=== PATIENT | female | born 1960 | race Caucasian/White ===

== ENCOUNTER 2016-11-25 22:52 | Inpatient (IN) ==
[2016-11-25] MEDS ORDERED: FUROSEMIDE 40 MG/4 ML VIAL IV STA (23:18)
[2016-11-25 23:27] LABS: Basophils % 0.3 % (0.0-0.8); Eosinophils # 0.1 10*3/uL (0.0-0.87); Eosinophils % 0.7 % (0.00-10.9); Hematocrit 49.5 VOL% (35.7-47.0); Hemoglobin 16.2 GM/DL (12.0-16.0); Immature Granulocytes % 0.3 %; Immature Granulocytes Absolute 0.04 #; Lymphocytes # 2.2 10*3/uL (1.4-4.0); Lymphocytes % 17.7 % (21.3-54.2); Mean Corpuscular HGB Conc 32.7 GM/DL (32-36); Mean Corpuscular Hemoglobin 29 PG (27-34); Mean Corpuscular Volume 88.1 FL (87-102); Mean Platelet Volume 11.6 FL (9.6-12.0); Monocytes # 1.3 10*3/uL (0.11-0.8); Monocytes % 10.2 % (1.7-12.7); Neutrophils # 8.7 10*3/uL (1.4-7.4); Neutrophils % 70.8 % (38.7-73.9); Platelet Count 179 T/CUMM (130-400); Red Blood Count 5.62 MC/CUMM (3.8-5.5); White Blood Count 12.3 T/CUMM (4-12)
[2016-11-25] MEDS ORDERED: FUROSEMIDE 40 MG/4 ML VIAL ONE (23:33)
[2016-11-25 23:34] LABS: INR 2.4; Partial Thromboplastin Time 40.6 SECS (0-40)
[2016-11-25 23:35] LABS: PT Patient Result 27.3 SECS
[2016-11-25 23:44] LABS: Alanine Aminotransferase 61 U/L (13-56); Albumin 3.1 G/DL (3.4-5.0); Alkaline Phosphatase 112 U/L (45-117); Apearance,Urine CLEAR (Clear); Aspartate Amino Transferase 52 U/L (0-37); Bilirubin,Urine Negative (Negative); Blood Urea Nitrogen 26 MG/DL (7-18); Blood, Urine Small mg/dL (Negative); Glucose 170 MG/DL (74-106); Glucose,Urine (UA) Negative (Negative); Hyaline Casts,Urine 6 /LPF (0-3); Ketones,Urine Negative (Negative); Nitrite,Urine Negative (Negative); Osmolality,Calculated 274.4 MOS/KG (273-304); Potassium 2.7 MMOL/L (3.5-5.1); Protein,Urine Negative; RBC,Urine 2 /HPF (0-4); Sodium 133 MMOL/L (136-145); Squamous Epithelial Cell,Urine Occasional /HPF (0-10); Total Protein 7.3 G/DL (6.4-8.3); Troponin I Only < 0.015 NG/ML (0.00-0.045); Urine Color Yellow (Yellow); Urine Urobilinogen < 2.0 EU/DL (0.2-1.0); WBC,Urine 2 /HPF (0-6)
--- NOTE | 2016-11-25 23:48 | Emergency Department Note ---
Wilber Carlton Brittany, am scribing for, and in the presence of, Tiffany Kc DO 23:31. IDe Debra, DO, personally performed the services described in this documentation, ascribed by Carla Merino in my presence, and it is both accurate and complete 347 . Arrival - Arrival Chief Complaint: Shortness of Breath ED Nursing Triage Note: Pt arrives via ems from home with complaints of SOB and swelling all over. States that she started swellling five days ago but that tonight it seems that she gained 10 lbs of fluid in a matter of hours. States that she started having SOB and Chest pain about 2 hours ago. Pt is noted to have + 4 edema to bilat lower ext. States that she is on lasix and home 02 but that she does not think they are working. Mode of Arrival: Stretcher Limitations: No Limitations Source: Patient, RN Notes Reviewed Time Seen by Provider: 11/25/16 23:16 - History of Present Illness HPI Narrative: Patient is a 56 y/o white female with a history significant for CHF, Atrial Fibrillation, and Pacemaker placement presenting to the ED by EMS with c/o shortness of breath and edema with an onset of 5 days ago, worsening tonight. Patient reports that edema began to spread diffusely over her body 2 days ago, worsening in severity today. Patient states that about 2 hours ago she began to have some chest pain as well. Patient notes that she currently is on Spirinolactone and has taken Lasix 80 mg BID, but these have done little for a resolution. Patient denies any fever, chills, diaphoresis, abdominal pain, nausea, vomiting, radiation of pain into the back, arms, or neck. Patient has no primary care provider due to currently being in search of one s/p change in insurance recently. Patient reports that she is a patient of Dr. Matute and Dr. Hodges of Cardiology. She has no other complaint/pain. Onset (ago): day(s) (5) Consistency: constant Severity: moderate Severity scale (1-10): 6 Quality: aching Date of Last Menstrual Period: 5+ years Allergies/Adverse Reactions: Allergies Allergy/AdvReac Type Severity Reaction Status Date / Time codeine Allergy Nausea Verified 02/24/16 10:58 ketorolac [From Toradol] Allergy ANAPHYLAXIS Verified 02/24/16 10:58 morphine Allergy ITCHING Verified 02/24/16 10:58 nitroglycerin Allergy Weakness Verified 02/24/16 10:58 tramadol [From Ultram] Allergy ANAPHYLAXIS Verified 02/24/16 10:58 Hydromorphone [From Dilaudid] AdvReac Difficulty Verified 02/24/16 10:58 Breathing Home Medications: Home Medications Medication Instructions Recorded Confirmed Type HYDROcodone/ACETAMIN 10-325 [[place] 1 tablet PO Q4H PRN 04/24/15 11/25/16 History 10-325] ALPRAZolam [Xanax] 0.5 mg PO BID 02/24/16 11/25/16 History Gabapentin 800 mg PO TID 02/24/16 11/25/16 History Warfarin Sodium 7.5 mg PO DAILY 02/24/16 11/25/16 History Albuterol Inhaler [Proventil 2 puff INH Q4H PRN #1 inhaler 02/27/16 11/25/16 Rx Inhaler] Aspirin [Ecotrin] 81 mg PO DAILY 08/30/16 11/25/16 History Spironolactone 25 mg PO BID 08/30/16 11/25/16 History Carvedilol [Coreg] 6.25 mg PO BID #60 tablet 09/09/16 11/25/16 Rx Furosemide Tab [Lasix Tab] 80 mg PO BID DIURETIC #60 tablet 09/09/16 11/25/16 Rx Potassium Chloride Cap/Tab [K Dur] 40 meq PO BID #60 tablet 09/09/16 11/25/16 Rx metFORMIN [Glucophage] 500 mg PO BID W/MEALS #60 tablet 09/09/16 11/25/16 Rx Ciprofloxacin HCl [Ciprofloxacin 500 mg PO BID #10 tablet 10/03/16 11/25/16 Rx Tab] metOLazone [Zaroxolyn] 5 mg PO DAILY #30 tablet 10/03/16 11/25/16 Rx Review of System - Review of System 12 point system: reviewed and no additional remarkable complaints except as stated - Review of System Constitutional: Absent: chills, diaphoresis, fever Eyes: Absent: vision change Head/Ears/Nose/Throat: Absent: nasal drainage, sore throat Respiratory: Present: respiratory distress Cardiovascular: Present: chest pain, edema Gastrointestinal: Absent: abdominal pain, nausea, vomiting, diarrhea, constipation Genitourinary female: Absent: dysuria, frequency, urgency Musculoskeletal: Absent: arm pain, back pain, leg pain, neck pain Skin: Absent: rash Neurological: Absent: headache Psychiatric: Absent: anxiety, depression Medical,Surgical,& Family Hx - Medical History Cardio: History of: Cardiac Dysrhythmia (A Fib), CHF, CAD, Hypertension, [place], Pacemaker Psychological: History of: Anxiety Disorders Endocrine: History of: Diabetes Mellitus (NIDDM) ("borderline"), Dyslipidemia Respiratory: No history of: Obstructive Sleep Apnea (Patient has never had formal PSG and HST was technically inadequate), Respiratory Problems Gastrointestinal: History of: Diverticulitis/ Diverticulosis - Surgical History Cardiac Surgeries: Sugical HX of: Cardiac Catheterization, Cardiac Surgery ( pacemaker (2013); stents (2011);) HEENT Surgeries: Surgical HX of: Tonsilectomy & Adenoidectomy Abdominal Surgeries: Surgical HX of: Cholecystectomy Reproductive Surgeries: Surgical HX of;: Breast Surgery (reduction), Section - Family History Family History: Reports;: Family Cancer (sisters, breast), Family Diabetes ( mother and father), Family Heart Disease (mother and father), Family Stroke ( mother) - Social History Smoking Status: Never smoker Frequency of Alcohol Use: None Type of Drug Use: None Exam Vital Signs: Vital Signs Temperature 98.5 F 11/25/16 22:52 Pulse Rate 83 11/25/16 22:52 Respiratory Rate 24 11/25/16 22:52 Blood Pressure 145/103 11/25/16 22:52 O2 Sat by Pulse Oximetry 94 L 11/25/16 22:52 - General General appearance: alert, in no apparent distress, obese (morbidly) - Head Head exam: Present: atraumatic, normocephalic, normal inspection - Eye Eye exam: Present: normal appearance, PERRL, EOMI - ENT ENT exam: Present: normal exam, normal oropharynx - Neck Neck exam: Present: normal inspection, full ROM, trachea midline - Chest Chest inspection: Present: normal inspection, symmetric chest wall rise - Respiratory Respiratory exam: Present: rales (rales noted to the left lung field). Absent: normal lung sounds bilaterally (decreased breath sounds bilaterally) - Cardiovascular Cardiovascular exam: Present: regular rate, irregular rhythm, normal heart sounds - Abdominal Exam Abdominal exam: Present: soft, normal bowel sounds - Extremities Exam Extremities exam: Present: full ROM, pedal edema (+2 to +3 pitting edema bilaterally with scaling) - Back Exam Back exam: Present: normal inspection - Neurological Exam Neurological exam: Present: alert, oriented X3, CN II-XII intact. Absent: motor sensory deficit - Psychiatric Psychiatric exam: Present: normal affect, normal mood - Skin Skin exam: Present: warm, dry, intact, normal color Results - Labs CBC & BMP: 11/25/16 23:08 Lab Results: I have reviewed the patients labs Labs: Laboratory Tests 11/25/16 11/25/16 23:08 23:08 WBC 12.3 H RBC 5.62 H Hgb 16.2 H Hct 49.5 H Plt Count 179 Lymph % (Auto) 17.7 L Neut # (Auto) 8.7 H [place] # (Auto) 1.3 H INR 2.4 PT Patient/Control Mix 27.3 D Circ Anticoag PTT 40.6 H
[2016-11-26] MEDS ORDERED: ALBUTEROL/IPRATROPIUM 3 ML NEB RESP TX STA (00:21)
--- NOTE | 2016-11-26 01:39 | Hospitalist History & Physical ---
Assessment and Plan (1) Acute on chronic diastolic (congestive) heart failure Status: Acute Assessment and plan: Recent transesophageal echo with an EF of 50% 80 mg of IV Lasix produced a decent response by the time of my exam, continue every 6 hours Will require aggressive potassium replacement Check TSH Monitor on telemetry Continue carvedilol and spironolactone. She is not on any afterload reduction, this should probably be addressed by discharge. Current Visit: Yes (2) FEDE (acute kidney injury) Status: Acute Assessment and plan: Suspect underperfusion secondary to cardiac disease, will trend with diuresis Current Visit: Yes (3) Hypokalemia Status: Acute Assessment and plan: Takes 40 mEq of potassium twice daily at home and yet is still hypokalemic secondary to diuretics. Will require aggressive replacement scheduled oral Lasix started with a one-time IV replacement as well Current Visit: Yes (4) Hyponatremia Status: Acute Assessment and plan: Hypervolemic hyponatremia, expect improvement with diuresis Current Visit: Yes (5) Pacemaker Status: Chronic Assessment and plan: Rhythm at this time is mostly ventricular pacing in the 60s-80s Current Visit: Yes (6) Atrial fibrillation Status: Chronic Assessment and plan: Patient reported that she was in A. fib with RVR for the ambulance ride. Right is currently stable and paced at this time. Can use beta-blockers as needed for rate control. Continue warfarin as she is therapeutic on her home dose. Current Visit: Yes Qualifiers: Atrial fibrillation type: paroxysmal Qualified Code(s): I48.0 - Paroxysmal atrial fibrillation (7) Chest pain Status: Acute Assessment and plan: Initial troponin was several hours after pain started, will check another in the morning and monitor on telemetry. Probably related to heart failure and not acute coronary syndrome. Current Visit: Yes (8) CAD (coronary artery disease) Status: Chronic Assessment and plan: Reports having a "little heart attack" several years ago and has 1 stent. Continue aspirin Current Visit: Yes (9) Morbid obesity Status: Acute Current Visit: Yes History of Present Illness Chief complaint: Leg swelling History of present illness: Ms. Ortez is a 56 year old female with past medical history of diastolic heart failure, atrial fibrillation with pacemaker, hypertension, morbid obesity, diabetes, coronary artery disease with a stent placed several years ago, anxiety that presented with a chief complaint of "legs blew up with fluid." Onset initially gradual with sudden exacerbation today. Duration 5 days. Not relieved by home oral Lasix of which she took double doses for the last couple days. Associated with shortness of breath, decline in general functional status , chest pain. The shortness of breath and chest pain really only became significant over the last day. Chest pain started around 7 PM and is substernal , heavy, associated with some nausea and lightheadedness. No diaphoresis. She was not given any nitroglycerin or morphine due to reported allergy. The pain was present but tolerable at the time of my exam. She states that she has had a light heart attack several years ago and that the time she received a stent. She reported that in the ambulance she was in A. fib with RVR and rate of 130s. I have reviewed the workup performed in the emergency department including lab and imaging data. I discussed her case with emergency department providers. I discussed CODE STATUS with the patient and she preferred full code although she did not appear to have been asked the question before. Home Medications Medication Instructions Recorded Confirmed Type HYDROcodone/ACETAMIN 10-325 [[place] 1 tablet PO Q4H PRN 04/24/15 11/25/16 History 10-325] ALPRAZolam [Xanax] 0.5 mg PO BID 02/24/16 11/25/16 History Gabapentin 800 mg PO TID 02/24/16 11/25/16 History Warfarin Sodium 7.5 mg PO DAILY 02/24/16 11/25/16 History Albuterol Inhaler [Proventil 2 puff INH Q4H PRN #1 inhaler 02/27/16 11/25/16 Rx Inhaler] Aspirin [Ecotrin] 81 mg PO DAILY 08/30/16 11/25/16 History Spironolactone 25 mg PO BID 08/30/16 11/25/16 History Carvedilol [Coreg] 6.25 mg PO BID #60 tablet 09/09/16 11/25/16 Rx Furosemide Tab [Lasix Tab] 80 mg PO BID DIURETIC #60 tablet 09/09/16 11/25/16 Rx Potassium Chloride Cap/Tab [K Dur] 40 meq PO BID #60 tablet 09/09/16 11/25/16 Rx metFORMIN [Glucophage] 500 mg PO BID W/MEALS #60 tablet 03/24/17 06/09/17 Rx Ciprofloxacin HCl [Ciprofloxacin 500 mg PO BID #10 tablet 10/03/16 11/25/16 Rx Tab] metOLazone [Zaroxolyn] 5 mg PO DAILY #30 tablet 10/03/16 11/25/16 Rx Allergies Allergy/AdvReac Type Severity Reaction Status Date / Time codeine Allergy Nausea Verified 02/24/16 10:58 ketorolac [From Toradol] Allergy ANAPHYLAXIS Verified 02/24/16 10:58 morphine Allergy ITCHING Verified 02/24/16 10:58 nitroglycerin Allergy Weakness Verified 02/24/16 10:58 tramadol [From Ultram] Allergy ANAPHYLAXIS Verified 02/24/16 10:58 Hydromorphone [From Dilaudid] AdvReac Difficulty Verified 02/24/16 10:58 Breathing Medical,Surgical,& Family Hx - Medical History Cardio: History of: Cardiac Dysrhythmia (A Fib), CHF, CAD, Hypertension, [place], Pacemaker Psychological: History of: Anxiety Disorders Endocrine: History of: Diabetes Mellitus (NIDDM) ("borderline"), Dyslipidemia Respiratory: No history of: Obstructive Sleep Apnea (Patient has never had formal PSG and HST was technically inadequate), Respiratory Problems Gastrointestinal: History of: Diverticulitis/ Diverticulosis - Surgical History Cardiac Surgeries: Sugical HX of: Cardiac Catheterization, Cardiac Surgery ( pacemaker (2013); stents (2011);) HEENT Surgeries: Surgical HX of: Tonsilectomy & Adenoidectomy Abdominal Surgeries: Surgical HX of: Cholecystectomy Reproductive Surgeries: Surgical HX of;: Breast Surgery (reduction), Section - Family History Family History: Reports;: Family Cancer (sisters, breast), Family Diabetes ( mother and father), Family Heart Disease (mother and father), Family Stroke ( mother) - Social History Smoking Status: Former smoker (Over 30 years ago) Have you smoked in the last 12 months: No Frequency of Alcohol Use: None Type of Drug Use: None Lives With:: Children Functional capacity: uses cane/walker Review of systems: - Constitutional Constitutional: Absent: chills, fatigue, fever(s), night sweats, weight loss - EENT Eyes: Absent: blurry vision Ears: Absent: decreased hearing, ear pain Nose, mouth and throat: Absent: nasal congestion, sore throat - Cardiovascular Cardiovascular: Present: Chest pain, orthopnea, edema absent:palpitations - Respiratory Respiratory: Present: Dry cough, dyspnea absent: hemoptysis - Gastrointestinal Gastrointestinal: Present: Abdominal distention absent: abdominal pain, constipation, diarrhea, dysphagia, hematemesis, hematochezia, melena, nausea, vomiting - Genitourinary Genitourinary: Absent: difficulty urinating, dysuria, hematuria - Musculoskeletal Musculoskeletal: Absent: arthralgias, joint swelling, myalgias - Neurological Neurological: Present: Dizziness absent: confusion, focal weakness, headache(s) , numbness, paresthesias, syncope - Psychiatric Psychiatric: Absent: anxiety, depression - Endocrine Endocrine: Absent: cold intolerance, heat intolerance, polydipsia, polyuria - Hematologic/Lymphatic Hematologic/Lymphatic: Absent: easy bleeding, easy bruising, lymphadenopathy Exam - Constitutional Vitals: Period Temp Pulse Resp BP Sys/Way Pulse Ox Last 24 Hr 98.5 F-98.5 F 83-96 22-30 145-145/103-103 94-96 General appearance: morbidly obese, other (Middle-aged white female lying on stretcher, pleasant cooperative) Exam: - Eye Eye exam: Present: EOMI. Absent: conjunctival injection, scleral icterus Pupils: Present: YARED - ENT ENT exam: Present: normal external ear exam, normal oropharynx - Expanded ENT Exam Mouth exam: Present: moist, poor dentition - Neck Neck exam: Present: normal inspection. Absent: lymphadenopathy, thyromegaly - Respiratory Respiratory exam: Present: Cardiac wheezing, diminished in bases. Absent: accessory muscle use, rales, rhonchi - Cardiovascular Cardiovascular exam: Present: Normal rate and irregular rhythm. Absent: diastolic murmur, systolic murmur - GI/Abdominal GI/Abdominal exam: Present: normal bowel sounds, soft, morbidly obese with chronic edematous changes to panniculus, distended. Absent: hyperactive bowel sounds, hypoactive bowel sounds, organomegaly, tenderness, rebound - Extremities Exam Extremities exam: Present: Acute on chronic appearing edema bilateral lower extremities - Neurological Exam Neurological exam: Present: alert, oriented X3, CN II-XII intact. Absent: motor sensory deficit - Psychiatric Psychiatric exam: Present: normal affect - Skin Skin exam: Present: warm, dry. Absent: diaphoretic, rash Results - Labs CBC & BMP: 11/25/16 23:08 11/25/16 23:08 - Impressions EKG with ventricular pacing 81 bpm with PVCs - Diagnostic Findings Procedure: Chest x-ray: report reviewed by me
[2016-11-26] MEDS ORDERED: ACETAMINOPHEN 325 MG TABLET PO PRN (02:19)
[2016-11-26] MEDS ORDERED: DEXTROSE 50% 25 GM/50 ML VIAL IV PRN (02:19)
[2016-11-26] MEDS ORDERED: GLUCAGON 1 MG VIAL IM PRN (02:19)
[2016-11-26] MEDS: POTASSIUM CHLORIDE RIDER 10 MEQ in PREMIX 1 EACH IV SCH ×4 (03:10→07:11)
[2016-11-26 04:49] LABS: Basophils # 0.1 10*3/uL (0.0-0.2); Basophils % 0.4 % (0.0-0.8); Eosinophils # 0.1 10*3/uL (0.0-0.87); Eosinophils % 0.6 % (0.00-10.9); Hematocrit 48.2 VOL% (35.7-47.0); Hemoglobin 15.8 GM/DL (12.0-16.0); Immature Granulocytes % 0.5 %; Immature Granulocytes Absolute 0.07 #; Lymphocytes # 2.6 10*3/uL (1.4-4.0); Lymphocytes % 18.5 % (21.3-54.2); Mean Corpuscular HGB Conc 32.8 GM/DL (32-36); Mean Corpuscular Hemoglobin 29 PG (27-34); Mean Corpuscular Volume 87.3 FL (87-102); Mean Platelet Volume 12.1 FL (9.6-12.0); Monocytes # 1.5 10*3/uL (0.11-0.8); Monocytes % 10.6 % (1.7-12.7); Neutrophils # 9.8 10*3/uL (1.4-7.4); Neutrophils % 69.4 % (38.7-73.9); Platelet Count 188 T/CUMM (130-400); Red Blood Count 5.52 MC/CUMM (3.8-5.5); White Blood Count 14.1 T/CUMM (4-12)
[2016-11-26 05:19] LABS: Calcium 8.8 MG/DL (8.5-10.1); Magnesium 1.8 MG/DL (1.8-2.4); Osmolality,Calculated 268.7 MOS/KG (273-304)
[2016-11-26 05:27] LABS: Potassium 2.4 MMOL/L (3.5-5.1)
[2016-11-26] MEDS: INSULIN LISPRO 100 UNIT/ML SUBCUT SCH ×4 (07:35→21:07)
--- NOTE | 2016-11-26 08:48 | XRay Report ---
History short of breath Comparison 10/01/2016 The heart and vessels are enlarged with mild diffuse bilateral interstitial opacities. Left lung is mildly under aerated. Pacemaker is present Impression: Mild pulmonary edema PROCEDURE INTERPRETED AT [facility] DEPARTMENT OF RADIOLOGY Final Report Signed by: Dr. Nat Love
[2016-11-26] MEDS ORDERED: POTASSIUM CHLORIDE 20 MEQ TABLET PO SCH (09:00)
[2016-11-26] MEDS: SPIRONOLACTONE 25 MG TABLET PO SCH ×2 (09:09→21:05)
[2016-11-26] MEDS: CARVEDILOL 6.25 MG TABLET PO SCH ×2 (09:10→21:05)
[2016-11-26] MEDS: POTASSIUM CHLORIDE 20 MEQ TABLET PO SCH ×2 (09:10→21:05)
[2016-11-26] MEDS: metOLazone 5 MG TABLET PO SCH (09:10)
[2016-11-26] MEDS: ASPIRIN EC 81 MG TABLET PO SCH (09:10)
[2016-11-26] MEDS: ALPRAZolam 0.5 MG TABLET PO SCH ×2 (09:10→21:04)
[2016-11-26] MEDS: GABAPENTIN 400 MG CAPSULE PO SCH ×3 (09:14→21:04)
--- NOTE | 2016-11-26 10:21 | Hospitalist Progress Note ---
Hospitalist: Subjective Interval history: I saw and examined pt in her room today. Pt states that her SOB got better. Pt's sitting in the chair. On oxygen by NC at 2lpm. O2 sat 94%. RR WNL. Edema on legs and abd area. On IV lasix 80mg BID and potassium replenish. Will repeat K level at 2pm, if ok, may able to transfer pt to floor with monitored bed. Consult Cards. CBC BMP in am. Continue current treatment plan. No charge for this progress note. Exam - Constitutional Vitals: Period Temp Pulse Resp BP Sys/Way Pulse Ox Last 24 Hr 96.8 F-98.5 F 60-97 16-30 101-145/55-103 92-98 Results - Labs CBC & BMP: 11/26/16 03:14 11/26/16 03:14 Quality Measures - VTE Contraindication to Pharmacological VTE Prophylaxis: Already on Theraputic Agent , No Prophylaxis Needed - Stroke Symptom Onset Unknown: No
--- NOTE | 2016-11-26 11:49 | Cardiology Consult Note ---
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 HODGES Ms. Ortez, 56WF, previously followed by Dr. Hodges while hospitalized as she has not attended a clinic visit. Risk factors include: known CAD (per patient report), hypertension, dyslipidemia, is a 56 year old female MELIDA TO COMPLETE CC: Catrachito Birmingham MD - Home Medications and Allergies Home Medications: Home Medications Medication Instructions Recorded Confirmed Type HYDROcodone/ACETAMIN 10-325 [Elba 1 tablet PO Q4H PRN 04/24/15 11/25/16 History 10-325] ALPRAZolam [Xanax] 0.5 mg PO BID 02/24/16 11/25/16 History Gabapentin 800 mg PO TID 02/24/16 11/25/16 History Warfarin Sodium 7.5 mg PO DAILY 02/24/16 11/25/16 History Albuterol Inhaler [Proventil 2 puff INH Q4H PRN #1 inhaler 02/27/16 11/25/16 Rx Inhaler] Aspirin [Ecotrin] 81 mg PO DAILY 08/30/16 11/25/16 History Spironolactone 25 mg PO BID 08/30/16 11/25/16 History Carvedilol [Coreg] 6.25 mg PO BID #60 tablet 09/09/16 11/25/16 Rx Furosemide Tab [Lasix Tab] 80 mg PO BID DIURETIC #60 tablet 09/09/16 11/25/16 Rx Potassium Chloride Cap/Tab [K Dur] 40 meq PO BID #60 tablet 09/09/16 11/25/16 Rx metFORMIN [Glucophage] 500 mg PO BID W/MEALS #60 tablet 09/09/16 11/25/16 Rx Ciprofloxacin HCl [Ciprofloxacin 500 mg PO BID #10 tablet 10/03/16 11/25/16 Rx Tab] metOLazone [Zaroxolyn] 5 mg PO DAILY #30 tablet 10/03/16 11/25/16 Rx Allergies/Adverse Reactions: Allergies Allergy/AdvReac Type Severity Reaction Status Date / Time codeine Allergy Nausea Verified 02/24/16 10:58 ketorolac [From Toradol] Allergy ANAPHYLAXIS Verified 02/24/16 10:58 morphine Allergy ITCHING Verified 02/24/16 10:58 nitroglycerin Allergy Weakness Verified 02/24/16 10:58 tramadol [From Ultram] Allergy ANAPHYLAXIS Verified 02/24/16 10:58 Hydromorphone [From Dilaudid] AdvReac Difficulty Verified 02/24/16 10:58 Breathing Medical,Surgical,& Family Hx - Medical History Cardio: History of: Cardiac Dysrhythmia (A Fib), CHF, CAD, Hypertension, VT, Pacemaker Psychological: History of: Anxiety Disorders Endocrine: History of: Diabetes Mellitus (NIDDM) ("borderline"), Dyslipidemia Respiratory: No history of: Obstructive Sleep Apnea (Patient has never had formal PSG and HST was technically inadequate), Respiratory Problems Gastrointestinal: History of: Diverticulitis/ Diverticulosis - Surgical History Cardiac Surgeries: Sugical HX of: Cardiac Catheterization, Cardiac Surgery ( pacemaker (2013); stents (2011);) HEENT Surgeries: Surgical HX of: Tonsilectomy & Adenoidectomy Abdominal Surgeries: Surgical HX of: Cholecystectomy Reproductive Surgeries: Surgical HX of;: Breast Surgery (reduction), Section - Family History Family History: Reports;: Family Cancer (sisters, breast), Family Diabetes ( mother and father), Family Heart Disease (mother and father), Family Stroke ( mother) - Social History Smoking Status: Former smoker Frequency of Alcohol Use: None Type of Drug Use: None Physical Examination Vital Signs Temp Pulse Resp BP Pulse Ox 98.5 F 83 22 145/103 94 L 11/25/16 22:52 11/25/16 22:52 11/25/16 22:52 11/25/16 22:52 11/25/16 22:52 Result/EKG - Labs CBC & BMP: 11/26/16 03:14 11/26/16 03:14 Labs: Laboratory Results - last 24 hr 11/25/16 11/25/16 11/25/16 23:08 23:08 23:08 WBC 12.3 H RBC 5.62 H Hgb 16.2 H Hct 49.5 H MCV 88.1 MCH 29 MCHC 32.7 RDW 14.0 Plt Count 179 MPV 11.6 Neut % (Auto) 70.8 Lymph % (Auto) 17.7 L [place] % (Auto) 10.2 Eos % (Auto) 0.7 Baso % (Auto) 0.3 Neut # (Auto) 8.7 H Lymph # (Auto) 2.2 [place] # (Auto) 1.3 H Eos # (Auto) 0.1 Baso # (Auto) 0.0 Immature Gran % 0.3 Nucleated RBC % 0.0 Immature Gran # 0.04 Nucleated RBCs # 0.00 INR 2.4 PT Patient/Control Mix 27.3 D Circ Anticoag PTT 40.6 H Sodium 133 L Potassium 2.7 L Chloride 84 L Carbon Dioxide 36 H Anion Gap 15.7 H BUN 26 H Creatinine 1.20 H GFR Calculation 74 BUN/Creatinine Ratio 21.00 H Glucose 170 H POC Glucose Hemoglobin A1c Calculated Osmolality 274.4 Calcium 9.0 Magnesium Total Bilirubin 0.70 AST 52 H ALT 61 H Alkaline Phosphatase 112 Total Creatine Kinase 108 CK-MB (CK-2) 1.2 Troponin I < 0.015 B-Natriuretic Peptide Total Protein 7.3 Albumin 3.1 L Globulin 4.2 H Albumin/Globulin Ratio 0.7 L Urine Color Urine Appearance Urine pH Ur Specific [place] Urine Protein Urine Glucose (UA) Urine Ketones Urine Blood Urine Nitrate Urine Bilirubin Urine Urobilinogen Urine Leukocytes Urine RBC Urine WBC Ur Squamous Epith Cells Hyaline Casts Ur Culture Indicated? 11/25/16 11/25/16 11/26/16 23:08 23:08 03:14 WBC 14.1 H RBC 5.52 H Hgb 15.8 Hct 48.2 H MCV 87.3 MCH 29 MCHC 32.8 RDW 14.0 Plt Count 188 MPV 12.1 H Neut % (Auto) 69.4 Lymph % (Auto) 18.5 L [place] % (Auto) 10.6 Eos % (Auto) 0.6 Baso % (Auto) 0.4 Neut # (Auto) 9.8 H Lymph # (Auto) 2.6 [place] # (Auto) 1.5 H Eos # (Auto) 0.1 Baso # (Auto) 0.1 Immature Gran % 0.5 Nucleated RBC % 0.0 Immature Gran # 0.07 Nucleated RBCs # 0.00 INR PT Patient/Control Mix Circ Anticoag PTT Sodium Potassium Chloride Carbon Dioxide Anion Gap BUN Creatinine GFR Calculation BUN/Creatinine Ratio Glucose POC Glucose Hemoglobin A1c Calculated Osmolality Calcium Magnesium Total Bilirubin AST ALT Alkaline Phosphatase Total Creatine Kinase CK-MB (CK-2) Troponin I B-Natriuretic Peptide 43 Total Protein Albumin Globulin Albumin/Globulin Ratio Urine Color Yellow Urine Appearance Clear Urine pH 7.0 Ur Specific [place] 1.010 Urine Protein Negative Urine Glucose (UA) Negative Urine Ketones Negative Urine Blood Small Urine Nitrate Negative Urine Bilirubin Negative Urine Urobilinogen < 2.0 H Urine Leukocytes Trace Urine RBC 2 Urine WBC 2 Ur Squamous Epith Cells Occasional Hyaline Casts 6 Ur Culture Indicated? Not indicated 11/26/16 11/26/16 11/26/16 03:14 03:14 03:14 WBC RBC Hgb Hct MCV MCH MCHC RDW Plt Count MPV Neut % (Auto) Lymph % (Auto) [place] % (Auto) Eos % (Auto) Baso % (Auto) Neut # (Auto) Lymph # (Auto) [place] # (Auto) Eos # (Auto) Baso # (Auto) Immature Gran % Nucleated RBC % Immature Gran # Nucleated RBCs # INR PT Patient/Control Mix Circ Anticoag PTT Sodium 131 L Potassium 2.4 L* Chloride 83 L Carbon Dioxide 36 H Anion Gap 14.4 BUN 27 H Creatinine 1.00 GFR Calculation 92 BUN/Creatinine Ratio 27.00 H Glucose 133 H POC Glucose Hemoglobin A1c 6.9 H Calculated Osmolality 268.7 L Calcium 8.8 Magnesium 1.8 Total Bilirubin AST ALT Alkaline Phosphatase Total Creatine Kinase CK-MB (CK-2) Troponin I 0.021 B-Natriuretic Peptide Total Protein Albumin Globulin Albumin/Globulin Ratio Urine Color Urine Appearance Urine pH Ur Specific [place] Urine Protein Urine Glucose (UA) Urine Ketones Urine Blood Urine Nitrate Urine Bilirubin Urine Urobilinogen Urine Leukocytes Urine RBC Urine WBC Ur Squamous Epith Cells Hyaline Casts Ur Culture Indicated? 11/26/16 11:28 WBC RBC Hgb Hct MCV MCH MCHC RDW Plt Count MPV Neut % (Auto) Lymph % (Auto) [place] % (Auto) Eos % (Auto) Baso % (Auto) Neut # (Auto) Lymph # (Auto) [place] # (Auto) Eos # (Auto) Baso # (Auto) Immature Gran % Nucleated RBC % Immature Gran # Nucleated RBCs # INR PT Patient/Control Mix Circ Anticoag PTT Sodium Potassium Chloride Carbon Dioxide Anion Gap BUN Creatinine GFR Calculation BUN/Creatinine Ratio Glucose POC Glucose 110 H Hemoglobin A1c Calculated Osmolality Calcium Magnesium Total Bilirubin AST ALT Alkaline Phosphatase Total Creatine Kinase CK-MB (CK-2) Troponin I B-Natriuretic Peptide Total Protein Albumin Globulin Albumin/Globulin Ratio Urine Color Urine Appearance Urine pH Ur Specific [place] Urine Protein Urine Glucose (UA) Urine Ketones Urine Blood Urine Nitrate Urine Bilirubin Urine Urobilinogen Urine Leukocytes Urine RBC Urine WBC Ur Squamous Epith Cells Hyaline Casts Ur Culture Indicated? Quality Measures - VTE Contraindication to Pharmacological VTE Prophylaxis: Already on Theraputic Agent , No Prophylaxis Needed - Stroke Symptom Onset Unknown: No <Selvin Calloway - Last Filed: 11/26/16 12:14> Assessment and Plan (1) Chest pain Status: Acute Current Visit: Yes (2) Morbid obesity Status: Acute Current Visit: Yes (3) Atrial fibrillation Status: Chronic Current Visit: Yes Qualifiers: Atrial fibrillation type: paroxysmal Qualified Code(s): I48.0 - Paroxysmal atrial fibrillation (4) Pacemaker Status: Chronic Current Visit: Yes (5) Acute on chronic diastolic (congestive) heart failure Status: Acute Assessment and plan: We will push diuresis. Her prognosis is terrible related to her weight and they will be not much that we can accomplish here from a volume standpoint until we can get her to lose some weight. Her rhythm appears to be stable and we will follow that. Current Visit: Yes History of Present Illness - Consult Narrative History of present illness: Ms. Ortez is a 56 year old female who has a history of morbid obesity history of remote coronary artery disease history of atrial fib flutter and recurring congestive heart failure with chronic lower extremity edema and severe dyspnea related to her weight primarily. She was admitted because of some atypical chest pain shortness of breath and peripheral edema with likely heart failure. She has been admitted on numerous occasions with similar complaints and we will push diuresis and see if we can get have her volume status optimized. This is primarily related to her morbid obesity. She had an echo done back in August of this year which demonstrated an ejection fraction in the 50% range. There were no significant valvular issues at this time. Her EKG is unrevealing. She has a chronically paced rhythm. CC: Catrachito Birmingham MD Physical Examination Vital Signs Temp Pulse Resp BP Pulse Ox 98.5 F 83 22 145/103 94 L 11/25/16 22:52 11/25/16 22:52 11/25/16 22:52 11/25/16 22:52 11/25/16 22:52 Other: Physical examination: General: The patient is awake and alert and oriented -3. Mood and affect are normal. Patient is morbidly obese HEENT: Normocephalic, sclera are clear there are no lid xanthelasmas noted. Oral mucosa is free of cyanosis or pallor. Neck: The neck is supple without JVD. Carotid upstrokes are normal volume and amplitude. There is no audible bruit. There is no palpable thyroid. Trachea is midline. Chest: Lungs: The patient is comfortable at rest without intercostal retractions or abdominal breathing. There are no adventitial sounds rales rubs rhonchi or wheezes noted. Cardiovascular: The PMI is nondisplaced. No palpable thrill S3 or S4. There is a regular rate and rhythm with no murmur rub or gallop noted. Dorsalis pedis posterior tibial are not palpable Abdomen: Abdomen is obese soft and diffusely tender with normal active bowel sounds. There is no palpable mass or organomegaly noted. There is no midline bruit. Extremities exam: There is no cyanosis clubbing or edema. Skin: Skin is warm and dry without ecchymosis or urticaria or skin rash. There are no palpable nodules. Musculoskeletal: There is no kyphosis or scoliosis noted. Result/EKG - Labs CBC & BMP: 11/26/16 03:14 11/26/16 03:14 Labs: Laboratory Results - last 24 hr 11/25/16 11/25/16 11/25/16 23:08 23:08 23:08 WBC 12.3 H RBC 5.62 H Hgb 16.2 H Hct 49.5 H MCV 88.1 MCH 29 MCHC 32.7 RDW 14.0 Plt Count 179 MPV 11.6 Neut % (Auto) 70.8 Lymph % (Auto) 17.7 L [place] % (Auto) 10.2 Eos % (Auto) 0.7 Baso % (Auto) 0.3 Neut # (Auto) 8.7 H Lymph # (Auto) 2.2 [place] # (Auto) 1.3 H Eos # (Auto) 0.1 Baso # (Auto) 0.0 Immature Gran % 0.3 Nucleated RBC % 0.0 Immature Gran # 0.04 Nucleated RBCs # 0.00 INR 2.4 PT Patient/Control Mix 27.3 D Circ Anticoag PTT 40.6 H Sodium 133 L Potassium 2.7 L Chloride 84 L Carbon Dioxide 36 H Anion Gap 15.7 H BUN 26 H Creatinine 1.20 H GFR Calculation 74 BUN/Creatinine Ratio 21.00 H Glucose 170 H POC Glucose Hemoglobin A1c Calculated Osmolality 274.4 Calcium 9.0 Magnesium Total Bilirubin 0.70 AST 52 H ALT 61 H Alkaline Phosphatase 112 Total Creatine Kinase 108 CK-MB (CK-2) 1.2 Troponin I < 0.015 B-Natriuretic Peptide Total Protein 7.3 Albumin 3.1 L Globulin 4.2 H Albumin/Globulin Ratio 0.7 L Urine Color Urine Appearance Urine pH Ur Specific [place] Urine Protein Urine Glucose (UA) Urine Ketones Urine Blood Urine Nitrate Urine Bilirubin Urine Urobilinogen Urine Leukocytes Urine RBC Urine WBC Ur Squamous Epith Cells Hyaline Casts Ur Culture Indicated? 11/25/16 11/25/16 11/26/16 23:08 23:08 03:14 WBC 14.1 H RBC 5.52 H Hgb 15.8 Hct 48.2 H MCV 87.3 MCH 29 MCHC 32.8 RDW 14.0 Plt Count 188 MPV 12.1 H Neut % (Auto) 69.4 Lymph % (Auto) 18.5 L [place] % (Auto) 10.6 Eos % (Auto) 0.6 Baso % (Auto) 0.4 Neut # (Auto) 9.8 H Lymph # (Auto) 2.6 [place] # (Auto) 1.5 H Eos # (Auto) 0.1 Baso # (Auto) 0.1 Immature Gran % 0.5 Nucleated RBC % 0.0 Immature Gran # 0.07 Nucleated RBCs # 0.00 INR PT Patient/Control Mix Circ Anticoag PTT Sodium Potassium Chloride Carbon Dioxide Anion Gap BUN Creatinine GFR Calculation BUN/Creatinine Ratio Glucose POC Glucose Hemoglobin A1c Calculated Osmolality Calcium Magnesium Total Bilirubin AST ALT Alkaline Phosphatase Total Creatine Kinase CK-MB (CK-2) Troponin I B-Natriuretic Peptide 43 Total Protein Albumin Globulin Albumin/Globulin Ratio Urine Color Yellow Urine Appearance Clear Urine pH 7.0 Ur Specific [place] 1.010 Urine Protein Negative Urine Glucose (UA) Negative Urine Ketones Negative Urine Blood Small Urine Nitrate Negative Urine Bilirubin Negative Urine Urobilinogen < 2.0 H Urine Leukocytes Trace Urine RBC 2 Urine WBC 2 Ur Squamous Epith Cells Occasional Hyaline Casts 6 Ur Culture Indicated? Not indicated 11/26/16 11/26/16 11/26/16 03:14 03:14 03:14 WBC RBC Hgb Hct MCV MCH MCHC RDW Plt Count MPV Neut % (Auto) Lymph % (Auto) [place] % (Auto) Eos % (Auto) Baso % (Auto) Neut # (Auto) Lymph # (Auto) [place] # (Auto) Eos # (Auto) Baso # (Auto) Immature Gran % Nucleated RBC % Immature Gran # Nucleated RBCs # INR PT Patient/Control Mix Circ Anticoag PTT Sodium 131 L Potassium 2.4 L* Chloride 83 L Carbon Dioxide 36 H Anion Gap 14.4 BUN 27 H Creatinine 1.00 GFR Calculation 92 BUN/Creatinine Ratio 27.00 H Glucose 133 H POC Glucose Hemoglobin A1c 6.9 H Calculated Osmolality 268.7 L Calcium 8.8 Magnesium 1.8 Total Bilirubin AST ALT Alkaline Phosphatase Total Creatine Kinase CK-MB (CK-2) Troponin I 0.021 B-Natriuretic Peptide Total Protein Albumin Globulin Albumin/Globulin Ratio Urine Color Urine Appearance Urine pH Ur Specific [place] Urine Protein Urine Glucose (UA) Urine Ketones Urine Blood Urine Nitrate Urine Bilirubin Urine Urobilinogen Urine Leukocytes Urine RBC Urine WBC Ur Squamous Epith Cells Hyaline Casts Ur Culture Indicated? 11/26/16 11:28 WBC RBC Hgb Hct MCV MCH MCHC RDW Plt Count MPV Neut % (Auto) Lymph % (Auto) [place] % (Auto) Eos % (Auto) Baso % (Auto) Neut # (Auto) Lymph # (Auto) [place] # (Auto) Eos # (Auto) Baso # (Auto) Immature Gran % Nucleated RBC % Immature Gran # Nucleated RBCs # INR PT Patient/Control Mix Circ Anticoag PTT Sodium Potassium Chloride Carbon Dioxide Anion Gap BUN Creatinine GFR Calculation BUN/Creatinine Ratio Glucose POC Glucose 110 H Hemoglobin A1c Calculated Osmolality Calcium Magnesium Total Bilirubin AST ALT Alkaline Phosphatase Total Creatine Kinase CK-MB (CK-2) Troponin I B-Natriuretic Peptide Total Protein Albumin Globulin Albumin/Globulin Ratio Urine Color Urine Appearance Urine pH Ur Specific [place] Urine Protein Urine Glucose (UA) Urine Ketones Urine Blood Urine Nitrate Urine Bilirubin Urine Urobilinogen Urine Leukocytes Urine RBC Urine WBC Ur Squamous Epith Cells Hyaline Casts Ur Culture Indicated?
[2016-11-26] MEDS ORDERED: MAGNESIUM SULF RIDER 4 GM in PREMIX 1 EACH IV PRN (12:15)
[2016-11-26] MEDS: FUROSEMIDE 40 MG/4 ML VIAL IV SCH ×3 (12:43→21:55)
[2016-11-26] MEDS: MAGNESIUM SULF RIDER 2 GM in PREMIX 1 EACH IV PRN (13:38)
--- NOTE | 2016-11-26 14:20 | EKG Report ---
Stationary ECG Study [facility] ER Test Date: 11/25/2016 11:05:04 PM Pat Name: ZUHAIR CONDON Department: Room: 266 Gender: F Lab Director: ROSA : 1960 Requested by: Tfifany Kc Order Number: [id number] Reading MD: SELENE KOWALSKI Intervals [place] Rate: 81 P: 999 NC: 0 QRS: -72 QRSD: 190 T: 83 QT: 489 QTc: 527 Interpretive Statements ELECTRONIC VENTRICULAR PACEMAKER ABNORMAL RHYTHM ECG Electronically Signed On 11-27-16 15:31:24 CDT by SELENE KOWALSKI [email or web address]
[2016-11-26] MEDS: SODIUM CHLOR 0.9% KCL 40 MEQ 40 MEQ/1,000 ML BAG IV SCH (15:13)
[2016-11-26] MEDS: WARFARIN 7.5 MG TABLET PO SCH (17:18)
[2016-11-27] MEDS: ALBUTEROL 2.5 MG/3 ML NEB RESP TX PRN ×2 (02:54→10:25)
[2016-11-27] MEDS: FUROSEMIDE 40 MG/4 ML VIAL IV SCH ×4 (03:02→21:12)
[2016-11-27 05:30] LABS: Basophils % 0.4 % (0.0-0.8); Eosinophils # 0.2 10*3/uL (0.0-0.87); Eosinophils % 1.5 % (0.00-10.9); Hematocrit 49.5 VOL% (35.7-47.0); Hemoglobin 15.7 GM/DL (12.0-16.0); Immature Granulocytes % 0.3 %; Immature Granulocytes Absolute 0.03 #; Lymphocytes # 1.6 10*3/uL (1.4-4.0); Lymphocytes % 13.9 % (21.3-54.2); Mean Corpuscular HGB Conc 31.7 GM/DL (32-36); Mean Corpuscular Hemoglobin 28 PG (27-34); Mean Corpuscular Volume 88.6 FL (87-102); Monocytes # 1.3 10*3/uL (0.11-0.8); Monocytes % 11.8 % (1.7-12.7); Neutrophils # 8.1 10*3/uL (1.4-7.4); Neutrophils % 72.1 % (38.7-73.9); Platelet Count 172 T/CUMM (130-400); Red Blood Count 5.59 MC/CUMM (3.8-5.5); Red Cell Distribution Width 14.1 % (9.3-17.3); White Blood Count 11.3 T/CUMM (4-12)
[2016-11-27 08:31] LABS: Calcium 9.5 MG/DL (8.5-10.1); Magnesium 1.9 MG/DL (1.8-2.4); Osmolality,Calculated 276.2 MOS/KG (273-304); Potassium 2.8 MMOL/L (3.5-5.1)
[2016-11-27] MEDS: INSULIN LISPRO 100 UNIT/ML SUBCUT SCH ×4 (08:56→21:18)
[2016-11-27] MEDS: GABAPENTIN 400 MG CAPSULE PO SCH ×3 (08:58→21:10)
[2016-11-27] MEDS: metOLazone 5 MG TABLET PO SCH (08:58)
[2016-11-27] MEDS: POTASSIUM CHLORIDE 20 MEQ TABLET PO SCH ×2 (08:58→21:11)
[2016-11-27] MEDS: SPIRONOLACTONE 25 MG TABLET PO SCH ×2 (08:59→21:12)
[2016-11-27] MEDS: CARVEDILOL 6.25 MG TABLET PO SCH ×2 (08:59→21:12)
[2016-11-27] MEDS: ASPIRIN EC 81 MG TABLET PO SCH (08:59)
[2016-11-27] MEDS: ALPRAZolam 0.5 MG TABLET PO SCH ×2 (09:00→21:12)
--- NOTE | 2016-11-27 09:36 | Cardiology Progress Note ---
Assessment and Plan (1) Chest pain Status: Acute Current Visit: Yes (2) Morbid obesity Status: Acute Current Visit: Yes (3) Atrial fibrillation Status: Chronic Assessment and plan: I have not noted any atrial fibrillation on her monitor strips to this point. Current Visit: Yes Qualifiers: Atrial fibrillation type: paroxysmal Qualified Code(s): I48.0 - Paroxysmal atrial fibrillation (4) Pacemaker Status: Chronic Assessment and plan: Pacemaker function appears nominal. Current Visit: Yes (5) Acute on chronic diastolic (congestive) heart failure Status: Acute Assessment and plan: We will push diuresis. Her prognosis is terrible related to her weight and they will be not much that we can accomplish here from a volume standpoint until we can get her to lose some weight. Her rhythm appears to be stable and we will follow that. Current Visit: Yes Cardiology - PN: Subj Interval history: The patient feels as if he may be breathing a little bit better today. No history of any problems related to chest discomfort. She is not ambulatory. Her urine output has been fairly good on her current dose of diuretics. She denies chest pain. She has had no other specific complaints. Exam (Progress Note) - Constitutional Vitals: Period Temp Pulse Resp BP Sys/Way Pulse Ox Last 24 Hr 96.5 F-98.4 F 59-80 19-21 102-120/62-81 93-98 Exam: General:no acute distress. Morbidly obese, alert and oriented, mood and affect are normal HEENT: no new lesions, sclerae are clear, mouth and pharynx benign Neck: supple, trachea midline, no JVD noted Lungs: no rales ronchi or wheeze is noted. pt comfortable without accesory muscle use to assist with breathing CV: RRR no murmur rub or gallop is noted. Abd: soft and nontender, BSNA, no masses. Ext: Chronic edematous lower extremities bilaterally. No cyanosis or clubbing is noted. Neuro: grossly intact without focal neurologic deficit. Result/EKG - Labs CBC & BMP: 11/27/16 04:43 11/27/16 07:40 Labs: Laboratory Results - last 24 hr 11/26/16 11/26/16 11/26/16 11:28 14:12 16:55 WBC RBC Hgb Hct MCV MCH MCHC RDW Plt Count MPV Neut % (Auto) Lymph % (Auto) [place] % (Auto) Eos % (Auto) Baso % (Auto) Neut # (Auto) Lymph # (Auto) [place] # (Auto) Eos # (Auto) Baso # (Auto) Immature Gran % Nucleated RBC % Immature Gran # Nucleated RBCs # Sodium Potassium 2.9 L Chloride Carbon Dioxide Anion Gap BUN Creatinine GFR Calculation BUN/Creatinine Ratio Glucose POC Glucose 110 H 158 H Calculated Osmolality Calcium Magnesium 11/26/16 11/27/16 11/27/16 19:10 04:43 06:46 WBC 11.3 RBC 5.59 H Hgb 15.7 Hct 49.5 H MCV 88.6 MCH 28 MCHC 31.7 L RDW 14.1 Plt Count 172 MPV 12.0 Neut % (Auto) 72.1 Lymph % (Auto) 13.9 L [place] % (Auto) 11.8 Eos % (Auto) 1.5 Baso % (Auto) 0.4 Neut # (Auto) 8.1 H Lymph # (Auto) 1.6 [place] # (Auto) 1.3 H Eos # (Auto) 0.2 Baso # (Auto) 0.0 Immature Gran % 0.3 Nucleated RBC % 0.0 Immature Gran # 0.03 Nucleated RBCs # 0.00 Sodium Potassium Chloride Carbon Dioxide Anion Gap BUN Creatinine GFR Calculation BUN/Creatinine Ratio Glucose POC Glucose 183 H 199 H Calculated Osmolality Calcium Magnesium 11/27/16 07:40 WBC RBC Hgb Hct MCV MCH MCHC RDW Plt Count MPV Neut % (Auto) Lymph % (Auto) [place] % (Auto) Eos % (Auto) Baso % (Auto) Neut # (Auto) Lymph # (Auto) [place] # (Auto) Eos # (Auto) Baso # (Auto) Immature Gran % Nucleated RBC % Immature Gran # Nucleated RBCs # Sodium 134 L Potassium 2.8 L Chloride 84 L Carbon Dioxide 41 H Anion Gap 11.8 BUN 26 H Creatinine 1.00 GFR Calculation 97 BUN/Creatinine Ratio 26.00 H Glucose 167 H POC Glucose Calculated Osmolality 276.2 Calcium 9.5 Magnesium 1.9 Quality Measures - VTE Contraindication to Pharmacological VTE Prophylaxis: Already on Theraputic Agent , No Prophylaxis Needed - Stroke Symptom Onset Unknown: No
[2016-11-27 10:03] LABS: INR 2.2
[2016-11-27 10:04] LABS: PT Patient Result 24.5 SECS
[2016-11-27] MEDS: SODIUM CHLOR 0.9% KCL 40 MEQ 40 MEQ/1,000 ML BAG IV SCH (11:17)
--- NOTE | 2016-11-27 13:17 | Hospitalist Progress Note ---
Assessment and Plan - Time spent with patient Time spent with patient: Greater than 30 minutes (1) Acute on chronic diastolic (congestive) heart failure Status: Acute Assessment and plan: Continue aggressive diuresis. Monitor I&O and daily weight. Replenish K. Cards f/u. Current Visit: Yes (2) FEDE (acute kidney injury) Status: Acute Assessment and plan: On diuresis. Monitor BUN/Cr closely. Current Visit: Yes (3) Hypokalemia Status: Acute Assessment and plan: Replenish KCl. Repeat K level in am. Current Visit: Yes (4) Hyponatremia Status: Acute Assessment and plan: Prob due to CHF and on diuretics. Monitor Na level in am. Current Visit: Yes (5) Obesity hypoventilation syndrome Status: Acute Current Visit: No (6) Morbid obesity Status: Acute Assessment and plan: Needs to loose weight! Current Visit: Yes (7) Diabetes Status: Chronic Assessment and plan: Continue insulin coverage. Current Visit: No Hospitalist: Subjective Interval history: 11/27/16: No overnight acute event. Sitting in chair. Eating meals. Feeling better. No fever, chest pain or abd pain reported. Interval history: with past medical history of diastolic heart failure, atrial fibrillation with pacemaker, hypertension, morbid obesity, diabetes, coronary artery disease with a stent placed several years ago, anxiety and pacemaker adm to our hospital due to Acute on chronic CHF with hypokalemia, FEDE, and hyponatremia. Cardiology consulted. Exam - Constitutional Vitals: Period Temp Pulse Resp BP Sys/Way Pulse Ox Last 24 Hr 96.5 F-98.2 F 59-67 16-21 102-120/57-81 93-98 Exam: GENERAL: NAD, AAOx3. Morbidly obese. HEENT: Pupils equally round and reactive to light, conjunctivae clear. Oropharynx pink, with moist mucous membranes. Normal lips, teeth and gums. NECK: Supple without mass. HEART: RRR, no murmur. CHEST: Normal shape, good air movement, no retractions. CV: RRR, no murmurs, 2+ peripheral pulses LUNGS: Clear to auscultation; no rales, rhonchi, or wheezes. ABDOMEN: Soft, nontender SKIN: Severe edema on b/l lower extremities. LYMPH: No anterior or posterior cervical, or supraclavicular lymphadenopathy. NEURO: No gross motor deficits noted. Results - Labs CBC & BMP: 11/27/16 04:43 11/27/16 07:40 Quality Measures - VTE Contraindication to Pharmacological VTE Prophylaxis: Already on Theraputic Agent , No Prophylaxis Needed - Stroke Symptom Onset Unknown: No
[2016-11-27] MEDS: WARFARIN 7.5 MG TABLET PO SCH (17:22)
[2016-11-27] MEDS: POTASSIUM CHLORIDE RIDER 10 MEQ in PREMIX 1 EACH IV PRN ×2 (21:55→23:58)
[2016-11-28] MEDS: ALBUTEROL 2.5 MG/3 ML NEB RESP TX PRN (00:36)
[2016-11-28] MEDS: FUROSEMIDE 40 MG/4 ML VIAL IV SCH ×2 (02:25→09:11)
[2016-11-28 06:29] LABS: INR 2.4
[2016-11-28 06:30] LABS: PT Patient Result 27.4 SECS
[2016-11-28] MEDS ORDERED: metOLazone 5 MG TABLET PO SCH (09:00)
[2016-11-28] MEDS: INSULIN LISPRO 100 UNIT/ML SUBCUT SCH ×4 (09:09→20:51)
[2016-11-28] MEDS: SODIUM CHLOR 0.9% KCL 40 MEQ 40 MEQ/1,000 ML BAG IV SCH (09:09)
[2016-11-28] MEDS: GABAPENTIN 400 MG CAPSULE PO SCH ×3 (09:23→20:50)
[2016-11-28] MEDS: ALPRAZolam 0.5 MG TABLET PO SCH ×2 (09:23→20:48)
[2016-11-28] MEDS: SPIRONOLACTONE 25 MG TABLET PO SCH ×2 (09:24→20:48)
[2016-11-28] MEDS: CARVEDILOL 6.25 MG TABLET PO SCH ×2 (09:24→20:49)
[2016-11-28] MEDS: ASPIRIN EC 81 MG TABLET PO SCH (09:24)
[2016-11-28] MEDS: POTASSIUM CHLORIDE 20 MEQ TABLET PO SCH ×4 (09:24→20:41)
[2016-11-28] MEDS: metOLazone 5 MG TABLET PO SCH (09:26)
--- NOTE | 2016-11-28 11:15 | Cardiology Progress Note ---
<Melida Rush E - Last Filed: 11/28/16 10:50> Assessment and Plan - Time spent with patient Time spent with patient: Greater than 30 minutes (1) Hypomagnesemia Status: Acute Assessment and plan: SEE PLAN OF CARE LISTED BELOW Current Visit: Yes (2) Noncompliance Status: Chronic Assessment and plan: SEE PLAN OF CARE LISTED BELOW Current Visit: Yes (3) Hypertension Status: Chronic Assessment and plan: SEE PLAN OF CARE LISTED BELOW Current Visit: Yes (4) History of coronary artery disease Status: Chronic Assessment and plan: SEE PLAN OF CARE LISTED BELOW Current Visit: No (5) Morbid obesity Status: Chronic Assessment and plan: SEE PLAN OF CARE LISTED BELOW Current Visit: No Qualifiers: Obesity type: with alveolar hypoventilation Qualified Code(s): E66.2 - Morbid (severe) obesity with alveolar hypoventilation (6) Anxiety Status: Chronic Assessment and plan: SEE PLAN OF CARE LISTED BELOW Current Visit: No (7) Pacemaker Status: Chronic Assessment and plan: SEE PLAN OF CARE LISTED BELOW Current Visit: Yes (8) History of atrial fibrillation Status: Chronic Assessment and plan: SEE PLAN OF CARE LISTED BELOW Current Visit: No (9) Chronic anticoagulation Status: Chronic Current Visit: No (10) Sleep apnea Status: Chronic Current Visit: No Qualifiers: Sleep apnea type: obstructive Qualified Code(s): G47.33 - Obstructive sleep apnea (adult) (pediatric) (11) NSVT (nonsustained ventricular tachycardia) Status: Acute Assessment and plan: SEE PLAN OF CARE LISTED BELOW Current Visit: No (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 Assessment and plan: SEE PLAN OF CARE LISTED BELOW Current Visit: No (13) Congestive heart failure Status: Acute Assessment and plan: SEE PLAN OF CARE LISTED BELOW Current Visit: No Qualifiers: Congestive heart failure type: diastolic Congestive heart failure chronicity: acute on chronic Qualified Code(s): I50.33 - Acute on chronic diastolic (congestive) heart failure (14) Obesity hypoventilation syndrome Status: Chronic Assessment and plan: SEE PLAN OF CARE LISTED BELOW Current Visit: No (15) Diabetes Status: Chronic Assessment and plan: SEE PLAN OF CARE LISTED BELOW Current Visit: No (16) Hypokalemia Status: Acute Assessment and plan: SEE PLAN OF CARE LISTED BELOW Current Visit: Yes Cardiology - PN: Subj Interval history: DRILL RUNNER: DR. HODGES SUMMARY: Ms. 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 Risk factors include: Known coronary artery disease ([facility] 2010 revealed patent distal RCA), morbid obesity, hypertension, dyslipidemia, diabetes, sedentary lifestyle and noncompliance. She has sleep apnea, noncompliant with device. History of atrial flutter, DARCY April 2015 revealed left atrial appendage clot. She takes Coumadin for stroke prevention. Echocardiogram August 2016 revealed: EF 50%, no significant valvular abnormality, PAP 51 mmHg, diastolic dysfunction. Frequent hospitalizations for volume overload, shortness of breath, atypical chest pain. Patient was admitted November 25, 2016 for acute on chronic diastolic congestive heart failure. (NYHA Class III). She has been placed on telemetry. Cardiac biomarkers negative, EKG unremarkable. She is basically nonambulatory by choice. NOVEMBER 28, 2016: Over the weekend, patient has improved minimally. She appears more comfortable this morning. She denies chest pain other than reproducible chest pain. Her rhythm is frequently paced. Last night, she had a 3 beat run of NSVT. This morning, potassium is low and has been low since admission. I will verify she is getting this replaced and I will recheck another potassium this afternoon. Also, check a magnesium level as it was mildly low over the weekend. INR therapeutic. She is tolerating Aspirin, beta-reyes, Coumadin. She is taking Spironolactone, Metolazone, Lasix 80 mg IV Q6. I&O does not reflect significant volume loss since admission. May benefit from an KARINE inhibitor and lipid lowering agent. I do not see a contraindication for starting these. This morning, I will add low-dose Lisinopril and Atorvastatin. Continue with diuresing. Will further discuss with Dr. Daniels and await additional recommendations. ASSESSMENT/PLAN: 1. ACUTE ON CHRONIC CHF - secondary to diastolic dysfunction, NYHA Class III. Continue with diuresing, strict I&O, daily weights. 2. MORBID OBESITY - dietary counseling prior to discharge 3. HYPERTENSION - adequately controlled. Will add Lisinopril 2.5 mg daily. BMP in a.m. 4. DYSLIPIDEMIA - lipid profile in the morning. Atorvastatin 20 mg each evening starting tonight. 5. SLEEP APNEA - noncompliant. We will not consult Dr. Bloom as he has seen her on numerous occasions and she chooses not to follow-up outpatient and/or where sleep device. 6. KNOWN CAD - history of stent to distal RCA at [facility] prior to 2010. 7. HISTORY OF ATRIAL FIBRILLATION WITH LEFT ATRIAL APPENDAGE CLOT - INR therapeutic 8. HIGH RISK MEDICATION - Coumadin continues 9. DIABETES - sliding scale 10. HYPOKALEMIA - will add potassium replacement protocol 11. HYPOMAGNESEMIA - will add magnesium replacement protocol 12. NON-COMPLIANCE WITH CARDIOLOGY FOLLOW-UP - reiterated the importance of compliance. 13. S/P PPM - continue current plan of care. Exam (Progress Note) - Constitutional Vitals: Period Temp Pulse Resp BP Sys/Way Pulse Ox Last 24 Hr 96.5 F-98 F 60-65 15-20 110-144/57-72 94-100 Exam: General: [Morbidly obese. Sitting up in bedside chair. Cooperative. ] HEENT: [PERRL, normocephalic, atraumatic. Mucous membranes moist. No jaundice noted. Conjunctiva moist and clear, sclerae anicteric] Neck: Difficult to assess JVD due to habitus. No obvious thyromegaly or lymphadenopathy is noted. No carotid bruit appreciated Cardiac: [Regular rate and rhythm.] [No obvious murmur rub or gallop.] Lungs: [Clear to auscultation without accessory muscle use to assist the respiratory pattern.] Using oxygen intermittently Abdomen: Soft, bowel sounds normoactive. Nontender and nondistended. No abdominal bruit or thrill noted. No masses noted. Musculoskeletal: No fluid collection. Decreased range of motion is noted. Extremities: No clubbing, cyanosis noted. [3+ bilateral lower extremity edema. ] Upper extremity pulses 2+. Difficult to palpate lower extremity pulses due to edema. Capillary refill less than 3 seconds, feet warm. Skin: No unusual lesions or rashes. No skin breakdown appreciated. Neuro: Awake, alert and oriented 3. Moves all extremities well without hemiparesis or paralysis. No essential tremor is appreciated. Result/EKG - Labs CBC & BMP: 11/27/16 04:43 11/28/16 05:35 Lab Results: I have reviewed the past 24 hour labs Labs: Laboratory Results - last 24 hr 11/27/16 11/27/16 11/27/16 11:10 15:27 21:10 INR PT Patient/Control Mix Potassium POC Glucose 198 H 164 H 155 H B-Natriuretic Peptide 11/28/16 11/28/16 11/28/16 05:35 05:35 05:35 INR 2.4 PT Patient/Control Mix 27.4 Potassium 3.4 L POC Glucose B-Natriuretic Peptide 30 11/28/16 07:09 INR PT Patient/Control Mix Potassium POC Glucose 191 H B-Natriuretic Peptide - Diagnostic Findings Procedure: Chest x-ray: report reviewed by me - EKG EKG results: interpreted by me EKG shows: sinus rhythm (Paced rhythm) Quality Measures - VTE Contraindication to Pharmacological VTE Prophylaxis: Already on Theraputic Agent , No Prophylaxis Needed - Stroke Symptom Onset Unknown: No <Mauro Daniels - Last Filed: 11/28/16 15:02> Exam (Progress Note) - Constitutional Vitals: Period Temp Pulse Resp BP Sys/Way Pulse Ox Last 24 Hr 96.5 F-97.6 F 60-64 15-20 103-144/58-85 91-100 Result/EKG - Labs CBC & BMP: 11/27/16 04:43 11/28/16 05:35 Labs: Laboratory Results - last 24 hr 11/27/16 11/27/16 11/28/16 15:27 21:10 05:35 INR 2.4 PT Patient/Control Mix 27.4 Potassium POC Glucose 164 H 155 H B-Natriuretic Peptide 11/28/16 11/28/16 11/28/16 05:35 05:35 07:09 INR PT Patient/Control Mix Potassium 3.4 L POC Glucose 191 H B-Natriuretic Peptide 30 11/28/16 11:23 INR PT Patient/Control Mix Potassium POC Glucose 146 H B-Natriuretic Peptide
[2016-11-28] MEDS ORDERED: MAGNESIUM SULF RIDER 2 GM in PREMIX 1 EACH IV PRN (11:21)
[2016-11-28] MEDS ORDERED: MAGNESIUM SULF RIDER 4 GM in PREMIX 1 EACH IV PRN (11:21)
[2016-11-28] MEDS: LISINOPRIL 2.5 MG TABLET PO SCH (11:59)
--- NOTE | 2016-11-28 12:47 | Hospitalist Progress Note ---
Assessment and Plan - Time spent with patient Time spent with patient: Less than 30 minutes (1) Chest pain Status: Resolved Assessment and plan: Ms. Ortez is a 56-year-old white female well known to hospital medicine with frequent admissions for noncompliance with medications. She was admitted with shortness of breath and edema with hypokalemia and hyponatremia. Cardiology is following. Dr. Waters to see and examined patient and further recommendations to follow. Chest pain--this seems to be improving somewhat. Patient states it is a 7/10 this morning. She is sitting comfortably in the chair with no shortness of breath. Morbid obesity--patient has chronic shortness of breath due to this. She has obstructive sleep apnea and is noncompliant with her devices. Her blood sugars are running in the mid 100s with mildly elevated hemoglobin A1c of 6.9. Hypokalemia--this is improved to 3.4 this morning. She is receiving IV and p.o. potassium. Hyponatremia--this was 134 yesterday and not checked today. She is getting normal saline. We will recheck her labs in the morning. CHF--patient does have some fluid buildup in the legs but her BNP is normal. She is receiving Lasix, Aldactone and Zaroxolyn. Current Visit: No (2) Hypertension Status: Chronic Current Visit: No Qualifiers: Hypertension type: essential hypertension Qualified Code(s): I10 - Essential (primary) hypertension (3) Morbid obesity Status: Chronic Current Visit: No Qualifiers: Obesity type: with alveolar hypoventilation Qualified Code(s): E66.2 - Morbid (severe) obesity with alveolar hypoventilation (4) Pacemaker Status: Chronic Current Visit: Yes (5) Obesity hypoventilation syndrome Status: Chronic Current Visit: No (6) Diabetes Status: Chronic Current Visit: No (7) Acute on chronic diastolic (congestive) heart failure Status: Acute Current Visit: Yes (8) FEDE (acute kidney injury) Status: Acute Current Visit: Yes (9) Hypokalemia Status: Acute Current Visit: Yes (10) Hyponatremia Status: Acute Current Visit: Yes Hospitalist: Subjective Interval history: Ms. Ortez states she does not feel well this morning. She is sitting up in the chair with her legs elevated. She says that cardiology wants to keep her several more days for diuresis. Exam - Constitutional Vitals: Period Temp Pulse Resp BP Sys/Way Pulse Ox Last 24 Hr 96.5 F-97.6 F 60-64 15-20 103-144/58-85 91-100 Exam: 56-year-old white female, no acute distress, alert and oriented Chest clear CV regular rate and rhythm Abdomen obese, nontender Extremities with +2 pitting edema Results - Labs CBC & BMP: 11/27/16 04:43 11/28/16 05:35 Lab Results: I have reviewed the past 24 hour labs Quality Measures - VTE Contraindication to Pharmacological VTE Prophylaxis: Already on Theraputic Agent , No Prophylaxis Needed - Stroke Symptom Onset Unknown: No
[2016-11-28 15:29] LABS: Calcium 8.7 MG/DL (8.5-10.1); Magnesium 1.6 MG/DL (1.8-2.4); Osmolality,Calculated 278.1 MOS/KG (273-304); Potassium 3.1 MMOL/L (3.5-5.1)
[2016-11-28] MEDS: MAGNESIUM SULF RIDER 2 GM in PREMIX 1 EACH IV PRN (16:03)
[2016-11-28] MEDS: POTASSIUM CHLORIDE RIDER 10 MEQ in PREMIX 1 EACH IV PRN (16:05)
[2016-11-28] MEDS: WARFARIN 7.5 MG TABLET PO SCH (17:37)
[2016-11-28] MEDS: ATORVASTATIN 20 MG TABLET PO SCH (20:49)
[2016-11-29] MEDS: POTASSIUM CHLORIDE 20 MEQ TABLET PO SCH ×5 (01:29→22:53)
[2016-11-29] MEDS: SODIUM CHLOR 0.9% KCL 40 MEQ 40 MEQ/1,000 ML BAG IV SCH ×2 (03:01→04:30)
[2016-11-29 05:33] LABS: Basophils % 0.4 % (0.0-0.8); Eosinophils # 0.2 10*3/uL (0.0-0.87); Eosinophils % 2.1 % (0.00-10.9); Hematocrit 44.4 VOL% (35.7-47.0); Immature Granulocytes % 0.6 %; Immature Granulocytes Absolute 0.07 #; Lymphocytes # 1.7 10*3/uL (1.4-4.0); Lymphocytes % 15.8 % (21.3-54.2); Mean Corpuscular HGB Conc 31.5 GM/DL (32-36); Mean Corpuscular Hemoglobin 29 PG (27-34); Mean Platelet Volume 12.4 FL (9.6-12.0); Monocytes # 1.3 10*3/uL (0.11-0.8); Neutrophils # 7.5 10*3/uL (1.4-7.4); Neutrophils % 69.1 % (38.7-73.9); Platelet Count 222 T/CUMM (130-400); Red Blood Count 4.88 MC/CUMM (3.8-5.5); Red Cell Distribution Width 14.6 % (9.3-17.3); White Blood Count 10.9 T/CUMM (4-12)
[2016-11-29 05:36] LABS: INR 2.6
[2016-11-29 05:47] LABS: PT Patient Result 28.7 SECS
[2016-11-29 06:08] LABS: Calcium 8.6 MG/DL (8.5-10.1); Magnesium 2.2 MG/DL (1.8-2.4); Osmolality,Calculated 268.7 MOS/KG (273-304); Potassium 4.1 MMOL/L (3.5-5.1); Risk Ratio 3.27; VLDL CHOLESTEROL 16.8 MG/DL
[2016-11-29] MEDS: GABAPENTIN 400 MG CAPSULE PO SCH ×3 (09:20→22:54)
[2016-11-29] MEDS: ALPRAZolam 0.5 MG TABLET PO SCH ×2 (09:21→22:53)
[2016-11-29] MEDS: ASPIRIN EC 81 MG TABLET PO SCH (09:21)
[2016-11-29] MEDS: metOLazone 5 MG TABLET PO SCH (09:21)
[2016-11-29] MEDS: CARVEDILOL 6.25 MG TABLET PO SCH ×2 (09:22→22:54)
[2016-11-29] MEDS: LISINOPRIL 2.5 MG TABLET PO SCH (09:22)
[2016-11-29] MEDS: INSULIN LISPRO 100 UNIT/ML SUBCUT SCH ×4 (09:22→22:54)
[2016-11-29] MEDS: SPIRONOLACTONE 25 MG TABLET PO SCH ×2 (09:22→22:55)
[2016-11-29] MEDS: TORSEMIDE 20 MG TABLET PO SCH (09:27)
--- NOTE | 2016-11-29 09:55 | Cardiology Progress Note ---
<Melida Rush E - Last Filed: 11/29/16 09:50> Assessment and Plan (1) Hypomagnesemia Status: Resolved Assessment and plan: SEE PLAN OF CARE LISTED BELOW Current Visit: Yes (2) Noncompliance Status: Chronic Assessment and plan: SEE PLAN OF CARE LISTED BELOW Current Visit: Yes (3) Hypertension Status: Chronic Assessment and plan: SEE PLAN OF CARE LISTED BELOW Current Visit: Yes (4) History of coronary artery disease Status: Chronic Assessment and plan: SEE PLAN OF CARE LISTED BELOW Current Visit: No (5) Morbid obesity Status: Chronic Assessment and plan: SEE PLAN OF CARE LISTED BELOW Current Visit: No Qualifiers: Obesity type: with alveolar hypoventilation Qualified Code(s): E66.2 - Morbid (severe) obesity with alveolar hypoventilation (6) Anxiety Status: Chronic Assessment and plan: SEE PLAN OF CARE LISTED BELOW Current Visit: No (7) Pacemaker Status: Chronic Assessment and plan: SEE PLAN OF CARE LISTED BELOW Current Visit: Yes (8) History of atrial fibrillation Status: Chronic Assessment and plan: SEE PLAN OF CARE LISTED BELOW Current Visit: No (9) Chronic anticoagulation Status: Chronic Current Visit: No (10) Sleep apnea Status: Chronic Current Visit: No Qualifiers: Sleep apnea type: obstructive Qualified Code(s): G47.33 - Obstructive sleep apnea (adult) (pediatric) (11) NSVT (nonsustained ventricular tachycardia) Status: Acute Assessment and plan: SEE PLAN OF CARE LISTED BELOW Current Visit: No (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 Assessment and plan: SEE PLAN OF CARE LISTED BELOW Current Visit: No (13) Congestive heart failure Status: Acute Assessment and plan: SEE PLAN OF CARE LISTED BELOW Current Visit: No Qualifiers: Congestive heart failure type: diastolic Congestive heart failure chronicity: acute on chronic Qualified Code(s): I50.33 - Acute on chronic diastolic (congestive) heart failure (14) Obesity hypoventilation syndrome Status: Chronic Assessment and plan: SEE PLAN OF CARE LISTED BELOW Current Visit: No (15) Diabetes Status: Chronic Assessment and plan: SEE PLAN OF CARE LISTED BELOW Current Visit: No (16) Hypokalemia Status: Acute Assessment and plan: SEE PLAN OF CARE LISTED BELOW Current Visit: Yes Cardiology - PN: Subj 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 Risk factors include: Known coronary artery disease ([facility] 2010 revealed patent distal RCA), morbid obesity, hypertension, dyslipidemia, diabetes, sedentary lifestyle and noncompliance. She has sleep apnea, noncompliant with device. History of atrial flutter, DARCY April 2015 revealed left atrial appendage clot. She takes Coumadin for stroke prevention. Echocardiogram August 2016 revealed: EF 50%, no significant valvular abnormality, PAP 51 mmHg, diastolic dysfunction. Frequent hospitalizations for volume overload, shortness of breath, atypical chest pain. Patient was admitted November 25, 2016 for acute on chronic diastolic congestive heart failure. (NYHA Class III). She has been placed on telemetry. Cardiac biomarkers negative, EKG unremarkable. She is basically nonambulatory by choice. NOVEMBER 28, 2016: Over the weekend, patient has improved minimally. She appears more comfortable this morning. She denies chest pain other than reproducible chest pain. Her rhythm is frequently paced. Last night, she had a 3 beat run of NSVT. This morning, potassium is low and has been low since admission. I will verify she is getting this replaced and I will recheck another potassium this afternoon. Also, check a magnesium level as it was mildly low over the weekend. INR therapeutic. She is tolerating Aspirin, beta-reyes, Coumadin. She is taking Spironolactone, Metolazone, Lasix 80 mg IV Q6. I&O does not reflect significant volume loss since admission. May benefit from an KARINE inhibitor and lipid lowering agent. I do not see a contraindication for starting these. This morning, I will add low-dose Lisinopril and Atorvastatin. Continue with didaneing. Will further discuss with Dr. Daniels and await additional recommendations. NOVEMBER 29, 2016: Patient is sitting up in the bedside chair. She feels as if she is not ready to go home today. She has been volume contracted and creatinine increased to 1.5 overnight. In the past, she has had acute on chronic renal failure. Yesterday, low-dose KARINE inhibitor was initiated but I am going to stop that today. She is actually somewhat hypotensive this morning. We can reincorporate this in the future as needed. She is being hydrated this morning. Hypokalemia has resolved. INR therapeutic. ASSESSMENT/PLAN: 1. ACUTE ON CHRONIC CHF - secondary to diastolic dysfunction, NYHA Class III. Now being hydrated as she is been somewhat volume contracted overnight. 2. MORBID OBESITY - dietary counseling prior to discharge 3. HYPERTENSION - adequately controlled. Actually somewhat hypotensive and I will stop her Lisinopril (see above note). 4. DYSLIPIDEMIA - LDL 107. Atorvastatin 20 mg each evening. 5. SLEEP APNEA - noncompliant. We will not consult Dr. Bloom as he has seen her on numerous occasions and she chooses not to follow-up outpatient and/or where sleep device. 6. KNOWN CAD - history of stent to distal RCA at [facility] prior to 2010. 7. HISTORY OF ATRIAL FIBRILLATION WITH LEFT ATRIAL APPENDAGE CLOT - INR therapeutic 8. HIGH RISK MEDICATION - Coumadin continues. INR 2.6. 9. DIABETES - sliding scale 10. HYPOKALEMIA - resolved. 11. HYPOMAGNESEMIA - resolved. 12. NON-COMPLIANCE WITH CARDIOLOGY FOLLOW-UP - reiterated the importance of compliance. 13. S/P PPM - continue current plan of care. Exam (Progress Note) - Constitutional Vitals: Period Temp Pulse Resp BP Sys/Way Pulse Ox Last 24 Hr 96.6 F-97.1 F 59-71 18-22 85-130/51-98 90-97 Exam: General: [Morbidly obese. Sitting up in bedside chair. Cooperative. ] HEENT: [PERRL, normocephalic, atraumatic. Mucous membranes moist. No jaundice noted. Conjunctiva moist and clear, sclerae anicteric] Neck: Difficult to assess JVD due to habitus. No obvious thyromegaly or lymphadenopathy is noted. No carotid bruit appreciated Cardiac: [Regular rate and rhythm.] [No obvious murmur rub or gallop.] Lungs: [Clear to auscultation without accessory muscle use to assist the respiratory pattern.] Using oxygen intermittently Abdomen: Soft, bowel sounds normoactive. Nontender and nondistended. No abdominal bruit or thrill noted. No masses noted. Musculoskeletal: No fluid collection. Decreased range of motion is noted. Extremities: No clubbing, cyanosis noted. [3+ bilateral lower extremity edema. ] Upper extremity pulses 2+. Difficult to palpate lower extremity pulses due to edema. Capillary refill less than 3 seconds, feet warm. Skin: No unusual lesions or rashes. No skin breakdown appreciated. Neuro: Awake, alert and oriented 3. Moves all extremities well without hemiparesis or paralysis. No essential tremor is appreciated. Result/EKG - Labs CBC & BMP: 11/29/16 03:22 11/29/16 03:22 Lab Results: I have reviewed the past 24 hour labs Labs: Laboratory Results - last 24 hr 11/28/16 11/28/16 11/28/16 11:23 14:22 16:49 WBC RBC Hgb Hct MCV MCH MCHC RDW Plt Count MPV Neut % (Auto) Lymph % (Auto) [place] % (Auto) Eos % (Auto) Baso % (Auto) Neut # (Auto) Lymph # (Auto) [place] # (Auto) Eos # (Auto) Baso # (Auto) Immature Gran % Nucleated RBC % Immature Gran # Nucleated RBCs # INR PT Patient/Control Mix Sodium 135 L Potassium 3.1 L Chloride 86 L Carbon Dioxide 41 H Anion Gap 11.1 BUN 26 H Creatinine 1.10 H GFR Calculation 86 BUN/Creatinine Ratio 23.00 H Glucose 162 H POC Glucose 146 H 127 H Calculated Osmolality 278.1 Calcium 8.7 Magnesium 1.6 L Triglycerides Cholesterol LDL Cholesterol VLDL Cholesterol HDL Cholesterol Heart Disease Risk Ratio 11/28/16 11/29/16 11/29/16 20:30 03:22 03:22 WBC 10.9 RBC 4.88 Hgb 14.0 Hct 44.4 MCV 91.0 MCH 29 MCHC 31.5 L RDW 14.6 Plt Count 222 D MPV 12.4 H Neut % (Auto) 69.1 Lymph % (Auto) 15.8 L [place] % (Auto) 12.0 Eos % (Auto) 2.1 Baso % (Auto) 0.4 Neut # (Auto) 7.5 H Lymph # (Auto) 1.7 [place] # (Auto) 1.3 H Eos # (Auto) 0.2 Baso # (Auto) 0.0 Immature Gran % 0.6 Nucleated RBC % 0.0 Immature Gran # 0.07 Nucleated RBCs # 0.00 INR 2.6 PT Patient/Control Mix 28.7 Sodium Potassium Chloride Carbon Dioxide Anion Gap BUN Creatinine GFR Calculation BUN/Creatinine Ratio Glucose POC Glucose 174 H Calculated Osmolality Calcium Magnesium Triglycerides Cholesterol LDL Cholesterol VLDL Cholesterol HDL Cholesterol Heart Disease Risk Ratio 11/29/16 11/29/16 03:22 07:36 WBC RBC Hgb Hct MCV MCH MCHC RDW Plt Count MPV Neut % (Auto) Lymph % (Auto) [place] % (Auto) Eos % (Auto) Baso % (Auto) Neut # (Auto) Lymph # (Auto) [place] # (Auto) Eos # (Auto) Baso # (Auto) Immature Gran % Nucleated RBC % Immature Gran # Nucleated RBCs # INR PT Patient/Control Mix Sodium 131 L Potassium 4.1 Chloride 89 L Carbon Dioxide 30 Anion Gap 16.1 H BUN 33 H Creatinine 1.50 H GFR Calculation 59 BUN/Creatinine Ratio 22.00 H Glucose 107 H POC Glucose 157 H Calculated Osmolality 268.7 L Calcium 8.6 Magnesium 2.2 Triglycerides 84 Cholesterol 167 LDL Cholesterol 107.0 VLDL Cholesterol 16.8 HDL Cholesterol 51 Heart Disease Risk Ratio 3.27 - EKG EKG results: interpreted by me EKG shows: sinus rhythm (Pacing) Quality Measures - VTE Contraindication to Pharmacological VTE Prophylaxis: Already on Theraputic Agent , No Prophylaxis Needed - Stroke Symptom Onset Unknown: No <Mauro Daniels - Last Filed: 11/29/16 15:54> Exam (Progress Note) - Constitutional Vitals: Period Temp Pulse Resp BP Sys/Way Pulse Ox Last 24 Hr 96.1 F-98 F 59-72 18-22 85-130/51-98 90-97 Result/EKG - Labs CBC & BMP: 11/29/16 03:22 11/29/16 03:22 Labs: Laboratory Results - last 24 hr 11/28/16 11/28/16 11/29/16 16:49 20:30 03:22 WBC RBC Hgb Hct MCV MCH MCHC RDW Plt Count MPV Neut % (Auto) Lymph % (Auto) [place] % (Auto) Eos % (Auto) Baso % (Auto) Neut # (Auto) Lymph # (Auto) [place] # (Auto) Eos # (Auto) Baso # (Auto) Immature Gran % Nucleated RBC % Immature Gran # Nucleated RBCs # INR 2.6 PT Patient/Control Mix 28.7 Sodium Potassium Chloride Carbon Dioxide Anion Gap BUN Creatinine GFR Calculation BUN/Creatinine Ratio Glucose POC Glucose 127 H 174 H Calculated Osmolality Calcium Magnesium Triglycerides Cholesterol LDL Cholesterol VLDL Cholesterol HDL Cholesterol Heart Disease Risk Ratio 11/29/16 11/29/16 11/29/16 03:22 03:22 07:36 WBC 10.9 RBC 4.88 Hgb 14.0 Hct 44.4 MCV 91.0 MCH 29 MCHC 31.5 L RDW 14.6 Plt Count 222 D MPV 12.4 H Neut % (Auto) 69.1 Lymph % (Auto) 15.8 L [place] % (Auto) 12.0 Eos % (Auto) 2.1 Baso % (Auto) 0.4 Neut # (Auto) 7.5 H Lymph # (Auto) 1.7 [place] # (Auto) 1.3 H Eos # (Auto) 0.2 Baso # (Auto) 0.0 Immature Gran % 0.6 Nucleated RBC % 0.0 Immature Gran # 0.07 Nucleated RBCs # 0.00 INR PT Patient/Control Mix Sodium 131 L Potassium 4.1 Chloride 89 L Carbon Dioxide 30 Anion Gap 16.1 H BUN 33 H Creatinine 1.50 H GFR Calculation 59 BUN/Creatinine Ratio 22.00 H Glucose 107 H POC Glucose 157 H Calculated Osmolality 268.7 L Calcium 8.6 Magnesium 2.2 Triglycerides 84 Cholesterol 167 LDL Cholesterol 107.0 VLDL Cholesterol 16.8 HDL Cholesterol 51 Heart Disease Risk Ratio 3.27 11/29/16 11/29/16 11:27 15:10 WBC RBC Hgb Hct MCV MCH MCHC RDW Plt Count MPV Neut % (Auto) Lymph % (Auto) [place] % (Auto) Eos % (Auto) Baso % (Auto) Neut # (Auto) Lymph # (Auto) [place] # (Auto) Eos # (Auto) Baso # (Auto) Immature Gran % Nucleated RBC % Immature Gran # Nucleated RBCs # INR PT Patient/Control Mix Sodium Potassium Chloride Carbon Dioxide Anion Gap BUN Creatinine GFR Calculation BUN/Creatinine Ratio Glucose POC Glucose 149 H 137 H Calculated Osmolality Calcium Magnesium Triglycerides Cholesterol LDL Cholesterol VLDL Cholesterol HDL Cholesterol Heart Disease Risk Ratio
--- NOTE | 2016-11-29 11:03 | Hospitalist Progress Note ---
Assessment and Plan - Time spent with patient Time spent with patient: Less than 30 minutes (1) Hypertension Status: Chronic Assessment and plan: 56-year-old white female well-known to hospital medicine with frequent admissions for noncompliance with medications. She was admitted with shortness of breath and edema with hypokalemia and hyponatremia. Cardiology is following. 11/29/2016 patient's chest pain is improved but she continues to be somewhat short of breath but feel this is more due to deconditioning and morbid obesity than anything. Her hypokalemia has resolved within normal ranges today. Patient is volume contracted with decreased urine output and increasing creatinine. She is receiving IV fluids at this time. She does have some fluid buildup in her legs but feel this is not from congestive heart failure but more from obesity and immobility with even some venous insufficiency. Patient could try some compression hose to assist with this. Patient insisting she needs to go to swing bed. luncheonette manager Abundio is checking on swing bed placement at [facility] in [place] for rehabilitation. He is consulting PT and OT for evaluation but patient must participate with this for placement purposes. Her only other options are home versus permanent intermediate placement. This is all been discussed with Dr. Waters. He will see and examined patient and further recommendations to follow. Current Visit: No Qualifiers: Hypertension type: essential hypertension Qualified Code(s): I10 - Essential (primary) hypertension (2) Morbid obesity Status: Chronic Current Visit: No Qualifiers: Obesity type: with alveolar hypoventilation Qualified Code(s): E66.2 - Morbid (severe) obesity with alveolar hypoventilation (3) Pacemaker Status: Chronic Current Visit: Yes (4) Obesity hypoventilation syndrome Status: Chronic Current Visit: No (5) Diabetes Status: Chronic Current Visit: No (6) Acute on chronic diastolic (congestive) heart failure Status: Acute Current Visit: Yes (7) FEDE (acute kidney injury) Status: Acute Current Visit: Yes (8) Hypokalemia Status: Acute Current Visit: Yes (9) Hyponatremia Status: Acute Current Visit: Yes Hospitalist: Subjective Interval history: Patient sitting up in the chair stating she still does not feel well. She states she has not peed all night. She still feels like she is not ready to go home and insists on going to swing bed. Exam - Constitutional Vitals: Period Temp Pulse Resp BP Sys/Way Pulse Ox Last 24 Hr 96.6 F-97.1 F 59-71 18-22 85-130/51-98 90-97 Exam: 56-year-old white female, no acute distress, alert and oriented Chest clear CV regular rate and rhythm Abdomen obese and nontender Extremities with mild edema Results - Labs CBC & BMP: 11/29/16 03:22 11/29/16 03:22 Lab Results: I have reviewed the past 24 hour labs Quality Measures - VTE Contraindication to Pharmacological VTE Prophylaxis: Already on Theraputic Agent , No Prophylaxis Needed - Stroke Symptom Onset Unknown: No
[2016-11-29] MEDS ORDERED: ALPRAZolam 0.5 MG TABLET PO ONE (11:54)
[2016-11-29] MEDS ORDERED: SODIUM CHLORIDE 0.45% 1,000 ML IV SCH (16:00)
[2016-11-29] MEDS: WARFARIN 7.5 MG TABLET PO SCH (19:22)
[2016-11-29] MEDS: ATORVASTATIN 20 MG TABLET PO SCH (22:53)
[2016-11-30 06:20] LABS: Basophils % 0.4 % (0.0-0.8); Eosinophils # 0.2 10*3/uL (0.0-0.87); Eosinophils % 2.1 % (0.00-10.9); Hematocrit 43.5 VOL% (35.7-47.0); Hemoglobin 13.9 GM/DL (12.0-16.0); Immature Granulocytes % 0.5 %; Immature Granulocytes Absolute 0.05 #; Lymphocytes # 1.7 10*3/uL (1.4-4.0); Lymphocytes % 17.3 % (21.3-54.2); Mean Corpuscular Hemoglobin 29 PG (27-34); Mean Corpuscular Volume 89.9 FL (87-102); Mean Platelet Volume 11.9 FL (9.6-12.0); Monocytes # 1.1 10*3/uL (0.11-0.8); Monocytes % 11.9 % (1.7-12.7); Neutrophils # 6.5 10*3/uL (1.4-7.4); Neutrophils % 67.8 % (38.7-73.9); Platelet Count 212 T/CUMM (130-400); Red Blood Count 4.84 MC/CUMM (3.8-5.5); Red Cell Distribution Width 14.6 % (9.3-17.3); White Blood Count 9.6 T/CUMM (4-12)
[2016-11-30 06:28] LABS: INR 2.8
[2016-11-30 06:33] LABS: PT Patient Result 31.3 SECS
[2016-11-30 06:45] LABS: Calcium 8.8 MG/DL (8.5-10.1); Magnesium 2.2 MG/DL (1.8-2.4); Osmolality,Calculated 271.8 MOS/KG (273-304); Potassium 4.4 MMOL/L (3.5-5.1)
[2016-11-30] MEDS: INSULIN LISPRO 100 UNIT/ML SUBCUT SCH (07:32)
[2016-11-30] MEDS: SPIRONOLACTONE 25 MG TABLET PO SCH (09:47)
[2016-11-30] MEDS: GABAPENTIN 400 MG CAPSULE PO SCH (09:47)
[2016-11-30] MEDS: POTASSIUM CHLORIDE 20 MEQ TABLET PO SCH (09:47)
[2016-11-30] MEDS: TORSEMIDE 20 MG TABLET PO SCH (09:47)
[2016-11-30] MEDS: CARVEDILOL 6.25 MG TABLET PO SCH (09:48)
[2016-11-30] MEDS: ALPRAZolam 0.5 MG TABLET PO SCH (09:48)
[2016-11-30] MEDS: ASPIRIN EC 81 MG TABLET PO SCH (09:48)
[2016-11-30] MEDS: metOLazone 5 MG TABLET PO SCH (09:48)
--- NOTE | 2016-11-30 11:08 | Discharge Summary ---
Hospital Course - Hospital Course Hospital Course: Ms. Ortez is a 56-year-old white female with past medical history of diastolic heart failure, A. fib with pacemaker, hypertension, morbid obesity, diabetes, and CAD with stent placed several years ago, anxiety admitted by hospital medicine on 11/26/2016 with acute on chronic congestive heart failure with acute kidney injury, hypokalemia and hyponatremia. Patient was seen by cardiology during this hospital stay and her medicines have been adjusted. They mainly recommended compliance with medicines with patient. Patient also has a history of sleep apnea with noncompliance with her device. Patient was diuresed but continued to have complaints of shortness of breath. Think this is mostly due to her morbid obesity and deconditioning. She does have some leg and pretibial edema that is most likely due from her inactivity and venous insufficiency. Compression stockings would assist with this. During her hospital stay she was overly diuresed and creatinine started to rise. Diuresing was held and she was gently rehydrated. This morning her creatinine is stable but she continues to be hyponatremic. She is being transferred to swing bed today for rehabilitation. Patient did comply with PT and OT evaluations yesterday. She will be on a 1500 mL fluid restriction for swing bed stay to try to correct her hyponatremia. She will also need to follow-up with Dr. Hodges in 1 month. Will also get an INR checked in 1 week and have it faxed to her primary care physician. Patient's case was discussed with cardiology, Dr. Dominguez the hospitalist, case management, nursing and patient. Case coordination, chart review, and discharge paperwork all took approximately 46 minutes. - Time spent with patient Time with patient DS: Greater than 30 minutes Diagnosis - Discharge Diagnosis (1) Hypertension Status: Chronic (2) Morbid obesity Status: Chronic (3) Pacemaker Status: Chronic (4) Obesity hypoventilation syndrome Status: Chronic (5) Diabetes Status: Chronic (6) Acute on chronic diastolic (congestive) heart failure Status: Resolved (7) FEDE (acute kidney injury) Status: Resolved (8) Hypokalemia Status: Resolved (9) Hyponatremia Status: Chronic Specialty Discharge - Follow Up or Referrals Follow up with: Alec Hodges MD [Physician] - 12/30/16 8:40 am () Discharge Plan - Discharge Data Disposition: Swing Bed, [facility] Based, [facility] Condition at Discharge: Stable Discharge Diet: diabetic diet, heart healthy Activity: as per physical therapy Contact your physician if you experience:: Shortness of breath - Discharge Medications New Atorvastatin [Lipitor] 20 mg PO BEDTIME #90 tablet Torsemide Tab [Demadex Tab] 80 mg PO DAILY #90 tablet Continue HYDROcodone/ACETAMIN 10-325 [Preemption 10-325] 1 tablet PO Q4H PRN PRN Reason: Pain ALPRAZolam [Xanax] 0.5 mg PO BID Gabapentin 800 mg PO TID Warfarin Sodium 7.5 mg PO DAILY Albuterol Inhaler [Proventil Inhaler] 2 puff INH Q4H PRN #1 inhaler PRN Reason: Shortness Of Breath/Wheezing Aspirin [Ecotrin] 81 mg PO DAILY Spironolactone 25 mg PO BID metFORMIN [Glucophage] 500 mg PO BID W/MEALS #60 tablet Potassium Chloride Cap/Tab [K Dur] 40 meq PO BID #60 tablet Carvedilol [Coreg] 6.25 mg PO BID #60 tablet metOLazone [Zaroxolyn] 5 mg PO DAILY #30 tablet Discontinued Furosemide Tab [Lasix Tab] 80 mg PO BID DIURETIC #60 tablet Ciprofloxacin HCl [Ciprofloxacin Tab] 500 mg PO BID #10 tablet - Follow Up or Referral Follow Up: Alec Hodges MD [Physician] - 12/30/16 8:40 am () - Forms/Instructions Additional Discharge Instructions: 1500ml fluid restriction. draw INR in 1wk and fax to PCP. also draw BMP to check Na and K+ Exam - Constitutional Vitals: Period Temp Pulse Resp BP Sys/Way Pulse Ox Last 24 Hr 96.1 F-98.4 F 60-102 16-21 78-130/37-83 94-96 Exam: 56-year-old white female, no acute distress, alert and oriented Chest clear CV regular rate and rhythm Abdomen obese, nontender Extremities with +1 pedal and pretibial edema Discharge Results Procedures and tests throughout hospitalization: Pending Orders 12/01/16 04:00 BMP w/ Mg [Basic Metabolic Panel w/Mg] IN AM CBC [Comp Blood Count Auto Diff] IN AM 12/02/16 04:00 BMP w/ Mg [Basic Metabolic Panel w/Mg] IN AM CBC [Comp Blood Count Auto Diff] IN AM Labs on day of discharge: Labs from last 24 hours 11/30/16 11/30/16 11/30/16 11:32 07:15 06:01 WBC RBC Hgb Hct MCV MCH MCHC RDW Plt Count MPV Neut % (Auto) Lymph % (Auto) [place] % (Auto) Eos % (Auto) Baso % (Auto) Neut # (Auto) Lymph # (Auto) [place] # (Auto) Eos # (Auto) Baso # (Auto) Immature Gran % Nucleated RBC % Immature Gran # Nucleated RBCs # INR PT Patient/Control Mix Sodium 130 L Potassium 4.4 Chloride 87 L Carbon Dioxide 35 H Anion Gap 12.4 BUN 40 H Creatinine 1.50 H GFR Calculation 59 BUN/Creatinine Ratio 26.00 H Glucose 132 H POC Glucose 142 H 132 H Calculated Osmolality 271.8 L Calcium 8.8 Magnesium 2.2 11/30/16 11/30/16 11/29/16 06:01 06:01 19:53 WBC 9.6 RBC 4.84 Hgb 13.9 Hct 43.5 MCV 89.9 MCH 29 MCHC 32.0 RDW 14.6 Plt Count 212 MPV 11.9 Neut % (Auto) 67.8 Lymph % (Auto) 17.3 L [place] % (Auto) 11.9 Eos % (Auto) 2.1 Baso % (Auto) 0.4 Neut # (Auto) 6.5 Lymph # (Auto) 1.7 [place] # (Auto) 1.1 H Eos # (Auto) 0.2 Baso # (Auto) 0.0 Immature Gran % 0.5 Nucleated RBC % 0.0 Immature Gran # 0.05 Nucleated RBCs # 0.00 INR 2.8 PT Patient/Control Mix 31.3 Sodium Potassium Chloride Carbon Dioxide Anion Gap BUN Creatinine GFR Calculation BUN/Creatinine Ratio Glucose POC Glucose 165 H Calculated Osmolality Calcium Magnesium 11/29/16 15:10 WBC RBC Hgb Hct MCV MCH MCHC RDW Plt Count MPV Neut % (Auto) Lymph % (Auto) [place] % (Auto) Eos % (Auto) Baso % (Auto) Neut # (Auto) Lymph # (Auto) [place] # (Auto) Eos # (Auto) Baso # (Auto) Immature Gran % Nucleated RBC % Immature Gran # Nucleated RBCs # INR PT Patient/Control Mix Sodium Potassium Chloride Carbon Dioxide Anion Gap BUN Creatinine GFR Calculation BUN/Creatinine Ratio Glucose POC Glucose 137 H Calculated Osmolality Calcium Magnesium DS: Provider Date of admission: 11/26/16 01:11 Primary care physician: Aiden Matute MD Attending physician on admission: Vahe Santizo MD Consults: 11/26/16 09:12 Consult to Physician [CONS] Routine Comment: Consulting Provider: Selvin Calloway When should Consulting Provider be notified: Now Consult to Specialist Group: Cardiology When should Consulting Provider be notified: Now Person Notified: BRITTANY Date Notified: 11/26/16 Time Notified: 09:15 Consult Notification Comment: CIS TO NOTIFY MD 11/29/16 10:09 Consult to Physical Therapy [CONS] Routine Reason for Physical Therapy: Evaluate and Treat 11/29/16 10:11 Consult to Occupational Therapy [CONS] Routine Reason for Occupational Therapy: Evaluate and Treat 11/29/16 10:12 Consult to Case Mgmt/Social Srvs [CONS] Routine Reason for Case Mgmt/Social Srvs: Swingbed/SNF/Intermediate Rehab Discharging clinician: WENDY Cunningham Expected date of discharge: 11/30/16
--- NOTE | 2016-11-30 11:14 | Cardiology Progress Note ---
<Melida Rush E - Last Filed: 11/30/16 11:11> Assessment and Plan - Time spent with patient Time spent with patient: Greater than 30 minutes (1) Hypomagnesemia Status: Resolved Assessment and plan: SEE PLAN OF CARE LISTED BELOW Current Visit: Yes (2) Noncompliance Status: Chronic Assessment and plan: SEE PLAN OF CARE LISTED BELOW Current Visit: Yes (3) Hypertension Status: Chronic Assessment and plan: SEE PLAN OF CARE LISTED BELOW Current Visit: Yes (4) History of coronary artery disease Status: Chronic Assessment and plan: SEE PLAN OF CARE LISTED BELOW Current Visit: No (5) Morbid obesity Status: Chronic Assessment and plan: SEE PLAN OF CARE LISTED BELOW Current Visit: No Qualifiers: Obesity type: with alveolar hypoventilation Qualified Code(s): E66.2 - Morbid (severe) obesity with alveolar hypoventilation (6) Anxiety Status: Chronic Assessment and plan: SEE PLAN OF CARE LISTED BELOW Current Visit: No (7) Pacemaker Status: Chronic Assessment and plan: SEE PLAN OF CARE LISTED BELOW Current Visit: Yes (8) History of atrial fibrillation Status: Chronic Assessment and plan: SEE PLAN OF CARE LISTED BELOW Current Visit: No (9) Chronic anticoagulation Status: Chronic Current Visit: No (10) Sleep apnea Status: Chronic Current Visit: No Qualifiers: Sleep apnea type: obstructive Qualified Code(s): G47.33 - Obstructive sleep apnea (adult) (pediatric) (11) NSVT (nonsustained ventricular tachycardia) Status: Acute Assessment and plan: SEE PLAN OF CARE LISTED BELOW Current Visit: No (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 Assessment and plan: SEE PLAN OF CARE LISTED BELOW Current Visit: No (13) Congestive heart failure Status: Acute Assessment and plan: SEE PLAN OF CARE LISTED BELOW Current Visit: No Qualifiers: Congestive heart failure type: diastolic Congestive heart failure chronicity: acute on chronic Qualified Code(s): I50.33 - Acute on chronic diastolic (congestive) heart failure (14) Obesity hypoventilation syndrome Status: Chronic Assessment and plan: SEE PLAN OF CARE LISTED BELOW Current Visit: No (15) Diabetes Status: Chronic Assessment and plan: SEE PLAN OF CARE LISTED BELOW Current Visit: No (16) Hypokalemia Status: Resolved Assessment and plan: SEE PLAN OF CARE LISTED BELOW Current Visit: Yes Cardiology - PN: Subj Interval history: SALES SUPPORT ENGINEER: DR. HODGES SUMMARY: Ms. Neelima, 56WF, does not follow-up in junior underwriter clinic but considers Dr. Hodges her junior underwriter. Risk factors include: Known coronary artery disease ([facility] 2010 revealed patent distal RCA), morbid obesity, hypertension, dyslipidemia, diabetes, sedentary lifestyle and noncompliance. She has sleep apnea, noncompliant with device. History of atrial flutter, DARCY April 2015 revealed left atrial appendage clot. She takes Coumadin for stroke prevention. Echocardiogram August 2016 revealed: EF 50%, no significant valvular abnormality, PAP 51 mmHg, diastolic dysfunction. Frequent hospitalizations for volume overload, shortness of breath, atypical chest pain. Patient was admitted November 25, 2016 for acute on chronic diastolic congestive heart failure. (NYHA Class III). She has been placed on telemetry. Cardiac biomarkers negative, EKG unremarkable. She is basically nonambulatory by choice. NOVEMBER 28, 2016: Over the weekend, patient has improved minimally. She appears more comfortable this morning. She denies chest pain other than reproducible chest pain. Her rhythm is frequently paced. Last night, she had a 3 beat run of NSVT. This morning, potassium is low and has been low since admission. I will verify she is getting this replaced and I will recheck another potassium this afternoon. Also, check a magnesium level as it was mildly low over the weekend. INR therapeutic. She is tolerating Aspirin, beta-reyes, Coumadin. She is taking Spironolactone, Metolazone, Lasix 80 mg IV Q6. I&O does not reflect significant volume loss since admission. May benefit from an KARINE inhibitor and lipid lowering agent. I do not see a contraindication for starting these. This morning, I will add low-dose Lisinopril and Atorvastatin. Continue with diuresing. Will further discuss with Dr. Daniels and await additional recommendations. NOVEMBER 29, 2016: Patient is sitting up in the bedside chair. She feels as if she is not ready to go home today. She has been volume contracted and creatinine increased to 1.5 overnight. In the past, she has had acute on chronic renal failure. Yesterday, low-dose KARINE inhibitor was initiated but I am going to stop that today. She is actually somewhat hypotensive this morning. We can reincorporate this in the future as needed. She is being hydrated this morning. Hypokalemia has resolved. INR therapeutic. NOVEMBER 30, 2016: She has been rehydrated after over-diuresing. She has made an adequate amount of urine. She is being discharged home this morning. She did not qualify for SWB or LTAC. Recommend the following discharge cardiac meds: Aspirin 81 mg orally daily Atorvastatin 20 mg orally each evening Coreg 6.25 mg orally twice daily Metolazone 5 mg orally daily Spironolactone 25 mg orally twice daily Torsemide 80 mg orally daily Warfarin 7.5 mg orally each evening. INR to be checked by HH in one week. ASSESSMENT/PLAN: 1. ACUTE ON CHRONIC CHF - secondary to diastolic dysfunction, NYHA Class III. Now being hydrated as she is been somewhat volume contracted overnight. 2. MORBID OBESITY - dietary counseling prior to discharge 3. HYPERTENSION - adequately controlled. Actually somewhat hypotensive and I will stop her Lisinopril (see above note). 4. DYSLIPIDEMIA - LDL 107. Atorvastatin 20 mg each evening. 5. SLEEP APNEA - noncompliant. We will not consult Dr. Bloom as he has seen her on numerous occasions and she chooses not to follow-up outpatient and/or where sleep device. 6. KNOWN CAD - history of stent to distal RCA at [facility] prior to 2010. 7. HISTORY OF ATRIAL FIBRILLATION WITH LEFT ATRIAL APPENDAGE CLOT - INR therapeutic 8. HIGH RISK MEDICATION - Coumadin continues. INR 2.6. 9. DIABETES - sliding scale 10. HYPOKALEMIA - resolved. 11. HYPOMAGNESEMIA - resolved. 12. NON-COMPLIANCE WITH CARDIOLOGY FOLLOW-UP - reiterated the importance of compliance. 13. S/P PPM - continue current plan of care. Exam (Progress Note) - Constitutional Vitals: Period Temp Pulse Resp BP Sys/Way Pulse Ox Last 24 Hr 96.1 F-98.4 F 60-102 16-21 78-130/37-83 94-97 Exam: General: [Morbidly obese. Sitting up in bedside chair. Cooperative. ] HEENT: [PERRL, normocephalic, atraumatic. Mucous membranes moist. No jaundice noted. Conjunctiva moist and clear, sclerae anicteric] Neck: Difficult to assess JVD due to habitus. No obvious thyromegaly or lymphadenopathy is noted. No carotid bruit appreciated Cardiac: [Regular rate and rhythm.] [No obvious murmur rub or gallop.] Lungs: [Clear to auscultation without accessory muscle use to assist the respiratory pattern.] Using oxygen intermittently Abdomen: Soft, bowel sounds normoactive. Nontender and nondistended. No abdominal bruit or thrill noted. No masses noted. Musculoskeletal: No fluid collection. Decreased range of motion is noted. Extremities: No clubbing, cyanosis noted. [3+ bilateral lower extremity edema. ] Upper extremity pulses 2+. Difficult to palpate lower extremity pulses due to edema. Capillary refill less than 3 seconds, feet warm. Skin: No unusual lesions or rashes. No skin breakdown appreciated. Neuro: Awake, alert and oriented 3. Moves all extremities well without hemiparesis or paralysis. No essential tremor is appreciated. Result/EKG - Labs CBC & BMP: 11/30/16 06:01 11/30/16 06:01 Lab Results: I have reviewed the past 24 hour labs Labs: Laboratory Results - last 24 hr 11/29/16 11/29/16 11/29/16 11:27 15:10 19:53 WBC RBC Hgb Hct MCV MCH MCHC RDW Plt Count MPV Neut % (Auto) Lymph % (Auto) [place] % (Auto) Eos % (Auto) Baso % (Auto) Neut # (Auto) Lymph # (Auto) [place] # (Auto) Eos # (Auto) Baso # (Auto) Immature Gran % Nucleated RBC % Immature Gran # Nucleated RBCs # INR PT Patient/Control Mix Sodium Potassium Chloride Carbon Dioxide Anion Gap BUN Creatinine GFR Calculation BUN/Creatinine Ratio Glucose POC Glucose 149 H 137 H 165 H Calculated Osmolality Calcium Magnesium 11/30/16 11/30/16 11/30/16 06:01 06:01 06:01 WBC 9.6 RBC 4.84 Hgb 13.9 Hct 43.5 MCV 89.9 MCH 29 MCHC 32.0 RDW 14.6 Plt Count 212 MPV 11.9 Neut % (Auto) 67.8 Lymph % (Auto) 17.3 L [place] % (Auto) 11.9 Eos % (Auto) 2.1 Baso % (Auto) 0.4 Neut # (Auto) 6.5 Lymph # (Auto) 1.7 [place] # (Auto) 1.1 H Eos # (Auto) 0.2 Baso # (Auto) 0.0 Immature Gran % 0.5 Nucleated RBC % 0.0 Immature Gran # 0.05 Nucleated RBCs # 0.00 INR 2.8 PT Patient/Control Mix 31.3 Sodium 130 L Potassium 4.4 Chloride 87 L Carbon Dioxide 35 H Anion Gap 12.4 BUN 40 H Creatinine 1.50 H GFR Calculation 59 BUN/Creatinine Ratio 26.00 H Glucose 132 H POC Glucose Calculated Osmolality 271.8 L Calcium 8.8 Magnesium 2.2 11/30/16 07:15 WBC RBC Hgb Hct MCV MCH MCHC RDW Plt Count MPV Neut % (Auto) Lymph % (Auto) [place] % (Auto) Eos % (Auto) Baso % (Auto) Neut # (Auto) Lymph # (Auto) [place] # (Auto) Eos # (Auto) Baso # (Auto) Immature Gran % Nucleated RBC % Immature Gran # Nucleated RBCs # INR PT Patient/Control Mix Sodium Potassium Chloride Carbon Dioxide Anion Gap BUN Creatinine GFR Calculation BUN/Creatinine Ratio Glucose POC Glucose 132 H Calculated Osmolality Calcium Magnesium - EKG EKG results: interpreted by me EKG shows: sinus rhythm Quality Measures - VTE Contraindication to Pharmacological VTE Prophylaxis: Already on Theraputic Agent , No Prophylaxis Needed - Stroke Symptom Onset Unknown: No Specialty Discharge - Follow Up or Referrals Follow up with: Alec Hodges MD [Physician] - 12/30/16 8:40 am () <Mauro Daniels - Last Filed: 11/30/16 11:36> Exam (Progress Note) - Constitutional Vitals: Period Temp Pulse Resp BP Sys/Way Pulse Ox Last 24 Hr 96.1 F-98.4 F 60-102 16-21 78-130/37-83 94-97 Result/EKG - Labs CBC & BMP: 11/30/16 06:01 11/30/16 06:01 Labs: Laboratory Results - last 24 hr 11/29/16 11/29/16 11/29/16 11:27 15:10 19:53 WBC RBC Hgb Hct MCV MCH MCHC RDW Plt Count MPV Neut % (Auto) Lymph % (Auto) [place] % (Auto) Eos % (Auto) Baso % (Auto) Neut # (Auto) Lymph # (Auto) [place] # (Auto) Eos # (Auto) Baso # (Auto) Immature Gran % Nucleated RBC % Immature Gran # Nucleated RBCs # INR PT Patient/Control Mix Sodium Potassium Chloride Carbon Dioxide Anion Gap BUN Creatinine GFR Calculation BUN/Creatinine Ratio Glucose POC Glucose 149 H 137 H 165 H Calculated Osmolality Calcium Magnesium 11/30/16 11/30/16 11/30/16 06:01 06:01 06:01 WBC 9.6 RBC 4.84 Hgb 13.9 Hct 43.5 MCV 89.9 MCH 29 MCHC 32.0 RDW 14.6 Plt Count 212 MPV 11.9 Neut % (Auto) 67.8 Lymph % (Auto) 17.3 L [place] % (Auto) 11.9 Eos % (Auto) 2.1 Baso % (Auto) 0.4 Neut # (Auto) 6.5 Lymph # (Auto) 1.7 [place] # (Auto) 1.1 H Eos # (Auto) 0.2 Baso # (Auto) 0.0 Immature Gran % 0.5 Nucleated RBC % 0.0 Immature Gran # 0.05 Nucleated RBCs # 0.00 INR 2.8 PT Patient/Control Mix 31.3 Sodium 130 L Potassium 4.4 Chloride 87 L Carbon Dioxide 35 H Anion Gap 12.4 BUN 40 H Creatinine 1.50 H GFR Calculation 59 BUN/Creatinine Ratio 26.00 H Glucose 132 H POC Glucose Calculated Osmolality 271.8 L Calcium 8.8 Magnesium 2.2 11/30/16 07:15 WBC RBC Hgb Hct MCV MCH MCHC RDW Plt Count MPV Neut % (Auto) Lymph % (Auto) [place] % (Auto) Eos % (Auto) Baso % (Auto) Neut # (Auto) Lymph # (Auto) [place] # (Auto) Eos # (Auto) Baso # (Auto) Immature Gran % Nucleated RBC % Immature Gran # Nucleated RBCs # INR PT Patient/Control Mix Sodium Potassium Chloride Carbon Dioxide Anion Gap BUN Creatinine GFR Calculation BUN/Creatinine Ratio Glucose POC Glucose 132 H Calculated Osmolality Calcium Magnesium
[2016-11-30 12:21] VITALS: BP 114/55
== END 2016-11-30 13:45 | disposition swing bed (61) | DRG 194 ==
LOC: EDBD → EDUNIT# → N.ED 22:52 → N.EDINP 11-26 01:11 → SUATTDRO 11-26 01:11 → N.TELES 11-26 02:13
PROVIDERS: ADMIT Student in an Organized Health Care Education/Training Program; ATTEND Internal Medicine

== ENCOUNTER 2017-01-10 17:49 | Inpatient (IN) ==
[2017-01-10] MEDS ORDERED: ONDANSETRON 4 MG/2 ML VIAL IV STA (18:04)
[2017-01-10] MEDS ORDERED: ONDANSETRON 4 MG/2 ML VIAL ONE (18:07)
--- NOTE | 2017-01-10 18:33 | EKG Report ---
Stationary ECG Study [facility] ER Test Date: 01/10/2017 6:34:45 PM Pat Name: ZUHAIR CONDON Department: Room: Gender: F Inclusion Manager: : 1960 Requested by: Edwin Noble Order Number: [id number] Reading MD: ИВАН WARD Intervals [place] Rate: 61 P: 999 HI: 0 QRS: 248 QRSD: 188 T: 72 QT: 477 QTc: 479 Interpretive Statements ELECTRONIC VENTRICULAR PACEMAKER Electronically Signed On 01-11-17 12:48:28 CDT by ИВАН WARD [email or web address]
--- NOTE | 2017-01-10 18:37 | XRay Report ---
Portable chest Date: 01/10/2017 Clinical history: Chest pain, cough Comparison: 11/25/2016 Technique: Portable AP sitting chest Findings: The heart remains enlarged with left subclavian atrioventricular permanent pacemaker. Prominent pulmonary vasculature with diffuse parenchymal findings especially in the lower lung zones. Stable mediastinum and osseous structures. Impression: Persistent cardiomegaly with evidence of mild CHF. Left subclavian atrioventricular permanent pacemaker. PROCEDURE INTERPRETED AT [facility] DEPARTMENT OF RADIOLOGY Final Report Signed by: Dr. Mel Villegas
[2017-01-10 18:52] LABS: Basophils % 0.3 % (0.0-0.8); Eosinophils # 0.1 10*3/uL (0.0-0.87); Eosinophils % 0.5 % (0.00-10.9); Hematocrit 44.6 VOL% (35.7-47.0); Hemoglobin 15.3 GM/DL (12.0-16.0); Immature Granulocytes % 0.4 %; Immature Granulocytes Absolute 0.06 #; Lymphocytes # 2.1 10*3/uL (1.4-4.0); Mean Corpuscular HGB Conc 34.3 GM/DL (32-36); Mean Corpuscular Hemoglobin 30 PG (27-34); Mean Corpuscular Volume 87.1 FL (87-102); Mean Platelet Volume 11.7 FL (9.6-12.0); Monocytes # 1.8 10*3/uL (0.11-0.8); Monocytes % 11.1 % (1.7-12.7); Neutrophils # 11.9 10*3/uL (1.4-7.4); Neutrophils % 74.7 % (38.7-73.9); Platelet Count 229 T/CUMM (130-400); Red Blood Count 5.12 MC/CUMM (3.8-5.5); Red Cell Distribution Width 14.2 % (9.3-17.3)
[2017-01-10 19:03] LABS: INR 2.2; PT Patient Result 24.5 SECS; Partial Thromboplastin Time 36.6 SECS (0-40)
[2017-01-10 19:14] LABS: Albumin 3.4 G/DL (3.4-5.0); Bilirubin,Total 0.8 MG/DL (0.2-1.0); Calcium 9.3 MG/DL (8.5-10.1); Osmolality,Calculated 271.1 MOS/KG (273-304); Potassium 2.9 MMOL/L (3.5-5.1); Total Protein 8.9 G/DL (6.4-8.3)
[2017-01-10 19:24] LABS: Troponin I Only < 0.015 NG/ML (0.00-0.045)
--- NOTE | 2017-01-10 19:58 | Emergency Department Note ---
Wilber Carlton Brittany, am scribing for, and in the presence of, Edwin Noble MD 18 :08. Real Carlton Hans, MD, personally performed the services described in this documentation, ascribed by Carla Merino in my presence, and it is both accurate and complete [id number] . 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 Patient describes this pain as a pressure and reports having some associated nausea, but has not vomiting as of yet. Patient denies any abdominal pain, radiation of pain into the neck or arms, and has not had any diaphoresis. Patient reports a history of Atrial Fibrillation, NE with stent placement and is a patient of Dr. Hodges, [employer] Manager. Patient currently is on Coumadin therapy. Patient denies use of EtOH, tobacco, or recreational drugs. Patient has no other complaint/pain in the ED at this time. Onset (ago): hour(s) (2) Consistency: constant Severity: moderate Severity scale (1-10): 6 Quality: other (pressure) Date of Last Menstrual Period: HYST Allergies/Adverse Reactions: Allergies Allergy/AdvReac Type Severity Reaction Status Date / Time codeine Allergy Nausea Verified 02/24/16 10:58 ketorolac [From Toradol] Allergy ANAPHYLAXIS Verified 02/24/16 10:58 morphine Allergy ITCHING Verified 02/24/16 10:58 nitroglycerin Allergy Weakness Verified 02/24/16 10:58 tramadol [From Ultram] Allergy ANAPHYLAXIS Verified 02/24/16 10:58 Hydromorphone [From Dilaudid] AdvReac Difficulty Verified 02/24/16 10:58 Breathing Home Medications: Home Medications Medication Instructions Recorded Confirmed Type HYDROcodone/ACETAMIN 10-325 [[place] 1 tablet PO Q4H PRN 04/24/15 01/10/17 History 10-325] Gabapentin 800 mg PO TID 02/24/16 01/10/17 History Warfarin Sodium 7.5 mg PO DAILY 02/24/16 01/10/17 History Albuterol Inhaler [Proventil 2 puff INH Q4H PRN #1 inhaler 02/27/16 01/10/17 Rx Inhaler] Aspirin [Ecotrin] 81 mg PO DAILY 08/30/16 01/10/17 History Spironolactone 25 mg PO BID 08/30/16 01/10/17 History Carvedilol [Coreg] 6.25 mg PO BID #60 tablet 09/09/16 01/10/17 Rx metOLazone [Zaroxolyn] 5 mg PO DAILY #30 tablet 10/03/16 01/10/17 Rx Atorvastatin [Lipitor] 20 mg PO BEDTIME #90 tablet 11/30/16 01/10/17 Rx Torsemide Tab [Demadex Tab] 80 mg PO DAILY #90 tablet 11/30/16 01/10/17 Rx ALPRAZolam [Xanax] 1 mg PO BID 01/10/17 01/10/17 History Furosemide Tab [Lasix Tab] 40 mg PO BID 01/10/17 01/10/17 History Potassium Chloride Cap/Tab [K Dur] 20 meq PO BID 01/10/17 01/10/17 History metFORMIN [Glucophage] 1,000 mg PO BID W/MEALS 01/10/17 01/10/17 History Review of System - Review of System 12 point system: reviewed and no additional remarkable complaints except as stated - Review of System Constitutional: Absent: chills, diaphoresis, fever Eyes: Absent: vision change Head/Ears/Nose/Throat: Absent: nasal drainage, sore throat Respiratory: Absent: respiratory distress Cardiovascular: Present: chest pain Gastrointestinal: Present: nausea. Absent: abdominal pain, vomiting, diarrhea, constipation Genitourinary female: Absent: dysuria, frequency, urgency Musculoskeletal: Absent: arm pain, back pain, leg pain, neck pain Skin: Absent: rash Neurological: Absent: headache Psychiatric: Absent: anxiety, depression Medical,Surgical,& Family Hx - Medical History Cardio: History of: Cardiac Dysrhythmia (A Fib), CHF, CAD, Hypertension, [place], Pacemaker Psychological: History of: Anxiety Disorders Endocrine: History of: Diabetes Mellitus (NIDDM) ("borderline"), Dyslipidemia Respiratory: No history of: Obstructive Sleep Apnea (Patient has never had formal PSG and HST was technically inadequate), Respiratory Problems Gastrointestinal: History of: Diverticulitis/ Diverticulosis Musculoskeletal: History of: Back/Neck Problems, Herniated Disk - Surgical History Cardiac Surgeries: Sugical HX of: Cardiac Catheterization, Cardiac Surgery ( pacemaker (2013); stents (2011);) HEENT Surgeries: Surgical HX of: Tonsilectomy & Adenoidectomy Abdominal Surgeries: Surgical HX of: Cholecystectomy Reproductive Surgeries: Surgical HX of;: Breast Surgery (reduction), Section - Family History Family History: Reports;: Family Cancer (sisters, breast), Family Diabetes ( mother and father), Family Heart Disease (mother and father), Family Stroke ( mother) - Social History Smoking Status: Former smoker Frequency of Alcohol Use: None Type of Drug Use: None Exam Vital Signs: Vital Signs Temperature 97.6 F 01/10/17 17:51 Pulse Rate 74 01/10/17 17:51 Respiratory Rate 18 01/10/17 17:51 Blood Pressure 127/87 01/10/17 17:51 O2 Sat by Pulse Oximetry 98 01/10/17 17:51 - General General appearance: alert, in no apparent distress, obese (morbidly obese) - Head Head exam: Present: atraumatic, normocephalic, normal inspection - Eye Eye exam: Present: normal appearance, PERRL, EOMI - ENT ENT exam: Present: normal exam, normal oropharynx - Neck Neck exam: Present: normal inspection, full ROM, trachea midline - Chest Chest inspection: Present: normal inspection, symmetric chest wall rise - Respiratory Respiratory exam: Present: normal lung sounds bilaterally - Cardiovascular Cardiovascular exam: Present: regular rate, normal rhythm, normal heart sounds - Abdominal Exam Abdominal exam: Present: soft, normal bowel sounds. Absent: tenderness - Extremities Exam Extremities exam: Present: normal inspection - Back Exam Back exam: Present: normal inspection - Neurological Exam Neurological exam: Present: alert, oriented X3, CN II-XII intact. Absent: motor sensory deficit - Psychiatric Psychiatric exam: Present: normal affect, normal mood - Skin Skin exam: Present: warm, dry Course Course Narrative: This patient was evaluated with lab work as well as chest x-ray and EKG. She had normal troponin and ventricular paced rhythm with no ST changes. I discussed her care with the hospitalist who agreed to admit her for rule out of coronary syndrome. She also had elevated white blood cell count so we ordered a urine and it was not back yet Results - Labs CBC & BMP: 01/10/17 18:42 01/10/17 18:42 Lab Results: I have reviewed the patients labs Labs: Laboratory Tests 01/10/17 18:42 WBC 16.0 H RBC 5.12 Hgb 15.3 Hct 44.6 Plt Count 229 Neut % (Auto) 74.7 H Lymph % (Auto) 13.0 L Neut # (Auto) 11.9 H [place] # (Auto) 1.8 H Laboratory Tests 01/10/17 18:42 INR 2.2 PT Patient/Control Mix 24.5 D Circ Anticoag PTT 36.6 Laboratory Tests 01/10/17 18:42 Sodium 128 L Potassium 2.9 L Chloride 86 L Carbon Dioxide 32 BUN 48 H Creatinine 1.80 H BUN/Creatinine Ratio 26.00 H Glucose 127 H Calculated Osmolality 271.1 L AST 30 ALT 47 Total Protein 8.9 H Globulin 5.5 H Albumin/Globulin Ratio 0.6 L Laboratory Tests 01/10/17 01/10/17 18:42 18:42 Total Creatine Kinase 76 CK-MB (CK-2) 1.3 Troponin I < 0.015 B-Natriuretic Peptide 45 - Diagnostic Findings Procedure: Chest x-ray: report reviewed by me (Persistent cardiomegaly with evidence of mild CHF. Left subclavian atrioventricular permanent pacemaker.) Disposition Clinical Impression: Chest pain Case discussed with: patient Disposition: Still a Patient Condition: Stable Instructions: Chest Pain (ED) Time of Disposition: 19:58
[2017-01-10 20:06] LABS: Apearance,Urine CLOUDY (Clear); Bacteria,Urine Many /HPF (Few); Bilirubin,Urine Negative (Negative); Blood, Urine Moderate mg/dL (Negative); Glucose,Urine (UA) Negative (Negative); Hyaline Casts,Urine 11 /LPF (0-3); Ketones,Urine Negative (Negative); Mucus,Urine Occasional /LPF (Occasional); Nitrite,Urine Negative (Negative); Protein,Urine Negative; RBC,Urine 14 /HPF (0-4); Squamous Epithelial Cell,Urine Occasional /HPF (0-10); Transitional Epi Cells,Urine Occasional /HPF (<1); Urine Color Yellow (Yellow); Urine Specific Gravity 1.006 (1.001-1.035); Urine Urobilinogen < 2.0 EU/DL (0.2-1.0); WBC,Urine 6 /HPF (0-6)
--- NOTE | 2017-01-10 20:23 | Hospitalist History & Physical ---
Assessment and Plan (1) Chest pain Status: Acute Assessment and plan: Patient has multiple risk factors for CAD.She is s/p stent placement Plan Telemetry Serial cardiac enzymes ASA resume home meds D-dimers, Lipids, TSH Echo Cardiology consult- will need a stress test Current Visit: Yes (2) Atrial fibrillation Status: Chronic Assessment and plan: rate is controlled. Plan resume Coumadin and rate limiting agents Telemetry Current Visit: No Qualifiers: Atrial fibrillation type: paroxysmal Qualified Code(s): I48.0 - Paroxysmal atrial fibrillation (3) FEDE (acute kidney injury) Status: Resolved Assessment and plan: Not sure what her baseline renal status is. Plan Avoid Nephrotoxics BMP in am Current Visit: No (4) Hypertension Status: Chronic Assessment and plan: Resume home meds Current Visit: No Qualifiers: Hypertension type: essential hypertension Qualified Code(s): I10 - Essential (primary) hypertension (5) Diabetes Status: Chronic Assessment and plan: will place on SSC and hold metformin due to RF Get HbA1c level Current Visit: No (6) Dyslipidemia Status: Acute Assessment and plan: resume statins Current Visit: Yes (7) UTI (urinary tract infection) Status: Acute Assessment and plan: Start IV Rocephin Get UC, BC Current Visit: Yes (8) Hypokalemia Status: Acute Assessment and plan: This may be responsible for the leg cramps. Plan will replete, get Mg level. Current Visit: Yes (9) Hyponatremia Status: Acute Assessment and plan: mild- most likely chronic BMP in am Current Visit: Yes (10) CHF (congestive heart failure) Status: Acute Assessment and plan: clinically stable Plan will continue diuretics follow Echo Current Visit: Yes (11) Morbid obesity Status: Acute Assessment and plan: BMI-67 needs a Dietitian consult. Current Visit: No History of Present Illness Chief complaint: chest pain History of present illness: Ms. Ortez is a 56 year old female with a history of morbid obesity, A. Fib, HTN, NIDDM, s/p pacemaker CAD s/p stent placement who presents chest pain. She was well until 5pm today while watching TV when she developed a chest pain. Pain is located in the mid chest region, feels heavy and sharp, constant, radiating to the jaw and arms.There was an associated history of nausea, vomiting, SOB but denies diaphoresis.No fever, chills or cough. There was some associated leg spasm, swelling but no leg pain. Upon arrival to the ER, her first set of cardiac enzymes was negative, EKG showed paced rhythm,CXR showed Persistent cardiomegaly with evidence of mild CHF and UA was positive.Her potassium was low at 2.9. She was started on Rocephin, potassium supplements and now on admission for rule out OR and further treatment. Home Medications Medication Instructions Recorded Confirmed Type HYDROcodone/ACETAMIN 10-325 [[place] 1 tablet PO Q4H PRN 04/24/15 01/10/17 History 10-325] Gabapentin 800 mg PO TID 02/24/16 01/10/17 History Warfarin Sodium 7.5 mg PO DAILY 02/24/16 01/10/17 History Albuterol Inhaler [Proventil 2 puff INH Q4H PRN #1 inhaler 02/27/16 01/10/17 Rx Inhaler] Aspirin [Ecotrin] 81 mg PO DAILY 08/30/16 01/10/17 History Spironolactone 25 mg PO BID 08/30/16 01/10/17 History Carvedilol [Coreg] 6.25 mg PO BID #60 tablet 09/09/16 01/10/17 Rx metOLazone [Zaroxolyn] 5 mg PO DAILY #30 tablet 10/03/16 01/10/17 Rx Atorvastatin [Lipitor] 20 mg PO BEDTIME #90 tablet 11/30/16 01/10/17 Rx Torsemide Tab [Demadex Tab] 80 mg PO DAILY #90 tablet 11/30/16 01/10/17 Rx ALPRAZolam [Xanax] 1 mg PO BID 01/10/17 01/10/17 History Furosemide Tab [Lasix Tab] 40 mg PO BID 01/10/17 01/10/17 History Potassium Chloride Cap/Tab [K Dur] 20 meq PO BID 01/10/17 01/10/17 History metFORMIN [Glucophage] 1,000 mg PO BID W/MEALS 01/10/17 01/10/17 History Allergies Allergy/AdvReac Type Severity Reaction Status Date / Time codeine Allergy Nausea Verified 02/24/16 10:58 ketorolac [From Toradol] Allergy ANAPHYLAXIS Verified 02/24/16 10:58 morphine Allergy ITCHING Verified 02/24/16 10:58 nitroglycerin Allergy Weakness Verified 02/24/16 10:58 tramadol [From Ultram] Allergy ANAPHYLAXIS Verified 02/24/16 10:58 Hydromorphone [From Dilaudid] AdvReac Difficulty Verified 02/24/16 10:58 Breathing Medical,Surgical,& Family Hx - Medical History Cardio: History of: Cardiac Dysrhythmia (A Fib), CHF, CAD, Hypertension, [place], Pacemaker Psychological: History of: Anxiety Disorders Endocrine: History of: Diabetes Mellitus (NIDDM) ("borderline"), Dyslipidemia Respiratory: No history of: Obstructive Sleep Apnea (Patient has never had formal PSG and HST was technically inadequate), Respiratory Problems Gastrointestinal: History of: Diverticulitis/ Diverticulosis Musculoskeletal: History of: Back/Neck Problems, Herniated Disk - Surgical History Cardiac Surgeries: Sugical HX of: Cardiac Catheterization, Cardiac Surgery ( pacemaker (2013); stents (2011);) HEENT Surgeries: Surgical HX of: Tonsilectomy & Adenoidectomy Abdominal Surgeries: Surgical HX of: Cholecystectomy Reproductive Surgeries: Surgical HX of;: Breast Surgery (reduction), Section - Family History Family History: Reports;: Family Cancer (sisters, breast), Family Diabetes ( mother and father), Family Heart Disease (mother and father), Family Stroke ( mother) - Social History Smoking Status: Former smoker Frequency of Alcohol Use: None Type of Drug Use: None 12 point system: reviewed and no additional remarkable complaints except as stated Exam - Constitutional Vitals: Period Temp Pulse Resp BP Sys/Way Pulse Ox Last 24 Hr 97.6 F-97.6 F 74-74 18-18 127-127/87-87 98 General appearance: no acute distress, morbidly obese - Head Head exam: Present: normal inspection - Respiratory Respiratory exam: Present: decreased breath sounds - Cardiovascular Cardiovascular exam: Present: irregular rhythm - GI/Abdominal GI/Abdominal exam: Present: normal bowel sounds - Extremities Exam Extremities exam: Present: normal inspection, edema - Neurological Exam Neurological exam: Present: alert, oriented X3 Results - Labs CBC & BMP: 01/10/17 18:42 01/10/17 18:42 Lab Results: I have reviewed the past 24 hour labs
[2017-01-10] MEDS: cefTRIAXone 1,000 MG in SODIUM CHLORIDE 0.9% 100 ML IV STA ×2 (21:10→21:36)
[2017-01-10] MEDS ORDERED: POTASSIUM CHLORIDE 20 MEQ TABLET PO ONE ×2 (21:11→21:15)
[2017-01-10] MEDS ORDERED: cefTRIAXone 1,000 MG VIAL ONE (21:15)
[2017-01-10] MEDS: POTASSIUM CHLORIDE RIDER 10 MEQ in PREMIX 1 EACH IV SCH (21:36)
[2017-01-10] MEDS ORDERED: ALBUTEROL 2.5 MG/3 ML NEB RESP TX PRN (21:52)
[2017-01-10] MEDS ORDERED: DOCUSATE SODIUM 100 MG CAPSULE PO PRN (21:52)
[2017-01-10] MEDS ORDERED: ONDANSETRON 4 MG/2 ML VIAL IV PRN (21:52)
[2017-01-10] MEDS: GABAPENTIN 400 MG CAPSULE PO SCH (22:40)
[2017-01-10] MEDS: ZALEPLON 5 MG CAPSULE PO PRN (22:40)
[2017-01-10] MEDS: ALPRAZolam 0.5 MG TABLET PO SCH (22:40)
[2017-01-10] MEDS: ATORVASTATIN 20 MG TABLET PO SCH (22:41)
[2017-01-10] MEDS: CARVEDILOL 6.25 MG TABLET PO SCH (22:41)
[2017-01-10] MEDS: POTASSIUM CHLORIDE 20 MEQ TABLET PO SCH (22:42)
[2017-01-10] MEDS: SPIRONOLACTONE 25 MG TABLET PO SCH (22:42)
[2017-01-10 22:58] LABS: Free T4 (Free Thyroxine) 2.16 NG/DL (0.76-1.46); Troponin I Only < 0.015 NG/ML (0.00-0.045)
[2017-01-10] MEDS: FUROSEMIDE 40 MG TABLET PO SCH (23:31)
[2017-01-11] MEDS: POTASSIUM CHLORIDE RIDER 10 MEQ in PREMIX 1 EACH IV SCH (00:05)
--- NOTE | 2017-01-11 07:30 | EKG Report ---
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
[2017-01-11] MEDS: GABAPENTIN 400 MG CAPSULE PO SCH ×3 (08:00→20:19)
[2017-01-11] MEDS: metOLazone 5 MG TABLET PO SCH (08:01)
[2017-01-11] MEDS: CARVEDILOL 6.25 MG TABLET PO SCH ×2 (08:01→20:19)
[2017-01-11] MEDS: FUROSEMIDE 40 MG TABLET PO SCH ×2 (08:01→20:19)
[2017-01-11] MEDS: ALPRAZolam 0.5 MG TABLET PO SCH ×2 (08:01→20:20)
[2017-01-11] MEDS: ASPIRIN EC 81 MG TABLET PO SCH (08:01)
[2017-01-11] MEDS: POTASSIUM CHLORIDE 20 MEQ TABLET PO SCH ×2 (08:01→20:19)
[2017-01-11] MEDS: SPIRONOLACTONE 25 MG TABLET PO SCH ×2 (08:01→20:19)
[2017-01-11] MEDS: PANTOPRAZOLE 40 MG TABLET PO SCH (08:01)
[2017-01-11] MEDS: TORSEMIDE 20 MG TABLET PO SCH (08:11)
--- NOTE | 2017-01-11 08:39 | Cardiology Consult Note ---
<Melida Rush E - Last Filed: 01/11/17 08:22> Assessment and Plan - Time spent with patient Time spent with patient: Greater than 30 minutes (1) Chest pain Status: Acute Assessment and plan: SEE PLAN OF CARE LISTED BELOW Current Visit: No (2) Hypertension Status: Chronic Assessment and plan: SEE PLAN OF CARE LISTED BELOW Current Visit: No Qualifiers: Hypertension type: essential hypertension Qualified Code(s): I10 - Essential (primary) hypertension (3) History of coronary artery disease Status: Chronic Assessment and plan: SEE PLAN OF CARE LISTED BELOW Current Visit: No (4) Morbid obesity Status: Chronic Assessment and plan: SEE PLAN OF CARE LISTED BELOW Current Visit: No (5) Anxiety Status: Chronic Assessment and plan: SEE PLAN OF CARE LISTED BELOW Current Visit: No (6) Pacemaker Status: Chronic Assessment and plan: SEE PLAN OF CARE LISTED BELOW Current Visit: No (7) History of atrial fibrillation Status: Chronic Assessment and plan: SEE PLAN OF CARE LISTED BELOW Current Visit: No (8) Chronic anticoagulation Status: Chronic Assessment and plan: SEE PLAN OF CARE LISTED BELOW Current Visit: No (9) Sleep apnea Status: Chronic Assessment and plan: SEE PLAN OF CARE LISTED BELOW Current Visit: No Qualifiers: Sleep apnea type: obstructive Qualified Code(s): G47.33 - Obstructive sleep apnea (adult) (pediatric) (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 MELARA Ms. 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 Risk factors include: Known coronary artery disease ( [facility] 2011 revealed patent distal RCA), morbid obesity, hypertension, dyslipidemia, diabetes, sedentary lifestyle and noncompliance. She has sleep apnea, noncompliant with device. History of atrial flutter, DARCY April 2015 revealed left atrial appendage clot. 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 She takes Coumadin for stroke prevention. History of small left atrial appendage clot 2014. Echocardiogram August 2016 revealed: EF 50%, no significant valvular abnormality , PAP 51 mmHg, diastolic dysfunction. Frequent hospitalizations for volume overload, shortness of breath, atypical chest pain. Patient was admitted January 10, 2017 with complaints of chest pain, acute on chronic diastolic congestive heart failure. (NYHA Class III). She has been placed on telemetry. Cardiac biomarkers negative, EKG unremarkable. She is basically nonambulatory by choice. Patient reports Monday evening, while sitting in her chair, she began to experience chest pain in the center of her chest which radiated across her chest laterally. She describes as "sharp and stabbing". She believes he was somewhat diaphoretic. This lasted approximately 12 hours intermittently. She is chronically short of breath and believes this may or may not have worsened at that point. She did have cramping of her lower extremities when this occurred. She can identify no aggravating, nor alleviating factors. She rates the discomfort as a 7 on a scale of 1-10. She is currently chest pain-free. She is chronically orthopneic but this appears to be only minimally worse since our last visit. He has been diagnosed with acute on chronic CHF exacerbation, UTI. Hypokalemic and labs have been replaced. No need to repeat echocardiogram as she had a recent (August 2016) report. Replace magnesium. She is also hyponatremic and may be a candidate for Samsca. First, we will fluid restrict for 24 hours and if no improvement in the sodium level may consider initiation 15 mg orally daily. Strict I&O, continue diuresis. Will add a nitrate to her medication regimen. Continue to follow cardiac biomarkers, EKG. This does not appear to be NSTEMI. Will further discuss with Dr. Hinkle and await additional recommendations. ASSESSMENT/PLAN: 1. ACUTE ON CHRONIC CHF - secondary to diastolic dysfunction, NYHA Class III- IV. Continue with diuresing, strict I&O, daily weights. May be a candidate for Samsca depending on tomorrow's labs 2. MORBID OBESITY - dietary counseling prior to discharge 3. HYPERTENSION - adequately controlled. In the past, lisinopril has been added however it is 1.8 on admission. This is a little higher than her prior creatinine during last visit therefore we will hold KARINE inhibitor at this time. BMP in a.m. 4. DYSLIPIDEMIA -recent lipid profile on board. No need to repeat. Continue atorvastatin. 5. SLEEP APNEA - noncompliant. We will not consult Dr. Bloom as he has seen her on numerous occasions and she chooses not to follow-up outpatient and/or where sleep device. 6. KNOWN CAD - history of stent to distal RCA at [facility] prior to 2010. 7. HISTORY OF ATRIAL FIBRILLATION WITH LEFT ATRIAL APPENDAGE CLOT - INR therapeutic 8. HIGH RISK MEDICATION - Coumadin continues 9. DIABETES - sliding scale 10. HYPOKALEMIA - will add potassium replacement protocol 11. HYPOMAGNESEMIA - will add magnesium replacement protocol 12. NON-COMPLIANCE WITH CARDIOLOGY FOLLOW-UP - reiterated the importance of compliance. 13. S/P PPM - continue current plan of care. 14. UTI - has been treated with antibiotic 15. HYPONATREMIA - may be a candidate for Samsca but will follow labs overnight 16. CHEST PAIN - continue to follow Troponin, EKG. Not NSTEMI CC: Andi Lucas MD - Home Medications and Allergies Home Medications: Home Medications Medication Instructions Recorded Confirmed Type HYDROcodone/ACETAMIN 10-325 [[place] 1 tablet PO Q4H PRN 04/24/15 01/10/17 History 10-325] Gabapentin 800 mg PO TID 02/24/16 01/10/17 History Warfarin Sodium 7.5 mg PO DAILY 02/24/16 01/10/17 History Albuterol Inhaler [Proventil 2 puff INH Q4H PRN #1 inhaler 02/27/16 01/10/17 Rx Inhaler] Aspirin [Ecotrin] 81 mg PO DAILY 08/30/16 01/10/17 History Spironolactone 25 mg PO BID 08/30/16 01/10/17 History Carvedilol [Coreg] 6.25 mg PO BID #60 tablet 09/09/16 01/10/17 Rx metOLazone [Zaroxolyn] 5 mg PO DAILY #30 tablet 10/03/16 01/10/17 Rx Atorvastatin [Lipitor] 20 mg PO BEDTIME #90 tablet 11/30/16 01/10/17 Rx Torsemide Tab [Demadex Tab] 80 mg PO DAILY #90 tablet 11/30/16 01/10/17 Rx ALPRAZolam [Xanax] 1 mg PO BID 01/10/17 01/10/17 History Furosemide Tab [Lasix Tab] 40 mg PO BID 01/10/17 01/10/17 History Potassium Chloride Cap/Tab [K Dur] 20 meq PO BID 01/10/17 01/10/17 History metFORMIN [Glucophage] 1,000 mg PO BID W/MEALS 01/10/17 01/10/17 History Allergies/Adverse Reactions: Allergies Allergy/AdvReac Type Severity Reaction Status Date / Time codeine Allergy Nausea Verified 02/24/16 10:58 ketorolac [From Toradol] Allergy ANAPHYLAXIS Verified 02/24/16 10:58 morphine Allergy ITCHING Verified 02/24/16 10:58 nitroglycerin Allergy Weakness Verified 02/24/16 10:58 tramadol [From Ultram] Allergy ANAPHYLAXIS Verified 02/24/16 10:58 Hydromorphone [From Dilaudid] AdvReac Difficulty Verified 02/24/16 10:58 Breathing Review of systems: REVIEW OF SYSTEMS: - Constitutional Constitutional: Present: Fatigue. Absent: syncope, anorexia, night sweats - EENT Eyes: Absent: blurry vision, loss of vision, diplopia Ears: Absent: decreased hearing, ear pain, ear discharge - Cardiovascular Cardiovascular: Present: chest pain at rest. Chronic dyspnea on exertion and at rest. Chronic lower extremity edema. Denies palpitations. Absent: chest pain with deep breath, claudication - Respiratory Respiratory: Present: COELLO, denies cough. Absent: wheezing, hemoptysis, change in phlegm color - Gastrointestinal Gastrointestinal: Present: constipation. Absent: abdominal pain, hematemesis , hematochezia, melena, change in bowel habits, nausea - Genitourinary Genitourinary: Absent: difficulty urinating, dysuria, urinary hesitancy, flank pain - Musculoskeletal Musculoskeletal: Present: back pain Absent: joint swelling, muscle cramps, muscle weakness - Neurological Neurological: Present: normal gait without frequent falls. Absent: dizziness, hemiparesis - Psychiatric Psychiatric: Absent: anxiety, depression, difficulty concentrating - Endocrine Endocrine: Present: fatigue. Absent: cold intolerance, heat intolerance, polyuria, polyphagia, polydipsia - Hematologic/Lymphatic Hematologic/Lymphatic: Present: easy bruising. Absent: easy bleeding -Integumentary Integumentary: Absent: lesions, rashes, skin breakdown Medical,Surgical,& Family Hx - Medical History Cardio: History of: Cardiac Dysrhythmia (A Fib), CHF, CAD, Hypertension, OR, Pacemaker Psychological: History of: Anxiety Disorders Endocrine: History of: Diabetes Mellitus (NIDDM) ("borderline"), Dyslipidemia Respiratory: No history of: Obstructive Sleep Apnea (Patient has never had formal PSG and HST was technically inadequate), Respiratory Problems Gastrointestinal: History of: Diverticulitis/ Diverticulosis Musculoskeletal: History of: Back/Neck Problems, Herniated Disk - Surgical History Cardiac Surgeries: Sugical HX of: Cardiac Catheterization, Cardiac Surgery ( pacemaker (2013); stents (2011);) Thoracic Surgeries: Patient denies;: Organ Transplant Neurologic Surgeries: Patient denies: Neurologic Surgery HEENT Surgeries: Surgical HX of: Tonsilectomy & Adenoidectomy Abdominal Surgeries: Surgical HX of: Cholecystectomy Reproductive Surgeries: Surgical HX of;: Breast Surgery (reduction), Section Patient denies;: Genitourinary Surgery - Family History Family History: Reports;: Family Cancer (sisters, breast), Family Diabetes ( mother and father), Family Heart Disease (mother and father), Family Stroke ( mother) - Social History Smoking Status: Former smoker Have you smoked in the last 12 months: No Frequency of Alcohol Use: None Type of Drug Use: None Physical Examination Vital Signs Temp Pulse Resp BP Pulse Ox 97.6 F 74 18 127/87 98 01/10/17 17:51 01/10/17 17:51 01/10/17 17:51 01/10/17 17:51 01/10/17 17:51 Exam: General: [Appears well with no apparent distress.] [Pleasant and cooperative. ] [Appears comfortable.] HEENT: [PERRL, normocephalic, atraumatic. Mucous membranes moist. No jaundice noted. Conjunctiva moist and clear, sclerae anicteric] Neck: Unable to assess for JVD due to habitus. No thyromegaly or lymphadenopathy noted. No carotid bruit appreciated Cardiac: [Regular rate and rhythm.] [No murmur rub or gallop.] Lungs: [Decreased sounds throughout. No accessory muscle use to assist the respiratory pattern. ] Oxygen in use via nasal cannula Abdomen: Soft, bowel sounds normoactive. Nontender and nondistended. No abdominal bruit or thrill noted. No masses noted. Musculoskeletal: No fluid collection. Decreased range of motion is noted. Extremities: No clubbing, cyanosis noted. [3-4+ bilateral lower extremity edema. ] Upper extremity pulses 2+. Difficult to assess or palpate due to edema. Capillary refill less than 3 seconds. Skin: No unusual lesions or rashes. No skin breakdown appreciated. Neuro: Awake, alert and oriented 3. Moves all extremities well without hemiparesis or paralysis. No essential tremor is appreciated. Result/EKG - Labs CBC & BMP: 01/10/17 18:42 01/10/17 18:42 Lab Results: I have reviewed the past 24 hour labs Labs: Laboratory Results - last 24 hr 01/10/17 01/10/17 01/10/17 18:42 18:42 18:42 WBC 16.0 H RBC 5.12 Hgb 15.3 Hct 44.6 MCV 87.1 MCH 30 MCHC 34.3 RDW 14.2 Plt Count 229 MPV 11.7 Neut % (Auto) 74.7 H Lymph % (Auto) 13.0 L [place] % (Auto) 11.1 Eos % (Auto) 0.5 Baso % (Auto) 0.3 Neut # (Auto) 11.9 H Lymph # (Auto) 2.1 [place] # (Auto) 1.8 H Eos # (Auto) 0.1 Baso # (Auto) 0.0 Immature Gran % 0.4 Nucleated RBC % 0.0 Immature Gran # 0.06 Nucleated RBCs # 0.00 INR PT Patient/Control Mix D-Dimer, Quantitative Circ Anticoag PTT Sodium Potassium Chloride Carbon Dioxide Anion Gap BUN Creatinine GFR Calculation BUN/Creatinine Ratio Glucose POC Glucose Calculated Osmolality Calcium Magnesium Total Bilirubin AST ALT Alkaline Phosphatase Total Creatine Kinase 76 CK-MB (CK-2) 1.3 Troponin I < 0.015 B-Natriuretic Peptide 45 Total Protein Albumin Globulin Albumin/Globulin Ratio Lipase Free T4 TSH 3rd Generation Urine Color Urine Appearance Urine pH Ur Specific [place] Urine Protein Urine Glucose (UA) Urine Ketones Urine Blood Urine Nitrate Urine Bilirubin Urine Urobilinogen Urine Leukocytes Urine RBC Urine WBC Ur Squamous Epith Cells Ur Transition Epith Cell Urine Bacteria Hyaline Casts Urine Mucus Ur Culture Indicated? 01/10/17 01/10/17 01/10/17 18:42 18:42 18:42 WBC RBC Hgb Hct MCV MCH MCHC RDW Plt Count MPV Neut % (Auto) Lymph % (Auto) [place] % (Auto) Eos % (Auto) Baso % (Auto) Neut # (Auto) Lymph # (Auto) [place] # (Auto) Eos # (Auto) Baso # (Auto) Immature Gran % Nucleated RBC % Immature Gran # Nucleated RBCs # INR 2.2 PT Patient/Control Mix 24.5 D D-Dimer, Quantitative <= 0.5 Circ Anticoag PTT 36.6 Sodium 128 L Potassium 2.9 L Chloride 86 L Carbon Dioxide 32 Anion Gap 12.9 BUN 48 H Creatinine 1.80 H GFR Calculation 45 BUN/Creatinine Ratio 26.00 H Glucose 127 H POC Glucose Calculated Osmolality 271.1 L Calcium 9.3 Magnesium Total Bilirubin 0.80 AST 30 ALT 47 Alkaline Phosphatase 62 Total Creatine Kinase CK-MB (CK-2) Troponin I B-Natriuretic Peptide Total Protein 8.9 H Albumin 3.4 Globulin 5.5 H Albumin/Globulin Ratio 0.6 L Lipase 260.0 Free T4 TSH 3rd Generation Urine Color Urine Appearance Urine pH Ur Specific [place] Urine Protein Urine Glucose (UA) Urine Ketones Urine Blood Urine Nitrate Urine Bilirubin Urine Urobilinogen Urine Leukocytes Urine RBC Urine WBC Ur Squamous Epith Cells Ur Transition Epith Cell Urine Bacteria Hyaline Casts Urine Mucus Ur Culture Indicated? 01/10/17 01/10/17 01/10/17 19:53 22:17 22:17 WBC RBC Hgb Hct MCV MCH MCHC RDW Plt Count MPV Neut % (Auto) Lymph % (Auto) [place] % (Auto) Eos % (Auto) Baso % (Auto) Neut # (Auto) Lymph # (Auto) [place] # (Auto) Eos # (Auto) Baso # (Auto) Immature Gran % Nucleated RBC % Immature Gran # Nucleated RBCs # INR PT Patient/Control Mix D-Dimer, Quantitative Circ Anticoag PTT Sodium Potassium Chloride Carbon Dioxide Anion Gap BUN Creatinine GFR Calculation BUN/Creatinine Ratio Glucose POC Glucose Calculated Osmolality Calcium Magnesium Total Bilirubin AST ALT Alkaline Phosphatase Total Creatine Kinase 91 CK-MB (CK-2) 1.7 Troponin I < 0.015 B-Natriuretic Peptide Total Protein Albumin Globulin Albumin/Globulin Ratio Lipase Free T4 2.16 H TSH 3rd Generation 1.670 Urine Color Yellow Urine Appearance Cloudy Urine pH 6.0 Ur Specific [place] 1.006 Urine Protein Negative Urine Glucose (UA) Negative Urine Ketones Negative Urine Blood Moderate Urine Nitrate Negative Urine Bilirubin Negative Urine Urobilinogen < 2.0 H Urine Leukocytes Large H Urine RBC 14 Urine WBC 6 Ur Squamous Epith Cells Occasional Ur Transition Epith Cell Occasional Urine Bacteria Many Hyaline Casts 11 Urine Mucus Occasional Ur Culture Indicated? Results to follow 01/10/17 01/11/17 22:18 07:24 WBC RBC Hgb Hct MCV MCH MCHC RDW Plt Count MPV Neut % (Auto) Lymph % (Auto) [place] % (Auto) Eos % (Auto) Baso % (Auto) Neut # (Auto) Lymph # (Auto) [place] # (Auto) Eos # (Auto) Baso # (Auto) Immature Gran % Nucleated RBC % Immature Gran # Nucleated RBCs # INR PT Patient/Control Mix D-Dimer, Quantitative Circ Anticoag PTT Sodium Potassium Chloride Carbon Dioxide Anion Gap BUN Creatinine GFR Calculation BUN/Creatinine Ratio Glucose POC Glucose 122 H Calculated Osmolality Calcium Magnesium 1.5 L Total Bilirubin AST ALT Alkaline Phosphatase Total Creatine Kinase CK-MB (CK-2) Troponin I B-Natriuretic Peptide Total Protein Albumin Globulin Albumin/Globulin Ratio Lipase Free T4 TSH 3rd Generation Urine Color Urine Appearance Urine pH Ur Specific [place] Urine Protein Urine Glucose (UA) Urine Ketones Urine Blood Urine Nitrate Urine Bilirubin Urine Urobilinogen Urine Leukocytes Urine RBC Urine WBC Ur Squamous Epith Cells Ur Transition Epith Cell Urine Bacteria Hyaline Casts Urine Mucus Ur Culture Indicated? - Diagnostic Findings Procedure: Chest x-ray: report reviewed by nh - EKG EKG results: interpreted by nh EKG shows: sinus rhythm Quality Measures - VTE Contraindication to Pharmacological VTE Prophylaxis: Coagulopathy Specialty Discharge - Follow Up or Referrals <John Paul Hinkle - Last Filed: 01/11/17 11:36> History of Present Illness - Consult Narrative History of present illness: Cardiology addendum Patient examined chart review discussed with nurse Melida barajas. Morbid obesity, 391 pounds. Chronic dyspnea. Status post RCA stent 2010 at the [facility]. Untreated obstructive sleep apnea. Patient refuses to wear CPAP mask. History of atrial flutter Chronic anticoagulation with Coumadin INR 2.2 today. Status post dual-chamber pacemaker Hypertension Dilutional hyponatremia with chronic edema and massive panniculus UTI BUN 48 creatinine 1.80 History of diastolic dysfunction and heart failure Plan Echo Doppler IV Lasix Supplemental O2 CC: Andi Lucas MD Physical Examination Vital Signs Temp Pulse Resp BP Pulse Ox 97.6 F 74 18 127/87 98 01/10/17 17:51 01/10/17 17:51 01/10/17 17:51 01/10/17 17:51 01/10/17 17:51 Result/EKG - Labs CBC & BMP: 01/10/17 18:42 01/10/17 18:42 Labs: Laboratory Results - last 24 hr 01/10/17 01/10/17 01/10/17 18:42 18:42 18:42 WBC 16.0 H RBC 5.12 Hgb 15.3 Hct 44.6 MCV 87.1 MCH 30 MCHC 34.3 RDW 14.2 Plt Count 229 MPV 11.7 Neut % (Auto) 74.7 H Lymph % (Auto) 13.0 L [place] % (Auto) 11.1 Eos % (Auto) 0.5 Baso % (Auto) 0.3 Neut # (Auto) 11.9 H Lymph # (Auto) 2.1 [place] # (Auto) 1.8 H Eos # (Auto) 0.1 Baso # (Auto) 0.0 Immature Gran % 0.4 Nucleated RBC % 0.0 Immature Gran # 0.06 Nucleated RBCs # 0.00 INR PT Patient/Control Mix D-Dimer, Quantitative Circ Anticoag PTT Sodium Potassium Chloride Carbon Dioxide Anion Gap BUN Creatinine GFR Calculation BUN/Creatinine Ratio Glucose POC Glucose Calculated Osmolality Calcium Magnesium Total Bilirubin AST ALT Alkaline Phosphatase Total Creatine Kinase 76 CK-MB (CK-2) 1.3 Troponin I < 0.015 B-Natriuretic Peptide 45 Total Protein Albumin Globulin Albumin/Globulin Ratio Lipase Free T4 TSH 3rd Generation Urine Color Urine Appearance Urine pH Ur Specific [place] Urine Protein Urine Glucose (UA) Urine Ketones Urine Blood Urine Nitrate Urine Bilirubin Urine Urobilinogen Urine Leukocytes Urine RBC Urine WBC Ur Squamous Epith Cells Ur Transition Epith Cell Urine Bacteria Hyaline Casts Urine Mucus Ur Culture Indicated? 01/10/17 01/10/17 01/10/17 18:42 18:42 18:42 WBC RBC Hgb Hct MCV MCH MCHC RDW Plt Count MPV Neut % (Auto) Lymph % (Auto) [place] % (Auto) Eos % (Auto) Baso % (Auto) Neut # (Auto) Lymph # (Auto) [place] # (Auto) Eos # (Auto) Baso # (Auto) Immature Gran % Nucleated RBC % Immature Gran # Nucleated RBCs # INR 2.2 PT Patient/Control Mix 24.5 D D-Dimer, Quantitative <= 0.5 Circ Anticoag PTT 36.6 Sodium 128 L Potassium 2.9 L Chloride 86 L Carbon Dioxide 32 Anion Gap 12.9 BUN 48 H Creatinine 1.80 H GFR Calculation 45 BUN/Creatinine Ratio 26.00 H Glucose 127 H POC Glucose Calculated Osmolality 271.1 L Calcium 9.3 Magnesium Total Bilirubin 0.80 AST 30 ALT 47 Alkaline Phosphatase 62 Total Creatine Kinase CK-MB (CK-2) Troponin I B-Natriuretic Peptide Total Protein 8.9 H Albumin 3.4 Globulin 5.5 H Albumin/Globulin Ratio 0.6 L Lipase 260.0 Free T4 TSH 3rd Generation Urine Color Urine Appearance Urine pH Ur Specific [place] Urine Protein Urine Glucose (UA) Urine Ketones Urine Blood Urine Nitrate Urine Bilirubin Urine Urobilinogen Urine Leukocytes Urine RBC Urine WBC Ur Squamous Epith Cells Ur Transition Epith Cell Urine Bacteria Hyaline Casts Urine Mucus Ur Culture Indicated? 01/10/17 01/10/17 01/10/17 19:53 22:17 22:17 WBC RBC Hgb Hct MCV MCH MCHC RDW Plt Count MPV Neut % (Auto) Lymph % (Auto) [place] % (Auto) Eos % (Auto) Baso % (Auto) Neut # (Auto) Lymph # (Auto) [place] # (Auto) Eos # (Auto) Baso # (Auto) Immature Gran % Nucleated RBC % Immature Gran # Nucleated RBCs # INR PT Patient/Control Mix D-Dimer, Quantitative Circ Anticoag PTT Sodium Potassium Chloride Carbon Dioxide Anion Gap BUN Creatinine GFR Calculation BUN/Creatinine Ratio Glucose POC Glucose Calculated Osmolality Calcium Magnesium Total Bilirubin AST ALT Alkaline Phosphatase Total Creatine Kinase 91 CK-MB (CK-2) 1.7 Troponin I < 0.015 B-Natriuretic Peptide Total Protein Albumin Globulin Albumin/Globulin Ratio Lipase Free T4 2.16 H TSH 3rd Generation 1.670 Urine Color Yellow Urine Appearance Cloudy Urine pH 6.0 Ur Specific [place] 1.006 Urine Protein Negative Urine Glucose (UA) Negative Urine Ketones Negative Urine Blood Moderate Urine Nitrate Negative Urine Bilirubin Negative Urine Urobilinogen < 2.0 H Urine Leukocytes Large H Urine RBC 14 Urine WBC 6 Ur Squamous Epith Cells Occasional Ur Transition Epith Cell Occasional Urine Bacteria Many Hyaline Casts 11 Urine Mucus Occasional Ur Culture Indicated? Results to follow 01/10/17 01/11/17 22:18 07:24 WBC RBC Hgb Hct MCV MCH MCHC RDW Plt Count MPV Neut % (Auto) Lymph % (Auto) [place] % (Auto) Eos % (Auto) Baso % (Auto) Neut # (Auto) Lymph # (Auto) [place] # (Auto) Eos # (Auto) Baso # (Auto) Immature Gran % Nucleated RBC % Immature Gran # Nucleated RBCs # INR PT Patient/Control Mix D-Dimer, Quantitative Circ Anticoag PTT Sodium Potassium Chloride Carbon Dioxide Anion Gap BUN Creatinine GFR Calculation BUN/Creatinine Ratio Glucose POC Glucose 122 H Calculated Osmolality Calcium Magnesium 1.5 L Total Bilirubin AST ALT Alkaline Phosphatase Total Creatine Kinase CK-MB (CK-2) Troponin I B-Natriuretic Peptide Total Protein Albumin Globulin Albumin/Globulin Ratio Lipase Free T4 TSH 3rd Generation Urine Color Urine Appearance Urine pH Ur Specific [place] Urine Protein Urine Glucose (UA) Urine Ketones Urine Blood Urine Nitrate Urine Bilirubin Urine Urobilinogen Urine Leukocytes Urine RBC Urine WBC Ur Squamous Epith Cells Ur Transition Epith Cell Urine Bacteria Hyaline Casts Urine Mucus Ur Culture Indicated?
[2017-01-11] MEDS ORDERED: MAGNESIUM SULF RIDER 4 GM in PREMIX 1 EACH IV PRN (11:32)
[2017-01-11] MEDS ORDERED: MAGNESIUM SULF RIDER 2 GM in PREMIX 1 EACH IV PRN (11:32)
[2017-01-11] MEDS: TOLVAPTAN 15 MG TABLET PO SCH (12:04)
[2017-01-11 12:28] LABS: Basophils # 0.1 10*3/uL (0.0-0.2); Basophils % 0.4 % (0.0-0.8); Eosinophils # 0.1 10*3/uL (0.0-0.87); Eosinophils % 0.8 % (0.00-10.9); Hematocrit 47.3 VOL% (35.7-47.0); Hemoglobin 15.9 GM/DL (12.0-16.0); Immature Granulocytes % 0.3 %; Immature Granulocytes Absolute 0.04 #; Lymphocytes % 16.8 % (21.3-54.2); Mean Corpuscular HGB Conc 33.6 GM/DL (32-36); Mean Corpuscular Hemoglobin 30 PG (27-34); Mean Corpuscular Volume 89.2 FL (87-102); Mean Platelet Volume 11.5 FL (9.6-12.0); Monocytes # 1.5 10*3/uL (0.11-0.8); Monocytes % 12.3 % (1.7-12.7); Neutrophils # 8.2 10*3/uL (1.4-7.4); Neutrophils % 69.4 % (38.7-73.9); Platelet Count 220 T/CUMM (130-400); Red Cell Distribution Width 14.3 % (9.3-17.3); White Blood Count 11.8 T/CUMM (4-12)
--- NOTE | 2017-01-11 12:40 | ECHO Report ---
Joseline Ortez 01/11/2017 Exam Date: 09:47 Referring Physician: Angélica Peña Technologist: VALENTINO Age: 56 Ht (in): 63 Wt (lb): 380 FExam Location: [facility] Gender: Echo [id number]: Chest pain, unspecified, Presence ofIndications:cardiac pacemaker, Essential (primary) hypertension, Diabetes, Heart failure, unspecified, Hypokalemia, FEDE, Morbid (severe) obesity due to excess calories BP: 133 / 75 HR: 63 pacemakerRhythm: Very technically difficult studyTechnical Quality: IMPRESSIONS Left ventricular ejection fraction is estimated at 55 %. There is no regional wall motion abnormality but suboptimal endocardial. Diastolic parameters appear to be most consistent with grade 1 diastolic dysfunction or impaired relaxation. MEASUREMENTS (Male / Female) Normal Values 2D ECHO LV Diastolic Diameter PLAX 5.2 cm 4.2 - 5.9 / 3.9 - 5.3 cm LV Systolic Diameter PLAX 3.7 cm LV Fractional Shortening PLAX 28.4 % IVS Diastolic Thickness 1.2 cm 0.6 - 1.0 / 0.6 - 0.9 cm LVPW Diastolic Thickness 1.2 cm 0.6 - 1.0 / 0.6 - 0.9 cm RV Internal Dim ED PLAX 2.8 cm Aortic Root Diameter 3.4 cm LA Systolic Diameter LX 4.4 cm 3.0 - 4.0 / 2.7 - 3.8 cm DOPPLER TR Peak Velocity 266.0 cm/s TR Peak Gradient 28.3 mmHg FINDINGS Left Ventricle Normal left ventricular cavity size. Mild left ventricular hypertrophy. Left ventricular ejection fraction is estimated at 55 %. There is no regional wall motion abnormality but suboptimal endocardial. Diastolic parameters appear to be most consistent with grade 1 diastolic dysfunction or impaired relaxation Right Ventricle The right ventricle is normal in size and function. Right Atrium The right atrium is normal in size. Left Atrium The left atrium is normal in size. Mitral Valve Morphologically normal mitral valve without significant stenosis or prolapse. There is no mitral regurgitation. Aortic Valve Morphologically normal aortic valve without significant sclerosis or stenosis. There is no aortic regurgitation. Tricuspid Valve Morphologically normal tricuspid valve. Trace to mild tricuspid valve regurgitation. Tricuspid regurgitation velocities suggest a PAP of 38 mmHg. Pulmonic Valve Morphologically normal pulmonic valve without significant stenosis. There is no pulmonic regurgitation. Pericardium Normal pericardium without effusion. Aorta Normal ascending aorta dimension. Hernandez Inga (Electronically Signed) 11 January 2017 Final Date: 12:39
[2017-01-11 12:48] LABS: INR 2.3
[2017-01-11 12:56] LABS: PT Patient Result 25.9 SECS
[2017-01-11 12:58] LABS: Alanine Aminotransferase 50 U/L (13-56); Albumin 3.5 G/DL (3.4-5.0); Alkaline Phosphatase 59 U/L (45-117); Aspartate Amino Transferase 39 U/L (0-37); Blood Urea Nitrogen 43 MG/DL (7-18); Calcium 9.3 MG/DL (8.5-10.1); Cholesterol 113 MG/DL (50-200); Glucose 109 MG/DL (74-106); HDL Cholesterol 45 MG/DL (40-60); Osmolality,Calculated 269.9 MOS/KG (273-304); Potassium 3.4 MMOL/L (3.5-5.1); Risk Ratio 2.51; Sodium 129 MMOL/L (136-145); Total Protein 8.4 G/DL (6.4-8.3); Triglycerides 105 MG/DL (2-150); Troponin I Only < 0.015 NG/ML (0.00-0.045)
--- NOTE | 2017-01-11 15:06 | Hospitalist Progress Note ---
Assessment and Plan (1) UTI (urinary tract infection) Status: Acute Assessment and plan: Gram-negative rods noted. Continue antibiotics. Follow-up culture Current Visit: Yes (2) Acute on chronic diastolic (congestive) heart failure Status: Acute Current Visit: Yes (3) FEDE (acute kidney injury) Status: Acute Current Visit: Yes (4) Morbid obesity Status: Acute Current Visit: Yes (5) Hypertension Status: Chronic Current Visit: Yes Qualifiers: Hypertension type: essential hypertension Qualified Code(s): I10 - Essential (primary) hypertension (6) Dyslipidemia Status: Acute Current Visit: Yes (7) Hypokalemia Status: Acute Assessment and plan: Replacement ordered. Current Visit: Yes (8) Hyponatremia Status: Acute Current Visit: Yes Hospitalist: Subjective Interval history: Patient reports Monday evening, while sitting in her chair, she began to experience chest pain in the center of her chest which radiated across her chest laterally. She describes as "sharp and stabbing". She believes he was somewhat diaphoretic. This lasted approximately 12 hours intermittently. She is chronically short of breath and believes this may or may not have worsened at that point. She did have cramping of her lower extremities when this occurred. She can identify no aggravating, nor alleviating factors. She rates the discomfort as a 7 on a scale of 1-10. She is currently chest pain-free. She is chronically SOB. Exam - Constitutional Vitals: Period Temp Pulse Resp BP Sys/Way Pulse Ox Last 24 Hr 96.7 F-98.6 F 60-74 16-20 122-133/75-87 94-98 Exam: Constitutional System: Mild distress. No tremulousness. Morbidly obese Head: Normocephalic, atraumatic. Ears, Nose and Throat System: No pain or tenderness. No epistaxis or discharge Eyes System: Pupils equal, round, and reactive. Extraocular muscles intact. Neck: Supple, without adenopathy, No jugular venous distention. Respiratory System: Chest diminished bilaterally to auscultation. Cardiovascular System: Heart with regular rate and rhythm. No murmur. GI System: Abdomen soft, nontender. Normo active bowel sounds present. Large pannus noted Musculoskeletal System: limbs with no pedal edema. Full distal pulses. Neurological System: No discernable sensory deficit. No aphasia Psychiatric System: Conversation is rational. Results - Labs CBC & BMP: 01/11/17 12:21 01/11/17 12:21 Lab Results: I have reviewed the past 24 hour labs - Diagnostic Findings Procedure: Chest x-ray: image reviewed by me, report reviewed by me Quality Measures - VTE Contraindication to Pharmacological VTE Prophylaxis: Coagulopathy Specialty Discharge - Follow Up or Referrals
[2017-01-11] MEDS: WARFARIN 7.5 MG TABLET PO SCH (17:45)
[2017-01-11] MEDS: ATORVASTATIN 20 MG TABLET PO SCH (20:19)
[2017-01-11] MEDS: cefTRIAXone 1,000 MG in SODIUM CHLORIDE 0.9% 100 ML IV SCH (20:20)
[2017-01-12 05:51] LABS: Basophils # 0.1 10*3/uL (0.0-0.2); Basophils % 0.4 % (0.0-0.8); Eosinophils # 0.2 10*3/uL (0.0-0.87); Eosinophils % 1.5 % (0.00-10.9); Hemoglobin 14.4 GM/DL (12.0-16.0); Immature Granulocytes % 0.3 %; Immature Granulocytes Absolute 0.03 #; Lymphocytes # 1.8 10*3/uL (1.4-4.0); Lymphocytes % 14.9 % (21.3-54.2); Mean Corpuscular HGB Conc 32.7 GM/DL (32-36); Mean Corpuscular Hemoglobin 30 PG (27-34); Mean Corpuscular Volume 91.1 FL (87-102); Mean Platelet Volume 11.9 FL (9.6-12.0); Monocytes # 1.5 10*3/uL (0.11-0.8); Neutrophils # 8.2 10*3/uL (1.4-7.4); Neutrophils % 69.9 % (38.7-73.9); Platelet Count 220 T/CUMM (130-400); Red Blood Count 4.83 MC/CUMM (3.8-5.5); Red Cell Distribution Width 14.4 % (9.3-17.3); White Blood Count 11.8 T/CUMM (4-12)
[2017-01-12 06:14] LABS: Calcium 9.3 MG/DL (8.5-10.1); Magnesium 2.3 MG/DL (1.8-2.4); Osmolality,Calculated 277.5 MOS/KG (273-304); Potassium 3.1 MMOL/L (3.5-5.1)
[2017-01-12] MEDS: POTASSIUM CHLORIDE 20 MEQ TABLET PO PRN ×4 (06:54→14:06)
[2017-01-12] MEDS: TOLVAPTAN 15 MG TABLET PO SCH (08:09)
[2017-01-12] MEDS: PANTOPRAZOLE 40 MG TABLET PO SCH (08:09)
[2017-01-12] MEDS: ASPIRIN EC 81 MG TABLET PO SCH (08:09)
[2017-01-12] MEDS: TORSEMIDE 20 MG TABLET PO SCH (08:09)
[2017-01-12] MEDS: metOLazone 5 MG TABLET PO SCH (08:09)
[2017-01-12] MEDS: FUROSEMIDE 40 MG TABLET PO SCH ×2 (08:09→21:28)
[2017-01-12] MEDS: GABAPENTIN 400 MG CAPSULE PO SCH ×3 (08:09→21:28)
[2017-01-12] MEDS: SPIRONOLACTONE 25 MG TABLET PO SCH ×2 (08:10→21:28)
[2017-01-12] MEDS: CARVEDILOL 6.25 MG TABLET PO SCH ×2 (08:10→21:28)
[2017-01-12] MEDS: ALPRAZolam 0.5 MG TABLET PO SCH ×2 (08:10→21:28)
[2017-01-12] MEDS: POTASSIUM CHLORIDE 20 MEQ TABLET PO SCH (09:38)
--- NOTE | 2017-01-12 10:52 | Cardiology Progress Note ---
<Melida Rush E - Last Filed: 01/12/17 10:53> Assessment and Plan - Time spent with patient Time spent with patient: Greater than 30 minutes Time spent discussing smoking cessation with patient: 3 to 10 minutes (1) Chest pain Status: Resolved Assessment and plan: SEE PLAN OF CARE LISTED BELOW Current Visit: No (2) Hypertension Status: Chronic Assessment and plan: SEE PLAN OF CARE LISTED BELOW Current Visit: No Qualifiers: Hypertension type: essential hypertension Qualified Code(s): I10 - Essential (primary) hypertension (3) History of coronary artery disease Status: Chronic Assessment and plan: SEE PLAN OF CARE LISTED BELOW Current Visit: No (4) Morbid obesity Status: Chronic Assessment and plan: SEE PLAN OF CARE LISTED BELOW Current Visit: No (5) Anxiety Status: Chronic Assessment and plan: SEE PLAN OF CARE LISTED BELOW Current Visit: No (6) Pacemaker Status: Chronic Assessment and plan: SEE PLAN OF CARE LISTED BELOW Current Visit: No (7) History of atrial fibrillation Status: Chronic Assessment and plan: SEE PLAN OF CARE LISTED BELOW Current Visit: No (8) Chronic anticoagulation Status: Chronic Assessment and plan: SEE PLAN OF CARE LISTED BELOW Current Visit: No (9) Sleep apnea Status: Chronic Assessment and plan: SEE PLAN OF CARE LISTED BELOW Current Visit: No Qualifiers: Sleep apnea type: obstructive Qualified Code(s): G47.33 - Obstructive sleep apnea (adult) (pediatric) (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 HODGES SUMMARY: Ms. Ortez, 56WF, does not follow-up in filament cutter clinic but considers Dr. Hodges her filament cutter. Risk factors include: Known coronary artery disease ([facility] 2010 revealed patent distal RCA), morbid obesity, hypertension, dyslipidemia, diabetes, sedentary lifestyle and noncompliance. She has sleep apnea, noncompliant with device. History of atrial flutter, DARCY April 2015 revealed left atrial appendage clot. History of READING AIDE-P PPM. She takes Coumadin for stroke prevention. History of small left atrial appendage clot 2015. Echocardiogram August 2016 revealed: EF 50%, no significant valvular abnormality, PAP 51 mmHg, diastolic dysfunction. Frequent hospitalizations for volume overload, shortness of breath, atypical chest pain. Patient was admitted January 10, 2017 with complaints of chest pain, acute on chronic diastolic congestive heart failure. (NYHA Class III). She has been placed on telemetry. Cardiac biomarkers negative, EKG unremarkable. She is basically nonambulatory by choice. Patient reports Monday evening, while sitting in her chair, she began to experience chest pain in the center of her chest which radiated across her chest laterally. She describes as "sharp and stabbing". She believes he was somewhat diaphoretic. This lasted approximately 12 hours intermittently. She is chronically short of breath and believes this may or may not have worsened at that point. She did have cramping of her lower extremities when this occurred. She can identify no aggravating, nor alleviating factors. She rates the discomfort as a 7 on a scale of 1-10. She is currently chest pain-free. She is chronically orthopneic but this appears to be only minimally worse since our last visit. He has been diagnosed with acute on chronic CHF exacerbation, UTI. Hypokalemic and labs have been replaced. No need to repeat echocardiogram as she had a recent (August 2016) report. Replace magnesium. She is also hyponatremic and may be a candidate for Samsca. First, we will fluid restrict for 24 hours and if no improvement in the sodium level may consider initiation 15 mg orally daily. Strict I&O, continue diuresis. Will add a nitrate to her medication regimen. Continue to follow cardiac biomarkers, EKG. This does not appear to be NSTEMI. Will further discuss with Dr. Hinkle and await additional recommendations. JANUARY 12, 2017: Yesterday, patient was started on Samsca. Sodium 132. We do not have a daily weight however she has diuresed 5000 mL overnight. Echocardiogram reveals EF 55%, grade 1 diastolic dysfunction, no significant valvular abnormality, PA P 38 mmHg. In general, she looks markedly better. She feels much better today. Denies chest pain, heaviness or tightness. Continue current plan of care. Will further discuss with Dr. Hinkle and await additional recommendations. ASSESSMENT/PLAN: 1. ACUTE ON CHRONIC CHF - secondary to diastolic dysfunction, NYHA Class III. Continue with diuresing, strict I&O, daily weights. Continue Samsca daily. 2. MORBID OBESITY - dietary counseling prior to discharge 3. HYPERTENSION - adequately controlled. In the past, lisinopril has been added however it is 1.8 on admission. This is a little higher than her prior creatinine during last visit therefore we will hold KARINE inhibitor at this time. BMP in a.m. 4. DYSLIPIDEMIA -recent lipid profile on board. No need to repeat. Continue atorvastatin. 5. SLEEP APNEA - noncompliant. We will not consult Dr. Bloom as he has seen her on numerous occasions and she chooses not to follow-up outpatient and/or where sleep device. 6. KNOWN CAD - history of stent to distal RCA at [facility] prior to 2010. 7. HISTORY OF ATRIAL FIBRILLATION WITH LEFT ATRIAL APPENDAGE CLOT - INR therapeutic 8. HIGH RISK MEDICATION - Coumadin continues 9. DIABETES - sliding scale 10. HYPOKALEMIA - chronic and will continue with potassium replacement protocol 11. HYPOMAGNESEMIA - resolved 12. NON-COMPLIANCE WITH CARDIOLOGY FOLLOW-UP - reiterated the importance of compliance. 13. S/P PPM - continue current plan of care. 14. UTI - has been treated with antibiotic 15. HYPONATREMIA - improved overnight after adding Samsa. May drink to thirst will taking while taking Samsca. BMP daily 16. CHEST PAIN - continue to follow Troponin, EKG. Not NSTEMI Exam (Progress Note) - Constitutional Vitals: Period Temp Pulse Resp BP Sys/Way Pulse Ox Last 24 Hr 96.7 F-98.4 F 59-60 16-20 110-153/67-88 92-98 Exam: Exam: General: [Appears well with no apparent distress.] [Pleasant and cooperative. ] [Appears comfortable.] HEENT: [PERRL, normocephalic, atraumatic. Mucous membranes moist. No jaundice noted. Conjunctiva moist and clear, sclerae anicteric] Neck: Unable to assess for JVD due to habitus. No thyromegaly or lymphadenopathy noted. No carotid bruit appreciated Cardiac: [Regular rate and rhythm.] [No murmur rub or gallop.] Lungs: [Decreased sounds throughout but no Rales or rhonchi noted.. No accessory muscle use to assist the respiratory pattern. ] Not requiring oxygen Abdomen: Soft, bowel sounds normoactive. Nontender and nondistended. No abdominal bruit or thrill noted. No masses noted. Musculoskeletal: No fluid collection. Decreased range of motion is noted. Extremities: No clubbing, cyanosis noted. [3-4+ bilateral lower extremity edema. ] Upper extremity pulses 2+. Difficult to assess or palpate due to edema. Capillary refill less than 3 seconds. Skin: No unusual lesions or rashes. No skin breakdown appreciated. Neuro: Awake, alert and oriented 3. Moves all extremities well without hemiparesis or paralysis. No essential tremor is appreciated. Result/EKG - Labs CBC & BMP: 01/12/17 05:13 01/12/17 05:13 Lab Results: I have reviewed the past 24 hour labs Labs: Laboratory Results - last 24 hr 01/11/17 01/11/17 01/11/17 11:40 12:21 12:21 WBC 11.8 RBC 5.30 Hgb 15.9 Hct 47.3 H MCV 89.2 MCH 30 MCHC 33.6 RDW 14.3 Plt Count 220 MPV 11.5 Neut % (Auto) 69.4 Lymph % (Auto) 16.8 L [place] % (Auto) 12.3 Eos % (Auto) 0.8 Baso % (Auto) 0.4 Neut # (Auto) 8.2 H Lymph # (Auto) 2.0 [place] # (Auto) 1.5 H Eos # (Auto) 0.1 Baso # (Auto) 0.1 Immature Gran % 0.3 Nucleated RBC % 0.0 Immature Gran # 0.04 Nucleated RBCs # 0.00 INR 2.3 PT Patient/Control Mix 25.9 Sodium Potassium Chloride Carbon Dioxide Anion Gap BUN Creatinine GFR Calculation BUN/Creatinine Ratio Glucose POC Glucose 127 H Hemoglobin A1c Calculated Osmolality Calcium Magnesium Total Bilirubin AST ALT Alkaline Phosphatase Total Creatine Kinase CK-MB (CK-2) Troponin I B-Natriuretic Peptide Total Protein Albumin Globulin Albumin/Globulin Ratio Triglycerides Cholesterol LDL Cholesterol VLDL Cholesterol HDL Cholesterol Heart Disease Risk Ratio 01/11/17 01/11/17 01/11/17 12:21 12:21 12:21 WBC RBC Hgb Hct MCV MCH MCHC RDW Plt Count MPV Neut % (Auto) Lymph % (Auto) [place] % (Auto) Eos % (Auto) Baso % (Auto) Neut # (Auto) Lymph # (Auto) [place] # (Auto) Eos # (Auto) Baso # (Auto) Immature Gran % Nucleated RBC % Immature Gran # Nucleated RBCs # INR PT Patient/Control Mix Sodium 129 L Potassium 3.4 L Chloride 87 L Carbon Dioxide 34 H Anion Gap 11.4 BUN 43 H Creatinine 1.60 H GFR Calculation 53 BUN/Creatinine Ratio 26.00 H Glucose 109 H POC Glucose Hemoglobin A1c 6.7 H Calculated Osmolality 269.9 L Calcium 9.3 Magnesium Total Bilirubin 0.90 AST 39 H ALT 50 Alkaline Phosphatase 59 Total Creatine Kinase 143 D CK-MB (CK-2) 2.9 Troponin I < 0.015 B-Natriuretic Peptide 28 Total Protein 8.4 H Albumin 3.5 Globulin 4.9 H Albumin/Globulin Ratio 0.7 L Triglycerides 105 Cholesterol 113 LDL Cholesterol 58.0 VLDL Cholesterol 21.0 HDL Cholesterol 45 Heart Disease Risk Ratio 2.51 01/11/17 01/11/17 01/12/17 15:54 19:41 05:13 WBC 11.8 RBC 4.83 Hgb 14.4 Hct 44.0 MCV 91.1 MCH 30 MCHC 32.7 RDW 14.4 Plt Count 220 MPV 11.9 Neut % (Auto) 69.9 Lymph % (Auto) 14.9 L [place] % (Auto) 13.0 H Eos % (Auto) 1.5 Baso % (Auto) 0.4 Neut # (Auto) 8.2 H Lymph # (Auto) 1.8 [place] # (Auto) 1.5 H Eos # (Auto) 0.2 Baso # (Auto) 0.1 Immature Gran % 0.3 Nucleated RBC % 0.0 Immature Gran # 0.03 Nucleated RBCs # 0.00 INR PT Patient/Control Mix Sodium Potassium Chloride Carbon Dioxide Anion Gap BUN Creatinine GFR Calculation BUN/Creatinine Ratio Glucose POC Glucose 153 H 152 H Hemoglobin A1c Calculated Osmolality Calcium Magnesium Total Bilirubin AST ALT Alkaline Phosphatase Total Creatine Kinase CK-MB (CK-2) Troponin I B-Natriuretic Peptide Total Protein Albumin Globulin Albumin/Globulin Ratio Triglycerides Cholesterol LDL Cholesterol VLDL Cholesterol HDL Cholesterol Heart Disease Risk Ratio 01/12/17 01/12/17 05:13 07:41 WBC RBC Hgb Hct MCV MCH MCHC RDW Plt Count MPV Neut % (Auto) Lymph % (Auto) [place] % (Auto) Eos % (Auto) Baso % (Auto) Neut # (Auto) Lymph # (Auto) [place] # (Auto) Eos # (Auto) Baso # (Auto) Immature Gran % Nucleated RBC % Immature Gran # Nucleated RBCs # INR PT Patient/Control Mix Sodium 132 L Potassium 3.1 L Chloride 87 L Carbon Dioxide 37 H Anion Gap 11.1 BUN 50 H Creatinine 1.80 H GFR Calculation 46 BUN/Creatinine Ratio 27.00 H Glucose 122 H POC Glucose 126 H Hemoglobin A1c Calculated Osmolality 277.5 Calcium 9.3 Magnesium 2.3 Total Bilirubin AST ALT Alkaline Phosphatase Total Creatine Kinase CK-MB (CK-2) Troponin I B-Natriuretic Peptide Total Protein Albumin Globulin Albumin/Globulin Ratio Triglycerides Cholesterol LDL Cholesterol VLDL Cholesterol HDL Cholesterol Heart Disease Risk Ratio - Diagnostic Findings Procedure: Chest x-ray: report reviewed by me - EKG EKG results: interpreted by me EKG shows: sinus rhythm Quality Measures - VTE Contraindication to Pharmacological VTE Prophylaxis: Coagulopathy Specialty Discharge - Follow Up or Referrals <John Paul Hinkle - Last Filed: 01/12/17 14:26> Cardiology - PN: Subj Interval history: Cardiology addendum Chart examined patient review discussed with nurse Melida barajas. Sodium risen to 132. O2 sat 94 on 2 L cannula Blood pressure 136/76 in the right arm E. coli UTI. Quiet precordium. No murmur. Very decreased breath sounds. Morbidly obese. Trace leg edema. Impression morbid obesity 391 pounds Chronic dyspnea Status post RCA stent 2010 [facility] Untreated obstructive sleep apnea. Patient refuses CPAP History atrial flutter chronic anticoagulation hypertension E. coli UTI Echo showed ejection fraction 55% with normal LA size, mild TR PA pressure 40 with grade 1 diastolic dysfunction no effusion Dilutional hyponatremia with chronic edema and massive panniculus Plan Supplemental O2 IV Lasix Replace KCl BMP in a.m. Exam (Progress Note) - Constitutional Vitals: Period Temp Pulse Resp BP Sys/Way Pulse Ox Last 24 Hr 96.7 F-98.4 F 59-61 16-20 110-153/53-88 92-98 Result/EKG - Labs CBC & BMP: 01/12/17 05:13 01/12/17 05:13 Labs: Laboratory Results - last 24 hr 01/11/17 01/11/17 01/12/17 15:54 19:41 05:13 WBC 11.8 RBC 4.83 Hgb 14.4 Hct 44.0 MCV 91.1 MCH 30 MCHC 32.7 RDW 14.4 Plt Count 220 MPV 11.9 Neut % (Auto) 69.9 Lymph % (Auto) 14.9 L [place] % (Auto) 13.0 H Eos % (Auto) 1.5 Baso % (Auto) 0.4 Neut # (Auto) 8.2 H Lymph # (Auto) 1.8 [place] # (Auto) 1.5 H Eos # (Auto) 0.2 Baso # (Auto) 0.1 Immature Gran % 0.3 Nucleated RBC % 0.0 Immature Gran # 0.03 Nucleated RBCs # 0.00 Sodium Potassium Chloride Carbon Dioxide Anion Gap BUN Creatinine GFR Calculation BUN/Creatinine Ratio Glucose POC Glucose 153 H 152 H Calculated Osmolality Calcium Magnesium 01/12/17 01/12/17 01/12/17 05:13 07:41 11:11 WBC RBC Hgb Hct MCV MCH MCHC RDW Plt Count MPV Neut % (Auto) Lymph % (Auto) [place] % (Auto) Eos % (Auto) Baso % (Auto) Neut # (Auto) Lymph # (Auto) [place] # (Auto) Eos # (Auto) Baso # (Auto) Immature Gran % Nucleated RBC % Immature Gran # Nucleated RBCs # Sodium 132 L Potassium 3.1 L Chloride 87 L Carbon Dioxide 37 H Anion Gap 11.1 BUN 50 H Creatinine 1.80 H GFR Calculation 46 BUN/Creatinine Ratio 27.00 H Glucose 122 H POC Glucose 126 H 178 H Calculated Osmolality 277.5 Calcium 9.3 Magnesium 2.3
[2017-01-12] MEDS ORDERED: POTASSIUM CHLORIDE 20 MEQ TABLET PO SCH (14:27)
--- NOTE | 2017-01-12 17:12 | Hospitalist Progress Note ---
Assessment and Plan (1) UTI (urinary tract infection) Status: Acute Assessment and plan: Gram-negative rods noted. Continue Rocephin. Urine culture with E. coli-sensitive to Rocephin Current Visit: Yes (2) Acute on chronic diastolic (congestive) heart failure Status: Acute Assessment and plan: Echo showed ejection fraction 55% with normal LA size, mild TR PA pressure 40 with grade 1 diastolic dysfunction no effusion On multiple diuretics. I added Diamox today. Current Visit: Yes (3) FEDE (acute kidney injury) Status: Acute Assessment and plan: Baseline creatinine 1-1.5 Current Visit: Yes (4) Morbid obesity Status: Chronic Current Visit: Yes (5) Hypertension Status: Chronic Current Visit: Yes Qualifiers: Hypertension type: essential hypertension Qualified Code(s): I10 - Essential (primary) hypertension (6) Dyslipidemia Status: Chronic Current Visit: Yes (7) Hypokalemia Status: Acute Assessment and plan: Replacement ordered. Current Visit: Yes (8) Hyponatremia Status: Acute Current Visit: Yes Hospitalist: Subjective Interval history: Patient seen and examined. No acute events overnight. Case discussed with nursing staff. Labs reviewed. She reports continued muscle cramping. Improved shortness of breath. Exam - Constitutional Vitals: Period Temp Pulse Resp BP Sys/Way Pulse Ox Last 24 Hr 96.8 F-98.4 F 59-62 16-20 110-140/53-87 92-98 Exam: Constitutional System: Mild distress. No tremulousness. Morbidly obese Head: Normocephalic, atraumatic. Ears, Nose and Throat System: No pain or tenderness. No epistaxis or discharge Eyes System: Pupils equal, round, and reactive. Extraocular muscles intact. Neck: Supple, without adenopathy, No jugular venous distention. Respiratory System: Chest diminished bilaterally to auscultation. Cardiovascular System: Heart with regular rate and rhythm. No murmur. GI System: Abdomen soft, nontender. Normo active bowel sounds present. Large pannus noted Musculoskeletal System: limbs with no pedal edema. Full distal pulses. Peripheral cyanosis in the lower extremities noted. Neurological System: No discernable sensory deficit. No aphasia Psychiatric System: Conversation is rational. Results - Labs CBC & BMP: 01/12/17 05:13 01/12/17 05:13 Lab Results: I have reviewed the past 24 hour labs Quality Measures - VTE Contraindication to Pharmacological VTE Prophylaxis: Coagulopathy Specialty Discharge - Follow Up or Referrals
[2017-01-12] MEDS ORDERED: POTASSIUM CHLORIDE 20 MEQ TABLET PO ONE (17:14)
[2017-01-12] MEDS: WARFARIN 7.5 MG TABLET PO SCH (18:17)
[2017-01-12] MEDS: cefTRIAXone 1,000 MG in SODIUM CHLORIDE 0.9% 100 ML IV SCH (21:27)
[2017-01-12] MEDS: ATORVASTATIN 20 MG TABLET PO SCH (21:28)
[2017-01-13 06:52] LABS: Calcium 8.7 MG/DL (8.5-10.1); Magnesium 2.4 MG/DL (1.8-2.4); Osmolality,Calculated 272.1 MOS/KG (273-304); Potassium 5.7 MMOL/L (3.5-5.1)
[2017-01-13 07:19] LABS: Basophils % 0.3 % (0.0-0.8); Eosinophils # 0.3 10*3/uL (0.0-0.87); Eosinophils % 2.4 % (0.00-10.9); Hematocrit 49.2 VOL% (35.7-47.0); Hemoglobin 15.7 GM/DL (12.0-16.0); Immature Granulocytes % 0.4 %; Immature Granulocytes Absolute 0.04 #; Lymphocytes # 2.1 10*3/uL (1.4-4.0); Lymphocytes % 20.1 % (21.3-54.2); Mean Corpuscular HGB Conc 31.9 GM/DL (32-36); Mean Corpuscular Hemoglobin 30 PG (27-34); Mean Corpuscular Volume 94.4 FL (87-102); Mean Platelet Volume 12.2 FL (9.6-12.0); Monocytes # 1.4 10*3/uL (0.11-0.8); Monocytes % 13.3 % (1.7-12.7); Neutrophils # 6.7 10*3/uL (1.4-7.4); Neutrophils % 63.5 % (38.7-73.9); Platelet Count 141 T/CUMM (130-400); Red Blood Count 5.21 MC/CUMM (3.8-5.5); Red Cell Distribution Width 14.6 % (9.3-17.3); White Blood Count 10.5 T/CUMM (4-12)
[2017-01-13] MEDS ORDERED: SODIUM CHLORIDE 0.45% 500 ML IV ONE (09:26)
[2017-01-13] MEDS: TOLVAPTAN 15 MG TABLET PO SCH (09:27)
[2017-01-13] MEDS: ASPIRIN EC 81 MG TABLET PO SCH (09:27)
[2017-01-13] MEDS: ALPRAZolam 0.5 MG TABLET PO SCH ×2 (09:27→21:46)
[2017-01-13] MEDS: TORSEMIDE 20 MG TABLET PO SCH (09:27)
[2017-01-13] MEDS: PANTOPRAZOLE 40 MG TABLET PO SCH (09:27)
[2017-01-13] MEDS: GABAPENTIN 400 MG CAPSULE PO SCH ×3 (09:27→21:45)
[2017-01-13] MEDS: FUROSEMIDE 40 MG TABLET PO SCH (09:27)
[2017-01-13] MEDS: metOLazone 5 MG TABLET PO SCH (09:27)
[2017-01-13] MEDS: CARVEDILOL 6.25 MG TABLET PO SCH ×2 (09:28→21:47)
--- NOTE | 2017-01-13 11:08 | Cardiology Progress Note ---
<Melida Rush E - Last Filed: 01/13/17 10:50> Assessment and Plan - Time spent with patient Time spent with patient: Greater than 30 minutes (1) Chest pain Status: Resolved Assessment and plan: SEE PLAN OF CARE LISTED BELOW Current Visit: No (2) Hypertension Status: Chronic Assessment and plan: SEE PLAN OF CARE LISTED BELOW Current Visit: No Qualifiers: Hypertension type: essential hypertension Qualified Code(s): I10 - Essential (primary) hypertension (3) History of coronary artery disease Status: Chronic Assessment and plan: SEE PLAN OF CARE LISTED BELOW Current Visit: No (4) Morbid obesity Status: Chronic Assessment and plan: SEE PLAN OF CARE LISTED BELOW Current Visit: No (5) Anxiety Status: Chronic Assessment and plan: SEE PLAN OF CARE LISTED BELOW Current Visit: No (6) Pacemaker Status: Chronic Assessment and plan: SEE PLAN OF CARE LISTED BELOW Current Visit: No (7) History of atrial fibrillation Status: Chronic Assessment and plan: SEE PLAN OF CARE LISTED BELOW Current Visit: No (8) Chronic anticoagulation Status: Chronic Assessment and plan: SEE PLAN OF CARE LISTED BELOW Current Visit: No (9) Sleep apnea Status: Chronic Assessment and plan: SEE PLAN OF CARE LISTED BELOW Current Visit: No Qualifiers: Sleep apnea type: obstructive Qualified Code(s): G47.33 - Obstructive sleep apnea (adult) (pediatric) (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 Assessment and plan: SEE PLAN OF CARE LISTED BELOW Current Visit: No (11) Chronic pain Status: Chronic Current Visit: No (12) Diabetes Status: Chronic Assessment and plan: SEE PLAN OF CARE LISTED BELOW Current Visit: No (13) Noncompliance Status: Chronic Assessment and plan: SEE PLAN OF CARE LISTED BELOW Current Visit: No (14) Hyperkalemia Status: Acute Assessment and plan: SEE PLAN OF CARE LISTED BELOW Current Visit: Yes (15) Acute on chronic renal insufficiency Status: Acute Assessment and plan: SEE PLAN OF CARE LISTED BELOW Current Visit: Yes Cardiology - PN: Subj Interval history: [employer]: DR. HODGES SUMMARY: Ms. 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 Hodges her local flatbed driver. Risk factors include: Known coronary artery disease ([facility] 2011 revealed patent distal RCA), morbid obesity, hypertension, dyslipidemia, diabetes, sedentary lifestyle and noncompliance. She has sleep apnea, noncompliant with device. History of atrial flutter, DARCY April 2015 revealed left atrial appendage clot. 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 She takes Coumadin for stroke prevention. History of small left atrial appendage clot 2014. Echocardiogram August 2016 revealed: EF 50%, no significant valvular abnormality, PAP 51 mmHg, diastolic dysfunction. Frequent hospitalizations for volume overload, shortness of breath, atypical chest pain. Patient was admitted January 10, 2017 with complaints of chest pain, acute on chronic diastolic congestive heart failure. (NYHA Class III). She has been placed on telemetry. Cardiac biomarkers negative, EKG unremarkable. She is basically nonambulatory by choice. Patient reports Monday evening, while sitting in her chair, she began to experience chest pain in the center of her chest which radiated across her chest laterally. She describes as "sharp and stabbing". She believes he was somewhat diaphoretic. This lasted approximately 12 hours intermittently. She is chronically short of breath and believes this may or may not have worsened at that point. She did have cramping of her lower extremities when this occurred. She can identify no aggravating, nor alleviating factors. She rates the discomfort as a 7 on a scale of 1-10. She is currently chest pain-free. She is chronically orthopneic but this appears to be only minimally worse since our last visit. He has been diagnosed with acute on chronic CHF exacerbation, UTI. Hypokalemic and labs have been replaced. No need to repeat echocardiogram as she had a recent (August 2016) report. Replace magnesium. She is also hyponatremic and may be a candidate for Samsca. First, we will fluid restrict for 24 hours and if no improvement in the sodium level may consider initiation 15 mg orally daily. Strict I&O, continue diuresis. Will add a nitrate to her medication regimen. Continue to follow cardiac biomarkers, EKG. This does not appear to be NSTEMI. Will further discuss with Dr. Hinkle and await additional recommendations. JANUARY 12, 2017: Yesterday, patient was started on Samsca. Sodium 132. We do not have a daily weight however she has diuresed 5000 mL overnight. Echocardiogram reveals EF 55%, grade 1 diastolic dysfunction, no significant valvular abnormality, PA P 38 mmHg. In general, she looks markedly better. She feels much better today. Denies chest pain, heaviness or tightness. Continue current plan of care. Will further discuss with Dr. Hinkle and await additional recommendations. JANUARY 13, 2017: Patient continues to diurese well. This morning, patient reports she is dizzy and feels poor in general. Denies chest pain, heaviness or tightness. Her breathing is stable. Potassium 5.7. Holding Spironolactone. She did get to oral replacement with potassium yesterday on several occasions and I will go ahead and discontinue the potassium replacement. Also, it is reported that the patient ate numerous bananas yesterday. When taking Samsca, patients are allowed to "drink to thirst". May increase to 30 mg p.o. after the initial 24 hours of receiving 15 mg. Sodium 128 today, urine osmolality is low, creatinine is increased to 2.0. Continue to monitor her labs daily. Patient is quite anxious about being discharged. She was told she may be ready for discharge tomorrow and she is having a lot of anxiety about this. I will further discuss with Dr. Hinkle and await additional recommendations. ASSESSMENT/PLAN: 1. ACUTE ON CHRONIC CHF - secondary to diastolic dysfunction, NYHA Class III. EF 55%. Continue with diuresing, strict I&O. Continue Samsca daily. I did ask for daily weights today. It appears that she is diuresed a significant amount the first 2 days, inadequate record last 24 hours of output and there is no daily weight for which to assess. 2. MORBID OBESITY - dietary counseling prior to discharge 3. HYPERTENSION - adequately controlled. In the past, lisinopril has been added however creatinine is 2.0 this morning. Will continue to hold/avoid KARINE inhibitors at this time. Continue to follow BMP. 4. DYSLIPIDEMIA - recent lipid profile on board. No need to repeat. Continue Atorvastatin. 5. SLEEP APNEA - noncompliant. We will not consult Dr. Bloom as he has seen her on numerous occasions and she chooses not to follow-up outpatient and/or where sleep device. 6. KNOWN CAD - history of stent to distal RCA at [facility] prior to 2010. 7. HISTORY OF ATRIAL FIBRILLATION WITH LEFT ATRIAL APPENDAGE CLOT - INR therapeutic 8. HIGH RISK MEDICATION - Coumadin continues. INR tomorrow morning 9. DIABETES - sliding scale 10. HYPOKALEMIA - resolved. 11. HYPOMAGNESEMIA - resolved 12. NON-COMPLIANCE WITH CARDIOLOGY FOLLOW-UP - reiterated the importance of compliance. 13. S/P PPM - continue current plan of care. 14. UTI - being addressed with antibiotics. 15. HYPONATREMIA -128 this morning. Continue Samsca. May drink to thirst will taking while taking Samsca. BMP daily 16. CHEST PAIN - continue to follow Troponin, EKG. Not NSTEMI 17. HYPERKALEMIA - patient had lots of oral potassium replacement yesterday including potassium chloride, received Spironolactone, ate numerous bananas. Holding spironolactone and potassium replacement. Kidney function has worsened a bit today. I do not think she is volume depleted though she has diuresed a significant amount. Urine osmolality is low, sodium has returned to 128. 18. ACUTE ON CHRONIC RENAL INSUFFICIENCY - Creatinine 2.0 today. Avoiding KARINE. Stage III. Exam (Progress Note) - Constitutional Vitals: Period Temp Pulse Resp BP Sys/Way Pulse Ox Last 24 Hr 96.8 F-97.8 F 60-64 18-24 117-176/53-94 90-99 Exam: Exam: General: [Appears well with no apparent distress.] [Pleasant and cooperative. ] [Appears comfortable.] HEENT: [PERRL, normocephalic, atraumatic. Mucous membranes moist. No jaundice noted. Conjunctiva moist and clear, sclerae anicteric] Neck: Unable to assess for JVD due to habitus. No thyromegaly or lymphadenopathy noted. No carotid bruit appreciated Cardiac: [Regular rate and rhythm.] [No murmur rub or gallop.] Lungs: [Decreased sounds throughout but no Rales or rhonchi noted.. No accessory muscle use to assist the respiratory pattern. ] Not requiring oxygen Abdomen: Soft, bowel sounds normoactive. Nontender and nondistended. No abdominal bruit or thrill noted. No masses noted. Musculoskeletal: No fluid collection. Decreased range of motion is noted. Extremities: No clubbing, cyanosis noted. [1+ brawny edema BLE. ] Upper extremity pulses 2+. 1+ pedal pulses bilaterally. Capillary refill less than 3 seconds. Skin: No unusual lesions or rashes. No skin breakdown appreciated. Neuro: Awake, alert and oriented 3. Moves all extremities well without hemiparesis or paralysis. No essential tremor is appreciated. Result/EKG - Labs CBC & BMP: 01/13/17 05:49 01/13/17 05:49 Lab Results: I have reviewed the past 24 hour labs Labs: Laboratory Results - last 24 hr 01/12/17 01/12/17 01/13/17 11:11 20:20 05:49 WBC 10.5 RBC 5.21 Hgb 15.7 Hct 49.2 H MCV 94.4 MCH 30 MCHC 31.9 L RDW 14.6 Plt Count 141 D MPV 12.2 H Neut % (Auto) 63.5 Lymph % (Auto) 20.1 L Alpine % (Auto) 13.3 H Eos % (Auto) 2.4 Baso % (Auto) 0.3 Neut # (Auto) 6.7 Lymph # (Auto) 2.1 Alpine # (Auto) 1.4 H Eos # (Auto) 0.3 Baso # (Auto) 0.0 Immature Gran % 0.4 Nucleated RBC % 0.0 Immature Gran # 0.04 Nucleated RBCs # 0.00 Sodium Potassium 4.1 Chloride Carbon Dioxide Anion Gap BUN Creatinine GFR Calculation BUN/Creatinine Ratio Glucose POC Glucose 178 H Calculated Osmolality Calcium Magnesium 01/13/17 01/13/17 05:49 07:28 WBC RBC Hgb Hct MCV MCH MCHC RDW Plt Count MPV Neut % (Auto) Lymph % (Auto) Alpine % (Auto) Eos % (Auto) Baso % (Auto) Neut # (Auto) Lymph # (Auto) Alpine # (Auto) Eos # (Auto) Baso # (Auto) Immature Gran % Nucleated RBC % Immature Gran # Nucleated RBCs # Sodium 128 L Potassium 5.7 H Chloride 88 L Carbon Dioxide 31 Anion Gap 14.7 BUN 51 H Creatinine 2.00 H GFR Calculation 41 BUN/Creatinine Ratio 25.00 H Glucose 127 H POC Glucose 153 H Calculated Osmolality 272.1 L Calcium 8.7 Magnesium 2.4 - EKG EKG results: interpreted by me EKG shows: sinus rhythm (PACING) Quality Measures - VTE Contraindication to Pharmacological VTE Prophylaxis: Coagulopathy Specialty Discharge - Follow Up or Referrals <John Paul Hinkle - Last Filed: 01/13/17 14:37> Cardiology - PN: Subj Interval history: Cardiology addendum. Patient examined and chart reviewed and discussed with nurse Melida barajas. Patient weighs 391 pounds. Blood pressure 126/80. Decreased breath sounds but clear. Regular rhythm. Massive panniculus Sodium 128 potassium 5.7 chloride 88 CO2 31 BUN 51 creatinine 2.0 glucose 127 Plan DC KCl DC spironolactone 1200 cc fluid restriction BMP in a.m. This patient needs CPAP but she refuses Exam (Progress Note) - Constitutional Vitals: Period Temp Pulse Resp BP Sys/Way Pulse Ox Last 24 Hr 96.8 F-97.8 F 60-67 18-24 117-176/64-94 90-99 Result/EKG - Labs CBC & BMP: 01/13/17 05:49 01/13/17 05:49 Labs: Laboratory Results - last 24 hr 01/12/17 01/13/17 01/13/17 20:20 05:49 05:49 WBC 10.5 RBC 5.21 Hgb 15.7 Hct 49.2 H MCV 94.4 MCH 30 MCHC 31.9 L RDW 14.6 Plt Count 141 D MPV 12.2 H Neut % (Auto) 63.5 Lymph % (Auto) 20.1 L Alpine % (Auto) 13.3 H Eos % (Auto) 2.4 Baso % (Auto) 0.3 Neut # (Auto) 6.7 Lymph # (Auto) 2.1 Alpine # (Auto) 1.4 H Eos # (Auto) 0.3 Baso # (Auto) 0.0 Immature Gran % 0.4 Nucleated RBC % 0.0 Immature Gran # 0.04 Nucleated RBCs # 0.00 Sodium 128 L Potassium 4.1 5.7 H Chloride 88 L Carbon Dioxide 31 Anion Gap 14.7 BUN 51 H Creatinine 2.00 H GFR Calculation 41 BUN/Creatinine Ratio 25.00 H Glucose 127 H POC Glucose Calculated Osmolality 272.1 L Calcium 8.7 Magnesium 2.4 01/13/17 01/13/17 07:28 11:28 WBC RBC Hgb Hct MCV MCH MCHC RDW Plt Count MPV Neut % (Auto) Lymph % (Auto) Alpine % (Auto) Eos % (Auto) Baso % (Auto) Neut # (Auto) Lymph # (Auto) Alpine # (Auto) Eos # (Auto) Baso # (Auto) Immature Gran % Nucleated RBC % Immature Gran # Nucleated RBCs # Sodium Potassium Chloride Carbon Dioxide Anion Gap BUN Creatinine GFR Calculation BUN/Creatinine Ratio Glucose POC Glucose 153 H 145 H Calculated Osmolality Calcium Magnesium
[2017-01-13] MEDS ORDERED: SODIUM POLYSTYRENE SULFATE 15 GM/60 ML BOTTLE PO ONE (12:47)
--- NOTE | 2017-01-13 14:39 | Hospitalist Progress Note ---
Assessment and Plan (1) FEDE (acute kidney injury) Status: Acute Assessment and plan: Noted decrease in renal function, BUN 51 and creatinine is noted today at 2.00; up from 50/1.80 on yesterday. Diamox is currently on hold per MD order. We will recheck labs in a.m.. Current Visit: Yes (2) Acute on chronic diastolic (congestive) heart failure Status: Acute Current Visit: Yes (3) Hyperkalemia Status: Acute Assessment and plan: Potassium noted at 5.7; the patient's potassium was noted at 3.1 yesterday. The patient received multiple electrolyte replacements. We will not attempt to correct potassium at this time. We will monitor closely. Current Visit: Yes Hospitalist: Subjective Interval history: Patient seen and examined; chart reviewed. No significant overnight events reported. We will plan to discharge in a.m. if night is uneventful. Exam - Constitutional Vitals: Period Temp Pulse Resp BP Sys/Way Pulse Ox Last 24 Hr 96.8 F-97.8 F 60-67 18-24 117-176/64-94 90-99 General appearance: normal weight, no acute distress - Head Head exam: Present: normal inspection, normocephalic, atraumatic - Eye Eye exam: Present: EOMI Pupils: Present: YARED, normal accommodation - ENT ENT exam: Present: normal exam, normal external ear exam, normal oropharynx - Neck Neck exam: Present: normal inspection. Absent: lymphadenopathy, meningismus, tenderness, thyromegaly - Respiratory Respiratory exam: Present: decreased breath sounds - Cardiovascular Cardiovascular exam: Present: regular rate and rhythm. Absent: carotid bruit, diastolic murmur, gallop, JVD, rubs, systolic murmur - GI/Abdominal GI/Abdominal exam: Present: normal bowel sounds, soft. Absent: firm, guarding, tenderness - Extremities Exam Extremities exam: Present: normal inspection, normal capillary refill, full ROM. Absent: edema - Back Exam Back exam: Present: normal inspection - Neurological Exam Neurological exam: Present: alert, oriented X3, CN II-XII intact - Psychiatric Psychiatric exam: Present: normal affect, normal mood - Skin Skin exam: Present: normal color, warm, dry Results - Labs CBC & BMP: 01/13/17 05:49 01/13/17 05:49 Lab Results: I have reviewed the past 24 hour labs Quality Measures - VTE Contraindication to Pharmacological VTE Prophylaxis: Coagulopathy Specialty Discharge - Follow Up or Referrals
[2017-01-13] MEDS: WARFARIN 7.5 MG TABLET PO SCH (17:26)
[2017-01-13] MEDS: ALBUTEROL/IPRATROPIUM 3 ML NEB RESP TX SCH ×2 (20:15→23:46)
[2017-01-13] MEDS: cefTRIAXone 1,000 MG in SODIUM CHLORIDE 0.9% 100 ML IV SCH (21:46)
[2017-01-13] MEDS: ATORVASTATIN 20 MG TABLET PO SCH (21:46)
[2017-01-14] MEDS: ALBUTEROL/IPRATROPIUM 3 ML NEB RESP TX SCH ×5 (04:01→19:25)
[2017-01-14 07:28] LABS: INR 2.9
[2017-01-14 07:35] LABS: Calcium 9.2 MG/DL (8.5-10.1); Magnesium 2.2 MG/DL (1.8-2.4); Osmolality,Calculated 271.1 MOS/KG (273-304); PT Patient Result 32.3 SECS; Potassium 2.8 MMOL/L (3.5-5.1)
[2017-01-14] MEDS: POTASSIUM CHLORIDE 20 MEQ TABLET PO PRN ×5 (08:20→22:59)
[2017-01-14] MEDS: TORSEMIDE 20 MG TABLET PO SCH (08:21)
[2017-01-14] MEDS: PANTOPRAZOLE 40 MG TABLET PO SCH (08:21)
[2017-01-14] MEDS: ALPRAZolam 0.5 MG TABLET PO SCH ×2 (08:22→21:38)
[2017-01-14] MEDS: CARVEDILOL 6.25 MG TABLET PO SCH ×2 (08:22→21:39)
[2017-01-14] MEDS: GABAPENTIN 400 MG CAPSULE PO SCH ×3 (08:22→21:38)
[2017-01-14] MEDS: ASPIRIN EC 81 MG TABLET PO SCH (08:23)
[2017-01-14] MEDS: metOLazone 5 MG TABLET PO SCH (08:23)
[2017-01-14 08:31] LABS: Basophils % 0.4 % (0.0-0.8); Eosinophils # 0.2 10*3/uL (0.0-0.87); Eosinophils % 1.9 % (0.00-10.9); Hematocrit 41.8 VOL% (35.7-47.0); Hemoglobin 13.7 GM/DL (12.0-16.0); Immature Granulocytes % 0.4 %; Immature Granulocytes Absolute 0.04 #; Lymphocytes # 1.9 10*3/uL (1.4-4.0); Lymphocytes % 18.9 % (21.3-54.2); Mean Corpuscular HGB Conc 32.8 GM/DL (32-36); Mean Corpuscular Hemoglobin 30 PG (27-34); Mean Corpuscular Volume 90.1 FL (87-102); Mean Platelet Volume 12.3 FL (9.6-12.0); Monocytes # 1.2 10*3/uL (0.11-0.8); Monocytes % 11.5 % (1.7-12.7); Neutrophils # 6.7 10*3/uL (1.4-7.4); Neutrophils % 66.9 % (38.7-73.9); Platelet Count 231 T/CUMM (130-400); Red Blood Count 4.64 MC/CUMM (3.8-5.5); Red Cell Distribution Width 14.4 % (9.3-17.3); White Blood Count 10.1 T/CUMM (4-12)
--- NOTE | 2017-01-14 09:40 | Hospitalist Progress Note ---
Assessment and Plan - Time spent with patient Time spent with patient: Less than 30 minutes (1) CHF (congestive heart failure) Status: Acute Assessment and plan: She has acute on chronic diastolic CHF with ejection fraction 55%. She has been followed by cardiology and they are managing her medically. Current Visit: Yes Qualifiers: Congestive heart failure type: diastolic (2) Hypertension Status: Chronic Assessment and plan: Blood pressure currently well controlled. Continue current medical therapy. Current Visit: No Qualifiers: Hypertension type: essential hypertension Qualified Code(s): I10 - Essential (primary) hypertension (3) Hypokalemia Status: Acute Assessment and plan: She is hypokalemic today at 2.8 and receiving potassium supplementation with repeat level in a.m. Current Visit: Yes (4) Hyponatremia Status: Acute Assessment and plan: Sodium has been stable at 128. Continuing Samsca. Current Visit: Yes (5) Acute on chronic renal insufficiency Status: Acute Assessment and plan: Creatinine has improved to 1.60 today. Continue to monitor. Current Visit: Yes (6) Morbid obesity Status: Chronic Current Visit: No Hospitalist: Subjective Interval history: Chart has been reviewed and patient examined. She states that she has increasing fatigue and continues to have some shortness of breath. She denies any chest pain. Exam - Constitutional Vitals: Period Temp Pulse Resp BP Sys/Way Pulse Ox Last 24 Hr 97.0 F-98.2 F 60-73 16-22 124-132/63-75 90-99 General appearance: morbidly obese - Head Head exam: Present: normocephalic, atraumatic - Eye Eye exam: Present: EOMI Pupils: Present: YARED - ENT ENT exam: Present: normal exam - Neck Neck exam: Present: normal inspection - Respiratory Respiratory exam: Present: decreased breath sounds. Absent: rales, rhonchi, wheezes - Cardiovascular Cardiovascular exam: Present: regular rate and rhythm. Absent: systolic murmur , tachycardia - GI/Abdominal GI/Abdominal exam: Present: normal bowel sounds, soft. Absent: mass, rebound - Extremities Exam Extremities exam: Absent: calf tenderness, edema - Neurological Exam Neurological exam: Present: alert, oriented X3, CN II-XII intact. Absent: motor sensory deficit - Psychiatric Psychiatric exam: Present: normal affect, normal mood. Absent: agitated, anxious - Skin Skin exam: Present: warm, dry Results - Labs CBC & BMP: 01/14/17 06:43 01/14/17 06:43 Lab Results: I have reviewed the past 24 hour labs Quality Measures - VTE Contraindication to Pharmacological VTE Prophylaxis: Coagulopathy Specialty Discharge - Follow Up or Referrals
--- NOTE | 2017-01-14 12:05 | Cardiology Progress Note ---
Cardiology - PN: Subj Interval history: Cardiology note 56-year-old woman with morbid obesity admitted with CHF and progressive dyspnea. Echo showed ejection fraction 55% with structurally normal valves normal RV function mild TR PA pressure 40 Patient had monitor taken off last night and refuses to have it put back on. O2 sat is 95% Blood pressure 136/80 in the left arm by me. Regular rhythm no murmur or gallop Decreased breath sounds few rhonchi in the left base Morbid obesity Lab data today White count 10.1 hemoglobin 13.7 hematocrit 41.8 Sodium 128 potassium is down to 2.8 chloride 82 CO2 39 BUN 50 creatinine down to 1.60 Glucose 136 magnesium 2.2 Impression Diastolic heart failure Morbid obesity 391 pounds Mild chronic renal insufficiency Hypokalemia 2.8 today Recent echo showed ejection fraction 55% with structurally normal valves, normal RV function and mild TR PA pressure 40 Untreated ANDREINA Chronic atrial fibrillation Chronic anticoagulation Chronic noncompliance. Patient refuses CPAP. 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 Hypertension Status post distal RCA stent 2010 [facility] Type 2 diabetes Hyperlipidemia Plan Replace potassium per protocol and recheck in 6 hours Ceftriaxone and nebs Carvedilol 6.25 mg twice daily Daily warfarin Torsemide 80 mg daily and Zaroxolyn 5 mg daily 1200 cc fluid restriction BMP in a.m. I have recommended that she go back on a groundwater monitoring technician. Exam (Progress Note) - Constitutional Vitals: Period Temp Pulse Resp BP Sys/Way Pulse Ox Last 24 Hr 97.0 F-98.2 F 60-73 16-22 124-132/63-75 90-99 Result/EKG - Labs CBC & BMP: 01/14/17 06:43 01/14/17 06:43 Labs: Laboratory Results - last 24 hr 01/13/17 01/13/17 01/14/17 11:28 20:55 06:43 WBC 10.1 RBC 4.64 Hgb 13.7 D Hct 41.8 MCV 90.1 MCH 30 MCHC 32.8 RDW 14.4 Plt Count 231 D MPV 12.3 H Neut % (Auto) 66.9 Lymph % (Auto) 18.9 L Russell % (Auto) 11.5 Eos % (Auto) 1.9 Baso % (Auto) 0.4 Neut # (Auto) 6.7 Lymph # (Auto) 1.9 Russell # (Auto) 1.2 H Eos # (Auto) 0.2 Baso # (Auto) 0.0 Immature Gran % 0.4 Nucleated RBC % 0.0 Immature Gran # 0.04 Nucleated RBCs # 0.00 Immature Plt Fraction 0.0 INR PT Patient/Control Mix Sodium Potassium Chloride Carbon Dioxide Anion Gap BUN Creatinine GFR Calculation BUN/Creatinine Ratio Glucose POC Glucose 145 H 156 H Calculated Osmolality Calcium Magnesium 01/14/17 01/14/17 01/14/17 06:43 06:43 07:35 WBC RBC Hgb Hct MCV MCH MCHC RDW Plt Count MPV Neut % (Auto) Lymph % (Auto) Russell % (Auto) Eos % (Auto) Baso % (Auto) Neut # (Auto) Lymph # (Auto) Russell # (Auto) Eos # (Auto) Baso # (Auto) Immature Gran % Nucleated RBC % Immature Gran # Nucleated RBCs # Immature Plt Fraction INR 2.9 PT Patient/Control Mix 32.3 D Sodium 128 L Potassium 2.8 L Chloride 82 L Carbon Dioxide 39 H Anion Gap 9.8 BUN 50 H Creatinine 1.60 H GFR Calculation 1308 BUN/Creatinine Ratio 31.00 H Glucose 136 H POC Glucose 154 H Calculated Osmolality 271.1 L Calcium 9.2 Magnesium 2.2 Quality Measures - VTE Contraindication to Pharmacological VTE Prophylaxis: Coagulopathy Specialty Discharge - Follow Up or Referrals
[2017-01-14] MEDS: WARFARIN 7.5 MG TABLET PO SCH (17:45)
[2017-01-14] MEDS: ZALEPLON 5 MG CAPSULE PO PRN (21:39)
[2017-01-14] MEDS: ATORVASTATIN 20 MG TABLET PO SCH (21:39)
[2017-01-14] MEDS: cefTRIAXone 1,000 MG in SODIUM CHLORIDE 0.9% 100 ML IV SCH (21:40)
[2017-01-14] MEDS: INSULIN REGULAR 100 UNIT/ML SUBCUT SCH (21:49)
[2017-01-15] MEDS: ALBUTEROL/IPRATROPIUM 3 ML NEB RESP TX SCH ×7 (00:37→23:50)
[2017-01-15 06:31] LABS: Basophils % 0.3 % (0.0-0.8); Eosinophils # 0.2 10*3/uL (0.0-0.87); Eosinophils % 1.7 % (0.00-10.9); Hematocrit 40.9 VOL% (35.7-47.0); Hemoglobin 13.3 GM/DL (12.0-16.0); Immature Granulocytes % 0.5 %; Immature Granulocytes Absolute 0.05 #; Lymphocytes # 1.7 10*3/uL (1.4-4.0); Lymphocytes % 17.3 % (21.3-54.2); Mean Corpuscular HGB Conc 32.5 GM/DL (32-36); Mean Corpuscular Hemoglobin 30 PG (27-34); Mean Corpuscular Volume 91.1 FL (87-102); Mean Platelet Volume 11.6 FL (9.6-12.0); Monocytes # 1.5 10*3/uL (0.11-0.8); Monocytes % 15.1 % (1.7-12.7); Neutrophils # 6.4 10*3/uL (1.4-7.4); Neutrophils % 65.1 % (38.7-73.9); Platelet Count 214 T/CUMM (130-400); Red Blood Count 4.49 MC/CUMM (3.8-5.5); Red Cell Distribution Width 14.1 % (9.3-17.3); White Blood Count 9.8 T/CUMM (4-12)
[2017-01-15 07:04] LABS: Calcium 9.3 MG/DL (8.5-10.1); Magnesium 2.3 MG/DL (1.8-2.4); Osmolality,Calculated 282.4 MOS/KG (273-304); Potassium 3.3 MMOL/L (3.5-5.1)
--- NOTE | 2017-01-15 08:53 | Hospitalist Progress Note ---
Assessment and Plan - Time spent with patient Time spent with patient: Less than 30 minutes (1) CHF (congestive heart failure) Status: Acute Assessment and plan: She has acute on chronic diastolic CHF with ejection fraction 55%. She has been followed by cardiology and they are managing her medically. 01/15/17: She appears to be fairly well compensated at this time. She has been followed by cardiology. We will await her INR and make adjustments as appropriate. I will add daily potassium to her therapy. She is approaching discharge and will await cardiology recommendations. I have advised her that she may be discharged later today or in the morning. As noted previously I have offered other alternatives such as swing bed evaluation and she has adamantly refused and desires to go home. Current Visit: Yes Qualifiers: Congestive heart failure type: diastolic (2) Hypertension Status: Chronic Assessment and plan: Blood pressure currently well controlled. Continue current medical therapy. Current Visit: No Qualifiers: Hypertension type: essential hypertension Qualified Code(s): I10 - Essential (primary) hypertension (3) Hypokalemia Status: Acute Assessment and plan: She is hypokalemic today at 2.8 and receiving potassium supplementation with repeat level in a.m. 01/15/17: Potassium was 3.5 yesterday afternoon and is 3.3 this morning. We will continue daily aspirin at 20 mEq and have her follow-up with primary care provider next week for follow-up electrolytes and renal function. Current Visit: Yes (4) Hyponatremia Status: Acute Assessment and plan: Sodium has been stable at 128. Continuing Samsca. 01/15/17: Sodium is 133 today. Continue Samsca. Follow-up primary care provider with electrolytes in 1 week. Current Visit: Yes (5) Acute on chronic renal insufficiency Status: Acute Assessment and plan: Creatinine has improved to 1.60 today. Continue to monitor. 01/15/17: Creatinine is 1.5 today and stable. Current Visit: Yes (6) Morbid obesity Status: Chronic Current Visit: No Hospitalist: Subjective Interval history: Ms. Ortez is 56-year-old obese female with diastolic heart failure and progressive edema. She also has untreated obstructive sleep apnea as she refuses CPAP. Her sodium and potassium have improved. She has been otherwise relatively noncompliant. But I believe she is now at the point where there is little further to offer her at an acute inpatient setting. I offered other options sutures swing bed or other placement alternatives and she has adamantly refused that at this time. Exam - Constitutional Vitals: Period Temp Pulse Resp BP Sys/Way Pulse Ox Last 24 Hr 96.2 F-97.4 F 60-69 15-60 92-149/53-76 89-99 General appearance: morbidly obese - Head Head exam: Present: normocephalic, atraumatic - Eye Eye exam: Present: EOMI Pupils: Present: YARED - ENT ENT exam: Present: normal exam - Neck Neck exam: Present: normal inspection - Respiratory Respiratory exam: Present: clear to auscultation bilaterally, decreased breath sounds - Cardiovascular Cardiovascular exam: Present: regular rate and rhythm. Absent: gallop, systolic murmur - GI/Abdominal GI/Abdominal exam: Present: normal bowel sounds, soft. Absent: mass, tenderness - Extremities Exam Extremities exam: Absent: calf tenderness, edema - Neurological Exam Neurological exam: Present: alert, oriented X3, CN II-XII intact. Absent: motor sensory deficit - Psychiatric Psychiatric exam: Absent: agitated, anxious - Skin Skin exam: Present: warm, dry. Absent: erythema Results - Labs CBC & BMP: 01/15/17 06:13 01/15/17 06:13 Lab Results: I have reviewed the past 24 hour labs Quality Measures - VTE Contraindication to Pharmacological VTE Prophylaxis: Coagulopathy Specialty Discharge - Follow Up or Referrals
[2017-01-15 09:13] LABS: INR 2.7; PT Patient Result 30.3 SECS
[2017-01-15] MEDS: GABAPENTIN 400 MG CAPSULE PO SCH ×3 (09:19→21:44)
[2017-01-15] MEDS: ASPIRIN EC 81 MG TABLET PO SCH (09:20)
[2017-01-15] MEDS: POTASSIUM CHLORIDE 20 MEQ TABLET PO SCH (09:20)
[2017-01-15] MEDS: CARVEDILOL 6.25 MG TABLET PO SCH ×2 (09:20→21:45)
[2017-01-15] MEDS: metOLazone 5 MG TABLET PO SCH (09:20)
[2017-01-15] MEDS: ALPRAZolam 0.5 MG TABLET PO SCH ×2 (09:20→21:45)
[2017-01-15] MEDS: PANTOPRAZOLE 40 MG TABLET PO SCH (09:20)
[2017-01-15] MEDS: INSULIN REGULAR 100 UNIT/ML SUBCUT SCH ×4 (09:20→22:29)
[2017-01-15] MEDS: TORSEMIDE 20 MG TABLET PO SCH (09:20)
--- NOTE | 2017-01-15 10:18 | Discharge Summary ---
Hospital Course - Hospital Course Hospital Course: Patient was admitted with complaints of chest pain while watching TV. It was in the mid chest, felt heavy and sharp, constant, radiating to the jaw and arms with associated nausea vomiting and shortness of breath but no diaphoresis. She was noted to be hypokalemic and potassium was replaced. She was placed on empiric IV Rocephin for possible urinary tract infection. Urine culture ultimately revealed E. coli sensitive to Rocephin and she received a complete course during her stay. EKG revealed paced rhythm and chest x-ray revealed cardiomegaly with evidence of mild CHF. She was morbidly obese and was seen by dietary. She has a history of sleep apnea however is been noncompliant with her CPAP. Cardiology was consulted and they noted that she had acute on chronic CHF secondary to diastolic dysfunction as an echo in August 2016 revealed an ejection fraction of 50%. She had also been on chronic anticoagulation for history of atrial flutter and left atrial appendage clot. Serial cardiac biomarkers were negative. She was diuresed with some improvement however had hyponatremia and Samsca was added to her daily regimen however this was apparently discontinued on 01/11/17 and she has maintained her sodium without. We continued to make adjustments in her medical therapy as well as replacement of electrolytes during her stay. KARINE inhibitor was held because of her elevated creatinine. She has been relatively stable and appears to be as compensated as can be expected with her noncompliance as documented in the record. She is hemodynamically stable, her INR is 2.7, her sodium is 133, potassium 3.3, creatinine stable at 1.5. Blood sugars are under fair control ranging between 134 and 234 over the past 24 hours. Her metformin was discontinued because of her renal function. Glyburide 1.5 mg p.o. every morning has been added to her regimen. She will need to have continued Accu- Cheks before meals and at bedtime and report her primary care provider. I have offered case management/public health social worker consultation to consider further placement opportunities such as swing bed, etc. however she has adamantly refused at this time. She also initially told me she did not have home oxygen however now admits to that. We will continue at 2 L by nasal cannula. She will need close follow-up with her primary care provider, Odette Triplett MD. - Time spent with patient Time with patient DS: Greater than 30 minutes Diagnosis - Discharge Diagnosis (1) CHF (congestive heart failure) Status: Acute (2) Hypertension Status: Chronic (3) Hypokalemia Status: Acute (4) Hyponatremia Status: Acute (5) Acute on chronic renal insufficiency Status: Acute (6) Morbid obesity Status: Chronic (7) Noncompliance Status: Chronic Specialty Discharge - Follow Up or Referrals Discharge Plan - Discharge Data Disposition: Disch To Home/Self Care Condition at Discharge: Stable Discharge Diet: diabetic diet, heart healthy Activity: resume usual activities as tolerated Contact your physician if you experience:: fever over 101, Nausea/Vomiting, Shortness of breath - Discharge Medications New Glyburide,Micronized [Glyburide Micronized] 1.5 mg PO AC BREAKFAST #30 tablet Continue HYDROcodone/ACETAMIN 10-325 [Kemp 10-325] 1 tablet PO Q4H PRN PRN Reason: Pain Gabapentin 800 mg PO TID Warfarin Sodium 7.5 mg PO DAILY Albuterol Inhaler [Proventil Inhaler] 2 puff INH Q4H PRN #1 inhaler PRN Reason: Shortness Of Breath/Wheezing Aspirin [Ecotrin] 81 mg PO DAILY ALPRAZolam [Xanax] 1 mg PO BID Carvedilol [Coreg] 6.25 mg PO BID #60 tablet metOLazone [Zaroxolyn] 5 mg PO DAILY #30 tablet Atorvastatin [Lipitor] 20 mg PO BEDTIME #90 tablet Torsemide Tab [Demadex Tab] 80 mg PO DAILY #90 tablet Potassium Chloride Cap/Tab [K Dur] 20 meq PO BID Discontinued Spironolactone 25 mg PO BID Furosemide Tab [Lasix Tab] 40 mg PO BID metFORMIN [Glucophage] 1,000 mg PO BID W/MEALS - Follow Up or Referral Follow Up: Odette Triplett MD [REFERRING DOCTOR/PRACTITIONER] - 3 Days (With an INR, BMP) - Forms/Instructions Instructions: Chest Pain (ED) Additional Discharge Instructions: Continue home O2 at 2 L by nasal cannula. Discharge home if okay with Dr. Hinkle in follow-up with cardiology as an outpatient per his direction. Check blood sugars before meals and at bedtime and record. Report these to Dr. Triplett on follow-up appointment. Exam - Constitutional Vitals: Period Temp Pulse Resp BP Sys/Way Pulse Ox Last 24 Hr 96.2 F-97.4 F 60-69 15-60 92-149/53-76 89-99 General appearance: no acute distress, morbidly obese - Head Head exam: Present: normocephalic, atraumatic - Eye Eye exam: Present: EOMI Pupils: Present: YARED - ENT ENT exam: Present: normal exam - Neck Neck exam: Present: normal inspection - Respiratory Respiratory exam: Present: clear to auscultation bilaterally. Absent: rales, rhonchi, wheezes - Cardiovascular Cardiovascular exam: Present: regular rate and rhythm - GI/Abdominal GI/Abdominal exam: Present: normal bowel sounds, soft. Absent: mass, tenderness , rebound - Extremities Exam Extremities exam: Absent: calf tenderness, edema - Neurological Exam Neurological exam: Present: alert, oriented X3, CN II-XII intact. Absent: motor sensory deficit - Psychiatric Psychiatric exam: Present: normal affect, normal mood. Absent: agitated, anxious - Skin Skin exam: Present: warm, dry. Absent: erythema Discharge Results Procedures and tests throughout hospitalization: Pending Orders 01/10/17 22:17 Blood Culture Routine 01/12/17 00:03 Urine Culture Routine 01/16/17 04:00 BMP w/ Mg [Basic Metabolic Panel w/Mg] IN AM CBC [Comp Blood Count Auto Diff] IN AM Prothrombin Time INR IN AM Labs on day of discharge: Labs from last 24 hours 01/15/17 01/15/17 01/15/17 08:53 07:45 06:13 WBC RBC Hgb Hct MCV MCH MCHC RDW Plt Count MPV Neut % (Auto) Lymph % (Auto) [place] % (Auto) Eos % (Auto) Baso % (Auto) Neut # (Auto) Lymph # (Auto) [place] # (Auto) Eos # (Auto) Baso # (Auto) Immature Gran % Nucleated RBC % Immature Gran # Nucleated RBCs # Immature Plt Fraction INR 2.7 PT Patient/Control Mix 30.3 Sodium 133 L Potassium 3.3 L Chloride 85 L Carbon Dioxide 41 H Anion Gap 10.3 BUN 56 H Creatinine 1.50 H GFR Calculation 1411 BUN/Creatinine Ratio 37.00 H Glucose 114 H POC Glucose 134 H Calculated Osmolality 282.4 Calcium 9.3 Magnesium 2.3 01/15/17 01/14/17 01/14/17 06:13 21:53 21:49 WBC 9.8 RBC 4.49 Hgb 13.3 Hct 40.9 MCV 91.1 MCH 30 MCHC 32.5 RDW 14.1 Plt Count 214 MPV 11.6 Neut % (Auto) 65.1 Lymph % (Auto) 17.3 L [place] % (Auto) 15.1 H Eos % (Auto) 1.7 Baso % (Auto) 0.3 Neut # (Auto) 6.4 Lymph # (Auto) 1.7 [place] # (Auto) 1.5 H Eos # (Auto) 0.2 Baso # (Auto) 0.0 Immature Gran % 0.5 Nucleated RBC % 0.0 Immature Gran # 0.05 Nucleated RBCs # 0.00 Immature Plt Fraction 0.0 INR PT Patient/Control Mix Sodium Potassium 3.5 Chloride Carbon Dioxide Anion Gap BUN Creatinine GFR Calculation BUN/Creatinine Ratio Glucose POC Glucose 182 H Calculated Osmolality Calcium Magnesium 01/14/17 01/14/17 16:43 11:51 WBC RBC Hgb Hct MCV MCH MCHC RDW Plt Count MPV Neut % (Auto) Lymph % (Auto) [place] % (Auto) Eos % (Auto) Baso % (Auto) Neut # (Auto) Lymph # (Auto) [place] # (Auto) Eos # (Auto) Baso # (Auto) Immature Gran % Nucleated RBC % Immature Gran # Nucleated RBCs # Immature Plt Fraction INR PT Patient/Control Mix Sodium Potassium Chloride Carbon Dioxide Anion Gap BUN Creatinine GFR Calculation BUN/Creatinine Ratio Glucose POC Glucose 234 H 184 H Calculated Osmolality Calcium Magnesium Preliminary micro results at discharge 01/12/17 00:03 Urine Culture - Preliminary Urine,Voided Gram Positive Cocci 01/10/17 22:17 Blood Culture - Preliminary Blood No growth at 3 days - Imaging and Cardiology Procedure: Chest x-ray: report reviewed by me DS: Provider Date of admission: 01/13/17 12:45 Primary care physician: Aiden Matute MD Attending physician on admission: Jade Bee MD Consults: 01/10/17 21:52 Consult to Physician [CONS] Routine Comment: chest pain Consulting Provider: Alec Hodges When should Consulting Provider be notified: In am Consult to Specialist Group: Cardiology When should Consulting Provider be notified: In am Person Notified: Stew Date Notified: 01/11/17 Time Notified: 07:45 Discharging clinician: Gold Monreal Expected date of discharge: 01/15/17
--- NOTE | 2017-01-15 12:47 | Cardiology Progress Note ---
Cardiology - PN: Subj Interval history: Cardiology note No temperature. No chest pain. O2 sat 94% Blood pressure 108/78 Irregular rhythm no murmur Decreased breath sounds but fairly clear Abdomen nontender Lab data today White count 9.8 hemoglobin 13.3 hematocrit 40.9 INR 2.7 Pro time 30.3 Sodium has risen to 133 with fluid restriction. Potassium 3.3 chloride 85 CO2 41 BUN 56 creatinine 1.5 glucose 114 magnesium 2.3 Impression Diastolic heart failure Morbid obesity 391 pounds Mild chronic renal insufficiency Untreated ANDREINA Chronic A. fib Chronic anticoagulation INR therapeutic Chronic noncompliance Hypertension Type 2 diabetes Hyperlipidemia Status post distal RCA stent 2010 Plan Agree with discharge Weight reduction imperative. I have encouraged the patient to reconsider and I recommended CPAP mask nightly. Exam (Progress Note) - Constitutional Vitals: Period Temp Pulse Resp BP Sys/Way Pulse Ox Last 24 Hr 96.2 F-97.4 F 60-69 15-60 92-142/53-70 89-98 Result/EKG - Labs CBC & BMP: 01/15/17 06:13 01/15/17 06:13 Labs: Laboratory Results - last 24 hr 01/14/17 01/14/17 01/14/17 11:51 16:43 21:49 WBC RBC Hgb Hct MCV MCH MCHC RDW Plt Count MPV Neut % (Auto) Lymph % (Auto) [place] % (Auto) Eos % (Auto) Baso % (Auto) Neut # (Auto) Lymph # (Auto) [place] # (Auto) Eos # (Auto) Baso # (Auto) Immature Gran % Nucleated RBC % Immature Gran # Nucleated RBCs # Immature Plt Fraction INR PT Patient/Control Mix Sodium Potassium Chloride Carbon Dioxide Anion Gap BUN Creatinine GFR Calculation BUN/Creatinine Ratio Glucose POC Glucose 184 H 234 H 182 H Calculated Osmolality Calcium Magnesium 01/14/17 01/15/17 01/15/17 21:53 06:13 06:13 WBC 9.8 RBC 4.49 Hgb 13.3 Hct 40.9 MCV 91.1 MCH 30 MCHC 32.5 RDW 14.1 Plt Count 214 MPV 11.6 Neut % (Auto) 65.1 Lymph % (Auto) 17.3 L [place] % (Auto) 15.1 H Eos % (Auto) 1.7 Baso % (Auto) 0.3 Neut # (Auto) 6.4 Lymph # (Auto) 1.7 [place] # (Auto) 1.5 H Eos # (Auto) 0.2 Baso # (Auto) 0.0 Immature Gran % 0.5 Nucleated RBC % 0.0 Immature Gran # 0.05 Nucleated RBCs # 0.00 Immature Plt Fraction 0.0 INR PT Patient/Control Mix Sodium 133 L Potassium 3.5 3.3 L Chloride 85 L Carbon Dioxide 41 H Anion Gap 10.3 BUN 56 H Creatinine 1.50 H GFR Calculation 1411 BUN/Creatinine Ratio 37.00 H Glucose 114 H POC Glucose Calculated Osmolality 282.4 Calcium 9.3 Magnesium 2.3 01/15/17 01/15/17 01/15/17 07:45 08:53 11:31 WBC RBC Hgb Hct MCV MCH MCHC RDW Plt Count MPV Neut % (Auto) Lymph % (Auto) [place] % (Auto) Eos % (Auto) Baso % (Auto) Neut # (Auto) Lymph # (Auto) [place] # (Auto) Eos # (Auto) Baso # (Auto) Immature Gran % Nucleated RBC % Immature Gran # Nucleated RBCs # Immature Plt Fraction INR 2.7 PT Patient/Control Mix 30.3 Sodium Potassium Chloride Carbon Dioxide Anion Gap BUN Creatinine GFR Calculation BUN/Creatinine Ratio Glucose POC Glucose 134 H 215 H Calculated Osmolality Calcium Magnesium Quality Measures - VTE Contraindication to Pharmacological VTE Prophylaxis: Coagulopathy Specialty Discharge - Follow Up or Referrals Follow up with: Odette Triplett MD [REFERRING DOCTOR/PRACTITIONER] - 3 Days (With an INR, BMP)
[2017-01-15] MEDS: POTASSIUM CHLORIDE 20 MEQ TABLET PO PRN (13:08)
--- NOTE | 2017-01-15 13:51 | Event Note ---
Now daughter states she is unable to care for the patient at home and has convinced Ms Vazquez swingbed. Essentially refuses to go home at this point. Will hold DC and pursue placement.
[2017-01-15] MEDS: AMPICILLIN 500 MG CAPSULE PO SCH ×2 (16:35→21:45)
[2017-01-15] MEDS: WARFARIN 7.5 MG TABLET PO SCH (17:57)
[2017-01-15] MEDS: ZALEPLON 5 MG CAPSULE PO PRN (21:44)
[2017-01-15] MEDS: ATORVASTATIN 20 MG TABLET PO SCH (21:45)
[2017-01-16] MEDS: ZALEPLON 5 MG CAPSULE PO PRN ×2 (03:10→21:19)
[2017-01-16] MEDS: ALBUTEROL/IPRATROPIUM 3 ML NEB RESP TX SCH ×6 (03:20→23:46)
[2017-01-16 05:11] LABS: Basophils % 0.3 % (0.0-0.8); Eosinophils # 0.3 10*3/uL (0.0-0.87); Eosinophils % 2.8 % (0.00-10.9); Hematocrit 39.8 VOL% (35.7-47.0); Immature Granulocytes % 0.3 %; Immature Granulocytes Absolute 0.03 #; Lymphocytes # 1.9 10*3/uL (1.4-4.0); Lymphocytes % 21.4 % (21.3-54.2); Mean Corpuscular HGB Conc 32.7 GM/DL (32-36); Mean Corpuscular Hemoglobin 30 PG (27-34); Mean Corpuscular Volume 91.1 FL (87-102); Mean Platelet Volume 11.4 FL (9.6-12.0); Monocytes # 1.4 10*3/uL (0.11-0.8); Monocytes % 15.4 % (1.7-12.7); Neutrophils # 5.4 10*3/uL (1.4-7.4); Neutrophils % 59.8 % (38.7-73.9); Platelet Count 219 T/CUMM (130-400); Red Blood Count 4.37 MC/CUMM (3.8-5.5)
[2017-01-16 05:47] LABS: INR 2.8
[2017-01-16 05:52] LABS: Calcium 9.2 MG/DL (8.5-10.1); Magnesium 2.2 MG/DL (1.8-2.4); Osmolality,Calculated 282.4 MOS/KG (273-304); Potassium 3.1 MMOL/L (3.5-5.1)
[2017-01-16 06:14] LABS: PT Patient Result 31.4 SECS
[2017-01-16] MEDS: glyBURIDE MICRONIZED 1.5 MG TABLET PO SCH (07:26)
[2017-01-16] MEDS: POTASSIUM CHLORIDE 20 MEQ TABLET PO PRN ×3 (07:27→14:07)
[2017-01-16] MEDS: INSULIN REGULAR 100 UNIT/ML SUBCUT SCH ×4 (08:26→20:08)
[2017-01-16] MEDS: GABAPENTIN 400 MG CAPSULE PO SCH ×3 (09:13→21:20)
[2017-01-16] MEDS: ASPIRIN EC 81 MG TABLET PO SCH (09:13)
[2017-01-16] MEDS: PANTOPRAZOLE 40 MG TABLET PO SCH (09:13)
[2017-01-16] MEDS: metOLazone 5 MG TABLET PO SCH (09:14)
[2017-01-16] MEDS: POTASSIUM CHLORIDE 20 MEQ TABLET PO SCH (09:14)
[2017-01-16] MEDS: AMPICILLIN 500 MG CAPSULE PO SCH ×4 (09:14→21:20)
[2017-01-16] MEDS: ALPRAZolam 0.5 MG TABLET PO SCH ×2 (09:14→21:19)
[2017-01-16] MEDS: TORSEMIDE 20 MG TABLET PO SCH (09:14)
[2017-01-16] MEDS: CARVEDILOL 6.25 MG TABLET PO SCH ×2 (09:14→21:21)
--- NOTE | 2017-01-16 13:31 | Cardiology Progress Note ---
<Melida Rush E - Last Filed: 01/16/17 13:25> Assessment and Plan - Time spent with patient Time spent with patient: Greater than 30 minutes (1) Hypertension Status: Chronic Assessment and plan: SEE PLAN OF CARE LISTED BELOW Current Visit: No Qualifiers: Hypertension type: essential hypertension Qualified Code(s): I10 - Essential (primary) hypertension (2) History of coronary artery disease Status: Chronic Assessment and plan: SEE PLAN OF CARE LISTED BELOW Current Visit: No (3) Morbid obesity Status: Chronic Assessment and plan: SEE PLAN OF CARE LISTED BELOW Current Visit: No (4) Anxiety Status: Chronic Assessment and plan: SEE PLAN OF CARE LISTED BELOW Current Visit: No (5) Pacemaker Status: Chronic Assessment and plan: SEE PLAN OF CARE LISTED BELOW Current Visit: No (6) History of atrial fibrillation Status: Chronic Assessment and plan: SEE PLAN OF CARE LISTED BELOW Current Visit: No (7) Chronic anticoagulation Status: Chronic Assessment and plan: SEE PLAN OF CARE LISTED BELOW Current Visit: No (8) Sleep apnea Status: Chronic Assessment and plan: SEE PLAN OF CARE LISTED BELOW Current Visit: No Qualifiers: Sleep apnea type: obstructive Qualified Code(s): G47.33 - Obstructive sleep apnea (adult) (pediatric) (9) Left atrial thrombus Status: Chronic Assessment and plan: SEE PLAN OF CARE LISTED BELOW Current Visit: No (10) Chronic pain Status: Chronic Current Visit: No (11) Diabetes Status: Chronic Assessment and plan: SEE PLAN OF CARE LISTED BELOW Current Visit: No (12) Noncompliance Status: Chronic Assessment and plan: SEE PLAN OF CARE LISTED BELOW Current Visit: No (13) Hyperkalemia Status: Resolved Assessment and plan: SEE PLAN OF CARE LISTED BELOW Current Visit: Yes (14) Acute on chronic renal insufficiency Status: Acute Assessment and plan: SEE PLAN OF CARE LISTED BELOW Current Visit: Yes Cardiology - PN: Subj Interval history: ORTHODONTIST ASSISTANT: DR. HODGES SUMMARY: Ms. Ortez, 56WF, does not follow-up in electronic publishing specialist clinic but considers Dr. Hodges her electronic publishing specialist. Risk factors include: Known coronary artery disease ([facility] 2010 revealed patent distal RCA), morbid obesity, hypertension, dyslipidemia, diabetes, sedentary lifestyle and noncompliance. She has sleep apnea, noncompliant with device. History of atrial flutter, DARCY April 2015 revealed left atrial appendage clot. 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 She takes Coumadin for stroke prevention. History of small left atrial appendage clot 2014. Echocardiogram August 2016 revealed: EF 50%, no significant valvular abnormality, PAP 51 mmHg, diastolic dysfunction. Frequent hospitalizations for volume overload, shortness of breath, atypical chest pain. Patient was admitted January 10, 2017 with complaints of chest pain, acute on chronic diastolic congestive heart failure. (NYHA Class III). She has been placed on telemetry. Cardiac biomarkers negative, EKG unremarkable. She is basically nonambulatory by choice. Patient reports Monday evening, while sitting in her chair, she began to experience chest pain in the center of her chest which radiated across her chest laterally. She describes as "sharp and stabbing". She believes he was somewhat diaphoretic. This lasted approximately 12 hours intermittently. She is chronically short of breath and believes this may or may not have worsened at that point. She did have cramping of her lower extremities when this occurred. She can identify no aggravating, nor alleviating factors. She rates the discomfort as a 7 on a scale of 1-10. She is currently chest pain-free. She is chronically orthopneic but this appears to be only minimally worse since our last visit. He has been diagnosed with acute on chronic CHF exacerbation, UTI. Hypokalemic and labs have been replaced. No need to repeat echocardiogram as she had a recent (August 2016) report. Replace magnesium. She is also hyponatremic and may be a candidate for Samsca. First, we will fluid restrict for 24 hours and if no improvement in the sodium level may consider initiation 15 mg orally daily. Strict I&O, continue diuresis. Will add a nitrate to her medication regimen. Continue to follow cardiac biomarkers, EKG. This does not appear to be NSTEMI. Will further discuss with Dr. Hinkle and await additional recommendations. JANUARY 12, 2017: Yesterday, patient was started on Samsca. Sodium 132. We do not have a daily weight however she has diuresed 5000 mL overnight. Echocardiogram reveals EF 55%, grade 1 diastolic dysfunction, no significant valvular abnormality, PA P 38 mmHg. In general, she looks markedly better. She feels much better today. Denies chest pain, heaviness or tightness. Continue current plan of care. Will further discuss with Dr. Hinkle and await additional recommendations. JANUARY 13, 2017: Patient continues to diurese well. This morning, patient reports she is dizzy and feels poor in general. Denies chest pain, heaviness or tightness. Her breathing is stable. Potassium 5.7. Holding Spironolactone. She did get to oral replacement with potassium yesterday on several occasions and I will go ahead and discontinue the potassium replacement. Also, it is reported that the patient ate numerous bananas yesterday. When taking Samsca, patients are allowed to "drink to thirst". May increase to 30 mg p.o. after the initial 24 hours of receiving 15 mg. Sodium 128 today, urine osmolality is low, creatinine is increased to 2.0. Continue to monitor her labs daily. Patient is quite anxious about being discharged. She was told she may be ready for discharge tomorrow and she is having a lot of anxiety about this. I will further discuss with Dr. Hinkle and await additional recommendations. JANUARY 16, 2017: Over the weekend she has continued to improve. In fact, she is doing so will hopefully she will be transferred to a swing bed facility soon. She was scheduled for discharge over the weekend however, both patient and daughter felt as if she was not strong enough to go home. For this reason she was kept in case management is on board at this time. Patient did use Samsca for several days. She responded well to that. Sodium 133, stable. She is chronically hypokalemic having one episode of hyperkalemia on the however, I suspect this was related to the numerous bananas she ate that day in addition to having additional potassium replacement. Creatinine increased to 2.0 during admission but is now decreasing and noted be 1.4. Vital signs are well controlled. Continue beta-reyes, aspirin, lipid-lowering agent. Avoiding ARB or KARINE inhibitor for fear of worsening creatinine. Acute kidney injury team you beta-reyes ASSESSMENT/PLAN: 1. ACUTE ON CHRONIC CHF - secondary to diastolic dysfunction, NYHA Class III. EF 55%. Continue with diuresing, strict I&O. 2. MORBID OBESITY - dietary counseling has ensued. 3. HYPERTENSION - adequately controlled. In the past, lisinopril has been added however creatinine increased to 2.0. For this reason, we are holding KARINE inhibitor/ARB. 4. DYSLIPIDEMIA - recent lipid profile on board. No need to repeat. Continue Atorvastatin. 5. SLEEP APNEA - noncompliant. We will not consult Dr. Bloom as he has seen her on numerous occasions and she chooses not to follow-up outpatient and/or where sleep device. 6. KNOWN CAD - history of stent to distal RCA at [facility] prior to 2010. 7. HISTORY OF ATRIAL FIBRILLATION WITH LEFT ATRIAL APPENDAGE CLOT - INR therapeutic 8. HIGH RISK MEDICATION - Coumadin continues. INR tomorrow morning 9. DIABETES - sliding scale 10. HYPOKALEMIA - give additional dose. 11. HYPOMAGNESEMIA - resolved 12. NON-COMPLIANCE WITH CARDIOLOGY FOLLOW-UP - reiterated the importance of compliance. 13. S/P PPM - continue current plan of care. 14. UTI - being addressed with antibiotics. 15. HYPONATREMIA -128 this morning. Continue Samsca. May drink to thirst will taking while taking Samsca. BMP daily 16. CHEST PAIN - continue to follow Troponin, EKG. Not NSTEMI 17. ACUTE ON CHRONIC RENAL INSUFFICIENCY - Creatinine plateaued at 2.0. Now improving. Exam (Progress Note) - Constitutional Vitals: Period Temp Pulse Resp BP Sys/Way Pulse Ox Last 24 Hr 96.9 F-98.4 F 16-81 16-20 101-129/42-65 83-99 Exam: Exam: General: [Appears well with no apparent distress.] [Pleasant and cooperative. ] [Appears comfortable.] HEENT: [PERRL, normocephalic, atraumatic. Mucous membranes moist. No jaundice noted. Conjunctiva moist and clear, sclerae anicteric] Neck: Unable to assess for JVD due to habitus. No thyromegaly or lymphadenopathy noted. No carotid bruit appreciated Cardiac: [Regular rate and rhythm.] [No murmur rub or gallop.] Lungs: [Decreased sounds throughout but no Rales or rhonchi noted.. No accessory muscle use to assist the respiratory pattern. ] Not requiring oxygen Abdomen: Soft, bowel sounds normoactive. Nontender and nondistended. No abdominal bruit or thrill noted. No masses noted. Musculoskeletal: No fluid collection. Decreased range of motion is noted. Extremities: No clubbing, cyanosis noted. [1+ brawny edema BLE. ] Upper extremity pulses 2+. 1+ pedal pulses bilaterally. Capillary refill less than 3 seconds. Skin: No unusual lesions or rashes. No skin breakdown appreciated. Neuro: Awake, alert and oriented 3. Moves all extremities well without hemiparesis or paralysis. No essential tremor is appreciated. Result/EKG - Labs CBC & BMP: 01/16/17 04:56 01/16/17 04:56 Lab Results: I have reviewed the past 24 hour labs Labs: Laboratory Results - last 24 hr 01/15/17 01/16/17 01/16/17 17:09 04:56 04:56 WBC 9.0 RBC 4.37 Hgb 13.0 Hct 39.8 MCV 91.1 MCH 30 MCHC 32.7 RDW 14.0 Plt Count 219 MPV 11.4 Neut % (Auto) 59.8 Lymph % (Auto) 21.4 [place] % (Auto) 15.4 H Eos % (Auto) 2.8 Baso % (Auto) 0.3 Neut # (Auto) 5.4 Lymph # (Auto) 1.9 [place] # (Auto) 1.4 H Eos # (Auto) 0.3 Baso # (Auto) 0.0 Immature Gran % 0.3 Nucleated RBC % 0.0 Immature Gran # 0.03 Nucleated RBCs # 0.00 Immature Plt Fraction 0.0 INR PT Patient/Control Mix Sodium 133 L Potassium 3.1 L Chloride 87 L Carbon Dioxide 41 H Anion Gap 8.1 BUN 51 H Creatinine 1.40 H GFR Calculation 1538 BUN/Creatinine Ratio 36.00 H Glucose 159 H POC Glucose 196 H Calculated Osmolality 282.4 Calcium 9.2 Magnesium 2.2 01/16/17 01/16/17 01/16/17 04:56 07:35 12:07 WBC RBC Hgb Hct MCV MCH MCHC RDW Plt Count MPV Neut % (Auto) Lymph % (Auto) [place] % (Auto) Eos % (Auto) Baso % (Auto) Neut # (Auto) Lymph # (Auto) [place] # (Auto) Eos # (Auto) Baso # (Auto) Immature Gran % Nucleated RBC % Immature Gran # Nucleated RBCs # Immature Plt Fraction INR 2.8 PT Patient/Control Mix 31.4 Sodium Potassium Chloride Carbon Dioxide Anion Gap BUN Creatinine GFR Calculation BUN/Creatinine Ratio Glucose POC Glucose 134 H 172 H Calculated Osmolality Calcium Magnesium - Diagnostic Findings Procedure: Chest x-ray: report reviewed by me - EKG EKG results: interpreted by me EKG shows: atrial fibrillation Quality Measures - VTE Contraindication to Pharmacological VTE Prophylaxis: Coagulopathy Specialty Discharge - Follow Up or Referrals Follow up with: Odette Triplett MD [REFERRING DOCTOR/PRACTITIONER] - 01/19/17 10:30 am (With an INR , BMP) <Jose FRoseline - Last Filed: 01/16/17 15:37> Cardiology - PN: Subj Interval history: I have personally interviewed and evaluated the patient, reviewed the chart and discussed medical decision-making with Practitioner Victor Manuel. I have read this note and agree with her documentation here in with the following exception and changes: Upon my exam the patient is tearful and upset because she just hurts all over and has felt somewhat tired today. She apparently had a fall yesterday and this has caused diffuse soreness. She is being treated with [place]. I have asked the nurse to discuss further treatment with her primary team if needed, she has multiple allergies complicating her treatment. Exam (Progress Note) - Constitutional Vitals: Period Temp Pulse Resp BP Sys/Way Pulse Ox Last 24 Hr 96.9 F-98.4 F 16-81 16-20 101-129/42-65 83-99 Result/EKG - Labs CBC & BMP: 01/16/17 04:56 01/16/17 04:56 Labs: Laboratory Results - last 24 hr 01/15/17 01/16/17 01/16/17 17:09 04:56 04:56 WBC 9.0 RBC 4.37 Hgb 13.0 Hct 39.8 MCV 91.1 MCH 30 MCHC 32.7 RDW 14.0 Plt Count 219 MPV 11.4 Neut % (Auto) 59.8 Lymph % (Auto) 21.4 [place] % (Auto) 15.4 H Eos % (Auto) 2.8 Baso % (Auto) 0.3 Neut # (Auto) 5.4 Lymph # (Auto) 1.9 [place] # (Auto) 1.4 H Eos # (Auto) 0.3 Baso # (Auto) 0.0 Immature Gran % 0.3 Nucleated RBC % 0.0 Immature Gran # 0.03 Nucleated RBCs # 0.00 Immature Plt Fraction 0.0 INR PT Patient/Control Mix Sodium 133 L Potassium 3.1 L Chloride 87 L Carbon Dioxide 41 H Anion Gap 8.1 BUN 51 H Creatinine 1.40 H GFR Calculation 1538 BUN/Creatinine Ratio 36.00 H Glucose 159 H POC Glucose 196 H Calculated Osmolality 282.4 Calcium 9.2 Magnesium 2.2 01/16/17 01/16/17 01/16/17 04:56 07:35 12:07 WBC RBC Hgb Hct MCV MCH MCHC RDW Plt Count MPV Neut % (Auto) Lymph % (Auto) [place] % (Auto) Eos % (Auto) Baso % (Auto) Neut # (Auto) Lymph # (Auto) [place] # (Auto) Eos # (Auto) Baso # (Auto) Immature Gran % Nucleated RBC % Immature Gran # Nucleated RBCs # Immature Plt Fraction INR 2.8 PT Patient/Control Mix 31.4 Sodium Potassium Chloride Carbon Dioxide Anion Gap BUN Creatinine GFR Calculation BUN/Creatinine Ratio Glucose POC Glucose 134 H 172 H Calculated Osmolality Calcium Magnesium
[2017-01-16] MEDS: WARFARIN 7.5 MG TABLET PO SCH (17:39)
[2017-01-16] MEDS: ATORVASTATIN 20 MG TABLET PO SCH (21:20)
[2017-01-17] MEDS: ALBUTEROL/IPRATROPIUM 3 ML NEB RESP TX SCH ×3 (03:31→10:52)
[2017-01-17 05:43] LABS: INR 2.5
[2017-01-17 05:49] LABS: PT Patient Result 28.1 SECS
[2017-01-17 05:59] LABS: Basophils % 0.4 % (0.0-0.8); Eosinophils # 0.2 10*3/uL (0.0-0.87); Eosinophils % 2.2 % (0.00-10.9); Hemoglobin 13.7 GM/DL (12.0-16.0); Immature Granulocytes % 0.4 %; Immature Granulocytes Absolute 0.04 #; Lymphocytes # 1.7 10*3/uL (1.4-4.0); Lymphocytes % 17.2 % (21.3-54.2); Mean Corpuscular HGB Conc 32.6 GM/DL (32-36); Mean Corpuscular Hemoglobin 30 PG (27-34); Mean Corpuscular Volume 91.5 FL (87-102); Mean Platelet Volume 11.6 FL (9.6-12.0); Monocytes # 1.1 10*3/uL (0.11-0.8); Monocytes % 11.5 % (1.7-12.7); Neutrophils # 6.6 10*3/uL (1.4-7.4); Neutrophils % 68.3 % (38.7-73.9); Platelet Count 240 T/CUMM (130-400); Red Blood Count 4.59 MC/CUMM (3.8-5.5); Red Cell Distribution Width 14.6 % (9.3-17.3); White Blood Count 9.7 T/CUMM (4-12)
[2017-01-17 06:01] LABS: Calcium 8.9 MG/DL (8.5-10.1); Magnesium 2.2 MG/DL (1.8-2.4); Osmolality,Calculated 281.4 MOS/KG (273-304); Potassium 3.2 MMOL/L (3.5-5.1)
[2017-01-17] MEDS: INSULIN REGULAR 100 UNIT/ML SUBCUT SCH ×2 (08:15→13:36)
[2017-01-17] MEDS: AMPICILLIN 500 MG CAPSULE PO SCH ×2 (08:16→13:48)
[2017-01-17] MEDS: PANTOPRAZOLE 40 MG TABLET PO SCH (08:16)
[2017-01-17] MEDS: POTASSIUM CHLORIDE 20 MEQ TABLET PO SCH (08:16)
[2017-01-17] MEDS: glyBURIDE MICRONIZED 1.5 MG TABLET PO SCH (08:16)
[2017-01-17] MEDS: GABAPENTIN 400 MG CAPSULE PO SCH ×2 (08:17→15:46)
[2017-01-17] MEDS: ALPRAZolam 0.5 MG TABLET PO SCH (08:17)
[2017-01-17] MEDS: ASPIRIN EC 81 MG TABLET PO SCH (08:17)
[2017-01-17] MEDS: metOLazone 5 MG TABLET PO SCH (08:18)
[2017-01-17] MEDS: CARVEDILOL 6.25 MG TABLET PO SCH (08:18)
[2017-01-17] MEDS: TORSEMIDE 20 MG TABLET PO SCH (08:18)
--- NOTE | 2017-01-17 11:37 | Hospitalist Progress Note ---
Assessment and Plan (1) CHF (congestive heart failure) Status: Acute Assessment and plan: transfer to [facility] today Current Visit: Yes Qualifiers: Congestive heart failure type: diastolic (2) Hypertension Status: Chronic Assessment and plan: controlled Current Visit: Yes Qualifiers: Hypertension type: essential hypertension Qualified Code(s): I10 - Essential (primary) hypertension (3) Hypokalemia Status: Acute Assessment and plan: replaced Current Visit: Yes (4) Hyponatremia Status: Acute Assessment and plan: stable Current Visit: Yes Hospitalist: Subjective Interval history: no bed available, awaiting insurance approval. Complains of back pain today. From her fall the other day. Patient can have as needed Zanaflex Exam - Constitutional Vitals: Period Temp Pulse Resp BP Sys/Way Pulse Ox Last 24 Hr 96.6 F-98.4 F 60-81 18-22 97-125/54-70 90-99 Exam: Heart Rate-[RRR] Lungs-[CTAB] GI-[+bs soft, NT] Ext-[chronic lymph edema] Neuro [Motor 4/5], [alert and oriented times 3] psych [normal mood and affect] General [no acute distress] Results - Labs CBC & BMP: 01/17/17 05:21 01/17/17 05:21 Lab Results: I have reviewed the past 24 hour labs Quality Measures - VTE Contraindication to Pharmacological VTE Prophylaxis: Coagulopathy Specialty Discharge - Follow Up or Referrals Follow up with: Odette Triplett MD [REFERRING DOCTOR/PRACTITIONER] - 01/19/17 10:30 am (With an INR , BMP)
--- NOTE | 2017-01-17 11:40 | Hospitalist Progress Note ---
Assessment and Plan (1) CHF (congestive heart failure) Status: Acute Assessment and plan: transfer to [facility] when bed available Current Visit: Yes Qualifiers: Congestive heart failure type: diastolic (2) Hypertension Status: Chronic Assessment and plan: controlled Current Visit: Yes Qualifiers: Hypertension type: essential hypertension Qualified Code(s): I10 - Essential (primary) hypertension (3) Hypokalemia Status: Acute Assessment and plan: replacing Current Visit: Yes (4) Hyponatremia Status: Acute Assessment and plan: stable Current Visit: Yes Hospitalist: Subjective Interval history: no bed available, Exam - Constitutional Vitals: Period Temp Pulse Resp BP Sys/Way Pulse Ox Last 24 Hr 96.6 F-98.4 F 60-81 18-22 97-125/54-70 90-99 Exam: Heart Rate-[RRR] Lungs-[CTAB] GI-[+bs soft, NT] Ext-[chronic lymph edema] Neuro [Motor 4/5], [alert and oriented times 3] psych [normal mood and affect] General [no acute distress] Results - Labs CBC & BMP: 01/17/17 05:21 01/17/17 05:21 Labs: Labs were 731 sodium 133, potassium 3.1 chloride 87, BUN 51, creatinine 1.4. Quality Measures - VTE Contraindication to Pharmacological VTE Prophylaxis: Coagulopathy Specialty Discharge - Follow Up or Referrals Follow up with: Odette Triplett MD [REFERRING DOCTOR/PRACTITIONER] - 01/19/17 10:30 am (With an INR , BMP)
--- NOTE | 2017-01-17 11:42 | Cardiology Progress Note ---
Assessment and Plan - Time spent with patient Time spent with patient: Greater than 30 minutes (1) Hypertension Status: Chronic Assessment and plan: SEE PLAN OF CARE LISTED BELOW Current Visit: No Qualifiers: Hypertension type: essential hypertension Qualified Code(s): I10 - Essential (primary) hypertension (2) History of coronary artery disease Status: Chronic Assessment and plan: SEE PLAN OF CARE LISTED BELOW Current Visit: No (3) Morbid obesity Status: Chronic Assessment and plan: SEE PLAN OF CARE LISTED BELOW Current Visit: No (4) Anxiety Status: Chronic Assessment and plan: SEE PLAN OF CARE LISTED BELOW Current Visit: No (5) Pacemaker Status: Chronic Assessment and plan: SEE PLAN OF CARE LISTED BELOW Current Visit: No (6) History of atrial fibrillation Status: Chronic Assessment and plan: SEE PLAN OF CARE LISTED BELOW Current Visit: No (7) Chronic anticoagulation Status: Chronic Assessment and plan: SEE PLAN OF CARE LISTED BELOW Current Visit: No (8) Sleep apnea Status: Chronic Assessment and plan: SEE PLAN OF CARE LISTED BELOW Current Visit: No Qualifiers: Sleep apnea type: obstructive Qualified Code(s): G47.33 - Obstructive sleep apnea (adult) (pediatric) (9) Left atrial thrombus Status: Chronic Assessment and plan: SEE PLAN OF CARE LISTED BELOW Current Visit: No (10) Chronic pain Status: Chronic Current Visit: No (11) Diabetes Status: Chronic Assessment and plan: SEE PLAN OF CARE LISTED BELOW Current Visit: No (12) Noncompliance Status: Chronic Assessment and plan: SEE PLAN OF CARE LISTED BELOW Current Visit: No (13) Hyperkalemia Status: Resolved Assessment and plan: SEE PLAN OF CARE LISTED BELOW Current Visit: Yes (14) Acute on chronic renal insufficiency Status: Resolved Assessment and plan: SEE PLAN OF CARE LISTED BELOW Current Visit: Yes Cardiology - PN: Subj Interval history: SILHOUETTE ARTIST: DR. HODGES SUMMARY: Ms. 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 Risk factors include: Known coronary artery disease ([facility] 2010 revealed patent distal RCA), morbid obesity, hypertension, dyslipidemia, diabetes, sedentary lifestyle and noncompliance. She has sleep apnea, noncompliant with device. History of atrial flutter, DARCY April 2015 revealed left atrial appendage clot. History of SOAP TENDER-P PPM. She takes Coumadin for stroke prevention. History of small left atrial appendage clot 2014. Echocardiogram August 2016 revealed: EF 50%, no significant valvular abnormality, PAP 51 mmHg, diastolic dysfunction. Frequent hospitalizations for volume overload, shortness of breath, atypical chest pain. Patient was admitted January 10, 2017 with complaints of chest pain, acute on chronic diastolic congestive heart failure. (NYHA Class III). She has been placed on telemetry. Cardiac biomarkers negative, EKG unremarkable. She is basically nonambulatory by choice. Patient reports Monday evening, while sitting in her chair, she began to experience chest pain in the center of her chest which radiated across her chest laterally. She describes as "sharp and stabbing". She believes he was somewhat diaphoretic. This lasted approximately 12 hours intermittently. She is chronically short of breath and believes this may or may not have worsened at that point. She did have cramping of her lower extremities when this occurred. She can identify no aggravating, nor alleviating factors. She rates the discomfort as a 7 on a scale of 1-10. She is currently chest pain-free. She is chronically orthopneic but this appears to be only minimally worse since our last visit. He has been diagnosed with acute on chronic CHF exacerbation, UTI. Hypokalemic and labs have been replaced. No need to repeat echocardiogram as she had a recent (August 2016) report. Replace magnesium. She is also hyponatremic and may be a candidate for Samsca. First, we will fluid restrict for 24 hours and if no improvement in the sodium level may consider initiation 15 mg orally daily. Strict I&O, continue diuresis. Will add a nitrate to her medication regimen. Continue to follow cardiac biomarkers, EKG. This does not appear to be NSTEMI. Will further discuss with Dr. Hinkle and await additional recommendations. JANUARY 12, 2017: Yesterday, patient was started on Samsca. Sodium 132. We do not have a daily weight however she has diuresed 5000 mL overnight. Echocardiogram reveals EF 55%, grade 1 diastolic dysfunction, no significant valvular abnormality, PA P 38 mmHg. In general, she looks markedly better. She feels much better today. Denies chest pain, heaviness or tightness. Continue current plan of care. Will further discuss with Dr. Hinkle and await additional recommendations. JANUARY 13, 2017: Patient continues to diurese well. This morning, patient reports she is dizzy and feels poor in general. Denies chest pain, heaviness or tightness. Her breathing is stable. Potassium 5.7. Holding Spironolactone. She did get to oral replacement with potassium yesterday on several occasions and I will go ahead and discontinue the potassium replacement. Also, it is reported that the patient ate numerous bananas yesterday. When taking Samsca, patients are allowed to "drink to thirst". May increase to 30 mg p.o. after the initial 24 hours of receiving 15 mg. Sodium 128 today, urine osmolality is low, creatinine is increased to 2.0. Continue to monitor her labs daily. Patient is quite anxious about being discharged. She was told she may be ready for discharge tomorrow and she is having a lot of anxiety about this. I will further discuss with Dr. Hinkle and await additional recommendations. JANUARY 16, 2017: Over the weekend she has continued to improve. In fact, she is doing so will hopefully she will be transferred to a swing bed facility soon. She was scheduled for discharge over the weekend however, both patient and daughter felt as if she was not strong enough to go home. For this reason she was kept in case management is on board at this time. Patient did use Samsca for several days. She responded well to that. Sodium 133, stable. She is chronically hypokalemic having one episode of hyperkalemia on the however, I suspect this was related to the numerous bananas she ate that day in addition to having additional potassium replacement. Creatinine increased to 2.0 during admission but is now decreasing and noted be 1.4. Vital signs are well controlled. Continue beta-reyes, aspirin, lipid-lowering agent. Avoiding ARB or KARINE inhibitor for fear of worsening creatinine. JANUARY 17, 2017: Continues to do well. Denies chest pain, heaviness or tightness. Hopefully, she will be transferred to swing bed facility today. My understanding is she has been accepted. Continue current plan of care. She will be given a follow-up appointment with Dr. Hodges in approximately 6 weeks. Will further discuss with Dr. Kohler and await additional recommendations. ASSESSMENT/PLAN: 1. ACUTE ON CHRONIC CHF - secondary to diastolic dysfunction, NYHA Class III. EF 55%. Diuresed well. 2. MORBID OBESITY - dietary counseling has ensued. 3. HYPERTENSION - adequately controlled. Avoiding KARINE inhibitor at this time for fear of worsening renal insufficiency. 4. DYSLIPIDEMIA - recent lipid profile on board. No need to repeat. Continue Atorvastatin. 5. SLEEP APNEA - noncompliant. We will not consult Dr. Bloom as he has seen her on numerous occasions and she chooses not to follow-up outpatient and/or where sleep device. 6. KNOWN CAD - history of stent to distal RCA at [facility] prior to 2010. 7. HISTORY OF ATRIAL FIBRILLATION WITH LEFT ATRIAL APPENDAGE CLOT - INR therapeutic 8. HIGH RISK MEDICATION - Coumadin continues. INR tomorrow morning 9. DIABETES - sliding scale 10. HYPOKALEMIA - give additional dose. 11. HYPOMAGNESEMIA - resolved 12. NON-COMPLIANCE WITH CARDIOLOGY FOLLOW-UP - reiterated the importance of compliance. 13. S/P PPM - continue current plan of care. 14. UTI - being addressed with antibiotics. 15. HYPONATREMIA - improved. 16. CHEST PAIN - continue to follow Troponin, EKG. Not NSTEMI 17. ACUTE ON CHRONIC RENAL INSUFFICIENCY - Creatinine plateaued at 2.0. Now improving. Exam (Progress Note) - Constitutional Vitals: Period Temp Pulse Resp BP Sys/Way Pulse Ox Last 24 Hr 96.6 F-98.4 F 60-81 18-22 97-125/54-70 90-99 Exam: Exam: General: [Appears well with no apparent distress.] [Pleasant and cooperative. ] [Appears comfortable.] HEENT: [PERRL, normocephalic, atraumatic. Mucous membranes moist. No jaundice noted. Conjunctiva moist and clear, sclerae anicteric] Neck: Unable to assess for JVD due to habitus. No thyromegaly or lymphadenopathy noted. No carotid bruit appreciated Cardiac: [Regular rate and rhythm.] [No murmur rub or gallop.] Lungs: [Decreased sounds throughout but no Rales or rhonchi noted.. No accessory muscle use to assist the respiratory pattern. ] Not requiring oxygen Abdomen: Soft, bowel sounds normoactive. Nontender and nondistended. No abdominal bruit or thrill noted. No masses noted. Musculoskeletal: No fluid collection. Decreased range of motion is noted. Extremities: No clubbing, cyanosis noted. [1+ brawny edema BLE. ] Upper extremity pulses 2+. 1+ pedal pulses bilaterally. Capillary refill less than 3 seconds. Skin: No unusual lesions or rashes. No skin breakdown appreciated. Neuro: Awake, alert and oriented 3. Moves all extremities well without hemiparesis or paralysis. No essential tremor is appreciated. Result/EKG - Labs CBC & BMP: 01/17/17 05:21 01/17/17 05:21 Lab Results: I have reviewed the past 24 hour labs Labs: Laboratory Results - last 24 hr 01/16/17 01/16/17 01/16/17 12:07 15:21 20:01 WBC RBC Hgb Hct MCV MCH MCHC RDW Plt Count MPV Neut % (Auto) Lymph % (Auto) [place] % (Auto) Eos % (Auto) Baso % (Auto) Neut # (Auto) Lymph # (Auto) [place] # (Auto) Eos # (Auto) Baso # (Auto) Immature Gran % Nucleated RBC % Immature Gran # Nucleated RBCs # Immature Plt Fraction INR PT Patient/Control Mix Sodium Potassium Chloride Carbon Dioxide Anion Gap BUN Creatinine GFR Calculation BUN/Creatinine Ratio Glucose POC Glucose 172 H 239 H 177 H Calculated Osmolality Calcium Magnesium 01/17/17 01/17/17 01/17/17 05:21 05:21 05:21 WBC 9.7 RBC 4.59 Hgb 13.7 Hct 42.0 MCV 91.5 MCH 30 MCHC 32.6 RDW 14.6 Plt Count 240 MPV 11.6 Neut % (Auto) 68.3 Lymph % (Auto) 17.2 L [place] % (Auto) 11.5 Eos % (Auto) 2.2 Baso % (Auto) 0.4 Neut # (Auto) 6.6 Lymph # (Auto) 1.7 [place] # (Auto) 1.1 H Eos # (Auto) 0.2 Baso # (Auto) 0.0 Immature Gran % 0.4 Nucleated RBC % 0.0 Immature Gran # 0.04 Nucleated RBCs # 0.00 Immature Plt Fraction 0.0 INR 2.5 PT Patient/Control Mix 28.1 Sodium 133 L Potassium 3.2 L Chloride 88 L Carbon Dioxide 38 H Anion Gap 10.2 BUN 45 H Creatinine 1.30 H GFR Calculation 1682 BUN/Creatinine Ratio 34.00 H Glucose 175 H POC Glucose Calculated Osmolality 281.4 Calcium 8.9 Magnesium 2.2 01/17/17 07:39 WBC RBC Hgb Hct MCV MCH MCHC RDW Plt Count MPV Neut % (Auto) Lymph % (Auto) [place] % (Auto) Eos % (Auto) Baso % (Auto) Neut # (Auto) Lymph # (Auto) [place] # (Auto) Eos # (Auto) Baso # (Auto) Immature Gran % Nucleated RBC % Immature Gran # Nucleated RBCs # Immature Plt Fraction INR PT Patient/Control Mix Sodium Potassium Chloride Carbon Dioxide Anion Gap BUN Creatinine GFR Calculation BUN/Creatinine Ratio Glucose POC Glucose 136 H Calculated Osmolality Calcium Magnesium - EKG EKG results: interpreted by me EKG shows: sinus rhythm Quality Measures - VTE Contraindication to Pharmacological VTE Prophylaxis: Coagulopathy Specialty Discharge - Follow Up or Referrals Follow up with: Odette Triplett MD [REFERRING DOCTOR/PRACTITIONER] - 01/19/17 10:30 am (With an INR , BMP)
[2017-01-17] MEDS: POTASSIUM CHLORIDE 20 MEQ TABLET PO PRN ×2 (11:45→13:48)
[2017-01-17 11:47] VITALS: BP 101/63
--- NOTE | 2017-01-17 11:53 | Discharge Summary ---
Hospital Course - Hospital Course Hospital Course: Patient was admitted with complaints of chest pain while watching TV. It was in the mid chest, felt heavy and sharp, constant, radiating to the jaw and arms with associated nausea vomiting and shortness of breath but no diaphoresis. She was noted to be hypokalemic and potassium was replaced. She was placed on empiric IV Rocephin for possible urinary tract infection. Urine culture ultimately revealed E. coli sensitive to Rocephin and she received a complete course during her stay. EKG revealed paced rhythm and chest x-ray revealed cardiomegaly with evidence of mild CHF. She was morbidly obese and was seen by dietary. She has a history of sleep apnea however is been noncompliant with her CPAP. Cardiology was consulted and they noted that she had acute on chronic CHF secondary to diastolic dysfunction as an echo in August 2016 revealed an ejection fraction of 50%. She had also been on chronic anticoagulation for history of atrial flutter and left atrial appendage clot. Serial cardiac biomarkers were negative. She was diuresed with some improvement however had hyponatremia and Samsca was added to her daily regimen however this was apparently discontinued on 01/11/17 and she has maintained her sodium without. We continued to make adjustments in her medical therapy as well as replacement of electrolytes during her stay. KARINE inhibitor was held because of her elevated creatinine. She has been relatively stable and appears to be as compensated as can be expected with her noncompliance as documented in the record. She is hemodynamically stable, her INR is 2.7, her sodium is 133, potassium 3.3, creatinine stable at 1.5. Blood sugars are under fair control ranging between 134 and 234 over the past 24 hours. Her metformin was discontinued because of her renal function. Glyburide 1.5 mg p.o. every morning has been added to her regimen. She will need to have continued Accu- Cheks before meals and at bedtime and report her primary care provider. I have offered case management/hospice social worker consultation to consider further placement opportunities such as swing bed, etc. however she has adamantly refused at this time. She also initially told me she did not have home oxygen however now admits. We will continue at 2 L by nasal cannula. She will need close follow-up with her primary care provider, Odette Triplett MD. she grew out enterococcus and in her urine and will be treated with ampicillin 500 mg 4 times a day. Patient slipped and fell on the floor and daughter says she would not come and pick her up and she needs to go to rehab. Patient has been accepted to [facility]. I have stopped her Zaroxolyn. With her noncompliance with her CPAP she will have reoccurring CHF exacerbations and due to her morbid obesity she will likely be in and out of the hospital most of her life. Patient reporting some back pain from her recent fall and we will give her Zanaflex as needed as needed for muscle pain. - Time spent with patient Time with patient DS: Greater than 30 minutes (50 min) Diagnosis - Discharge Diagnosis (1) CHF (congestive heart failure) Status: Acute (2) Hypertension Status: Chronic (3) Hypokalemia Status: Acute (4) Hyponatremia Status: Acute Specialty Discharge - Follow Up or Referrals Follow up with: Odette Triplett MD [REFERRING DOCTOR/PRACTITIONER] - 01/19/17 10:30 am (With an INR , BMP) Discharge Plan - Discharge Data Disposition: Disch/Xfer-Ip Rehab Fac Condition at Discharge: Stable Discharge Diet: diabetic diet, low fat, low cholesterol, low salt diet, other ( 1500 ml fluid restriction ) Activity: resume usual activities as tolerated Hygiene: no restrictions Weight Bearing at Discharge: full weight bearing - Discharge Medications New Glyburide,Micronized [Glyburide Micronized] 1.5 mg PO AC BREAKFAST #30 tablet glyBURIDE MICRONIZED [Glynase] 1.5 mg PO DAILY W/BREAKFAST tablet Hydrocodone/Acetaminophen [[place] 10-325 Tablet] 1 each PO Q6H PRN #30 tablet PRN Reason: Pain Tizanidine HCl [Zanaflex] 4 mg PO TID PRN #30 capsule PRN Reason: back pain Ampicillin Cap 500 mg PO QID #20 capsule Pantoprazole Tab [Protonix Tab] 40 mg PO DAILY tablet Continue HYDROcodone/ACETAMIN 10-325 [[place] 10-325] 1 tablet PO Q4H PRN PRN Reason: Pain Gabapentin 800 mg PO TID Warfarin Sodium 7.5 mg PO DAILY Albuterol Inhaler [Proventil Inhaler] 2 puff INH Q4H PRN #1 inhaler PRN Reason: Shortness Of Breath/Wheezing Aspirin [Ecotrin] 81 mg PO DAILY ALPRAZolam [Xanax] 1 mg PO BID #60 tablet Carvedilol [Coreg] 6.25 mg PO BID #60 tablet Atorvastatin [Lipitor] 20 mg PO BEDTIME #90 tablet Torsemide Tab [Demadex Tab] 80 mg PO DAILY #90 tablet Potassium Chloride Cap/Tab [K Dur] 20 meq PO BID Discontinued Spironolactone 25 mg PO BID Furosemide Tab [Lasix Tab] 40 mg PO BID metOLazone [Zaroxolyn] 5 mg PO DAILY #30 tablet metFORMIN [Glucophage] 1,000 mg PO BID W/MEALS - Follow Up or Referral Follow Up: Odette Triplett MD [REFERRING DOCTOR/PRACTITIONER] - 01/19/17 10:30 am (With an INR , BMP) - Forms/Instructions Instructions: Chest Pain (ED) Exam - Constitutional Vitals: Period Temp Pulse Resp BP Sys/Way Pulse Ox Last 24 Hr 96.6 F-98.4 F 60-81 18-22 97-125/54-70 90-99 Exam: see note from today. Discharge Results Procedures and tests throughout hospitalization: Pending Orders 01/18/17 04:00 BMP w/ Mg [Basic Metabolic Panel w/Mg] IN AM CBC [Comp Blood Count Auto Diff] IN AM Labs on day of discharge: Labs from last 24 hours 01/17/17 01/17/17 01/17/17 07:39 05:21 05:21 WBC 9.7 RBC 4.59 Hgb 13.7 Hct 42.0 MCV 91.5 MCH 30 MCHC 32.6 RDW 14.6 Plt Count 240 MPV 11.6 Neut % (Auto) 68.3 Lymph % (Auto) 17.2 L [place] % (Auto) 11.5 Eos % (Auto) 2.2 Baso % (Auto) 0.4 Neut # (Auto) 6.6 Lymph # (Auto) 1.7 [place] # (Auto) 1.1 H Eos # (Auto) 0.2 Baso # (Auto) 0.0 Immature Gran % 0.4 Nucleated RBC % 0.0 Immature Gran # 0.04 Nucleated RBCs # 0.00 Immature Plt Fraction 0.0 INR PT Patient/Control Mix Sodium 133 L Potassium 3.2 L Chloride 88 L Carbon Dioxide 38 H Anion Gap 10.2 BUN 45 H Creatinine 1.30 H GFR Calculation 1681 BUN/Creatinine Ratio 34.00 H Glucose 175 H POC Glucose 136 H Calculated Osmolality 281.4 Calcium 8.9 Magnesium 2.2 01/17/17 01/16/17 01/16/17 05:21 20:01 15:21 WBC RBC Hgb Hct MCV MCH MCHC RDW Plt Count MPV Neut % (Auto) Lymph % (Auto) [place] % (Auto) Eos % (Auto) Baso % (Auto) Neut # (Auto) Lymph # (Auto) [place] # (Auto) Eos # (Auto) Baso # (Auto) Immature Gran % Nucleated RBC % Immature Gran # Nucleated RBCs # Immature Plt Fraction INR 2.5 PT Patient/Control Mix 28.1 Sodium Potassium Chloride Carbon Dioxide Anion Gap BUN Creatinine GFR Calculation BUN/Creatinine Ratio Glucose POC Glucose 177 H 239 H Calculated Osmolality Calcium Magnesium 01/16/17 12:07 WBC RBC Hgb Hct MCV MCH MCHC RDW Plt Count MPV Neut % (Auto) Lymph % (Auto) [place] % (Auto) Eos % (Auto) Baso % (Auto) Neut # (Auto) Lymph # (Auto) [place] # (Auto) Eos # (Auto) Baso # (Auto) Immature Gran % Nucleated RBC % Immature Gran # Nucleated RBCs # Immature Plt Fraction INR PT Patient/Control Mix Sodium Potassium Chloride Carbon Dioxide Anion Gap BUN Creatinine GFR Calculation BUN/Creatinine Ratio Glucose POC Glucose 172 H Calculated Osmolality Calcium Magnesium DS: Provider Date of admission: 01/13/17 12:45 Primary care physician: Aiden Matute MD Attending physician on admission: Jade Bee MD Consults: 01/10/17 21:52 Consult to Physician [CONS] Routine Comment: chest pain Consulting Provider: Alec Hodges When should Consulting Provider be notified: In am Consult to Specialist Group: Cardiology When should Consulting Provider be notified: In am Person Notified: Stew Date Notified: 01/11/17 Time Notified: 07:45 01/15/17 13:49 Consult to Case Mgmt/Social Srvs [CONS] Routine Reason for Case Mgmt/Social Srvs: Swingbed/SNF/Mcc Consult Comment: eval for swingbed placement 01/15/17 18:17 Consult to Case Mgmt/Social Srvs [CONS] Routine Reason for Case Mgmt/Social Srvs: Psychiatric Management Consult Comment: see if she qualifies for [facility]-psych 01/16/17 08:30 Consult to Occupational Therapy [CONS] Routine Reason for Occupational Therapy: Evaluate and Treat Consult Comment: eval for swingbed placement Consult to Physical Therapy [CONS] Routine Reason for Physical Therapy: Evaluate and Treat Consult Comment: eval for swingbed placement Discharging clinician: Alma Sears MD
== END 2017-01-17 15:50 | disposition swing bed (61) | DRG 194 ==
LOC: EDUNIT# → EDBD → N.EDINP 17:49 → N.ED 17:49 → SUATTDRO 20:36 → N.TELEN 20:59 → SUATTDRO 01-13 12:45
PROVIDERS: ADMIT Internal Medicine; ATTEND Internal Medicine

== ENCOUNTER 2017-02-12 03:39 | Inpatient (IN) ==
--- NOTE | 2017-02-12 05:03 | Emergency Department Note ---
Arrival - Arrival Chief Complaint: Shortness of Breath Stated Complaint: Short of breath ED Nursing Triage Note: Patient to ED via EMS with c/o SOB that worsened tonight and prompted her to call for EMS patient has history of CHF and wears o2 continuously at home. Mode of Arrival: Stretcher Time Seen by Provider: 02/12/17 04:56 - History of Present Illness HPI Narrative: This is a 56-year-old white female with a history of recurrent urinary tract infections, coronary artery disease, with chronic congestive heart failure with diastolic dysfunction and a left ventricular ejection fraction of 50%, atrial flutter with a left atrial appendage clot on Coumadin, morbid obesity on 2 L of nasal O2 at home who is followed by Dr. Odette Triplett who presents with worsening shortness of breath and chest pressure which started 1 hour prior to admission. Allergies/Adverse Reactions: Allergies Allergy/AdvReac Type Severity Reaction Status Date / Time codeine Allergy Nausea Verified 02/12/17 03:55 ketorolac [From Toradol] Allergy ANAPHYLAXIS Verified 02/12/17 03:55 morphine Allergy ITCHING Verified 02/12/17 03:55 nitroglycerin Allergy Weakness Verified 02/12/17 03:55 tramadol [From Ultram] Allergy ANAPHYLAXIS Verified 02/12/17 03:55 Hydromorphone [From Dilaudid] AdvReac Difficulty Verified 02/12/17 03:55 Breathing Home Medications: Home Medications Medication Instructions Recorded Confirmed Type HYDROcodone/ACETAMIN 10-325 [[place] 1 tablet PO Q4H PRN 04/24/15 01/10/17 History 10-325] Gabapentin 800 mg PO TID 02/24/16 01/10/17 History Warfarin Sodium 7.5 mg PO DAILY 02/24/16 01/10/17 History Albuterol Inhaler [Proventil 2 puff INH Q4H PRN #1 inhaler 02/27/16 01/10/17 Rx Inhaler] Aspirin [Ecotrin] 81 mg PO DAILY 08/30/16 01/10/17 History Carvedilol [Coreg] 6.25 mg PO BID #60 tablet 09/09/16 01/10/17 Rx Atorvastatin [Lipitor] 20 mg PO BEDTIME #90 tablet 11/30/16 01/10/17 Rx Torsemide Tab [Demadex Tab] 80 mg PO DAILY #90 tablet 11/30/16 01/10/17 Rx Potassium Chloride Cap/Tab [K Dur] 20 meq PO BID 01/10/17 01/10/17 History Glyburide,Micronized [Glyburide 1.5 mg PO AC BREAKFAST #30 tablet 01/15/17 Rx Micronized] ALPRAZolam [Xanax] 1 mg PO BID #60 tablet 01/17/17 Rx Ampicillin Cap 500 mg PO QID #20 capsule 01/17/17 Rx Hydrocodone/Acetaminophen [[place] 1 each PO Q6H PRN #30 tablet 01/17/17 Rx 10-325 Tablet] Pantoprazole Tab [Protonix Tab] 40 mg PO DAILY tablet 01/17/17 Rx Tizanidine HCl [Zanaflex] 4 mg PO TID PRN #30 capsule 01/17/17 Rx glyBURIDE MICRONIZED [Glynase] 1.5 mg PO DAILY W/BREAKFAST tablet 01/17/17 Rx Review of System - Review of System Constitutional: Absent: fever, night sweats Eyes: Absent: redness, vision change Head/Ears/Nose/Throat: Absent: epistaxis, nasal drainage Respiratory: Absent: cough, respiratory distress Cardiovascular: Present: dyspnea on exertion, orthopnea Gastrointestinal: Absent: diarrhea, constipation, melena Genitourinary female: Absent: dysuria, urgency Musculoskeletal: Absent: joint swelling, lower back pain Skin: Absent: change in color, change in hair/nails Neurological: Absent: numbness, paresthesias Psychiatric: Absent: suicidal thoughts, homicidal thoughts Endocrine: Absent: heat intolerance, polydipsia, polyuria Hematological/Lymphatic: Absent: easy bruising, lymphadenopathy Allergic/Immunologic: Absent: urticaria, itchy eyes Medical,Surgical,& Family Hx - Medical History Cardio: History of: Cardiac Dysrhythmia (A Fib), CHF, CAD, Hypertension, [place], Pacemaker Psychological: History of: Anxiety Disorders Endocrine: History of: Diabetes Mellitus (NIDDM) ("borderline"), Dyslipidemia Respiratory: No history of: Obstructive Sleep Apnea (Patient has never had formal PSG and HST was technically inadequate), Respiratory Problems Gastrointestinal: History of: Diverticulitis/ Diverticulosis Musculoskeletal: History of: Back/Neck Problems, Herniated Disk - Surgical History Cardiac Surgeries: Sugical HX of: Cardiac Catheterization, Cardiac Surgery ( pacemaker (2013); stents (2011);) Thoracic Surgeries: Patient denies;: Organ Transplant Neurologic Surgeries: Patient denies: Neurologic Surgery HEENT Surgeries: Surgical HX of: Tonsilectomy & Adenoidectomy Abdominal Surgeries: Surgical HX of: Cholecystectomy Reproductive Surgeries: Surgical HX of;: Breast Surgery (reduction), Section Patient denies;: Genitourinary Surgery - Family History Family History: Reports;: Family Cancer (sisters, breast), Family Diabetes ( mother and father), Family Heart Disease (mother and father), Family Stroke ( mother) - Social History Smoking Status: Former smoker Frequency of Alcohol Use: None Type of Drug Use: None Exam Vital Signs: Vital Signs Temperature 98.2 F 02/12/17 03:46 Pulse Rate 61 02/12/17 03:46 Respiratory Rate 22 02/12/17 04:41 Blood Pressure 116/51 02/12/17 03:46 O2 Sat by Pulse Oximetry 98 02/12/17 03:46 - General Exam limited due to: ALOC - Head Head exam: Present: atraumatic, normocephalic - Eye Eye exam: Present: normal appearance, PERRL, EOMI - ENT ENT exam: Present: normal exam - Neck Neck exam: Present: normal inspection, full ROM - Chest Chest inspection: Present: normal inspection - Respiratory Respiratory exam: Present: rales - Cardiovascular Cardiovascular exam: Present: irregular rhythm - Abdominal Exam Abdominal exam: Present: soft, normal bowel sounds - Extremities Exam Extremities exam: Present: other (Peripheral edema) - Back Exam Back exam: Present: normal inspection - Neurological Exam Neurological exam: Present: alert, oriented X3, CN II-XII intact - Psychiatric Psychiatric exam: Present: normal affect, normal mood - Skin Skin exam: Present: warm, dry
[2017-02-12] MEDS ORDERED: FUROSEMIDE 100 MG/10 ML VIAL IV STA (05:05)
[2017-02-12 05:18] LABS: Basophils % 0.3 % (0.0-0.8); Eosinophils # 0.1 10*3/uL (0.0-0.87); Eosinophils % 0.9 % (0.00-10.9); Hematocrit 42.7 VOL% (35.7-47.0); Immature Granulocytes % 0.5 %; Immature Granulocytes Absolute 0.05 #; Lymphocytes % 18.9 % (21.3-54.2); Mean Corpuscular HGB Conc 32.8 GM/DL (32-36); Mean Corpuscular Hemoglobin 30 PG (27-34); Mean Corpuscular Volume 91.4 FL (87-102); Monocytes # 1.3 10*3/uL (0.11-0.8); Monocytes % 12.1 % (1.7-12.7); Neutrophils # 7.2 10*3/uL (1.4-7.4); Neutrophils % 67.3 % (38.7-73.9); Platelet Count 212 T/CUMM (130-400); Red Blood Count 4.67 MC/CUMM (3.8-5.5); Red Cell Distribution Width 14.2 % (9.3-17.3); White Blood Count 10.7 T/CUMM (4-12)
[2017-02-12 05:27] LABS: INR 2.2
[2017-02-12 05:29] LABS: PT Patient Result 24.4 SECS
[2017-02-12] MEDS ORDERED: FUROSEMIDE 20 MG/2 ML VIAL ONE (05:52)
[2017-02-12] MEDS ORDERED: FUROSEMIDE 40 MG/4 ML VIAL ONE ×2 (05:52→16:26)
[2017-02-12 06:03] LABS: Apearance,Urine CLEAR (Clear); Bilirubin,Urine Negative (Negative); Blood, Urine Negative (Negative); Glucose,Urine (UA) Negative (Negative); Hyaline Casts,Urine 65 /LPF (0-3); Ketones,Urine Negative (Negative); Mucus,Urine Occasional /LPF (Occasional); Nitrite,Urine Negative (Negative); Protein,Urine Negative; Urine Color Yellow (Yellow); Urine Specific Gravity 1.008 (1.001-1.035); Urine Urobilinogen < 2.0 EU/DL (0.2-1.0)
[2017-02-12 06:04] LABS: Alanine Aminotransferase 33 U/L (13-56); Albumin 3.2 G/DL (3.4-5.0); Alkaline Phosphatase 69 U/L (45-117); Aspartate Amino Transferase 38 U/L (0-37); Blood Urea Nitrogen 28 MG/DL (7-18); Calcium 8.7 MG/DL (8.5-10.1); Glucose 131 MG/DL (74-106); Osmolality,Calculated 277.1 MOS/KG (273-304); Potassium 2.7 MMOL/L (3.5-5.1); Sodium 135 MMOL/L (136-145); Total Protein 7.3 G/DL (6.4-8.3); Troponin I Only < 0.015 NG/ML (0.00-0.045)
--- NOTE | 2017-02-12 06:15 | Hospitalist History & Physical ---
Assessment and Plan - Time spent with patient Time spent with patient: Greater than 30 minutes (1) CHF (congestive heart failure) Status: Acute Assessment and plan: Lasix 60 mg IV twice daily Consult cardiology Obtain echocardiogram Cardiac diet with fluid restrictions Serial cardiac enzymes Current Visit: No Qualifiers: Congestive heart failure type: diastolic Congestive heart failure chronicity: acute on chronic Qualified Code(s): I50.33 - Acute on chronic diastolic (congestive) heart failure (2) Dyspnea Status: Acute Current Visit: No (3) Hypokalemia Status: Acute Assessment and plan: We will receive a potassium rider in the ED We will replace potassium with 40 mEq p.o. twice daily Monitor lab work accordingly Current Visit: No (4) Diabetes Status: Chronic Assessment and plan: We will continue current medication regimen Blood glucose before meals and at bedtime Pending Hgb A1c We will monitor lab work accordingly Current Visit: No (5) Morbid obesity Status: Chronic Assessment and plan: Consult dietary Current Visit: No (6) Noncompliance Status: Chronic Current Visit: No (7) Pacemaker Status: Chronic Current Visit: No (8) Hypertension Status: Chronic Assessment and plan: We will continue medication regimen and monitor accordingly Current Visit: No Qualifiers: Hypertension type: essential hypertension Qualified Code(s): I10 - Essential (primary) hypertension History of Present Illness Chief complaint: shortness of breath and fluid in legs History of present illness: Called to the ER for Ms. Ortez who is a 56 year old female presents with a chief complaint of shortness of breath and fluid in legs. Patient states the fluid and leg started 3 days ago but the shortness of breath started approximately 2 hours ago. Patient complains of heaviness in chest and nausea but denies vomiting diarrhea fever chills abdominal pain. She has a long-standing history of congestive heart failure, hypertension, diabetes, sleep apnea, pacemaker placement, stent placement, CAD, dyslipidemia, atrial fibrillation, and non- compliance. She had an echocardiogram in August 2016 that revealed an EF of 50% and diastolic dysfunction with no significant valvular abnormality. Patient has had frequent hospitalizations for volume overload overload shortness of breath and atypical chest pain. Tonight in the ER she received an EKG which was normal sinus rhythm, Lasix 60 mg IV, and routine lab work revealed a therapeutic INR with Coumadin regimen, hypokalemia, elevated BUN and creatinine , negative troponin, BNP is still pending. She will be admitted into the hospital for diuresis, replacement of potassium, consult cardiology and obtain echocardiogram, and serial lab work. Home Medications Medication Instructions Recorded Confirmed Type HYDROcodone/ACETAMIN 10-325 [[employer] 1 tablet PO Q4H PRN 04/24/15 01/10/17 History 10-325] Gabapentin 800 mg PO TID 02/24/16 01/10/17 History Warfarin Sodium 7.5 mg PO DAILY 02/24/16 01/10/17 History Albuterol Inhaler [Proventil 2 puff INH Q4H PRN #1 inhaler 02/27/16 01/10/17 Rx Inhaler] Aspirin [Ecotrin] 81 mg PO DAILY 08/30/16 01/10/17 History Carvedilol [Coreg] 6.25 mg PO BID #60 tablet 09/09/16 01/10/17 Rx Atorvastatin [Lipitor] 20 mg PO BEDTIME #90 tablet 11/30/16 01/10/17 Rx Torsemide Tab [Demadex Tab] 80 mg PO DAILY #90 tablet 11/30/16 01/10/17 Rx Potassium Chloride Cap/Tab [K Dur] 20 meq PO BID 01/10/17 01/10/17 History Glyburide,Micronized [Glyburide 1.5 mg PO AC BREAKFAST #30 tablet 01/15/17 Rx Micronized] ALPRAZolam [Xanax] 1 mg PO BID #60 tablet 01/17/17 Rx Ampicillin Cap 500 mg PO QID #20 capsule 01/17/17 Rx Hydrocodone/Acetaminophen [[employer] 1 each PO Q6H PRN #30 tablet 01/17/17 Rx 10-325 Tablet] Pantoprazole Tab [Protonix Tab] 40 mg PO DAILY tablet 01/17/17 Rx Tizanidine HCl [Zanaflex] 4 mg PO TID PRN #30 capsule 01/17/17 Rx glyBURIDE MICRONIZED [Glynase] 1.5 mg PO DAILY W/BREAKFAST tablet 01/17/17 Rx Allergies Allergy/AdvReac Type Severity Reaction Status Date / Time codeine Allergy Nausea Verified 02/12/17 03:55 ketorolac [From Toradol] Allergy ANAPHYLAXIS Verified 02/12/17 03:55 morphine Allergy ITCHING Verified 02/12/17 03:55 nitroglycerin Allergy Weakness Verified 02/12/17 03:55 tramadol [From Ultram] Allergy ANAPHYLAXIS Verified 02/12/17 03:55 Hydromorphone [From Dilaudid] AdvReac Difficulty Verified 02/12/17 03:55 Breathing Medical,Surgical,& Family Hx - Medical History Cardio: History of: Cardiac Dysrhythmia (A Fib), CHF, CAD, Hypertension, [place], Pacemaker Psychological: History of: Anxiety Disorders Endocrine: History of: Diabetes Mellitus (NIDDM) ("borderline"), Dyslipidemia Respiratory: No history of: Obstructive Sleep Apnea (Patient has never had formal PSG and HST was technically inadequate), Respiratory Problems Gastrointestinal: History of: Diverticulitis/ Diverticulosis Musculoskeletal: History of: Back/Neck Problems, Herniated Disk - Surgical History Cardiac Surgeries: Sugical HX of: Cardiac Catheterization, Cardiac Surgery ( pacemaker (2013); stents (2011);) Thoracic Surgeries: Patient denies;: Organ Transplant Neurologic Surgeries: Patient denies: Neurologic Surgery HEENT Surgeries: Surgical HX of: Tonsilectomy & Adenoidectomy Abdominal Surgeries: Surgical HX of: Cholecystectomy Reproductive Surgeries: Surgical HX of;: Breast Surgery (reduction), Section Patient denies;: Genitourinary Surgery - Family History Family History: Reports;: Family Cancer (sisters, breast), Family Diabetes ( mother and father), Family Heart Disease (mother and father), Family Stroke ( mother) - Social History Smoking Status: Former smoker Frequency of Alcohol Use: None Type of Drug Use: None Marital Status: Single Lives With:: Children - Constitutional Constitutional: Absent: chills, fatigue, fever(s), weakness - Cardiovascular Cardiovascular: Present: dyspnea, edema. Absent: chest pain at rest, chest pain with activity, lightheadedness, palpitations - Respiratory Respiratory: Present: dyspnea. Absent: cough - Gastrointestinal Gastrointestinal: Present: nausea. Absent: abdominal pain, diarrhea, vomiting Exam - Constitutional Vitals: Period Temp Pulse Resp BP Sys/Way Pulse Ox Last 24 Hr 98.2 F-98.2 F 61-61 22-28 116-116/51-51 98 General appearance: no acute distress, morbidly obese - Head Head exam: Present: normal inspection, normocephalic - Eye Eye exam: Present: EOMI Pupils: Present: YARED, normal accommodation - ENT ENT exam: Present: normal exam - Neck Neck exam: Present: normal inspection - Respiratory Respiratory exam: Present: clear to auscultation bilaterally, decreased breath sounds. Absent: accessory muscle use (Respirations even and nonlabored. Symmetrical rise and fall of chest.) - Cardiovascular Cardiovascular exam: Present: regular rate and rhythm - GI/Abdominal GI/Abdominal exam: Present: normal bowel sounds, ascites, soft. Absent: firm, tenderness - Extremities Exam Extremities exam: Present: normal capillary refill, edema (Limited range of motion due to size.) - Back Exam Back exam: Present: normal inspection - Neurological Exam Neurological exam: Present: alert (Answers questions appropriately and follows commands. Makes good eye contact.), oriented X3 - Psychiatric Psychiatric exam: Present: normal affect, normal mood - Skin Skin exam: Present: normal color, warm, dry Results - Labs CBC & BMP: 02/12/17 04:12 02/12/17 04:12 Lab Results: I have reviewed the past 24 hour labs - EKG EKG results: sinus rhythm
[2017-02-12] MEDS ORDERED: ACETAMINOPHEN 325 MG TABLET PO PRN (07:19)
[2017-02-12] MEDS ORDERED: DEXTROSE 50% 25 GM/50 ML SYRINGE IV PRN (07:19)
[2017-02-12] MEDS ORDERED: POTASSIUM CHLORIDE 20 MEQ TABLET PO STA (07:19)
[2017-02-12] MEDS ORDERED: ALBUTEROL/IPRATROPIUM 3 ML NEB RESP TX STA (07:19)
[2017-02-12] MEDS ORDERED: ONDANSETRON 4 MG/2 ML VIAL IV PRN (07:19)
[2017-02-12] MEDS ORDERED: GLUCAGON 1 MG VIAL IM PRN (07:19)
--- NOTE | 2017-02-12 08:18 | XRay Report ---
Exam: XR chest 1V portable Date: 02/12/2017 5:05 AM Indication: Shortness of breath Comparison: 01/10/2017 Technical: AP Findings: Cardiomegaly is present. A cardiac pacing device with atrial ventricular leads present. Oxygen tubing external cardiac leads are present. Low volume effusions and mild shunt vascularity present. Impression: 1. Cardiomegaly with stable appearance of cardiac pacing device 2. Mild cardiac decompensation and tiny effusions PROCEDURE INTERPRETED AT [facility] [place] DEPARTMENT OF RADIOLOGY Final Report Signed by: Dr. Jose G Lay
[2017-02-12 08:39] LABS: Troponin I Only < 0.015 NG/ML (0.00-0.045)
[2017-02-12 08:57] LABS: Magnesium 1.7 MG/DL (1.8-2.4); Risk Ratio 2.95; Thyroid Stimulating Hormone 3.72 uIU/ml (0.358-3.74); VLDL CHOLESTEROL 21.8 MG/DL
[2017-02-12] MEDS ORDERED: FUROSEMIDE 40 MG/4 ML VIAL IV SCH (09:00)
[2017-02-12] MEDS: ASPIRIN EC 81 MG TABLET PO SCH (09:26)
[2017-02-12] MEDS: GABAPENTIN 400 MG CAPSULE PO SCH ×3 (09:26→21:38)
[2017-02-12] MEDS: POTASSIUM CHLORIDE 20 MEQ TABLET PO SCH ×2 (09:26→21:38)
[2017-02-12] MEDS: ALPRAZolam 0.5 MG TABLET PO SCH ×2 (09:26→21:38)
[2017-02-12] MEDS: ENOXAPARIN 40 MG/0.4 ML SYRINGE SUBCUT SCH (09:27)
[2017-02-12] MEDS: CARVEDILOL 6.25 MG TABLET PO SCH ×2 (09:27→21:38)
[2017-02-12] MEDS: PANTOPRAZOLE 40 MG TABLET PO SCH (09:27)
[2017-02-12] MEDS: INSULIN REGULAR 100 UNIT/ML SUBCUT SCH ×4 (09:50→21:38)
--- NOTE | 2017-02-12 09:52 | EKG Report ---
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
--- NOTE | 2017-02-12 10:10 | Ultrasound Report ---
Exam: US venous doppler LE BI Indication: Leg pain and swelling Date: 02/12/2017 7:19 AM Comparison 08/31/2016 Findings: Grayscale color flow duplex/Doppler imaging and spectral analysis waveform imaging was performed with real-time ultrasound with image stored and captured. The right common femoral, superficial femoral, popliteal saphenous veins are patent with normal augmentation and compression. There is no evidence of popliteal or Luciano's cyst. Normal wave form analysis present. Normal color flow The left common femoral, superficial femoral, popliteal saphenous veins are patent with normal augmentation and compression. There is no evidence of popliteal or Luciano's cyst. Normal wave form analysis present. Normal color flow Impression: 1. No DVT PROCEDURE INTERPRETED AT [facility] DEPARTMENT OF RADIOLOGY Final Report Signed by: Dr. Jose G Lay
[2017-02-12 11:15] LABS: Apearance,Urine CLEAR (Clear); Bilirubin,Urine Negative (Negative); Blood, Urine Moderate mg/dL (Negative); Glucose,Urine (UA) Negative (Negative); Hyaline Casts,Urine 24 /LPF (0-3); Ketones,Urine Negative (Negative); Mucus,Urine Occasional /LPF (Occasional); Nitrite,Urine Negative (Negative); Protein,Urine Negative; RBC,Urine 10 /HPF (0-4); Squamous Epithelial Cell,Urine Occasional /HPF (0-10); Urine Color Straw (Yellow); Urine Specific Gravity 1.005 (1.001-1.035); Urine Urobilinogen < 2.0 EU/DL (0.2-1.0); WBC,Urine 2 /HPF (0-6)
--- NOTE | 2017-02-12 11:27 | Event Note ---
Ms. Ortez is a 56 yr old morbidly obese white female that is well known to our service. She has a history significant for noncompliance, chf, htn, dm. She presented to the ED with complaints of shortness of breath and edema. Pt. was seen and examined this am. Pt. reports that breathing is much improved but that she is having problems properly positioning herself. Pt. complains of soreness but RN has just administered pain med. We will continue current plan of care for patient highlighted in H&P for treatment of chf , dm, and hypokalemia. Her assessment is as follows: Patient is alert and oriented. General appearance is morbidly obese no apparent distress noted with disheveled clothing. Heart rate regular. Lungs CTA. Abdomen soft and nontender. Normoactive bowel sounds. Gonzalez intact and draining. Generalized edema. BLE 3+ pitting edema.
[2017-02-12] MEDS: FUROSEMIDE 40 MG/4 ML VIAL IV SCH (17:00)
[2017-02-12] MEDS: ATORVASTATIN 20 MG TABLET PO SCH (21:38)
[2017-02-12] MEDS: tiZANidine 4 MG TABLET PO PRN (21:38)
--- NOTE | 2017-02-12 23:14 | ECHO Report ---
Joseline Ortez Exam Date: 02/12/2017 16:12 Referring Physician: Technologist: Angélica Peña RDCS Age: 56 Ht (in): 63 Wt (lb): 401 Gender: F Exam Location: [facility] Echo Indications: Shortness of breath, Morbid (severe) obesity due to excess calories, Acute on chronic diastolic (congestive) heart failure, Hypokalemia, NIDDM, Presence of cardiac pacemaker BP: 119 / 72 HR: 61 Rhythm: Pacemaker Technical Quality: Technically difficult study IMPRESSIONS Left ventricular ejection fraction is estimated at 55 %. Diastolic parameters are indeterminate. Catheter/pacemaker wire in the right atrial cavity. Tricuspid regurgitation velocities suggest a RVSP of 28 mmHg plus the right atrial pressure. Very limited study due to morbid obesity MEASUREMENTS (Male / Female) Normal Values 2D ECHO LV Diastolic Diameter PLAX 5.3 cm 4.2 - 5.9 / 3.9 - 5.3 cm LV Systolic Diameter PLAX 3.3 cm LV Fractional Shortening PLAX 37.9 % IVS Diastolic Thickness 1.1 cm 0.6 - 1.0 / 0.6 - 0.9 cm LVPW Diastolic Thickness 1.1 cm 0.6 - 1.0 / 0.6 - 0.9 cm RV Internal Dim ED PLAX 3.1 cm Aortic Root Diameter 3.6 cm LA Systolic Diameter LX 4.8 cm 3.0 - 4.0 / 2.7 - 3.8 cm DOPPLER TR Peak Velocity 266.0 cm/s TR Peak Gradient 28.3 mmHg FINDINGS Left Ventricle Normal left ventricular cavity size. Mild left ventricular hypertrophy. Left ventricular ejection fraction is estimated at 55 %. Very poor in the cardia resolution unable to comment on regional wall motion abnormalities limited segments seen are normal. There appears to be mild to moderate concentric left ventricular hypertrophy. Diastolic parameters are indeterminate Right Ventricle Normal right ventricular size. Catheter/pacemaker wire visualized in the right ventricle. Right Atrium The right atrium is mildly enlarged. Catheter/pacemaker wire in the right atrial cavity. Left Atrium The left atrium is mildly enlarged. Mitral Valve Morphologically normal mitral valve without significant stenosis or prolapse. There is no mitral regurgitation. Aortic Valve Morphologically normal aortic valve without significant sclerosis or stenosis. There is no aortic regurgitation. Tricuspid Valve Morphologically normal tricuspid valve. Trace to mild tricuspid valve regurgitation. Tricuspid regurgitation velocities suggest a RVSP of 28 mmHg plus the right atrial pressure. Pulmonic Valve Morphologically normal pulmonic valve without significant stenosis. There is no pulmonic regurgitation. Pericardium Normal pericardium without effusion. Aorta Normal ascending aorta dimension. Mary Xiong (Electronically Signed) Final Date: 12 February 2017 23:13
[2017-02-13] MEDS: ALBUTEROL 2.5 MG/3 ML NEB RESP TX PRN ×2 (05:32→13:27)
[2017-02-13] MEDS: FUROSEMIDE 40 MG/4 ML VIAL IV SCH ×2 (06:15→17:52)
[2017-02-13 07:21] LABS: Basophils % 0.5 % (0.0-0.8); Eosinophils # 0.2 10*3/uL (0.0-0.87); Eosinophils % 2.6 % (0.00-10.9); Hematocrit 44.2 VOL% (35.7-47.0); Hemoglobin 14.1 GM/DL (12.0-16.0); Immature Granulocytes % 0.2 %; Immature Granulocytes Absolute 0.02 #; Lymphocytes # 1.8 10*3/uL (1.4-4.0); Lymphocytes % 21.8 % (21.3-54.2); Mean Corpuscular HGB Conc 31.9 GM/DL (32-36); Mean Corpuscular Hemoglobin 30 PG (27-34); Mean Corpuscular Volume 93.8 FL (87-102); Mean Platelet Volume 11.3 FL (9.6-12.0); Monocytes # 1.1 10*3/uL (0.11-0.8); Monocytes % 12.8 % (1.7-12.7); Neutrophils # 5.1 10*3/uL (1.4-7.4); Neutrophils % 62.1 % (38.7-73.9); Platelet Count 196 T/CUMM (130-400); Red Blood Count 4.71 MC/CUMM (3.8-5.5); White Blood Count 8.2 T/CUMM (4-12)
[2017-02-13 07:50] LABS: INR 2.1
[2017-02-13 07:55] LABS: PT Patient Result 22.7 SECS
[2017-02-13] MEDS: ENOXAPARIN 40 MG/0.4 ML SYRINGE SUBCUT SCH (08:27)
[2017-02-13] MEDS: INSULIN REGULAR 100 UNIT/ML SUBCUT SCH ×3 (08:27→16:27)
[2017-02-13] MEDS: PANTOPRAZOLE 40 MG TABLET PO SCH (08:28)
[2017-02-13] MEDS: ASPIRIN EC 81 MG TABLET PO SCH (08:28)
[2017-02-13] MEDS: GABAPENTIN 400 MG CAPSULE PO SCH ×2 (08:28→14:04)
[2017-02-13] MEDS: POTASSIUM CHLORIDE 20 MEQ TABLET PO SCH ×4 (08:29→21:14)
[2017-02-13] MEDS: CARVEDILOL 6.25 MG TABLET PO SCH ×2 (08:29→21:14)
[2017-02-13] MEDS: ALPRAZolam 0.5 MG TABLET PO SCH ×2 (08:29→21:12)
[2017-02-13 08:31] LABS: Albumin 3.3 G/DL (3.4-5.0); Bilirubin,Total 0.8 MG/DL (0.2-1.0); Calcium 8.4 MG/DL (8.5-10.1); Osmolality,Calculated 283.5 MOS/KG (273-304); Potassium 2.9 MMOL/L (3.5-5.1); Total Protein 7.4 G/DL (6.4-8.3)
[2017-02-13 08:32] LABS: Troponin I Only < 0.015 NG/ML (0.00-0.045)
[2017-02-13] MEDS ORDERED: POTASSIUM CHLORIDE 20 MEQ TABLET PO ONE (08:35)
--- NOTE | 2017-02-13 09:05 | Hospitalist Progress Note ---
Assessment and Plan (1) CHF (congestive heart failure) Status: Acute Assessment and plan: Continue Lasix IV twice daily. Cardiac diet. Consult cardiology. Current Visit: No Qualifiers: Congestive heart failure type: diastolic Congestive heart failure chronicity: acute on chronic Qualified Code(s): I50.33 - Acute on chronic diastolic (congestive) heart failure (2) Hypokalemia Status: Acute Assessment and plan: Potassium 2.9. Cardiac monitoring. Continue to replace per protocol. Recheck Current Visit: No (3) Diabetes Status: Chronic Assessment and plan: Continue current plan of care with Accu-Cheks and sliding scale insulin Current Visit: No (4) Hypertension Status: Chronic Assessment and plan: Blood pressure is well controlled. Continue home medications. Current Visit: No Qualifiers: Hypertension type: essential hypertension Qualified Code(s): I10 - Essential (primary) hypertension Hospitalist: Subjective Interval history: Patient was seen and examined this morning. Labs and chart reviewed. Patient denies any acute changes overnight. Patient states that she feels much better and that her swelling has gone down. Patient continues to be hypokalemic. Potassium this a.m. is 2.9. We will continue with replacement and current treatment. Exam - Constitutional Vitals: Period Temp Pulse Resp BP Sys/Way Pulse Ox Last 24 Hr 96.2 F-98.0 F 59-66 16-22 103-132/59-75 94-99 General appearance: no acute distress, morbidly obese - Head Head exam: Present: normal inspection, normocephalic - Eye Eye exam: Present: EOMI Pupils: Present: YARED - Neck Neck exam: Present: normal inspection - Respiratory Respiratory exam: Present: wheezes (slight wheezes; pt decreased at bases) - Cardiovascular Cardiovascular exam: Present: regular rate and rhythm - GI/Abdominal GI/Abdominal exam: Present: normal bowel sounds, soft. Absent: tenderness - Extremities Exam Extremities exam: Present: edema (generalized and BLE) - Neurological Exam Neurological exam: Present: alert, oriented X3 - Psychiatric Psychiatric exam: Present: normal affect, normal mood - Skin Skin exam: Present: normal color, warm, dry Results - Labs CBC & BMP: 02/13/17 07:15 02/13/17 07:15 Lab Results: I have reviewed the past 24 hour labs
--- NOTE | 2017-02-13 13:49 | Cardiology Consult Note ---
Assessment and Plan - Time spent with patient Time spent with patient: Greater than 30 minutes (1) Acute on chronic diastolic CHF (congestive heart failure), NYHA class 3 Status: Acute Assessment and plan: SEE PLAN OF CARE LISTED BELOW Current Visit: Yes (2) Non-compliant behavior Status: Chronic Assessment and plan: SEE PLAN OF CARE LISTED BELOW Current Visit: Yes (3) Chest pain Status: Acute Current Visit: No (4) History of coronary artery disease Status: Chronic Assessment and plan: SEE PLAN OF CARE LISTED BELOW Current Visit: No (5) Morbid obesity Status: Chronic Assessment and plan: SEE PLAN OF CARE LISTED BELOW Current Visit: No (6) Anxiety Status: Chronic Assessment and plan: SEE PLAN OF CARE LISTED BELOW Current Visit: No (7) Pacemaker Status: Chronic Current Visit: No (8) Atrial fibrillation Status: Chronic Assessment and plan: SEE PLAN OF CARE LISTED BELOW Current Visit: No Qualifiers: Atrial fibrillation type: paroxysmal Qualified Code(s): I48.0 - Paroxysmal atrial fibrillation (9) Chronic anticoagulation Status: Chronic Assessment and plan: SEE PLAN OF CARE LISTED BELOW Current Visit: No (10) Sleep apnea Status: Chronic Assessment and plan: SEE PLAN OF CARE LISTED BELOW Current Visit: No Qualifiers: Sleep apnea type: obstructive Qualified Code(s): G47.33 - Obstructive sleep apnea (adult) (pediatric) (11) Left atrial thrombus Status: Chronic Assessment and plan: SEE PLAN OF CARE LISTED BELOW Current Visit: No (12) Morbid obesity Status: Chronic Assessment and plan: SEE PLAN OF CARE LISTED BELOW Current Visit: No History of Present Illness - Data of Consult Patient: known to practice within the last 3 years Consult date: 02/13/17 Requesting Physician: Jade Bee - Consult Narrative Reason for consult: Acute on chronic CHF History of present illness: OFFENSIVE COORDINATOR: DR. AMADO MELARA Ms. 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 Risk factors include: known coronary artery disease ( [facility] 2010 revealed patent distal RCA), morbid obesity, hypertension, dyslipidemia, diabetes, sedentary lifestyle and noncompliance. She has sleep apnea, noncompliant with device. History of atrial flutter, DARCY April 2015 revealed left atrial appendage clot. 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 She takes Coumadin for stroke prevention. Echocardiogram February 12, 2017 revealed: EF 55%, mild LVH, no significant valvular abnormality, PAP 28 mmHg. Frequent hospitalizations for volume overload, shortness of breath, atypical chest pain. Patient was admitted February 12, 2017 with complaints of shortness of breath, swelling. She has been diagnosed with acute on chronic diastolic congestive heart failure secondary to diastolic dysfunction, NYHA Class III.. She has been placed on telemetry. Cardiac biomarkers negative, EKG unremarkable. She is hypokalemic. ProBNP 39. Chest x-ray reveals mild cardiac decompensation and tiny effusions. Approximately 3-4 days ago, patient reports her shortness of breath began to worsen as did the swelling and fluid in her legs. States she had been in a swing bed facility and at discharge they did not resume any of her medications including her diuretics. When she began to restart her diuretics she feels as if she was already in "full-blown mood." Of note, patient's weight is 181 kg. At discharge January 17, 2017 her weight was 191.5 kg. She is down several pounds since her last admission. She is breathing better this morning. At present, she is having mid chest pain worse to palpation and certain movements. This causes her to be short of breath and "takes my breath." Her cardiac biomarkers are negative. She requests Demerol for the pain. Patient has been restarted on diuretics and will continue to monitor his daily weights, I's and O's. Patient's complaints of chest pain are atypical and we will treat with 1 dose of low-dose Morphine, PPI. DVT study negative. Unfortunately, patient requires frequent hospitalizations. In the past she has been counseled regarding the possibility of long-term placement such as prison. She adamantly refuses and wishes to live at home still. Will further discuss with Dr. Melara and await additional recommendations. ASSESSMENT/PLAN: 1. ACUTE ON CHRONIC CHF - secondary to diastolic dysfunction, NYHA Class III- IV. Continue with diuresing, strict I&O, daily weights. 2. MORBID OBESITY - dietary counseling prior to discharge 3. HYPERTENSION - adequately controlled. KARINE inhibitor has been held for prior elevation of creatinine. Continue beta-blockade 4. DYSLIPIDEMIA - LDL 71. Continue Atorvastatin. 5. SLEEP APNEA - noncompliant. We will not consult Dr. Bloom as he has seen her on numerous occasions and she chooses not to follow-up outpatient and/or where sleep device. 6. KNOWN CAD - history of stent to distal RCA at [facility] prior to 2010. 7. HISTORY OF ATRIAL FIBRILLATION WITH LEFT ATRIAL APPENDAGE CLOT - INR therapeutic 8. HIGH RISK MEDICATION - Coumadin continues. INR therapeutic. 9. DIABETES - sliding scale 10. HYPOKALEMIA - will add potassium replacement protocol and continue to follow. 11. NON-COMPLIANCE WITH CARDIOLOGY FOLLOW-UP - reiterated the importance of compliance. 12. S/P PPM - continue current plan of care. 13. CHEST PAIN - continue to follow Troponin, EKG. Not NSTEMI. Treat with 1 dose of Morphine, PPI. 14. ATRIAL FIBRILLATION, PAROXYSMAL -rate controlled, INR therapeutic. CC: Alma Sears MD - Home Medications and Allergies Home Medications: Home Medications Medication Instructions Recorded Confirmed Type HYDROcodone/ACETAMIN 10-325 [Stites 1 tablet PO Q4H PRN 04/24/15 02/12/17 History 10-325] Gabapentin 800 mg PO TID 02/24/16 02/12/17 History Warfarin Sodium 7.5 mg PO DAILY 02/24/16 02/12/17 History Albuterol Inhaler [Proventil 2 puff INH Q4H PRN #1 inhaler 02/27/16 02/12/17 Rx Inhaler] Aspirin [Ecotrin] 81 mg PO DAILY 08/30/16 02/12/17 History Carvedilol [Coreg] 6.25 mg PO BID #60 tablet 09/09/16 02/12/17 Rx Atorvastatin [Lipitor] 20 mg PO BEDTIME #90 tablet 11/30/16 02/12/17 Rx Torsemide Tab [Demadex Tab] 80 mg PO DAILY #90 tablet 11/30/16 02/12/17 Rx Potassium Chloride Cap/Tab [K Dur] 20 meq PO BID 01/10/17 02/12/17 History ALPRAZolam [Xanax] 1 mg PO BID #60 tablet 01/17/17 02/12/17 Rx Pantoprazole Tab [Protonix Tab] 40 mg PO DAILY tablet 01/17/17 02/12/17 Rx Tizanidine HCl [Zanaflex] 4 mg PO TID PRN #30 capsule 01/17/17 02/12/17 Rx glyBURIDE MICRONIZED [Glynase] 1.5 mg PO DAILY W/BREAKFAST tablet 01/17/17 Rx Allergies/Adverse Reactions: Allergies Allergy/AdvReac Type Severity Reaction Status Date / Time codeine Allergy Nausea Verified 02/12/17 03:55 ketorolac [From Toradol] Allergy ANAPHYLAXIS Verified 02/12/17 03:55 morphine Allergy ITCHING Verified 02/12/17 03:55 nitroglycerin Allergy Weakness Verified 02/12/17 03:55 tramadol [From Ultram] Allergy ANAPHYLAXIS Verified 02/12/17 03:55 Hydromorphone [From Dilaudid] AdvReac Difficulty Verified 02/12/17 03:55 Breathing Review of systems: REVIEW OF SYSTEMS: - Constitutional Constitutional: Present: Chronic fatigue. Absent: syncope, anorexia, night sweats - EENT Eyes: Absent: blurry vision, loss of vision, diplopia Ears: Absent: decreased hearing, ear pain, ear discharge - Cardiovascular Cardiovascular: Present: chest pain at rest, with palpation and certain movements. Chronic dyspnea on exertion, edema. Denies palpitations. Absent: chest pain with deep breath, claudication - Respiratory Respiratory: Present: COELLO denies cough. Absent: wheezing, hemoptysis, change in phlegm color - Gastrointestinal Gastrointestinal: Denies: constipation. Increasing abdominal girth of the past several days. Absent: abdominal pain, hematemesis, hematochezia, melena, change in bowel habits, nausea - Genitourinary Genitourinary: Absent: difficulty urinating, dysuria, urinary hesitancy, flank pain - Musculoskeletal Musculoskeletal: Present: back pain Absent: joint swelling, muscle cramps, muscle weakness - Neurological Neurological: Present: Poor gait without frequent falls. Absent: dizziness, hemiparesis - Psychiatric Psychiatric: Absent: anxiety, depression, difficulty concentrating - Endocrine Endocrine: Present: fatigue. Absent: cold intolerance, heat intolerance, polyuria, polyphagia, polydipsia - Hematologic/Lymphatic Hematologic/Lymphatic: Present: easy bruising. Absent: easy bleeding, easy bruisability -Integumentary Integumentary: Absent: lesions, rashes, skin breakdown Medical,Surgical,& Family Hx - Medical History Cardio: History of: Cardiac Dysrhythmia (A Fib), CHF, CAD, Hypertension, [place], Pacemaker Psychological: History of: Anxiety Disorders Endocrine: History of: Diabetes Mellitus (NIDDM) ("borderline"), Dyslipidemia Respiratory: No history of: Obstructive Sleep Apnea (Patient has never had formal PSG and HST was technically inadequate), Respiratory Problems Gastrointestinal: History of: Diverticulitis/ Diverticulosis Musculoskeletal: History of: Back/Neck Problems, Herniated Disk - Surgical History Cardiac Surgeries: Sugical HX of: Cardiac Catheterization, Cardiac Surgery ( pacemaker (2013); stents (2011);) Thoracic Surgeries: Patient denies;: Organ Transplant Neurologic Surgeries: Patient denies: Neurologic Surgery HEENT Surgeries: Surgical HX of: Tonsilectomy & Adenoidectomy Abdominal Surgeries: Surgical HX of: Cholecystectomy Reproductive Surgeries: Surgical HX of;: Breast Surgery (reduction), Section Patient denies;: Genitourinary Surgery - Family History Family History: Reports;: Family Cancer (sisters, breast), Family Diabetes ( mother and father), Family Heart Disease (mother and father), Family Stroke ( mother) - Social History Smoking Status: Former smoker Have you smoked in the last 12 months: No Frequency of Alcohol Use: None Type of Drug Use: None Physical Examination Vital Signs Temp Pulse Resp BP Pulse Ox 98.2 F 61 28 H 116/51 98 02/12/17 03:46 02/12/17 03:46 02/12/17 03:46 02/12/17 03:46 02/12/17 03:46 Exam: General: [Appears well with no apparent distress.] [Pleasant and cooperative. ] [Appears comfortable.] HEENT: [PERRL, normocephalic, atraumatic. Mucous membranes moist. No jaundice noted. Conjunctiva moist and clear, sclerae anicteric] Neck: No JVD/HJR, no thyromegaly or lymphadenopathy noted. No carotid bruit appreciated Cardiac: [Regular rate and rhythm.] [No murmur rub or gallop.] Lungs: [Clear to auscultation without accessory muscle use to assist the respiratory pattern.] Oxygen in use via nasal cannula Abdomen: Soft, bowel sounds normoactive. Nontender and nondistended. No abdominal bruit or thrill noted. No masses noted. Musculoskeletal: No fluid collection. Decreased range of motion is noted. Extremities: No clubbing, cyanosis noted. [1-2+ bilateral lower extremity edema. Upper extremity pulses 2+. Lower extremity pulses 2+. Capillary refill less than 3 seconds. Skin: Cellulitis type changes noted to lower extremities, mild. Neuro: Awake, alert and oriented 3. Moves all extremities well without hemiparesis or paralysis. No essential tremor is appreciated. Result/EKG - Labs CBC & BMP: 02/13/17 07:15 02/13/17 07:15 Lab Results: I have reviewed the past 24 hour labs Labs: Laboratory Results - last 24 hr 02/12/17 02/12/17 02/12/17 11:55 16:01 21:37 WBC RBC Hgb Hct MCV MCH MCHC RDW Plt Count MPV Neut % (Auto) Lymph % (Auto) [place] % (Auto) Eos % (Auto) Baso % (Auto) Neut # (Auto) Lymph # (Auto) [place] # (Auto) Eos # (Auto) Baso # (Auto) Immature Gran % Nucleated RBC % Immature Gran # Nucleated RBCs # Immature Plt Fraction INR PT Patient/Control Mix Sodium Potassium 2.8 L Chloride Carbon Dioxide Anion Gap BUN Creatinine GFR Calculation BUN/Creatinine Ratio Glucose POC Glucose 142 H 142 H Calculated Osmolality Calcium Total Bilirubin AST ALT Alkaline Phosphatase Total Creatine Kinase CK-MB (CK-2) Troponin I Total Protein Albumin Globulin Albumin/Globulin Ratio 02/13/17 02/13/17 02/13/17 07:15 07:15 07:15 WBC 8.2 RBC 4.71 Hgb 14.1 Hct 44.2 MCV 93.8 MCH 30 MCHC 31.9 L RDW 14.0 Plt Count 196 MPV 11.3 Neut % (Auto) 62.1 Lymph % (Auto) 21.8 [place] % (Auto) 12.8 H Eos % (Auto) 2.6 Baso % (Auto) 0.5 Neut # (Auto) 5.1 Lymph # (Auto) 1.8 [place] # (Auto) 1.1 H Eos # (Auto) 0.2 Baso # (Auto) 0.0 Immature Gran % 0.2 Nucleated RBC % 0.0 Immature Gran # 0.02 Nucleated RBCs # 0.00 Immature Plt Fraction 0.0 INR 2.1 PT Patient/Control Mix 22.7 Sodium 139 Potassium 2.9 L Chloride 92 L Carbon Dioxide 38 H Anion Gap 11.9 BUN 29 H Creatinine 1.40 H GFR Calculation 63 BUN/Creatinine Ratio 20.00 Glucose 113 H POC Glucose Calculated Osmolality 283.5 Calcium 8.4 L Total Bilirubin 0.80 AST 73 H ALT 50 Alkaline Phosphatase 65 Total Creatine Kinase CK-MB (CK-2) Troponin I Total Protein 7.4 Albumin 3.3 L Globulin 4.1 H Albumin/Globulin Ratio 0.8 L 02/13/17 02/13/17 02/13/17 07:15 08:03 12:07 WBC RBC Hgb Hct MCV MCH MCHC RDW Plt Count MPV Neut % (Auto) Lymph % (Auto) [place] % (Auto) Eos % (Auto) Baso % (Auto) Neut # (Auto) Lymph # (Auto) [place] # (Auto) Eos # (Auto) Baso # (Auto) Immature Gran % Nucleated RBC % Immature Gran # Nucleated RBCs # Immature Plt Fraction INR PT Patient/Control Mix Sodium Potassium Chloride Carbon Dioxide Anion Gap BUN Creatinine GFR Calculation BUN/Creatinine Ratio Glucose POC Glucose 119 H 111 H Calculated Osmolality Calcium Total Bilirubin AST ALT Alkaline Phosphatase Total Creatine Kinase 75 CK-MB (CK-2) 1.7 Troponin I < 0.015 Total Protein Albumin Globulin Albumin/Globulin Ratio - Diagnostic Findings Procedure: Chest x-ray: report reviewed by me, Ultrasound: report reviewed by me (Venous ultrasound, echo) - EKG EKG results: interpreted by me EKG shows: sinus rhythm (Pacing), atrial fibrillation
[2017-02-13] MEDS: tiZANidine 4 MG TABLET PO PRN (14:04)
[2017-02-13] MEDS: ATORVASTATIN 20 MG TABLET PO SCH (21:14)
[2017-02-14] MEDS: INSULIN REGULAR 100 UNIT/ML SUBCUT SCH ×5 (00:19→21:09)
[2017-02-14] MEDS: POTASSIUM CHLORIDE 20 MEQ TABLET PO SCH ×2 (00:20→06:12)
[2017-02-14] MEDS: GABAPENTIN 400 MG CAPSULE PO SCH ×4 (00:22→20:44)
[2017-02-14] MEDS: tiZANidine 4 MG TABLET PO PRN ×3 (00:53→20:45)
[2017-02-14] MEDS: ALBUTEROL 2.5 MG/3 ML NEB RESP TX PRN (01:56)
--- NOTE | 2017-02-14 06:01 | EKG Report ---
Stationary ECG Study [facility] Test Date: 02/14/2017 3:02:36 AM Pat Name: ZUHAIR CONDON Department: Room: 262 Gender: F Janitorial Tech: : 1960 Requested by: Alma Ozuna Order Number: [id number] Reading MD: LINH ECHAVARRIA Intervals [place] Rate: 60 P: 999 TN: 0 QRS: 247 QRSD: 208 T: 78 QT: 506 QTc: 506 Interpretive Statements ELECTRONIC VENTRICULAR PACEMAKER ATRIAL FIBRILLATION Electronically Signed On 02-14-17 14:04:05 CDT by LINH ECHAVARRIA [email or web address]
[2017-02-14 06:58] LABS: Basophils % 0.5 % (0.0-0.8); Eosinophils # 0.3 10*3/uL (0.0-0.87); Eosinophils % 3.7 % (0.00-10.9); Hematocrit 42.9 VOL% (35.7-47.0); Hemoglobin 13.6 GM/DL (12.0-16.0); Immature Granulocytes % 0.4 %; Immature Granulocytes Absolute 0.03 #; Lymphocytes # 1.9 10*3/uL (1.4-4.0); Lymphocytes % 21.9 % (21.3-54.2); Mean Corpuscular HGB Conc 31.7 GM/DL (32-36); Mean Corpuscular Hemoglobin 30 PG (27-34); Mean Corpuscular Volume 95.1 FL (87-102); Mean Platelet Volume 11.7 FL (9.6-12.0); Monocytes # 1.2 10*3/uL (0.11-0.8); Monocytes % 14.4 % (1.7-12.7); Neutrophils % 59.1 % (38.7-73.9); Platelet Count 192 T/CUMM (130-400); Red Blood Count 4.51 MC/CUMM (3.8-5.5); Red Cell Distribution Width 13.8 % (9.3-17.3); White Blood Count 8.5 T/CUMM (4-12)
[2017-02-14 07:26] LABS: Calcium 8.5 MG/DL (8.5-10.1); Magnesium 1.9 MG/DL (1.8-2.4); Osmolality,Calculated 274.2 MOS/KG (273-304)
[2017-02-14] MEDS ORDERED: FUROSEMIDE 40 MG/4 ML VIAL IV SCH (08:00)
[2017-02-14] MEDS: ASPIRIN EC 81 MG TABLET PO SCH (08:21)
[2017-02-14] MEDS: ENOXAPARIN 40 MG/0.4 ML SYRINGE SUBCUT SCH (08:21)
[2017-02-14] MEDS: PANTOPRAZOLE 40 MG TABLET PO SCH (08:21)
[2017-02-14] MEDS: CARVEDILOL 6.25 MG TABLET PO SCH ×2 (08:21→20:44)
[2017-02-14] MEDS: ALPRAZolam 0.5 MG TABLET PO SCH ×2 (08:22→20:44)
--- NOTE | 2017-02-14 09:02 | Physician Query Form ---
CLICK EDIT DOCUMENT TO SELECT QUERY ANSWER --> OK --> SIGN Chiquita Aiken RN, CCDS Certified Clinical Rn First Assistant W) [phone] (f) [phone] [email or web address] PROVIDERS: Make your selection(s) from the choices in EACH section by typing an "x" and enter comments in the comment section. Please use your independent medical judgment in providing your response. This request does not imply that any particular answer is desired or expected. CLINICAL INDICATORS: (Providers should not edit this section) The medical record indicates that the patient was admitted with CHF, "on 2 L of nasal 02 at home", the patient was admitted and placed on 2-4 liters during their stay in the hospital. Based on the above, could you clarify the appropriate diagnosis, if significant , that supports the above abnormalities and additional evaluation, monitoring, and/or treatment rendered: ( ) patient is being monitored or treated for chronic respiratory failure ( ) patient is not being monitored or treated for chronic respiratory failure ( x) Other, please specify: acute resp failure due to copd exacerbation ( ) Clinically unable to determine COMMENTS: PLEASE ALSO DOCUMENT RESPONSE IN PROGRESS NOTES AND/OR DISCHARGE SUMMARY Use of terms such as suspected, likely, or probable (associated with a specific diagnosis that is being evaluated, monitored, or treated as if it exists) are acceptable and can be restated in the discharge summary if not ruled out. MTDD
--- NOTE | 2017-02-14 09:23 | Cardiology Progress Note ---
Addendum entered and electronically signed by Melida Rush NP 02/14/17 09: 41: ADDENDUM: patient is wheezing more this morning than yesterday. Currently taking Lasix 60mg IV BID. Will verify she is on nebulizers and will add Incentive Spirometry. Original Note: Assessment and Plan - Time spent with patient Time spent with patient: Greater than 30 minutes (1) Acute on chronic diastolic CHF (congestive heart failure), NYHA class 3 Status: Acute Assessment and plan: SEE PLAN OF CARE LISTED BELOW Current Visit: Yes (2) Non-compliant behavior Status: Chronic Assessment and plan: SEE PLAN OF CARE LISTED BELOW Current Visit: Yes (3) Chest pain Status: Acute Current Visit: No (4) History of coronary artery disease Status: Chronic Assessment and plan: SEE PLAN OF CARE LISTED BELOW Current Visit: No (5) Morbid obesity Status: Chronic Assessment and plan: SEE PLAN OF CARE LISTED BELOW Current Visit: No (6) Anxiety Status: Chronic Assessment and plan: SEE PLAN OF CARE LISTED BELOW Current Visit: No (7) Pacemaker Status: Chronic Current Visit: No (8) Atrial fibrillation Status: Chronic Assessment and plan: SEE PLAN OF CARE LISTED BELOW Current Visit: No Qualifiers: Atrial fibrillation type: paroxysmal Qualified Code(s): I48.0 - Paroxysmal atrial fibrillation (9) Chronic anticoagulation Status: Chronic Assessment and plan: SEE PLAN OF CARE LISTED BELOW Current Visit: No (10) Sleep apnea Status: Chronic Assessment and plan: SEE PLAN OF CARE LISTED BELOW Current Visit: No Qualifiers: Sleep apnea type: obstructive Qualified Code(s): G47.33 - Obstructive sleep apnea (adult) (pediatric) (11) Left atrial thrombus Status: Chronic Assessment and plan: SEE PLAN OF CARE LISTED BELOW Current Visit: No (12) Morbid obesity Status: Chronic Assessment and plan: SEE PLAN OF CARE LISTED BELOW Current Visit: No Cardiology - PN: Subj Interval history: MINE CAR DISPATCHER: DR. AMADO HODGES SUMMARY: Ms. Ortez, 56WF, does not follow-up in nurse practitioner home assessments clinic but considers Dr. Hodges her nurse practitioner home assessments. Risk factors include: known coronary artery disease ([facility] 2010 revealed patent distal RCA), morbid obesity, hypertension, dyslipidemia, diabetes, sedentary lifestyle and noncompliance. She has sleep apnea, noncompliant with device. History of atrial flutter, DARCY April 2015 revealed left atrial appendage clot. 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 She takes Coumadin for stroke prevention. Echocardiogram February 12, 2017 revealed: EF 55%, mild LVH, no significant valvular abnormality, PAP 28 mmHg. Frequent hospitalizations for volume overload, shortness of breath, atypical chest pain. Patient was admitted February 12, 2017 with complaints of shortness of breath, swelling. She has been diagnosed with acute on chronic congestive heart failure secondary to diastolic dysfunction, NYHA Class III. Cardiac biomarkers negative, EKG is unremarkable. . FEBRUARY 14, 2017: Sitting up in bedside chair, patient states she is breathing better. In general she does not feel as well as she did yesterday. Appears that she has diuresed 1/2 kg overnight. Vital signs are stable. Continue diuresis, daily weights and I&O. Having episodes of atrial fibrillation with occasional pacing. At this point, could consider moving patient off telemetry floor into monitored bed elsewhere. I will further discuss with Dr. Hodges and await additional recommendations. ASSESSMENT/PLAN: 1. ACUTE ON CHRONIC CHF - secondary to diastolic dysfunction, NYHA Class III- IV. Continue with diuresing, strict I&O, daily weights. 2. MORBID OBESITY - dietary counseling prior to discharge 3. HYPERTENSION - adequately controlled. KARINE inhibitor has been held for prior elevation of creatinine. Continue beta-blockade. 4. DYSLIPIDEMIA - LDL 71. Continue Atorvastatin. 5. SLEEP APNEA - noncompliant. Has seen Dr. Bloom on several occasions but has never followed up or been compliant. Therefore, will not reconsult Dr. Bloom during this hospital stay. 6. KNOWN CAD - history of stent to distal RCA at [facility] prior to 2010. Had some complaints of reproducible chest pain yesterday however this is resolved. Cardiac biomarkers are negative. 7. HISTORY OF ATRIAL FIBRILLATION WITH LEFT ATRIAL APPENDAGE CLOT - INR therapeutic yesterday. Will check in the morning 8. HIGH RISK MEDICATION - Coumadin continues. 9. DIABETES - sliding scale 10. HYPOKALEMIA - Resolved. Will add potassium replacement protocol and continue to follow. 11. NON-COMPLIANCE WITH CARDIOLOGY FOLLOW-UP - reiterated the importance of compliance. 12. S/P PPM - continue current plan of care. 13. CHEST PAIN - continue to follow Troponin, EKG. Not NSTEMI. Improved overnight. Continue PPI 14. ATRIAL FIBRILLATION, PAROXYSMAL - rate controlled, INR therapeutic. Exam (Progress Note) - Constitutional Vitals: Period Temp Pulse Resp BP Sys/Way Pulse Ox Last 24 Hr 96.3 F-97.8 F 60-63 16-20 98-150/54-72 93-99 Exam: General: [Appears well with no apparent distress.] [Pleasant and cooperative. ] [Appears comfortable.] HEENT: [PERRL, normocephalic, atraumatic. Mucous membranes moist. No jaundice noted. Conjunctiva moist and clear, sclerae anicteric] Neck: Unable to assess for JVD due to habitus. No thyromegaly or lymphadenopathy noted. No carotid bruit appreciated Cardiac: [Irregularly irregular rhythm, controlled rate. [No murmur rub or gallop.] Lungs: [Clear to auscultation without accessory muscle use to assist the respiratory pattern.] Oxygen in use via nasal cannula Abdomen: Soft, bowel sounds normoactive. Nontender and nondistended. No abdominal bruit or thrill noted. No masses noted. Musculoskeletal: No fluid collection. Decreased range of motion is noted. Extremities: No clubbing, cyanosis noted. [1+ bilateral lower extremity edema, chronic. ] Upper extremity pulses 2+. Difficult to palpate lower extremity pulses due to edema. Cap refill less than 3 second Skin: No unusual lesions or rashes. No skin breakdown appreciated. Neuro: Awake, alert and oriented 3. Moves all extremities well without hemiparesis or paralysis. No essential tremor is appreciated. Result/EKG - Labs CBC & BMP: 02/14/17 06:38 02/14/17 06:38 Lab Results: I have reviewed the past 24 hour labs Labs: Laboratory Results - last 24 hr 02/13/17 02/13/17 02/13/17 12:07 14:57 20:53 WBC RBC Hgb Hct MCV MCH MCHC RDW Plt Count MPV Neut % (Auto) Lymph % (Auto) [place] % (Auto) Eos % (Auto) Baso % (Auto) Neut # (Auto) Lymph # (Auto) [place] # (Auto) Eos # (Auto) Baso # (Auto) Immature Gran % Nucleated RBC % Immature Gran # Nucleated RBCs # Immature Plt Fraction Sodium Potassium Chloride Carbon Dioxide Anion Gap BUN Creatinine GFR Calculation BUN/Creatinine Ratio Glucose POC Glucose 111 H 137 H 121 H Calculated Osmolality Calcium Magnesium 02/14/17 02/14/17 02/14/17 06:38 06:38 07:07 WBC 8.5 RBC 4.51 Hgb 13.6 Hct 42.9 MCV 95.1 MCH 30 MCHC 31.7 L RDW 13.8 Plt Count 192 MPV 11.7 Neut % (Auto) 59.1 Lymph % (Auto) 21.9 [place] % (Auto) 14.4 H Eos % (Auto) 3.7 Baso % (Auto) 0.5 Neut # (Auto) 5.0 Lymph # (Auto) 1.9 [place] # (Auto) 1.2 H Eos # (Auto) 0.3 Baso # (Auto) 0.0 Immature Gran % 0.4 Nucleated RBC % 0.0 Immature Gran # 0.03 Nucleated RBCs # 0.00 Immature Plt Fraction 0.0 Sodium 134 L Potassium 4.0 Chloride 91 L Carbon Dioxide 42 H Anion Gap 5.0 BUN 30 H Creatinine 1.20 H GFR Calculation 76 BUN/Creatinine Ratio 25.00 H Glucose 112 H POC Glucose 118 H Calculated Osmolality 274.2 Calcium 8.5 Magnesium 1.9 - Diagnostic Findings Procedure: KUB x-ray: report reviewed by me - EKG EKG results: interpreted by ms EKG shows: sinus rhythm (Pacing), atrial fibrillation
[2017-02-14] MEDS ORDERED: MORPHINE 2 MG/1 ML SYRINGE IV ONE (09:39)
[2017-02-14] MEDS: ALBUTEROL/IPRATROPIUM 3 ML NEB RESP TX SCH ×4 (10:10→23:29)
[2017-02-14] MEDS ORDERED: PHENOL 1.4% THROAT SPRAY 177 ML BOTTLE PO PRN (10:19)
[2017-02-14] MEDS: methylPREDNISolone SOD SUC 40 MG/1 ML VIAL IV SCH ×3 (10:53→22:27)
[2017-02-14] MEDS ORDERED: FUROSEMIDE 40 MG TABLET PO SCH (16:00)
--- NOTE | 2017-02-14 17:13 | Hospitalist Progress Note ---
Assessment and Plan (1) Drug-seeking behavior Status: Acute Assessment and plan: Please do not give any IV narcotics despite requests. Current Visit: Yes (2) COPD exacerbation Status: Acute Assessment and plan: Continue duo nebs every 4 hours, started IV steroids. Current Visit: Yes (3) Obstructive sleep apnea Status: Acute Assessment and plan: We will have Dr. Bloom to assess. Current Visit: Yes (4) Acute on chronic renal failure Status: Acute Assessment and plan: Patient getting way too dehydrated from Lasix. Volume overloaded. Will decrease Lasix Current Visit: Yes (5) Diabetes Status: Chronic Assessment and plan: Blood sugars are well controlled. Hemoglobin A1c 6.6 Current Visit: No (6) Morbid obesity Status: Chronic Assessment and plan: Patient has probably needs to lose weight. Current Visit: No (7) Hypertension Status: Chronic Assessment and plan: Hypertension controlled, continue Coreg Current Visit: No Qualifiers: Hypertension type: essential hypertension Qualified Code(s): I10 - Essential (primary) hypertension (8) Hyponatremia Status: Acute Assessment and plan: Due to dehydration decrease Lasix Current Visit: No (9) Acute on chronic diastolic CHF (congestive heart failure), NYHA class 3 Status: Acute Assessment and plan: Compensated Current Visit: Yes (10) Non-compliant behavior Status: Chronic Assessment and plan: Consult case management for their assistance. Current Visit: Yes Hospitalist: Subjective Interval history: Patient constantly asking every physician and nurse practitioner walks into her room for more narcotics please no IV narcotics. Patient making no efforts to get out of bed on her own. Patient most likely will need a scooter or a power chair for home. Patient says she is not homeless she lives with her daughter. Patient is frequently in the hospital due to noncompliance. Question whether she is filling all of her medicines she is on Medicaid but only gets so many prescriptions per month. I have asked case management to look into it. He is still wheezing rather badly and calls out to the nurses station every 5 minutes with the request for something. Exam - Constitutional Vitals: Period Temp Pulse Resp BP Sys/Way Pulse Ox Last 24 Hr 96.3 F-97.3 F 60-67 16-24 98-150/54-72 87-98 Exam: Heart Rate-[RRR] Lungs-[diffuse wheezing and tight] GI-[+bs soft, NT, obese] Ext-[no edema but has chronic lymphedema] Neuro [Motor 4/5], [alert and oriented times 3] psych [normal mood and affect] General [no acute distress] Results - Labs CBC & BMP: 02/14/17 06:38 02/14/17 06:38 Lab Results: I have reviewed the past 24 hour labs
[2017-02-14] MEDS ORDERED: DEXTROSE 50% 25 GM/50 ML SYRINGE IV PRN (17:24)
[2017-02-14] MEDS: ATORVASTATIN 20 MG TABLET PO SCH (20:44)
[2017-02-15] MEDS ORDERED: ZALEPLON 5 MG CAPSULE PO ONE (00:43)
[2017-02-15] MEDS: ALBUTEROL/IPRATROPIUM 3 ML NEB RESP TX SCH ×3 (04:05→11:05)
[2017-02-15] MEDS: methylPREDNISolone SOD SUC 40 MG/1 ML VIAL IV SCH ×3 (04:28→11:04)
[2017-02-15 06:38] LABS: Basophils % 0.1 % (0.0-0.8); Hematocrit 44.8 VOL% (35.7-47.0); Hemoglobin 14.5 GM/DL (12.0-16.0); Immature Granulocytes % 1.1 %; Immature Granulocytes Absolute 0.13 #; Lymphocytes # 0.9 10*3/uL (1.4-4.0); Lymphocytes % 7.5 % (21.3-54.2); Mean Corpuscular HGB Conc 32.4 GM/DL (32-36); Mean Corpuscular Hemoglobin 30 PG (27-34); Mean Corpuscular Volume 93.1 FL (87-102); Mean Platelet Volume 12.2 FL (9.6-12.0); Monocytes # 0.5 10*3/uL (0.11-0.8); Monocytes % 3.9 % (1.7-12.7); Neutrophils # 10.5 10*3/uL (1.4-7.4); Neutrophils % 87.4 % (38.7-73.9); Platelet Count 211 T/CUMM (130-400); Red Blood Count 4.81 MC/CUMM (3.8-5.5); Red Cell Distribution Width 13.6 % (9.3-17.3)
[2017-02-15 06:51] LABS: INR 1.7; PT Patient Result 18.1 SECS
[2017-02-15 07:26] LABS: Calcium 9.2 MG/DL (8.5-10.1); Magnesium 1.9 MG/DL (1.8-2.4); Osmolality,Calculated 273.9 MOS/KG (273-304)
[2017-02-15] MEDS ORDERED: FUROSEMIDE 40 MG TABLET PO SCH (09:00)
[2017-02-15] MEDS ORDERED: WARFARIN 7.5 MG TABLET PO SCH (09:00)
--- NOTE | 2017-02-15 10:55 | Discharge Summary ---
Hospital Course - Hospital Course Hospital Course: 56 year old female presents with a chief complaint of shortness of breath and fluid in legs. Patient takes furosemide at home for diuresis. Her BNP was only 39. We did diurese her with Lasix but had to stop due to dehydration. Her sodium dropped down to 129 in diuresis had to be discontinued. Most of her problem is her obesity not fluid. Cardiology was consulted. She is on Coumadin and rate controlled for A. fib cardiology does not have anything else to add. Echocardiogram showed an EF of 55% with PA P of 28 and diastolic parameters that are indeterminate. Patient does have diabetes but has a hemoglobin A1c of 6.6. She did have a COPD exacerbation which we treated with duo nebs and steroids and she improved. Patient likes being in the hospital. She will find any reason to stay in the hospital. She is gone even so far as to fall in order to stay in the hospital. The chest pain she is complaining of is noncardiac in nature and cardiology does not intend to do any further workup. Patient does have obstructive sleep apnea and needs a workup. She has been noncompliant with her appointments with Dr. Bloom on several occasions. She has not been taking her medications as prescribed some of which is due to financial difficulties and other is due to an intentional in order to be readmitted to the hospital. Patient has no current evidence to suggest congestive heart failure but at times has some diastolic dysfunction but with all the diuresis is going to cause her kidneys to fail. Patient has a lot of anxiety and is constantly asking for narcotics. She usually uses chest pain in order to elicit Demerol or morphine. Patient will be discharged home today by ambulance. She is cared for by her daughter. She has maximize her stay in this hospital. - Time spent with patient Time with patient DS: Greater than 30 minutes (35 min) Diagnosis - Discharge Diagnosis (1) Drug-seeking behavior Status: Acute (2) COPD exacerbation Status: Acute (3) Obstructive sleep apnea Status: Acute (4) Acute on chronic renal failure Status: Acute (5) Diabetes Status: Chronic (6) Morbid obesity Status: Chronic (7) Hypertension Status: Chronic (8) Hyponatremia Status: Acute (9) Acute on chronic diastolic CHF (congestive heart failure), NYHA class 3 Status: Acute (10) Non-compliant behavior Status: Chronic Discharge Plan - Discharge Data Disposition: Home Health Service Condition at Discharge: Stable Discharge Diet: diabetic diet Activity: resume usual activities as tolerated, as per physical therapy, wear oxygen at all times Hygiene: no restrictions Weight Bearing at Discharge: full weight bearing, other (need power chair to get around ) Driving: other (never) - Discharge Medications New methylPREDNISolone DOSEPAK [Medrol Dosepak] 4 mg PO DIRECTED #1 pack Phenol 1.4% Throat [place] [Chloraseptic [place]] 5 spray PO Q2H PRN bottle PRN Reason: Sore Throat Albuterol/Ipratropium Neb [Duoneb] 3 ml RESP TX TID #90 vial Hydrocodone/Acetaminophen [[place] 10-325 Tablet] 1 each PO Q6HR PRN #20 tablet PRN Reason: Pain Continue Gabapentin 800 mg PO TID Warfarin Sodium 7.5 mg PO DAILY Albuterol Inhaler [Proventil Inhaler] 2 puff INH Q4H PRN #1 inhaler PRN Reason: Shortness Of Breath/Wheezing Aspirin [Ecotrin] 81 mg PO DAILY ALPRAZolam [Xanax] 1 mg PO BID #60 tablet Potassium Chloride Cap/Tab [K Dur] 20 meq PO DAILY #0 Torsemide Tab [Demadex Tab] 40 mg PO DAILY #90 tablet Carvedilol [Coreg] 6.25 mg PO BID #60 tablet Atorvastatin [Lipitor] 20 mg PO BEDTIME #90 tablet Tizanidine HCl [Zanaflex] 4 mg PO TID PRN #30 capsule PRN Reason: back pain Pantoprazole Tab [Protonix Tab] 40 mg PO DAILY tablet Discontinued glyBURIDE MICRONIZED [Glynase] 1.5 mg PO DAILY W/BREAKFAST tablet No Action HYDROcodone/ACETAMIN 10-325 [[place] 10-325] 1 tablet PO Q4H PRN PRN Reason: Pain - Follow Up or Referral Follow Up: dr ana [Other] - 1 Week Alec Hodges MD [Physician] - 2 Weeks - Forms/Instructions Additional Discharge Instructions: nebulizer machine for home Exam - Constitutional Vitals: Period Temp Pulse Resp BP Sys/Way Pulse Ox Last 24 Hr 96.2 F-97.3 F 61-67 18-25 122-160/69-96 86-98 General appearance: no acute distress, morbidly obese - Respiratory Respiratory exam: Present: clear to auscultation bilaterally. Absent: rhonchi, wheezes - Cardiovascular Cardiovascular exam: Present: irregular rhythm. Absent: systolic murmur - GI/Abdominal GI/Abdominal exam: Present: normal bowel sounds, soft - Extremities Exam Extremities exam: Present: edema - Neurological Exam Neurological exam: Present: alert, oriented X3 - Psychiatric Psychiatric exam: Present: normal affect, normal mood Discharge Results Procedures and tests throughout hospitalization: Pending Orders 02/12/17 07:49 Blood Culture Routine Labs on day of discharge: Labs from last 24 hours 02/15/17 02/15/17 02/15/17 07:05 06:15 06:15 WBC RBC Hgb Hct MCV MCH MCHC RDW Plt Count MPV Neut % (Auto) Lymph % (Auto) [place] % (Auto) Eos % (Auto) Baso % (Auto) Neut # (Auto) Lymph # (Auto) [place] # (Auto) Eos # (Auto) Baso # (Auto) Immature Gran % Nucleated RBC % Immature Gran # Nucleated RBCs # Immature Plt Fraction INR 1.7 PT Patient/Control Mix 18.1 D Sodium 129 L Potassium 4.0 Chloride 87 L Carbon Dioxide 32 Anion Gap 14.0 BUN 29 H Creatinine 1.30 H GFR Calculation 69 BUN/Creatinine Ratio 22.00 H Glucose 278 H POC Glucose 269 H Calculated Osmolality 273.9 Calcium 9.2 Magnesium 1.9 02/15/17 02/14/17 02/14/17 06:15 18:51 14:49 WBC 12.0 D RBC 4.81 Hgb 14.5 Hct 44.8 MCV 93.1 MCH 30 MCHC 32.4 RDW 13.6 Plt Count 211 MPV 12.2 H Neut % (Auto) 87.4 H Lymph % (Auto) 7.5 L [place] % (Auto) 3.9 Eos % (Auto) 0.0 Baso % (Auto) 0.1 Neut # (Auto) 10.5 H Lymph # (Auto) 0.9 L [place] # (Auto) 0.5 Eos # (Auto) 0.0 Baso # (Auto) 0.0 Immature Gran % 1.1 Nucleated RBC % 0.0 Immature Gran # 0.13 Nucleated RBCs # 0.00 Immature Plt Fraction 0.0 INR PT Patient/Control Mix Sodium Potassium Chloride Carbon Dioxide Anion Gap BUN Creatinine GFR Calculation BUN/Creatinine Ratio Glucose POC Glucose 227 H 168 H Calculated Osmolality Calcium Magnesium 02/14/17 11:06 WBC RBC Hgb Hct MCV MCH MCHC RDW Plt Count MPV Neut % (Auto) Lymph % (Auto) [place] % (Auto) Eos % (Auto) Baso % (Auto) Neut # (Auto) Lymph # (Auto) [place] # (Auto) Eos # (Auto) Baso # (Auto) Immature Gran % Nucleated RBC % Immature Gran # Nucleated RBCs # Immature Plt Fraction INR PT Patient/Control Mix Sodium Potassium Chloride Carbon Dioxide Anion Gap BUN Creatinine GFR Calculation BUN/Creatinine Ratio Glucose POC Glucose 120 H Calculated Osmolality Calcium Magnesium Preliminary micro results at discharge 02/12/17 07:49 Blood Culture - Preliminary Blood No growth at 3 days 02/12/17 07:49 Blood Culture - Preliminary Blood No growth at 3 days DS: Provider Date of admission: 02/12/17 06:04 Primary care physician: Aiden Matute MD Attending physician on admission: Jade Bee MD Consults: 02/12/17 07:19 Consult to Dietitian [CONS] Routine Reason for Dietitian: Dietary Consult Coumadin Education Consult to Occupational Therapy [CONS] Routine Reason for Occupational Therapy: Evaluate and Treat Consult to Pharmacy [CONS] Routine Reason for Pharmacy Consult: Other Comment: coumadin dosing Consult to Physical Therapy [CONS] Routine Reason for Physical Therapy: Evaluate and Treat 02/13/17 09:09 Consult to Physician [CONS] Routine Comment: chf Consulting Provider: Alec Hodges Person Notified: Chanel Date Notified: 02/13/17 Time Notified: 09:15 02/13/17 10:07 Consult to Case Mgmt/Social Srvs [CONS] Routine Reason for Case Mgmt/Social Srvs: Discharge Planning 02/14/17 10:20 Consult to Case Mgmt/Social Srvs [CONS] Routine Reason for Case Mgmt/Social Srvs: Other Consult Comment: power chair for home and affordability of meds Consult to Occupational Therapy [CONS] Routine Reason for Occupational Therapy: Weakness Consult to Physical Therapy [CONS] Routine Reason for Physical Therapy: Evaluate and Treat 02/14/17 17:15 Consult to Sleep Center [CONS] Routine Reason for Sleep Center: Sleep Center Physician Consult Comment: kathrien 02/14/17 17:25 Consult to Diabetes Center, Educator [CONS] Routine Reason for Computer Security Specialist: Diabetes Education Discharging clinician: Alma Sears MD
[2017-02-15] MEDS: ASPIRIN EC 81 MG TABLET PO SCH (11:02)
[2017-02-15] MEDS: CARVEDILOL 6.25 MG TABLET PO SCH (11:02)
[2017-02-15] MEDS: GABAPENTIN 400 MG CAPSULE PO SCH (11:03)
[2017-02-15] MEDS: PANTOPRAZOLE 40 MG TABLET PO SCH (11:04)
[2017-02-15] MEDS: ALPRAZolam 0.5 MG TABLET PO SCH (11:04)
[2017-02-15] MEDS: INSULIN REGULAR 100 UNIT/ML SUBCUT SCH ×2 (11:11→12:36)
--- NOTE | 2017-02-15 11:21 | Cardiology Progress Note ---
Assessment and Plan - Time spent with patient Time spent with patient: Greater than 30 minutes (1) Acute on chronic diastolic CHF (congestive heart failure), NYHA class 3 Status: Acute Assessment and plan: SEE PLAN OF CARE LISTED BELOW Current Visit: Yes (2) Non-compliant behavior Status: Chronic Assessment and plan: SEE PLAN OF CARE LISTED BELOW Current Visit: Yes (3) Chest pain Status: Acute Current Visit: No (4) History of coronary artery disease Status: Chronic Assessment and plan: SEE PLAN OF CARE LISTED BELOW Current Visit: No (5) Morbid obesity Status: Chronic Assessment and plan: SEE PLAN OF CARE LISTED BELOW Current Visit: No (6) Anxiety Status: Chronic Assessment and plan: SEE PLAN OF CARE LISTED BELOW Current Visit: No (7) Pacemaker Status: Chronic Current Visit: No (8) Atrial fibrillation Status: Chronic Assessment and plan: SEE PLAN OF CARE LISTED BELOW Current Visit: No Qualifiers: Atrial fibrillation type: paroxysmal Qualified Code(s): I48.0 - Paroxysmal atrial fibrillation (9) Chronic anticoagulation Status: Chronic Assessment and plan: SEE PLAN OF CARE LISTED BELOW Current Visit: No (10) Sleep apnea Status: Chronic Assessment and plan: SEE PLAN OF CARE LISTED BELOW Current Visit: No Qualifiers: Sleep apnea type: obstructive Qualified Code(s): G47.33 - Obstructive sleep apnea (adult) (pediatric) (11) Left atrial thrombus Status: Chronic Assessment and plan: SEE PLAN OF CARE LISTED BELOW Current Visit: No (12) Morbid obesity Status: Chronic Assessment and plan: SEE PLAN OF CARE LISTED BELOW Current Visit: No Cardiology - PN: Subj Interval 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 ALEC HODGES SUMMARY: Ms. Ortez, 56WF, does not follow-up in hog scalder clinic but considers Dr. Hodges her hog scalder. Risk factors include: known coronary artery disease ([facility] 2010 revealed patent distal RCA), morbid obesity, hypertension, dyslipidemia, diabetes, sedentary lifestyle and noncompliance. She has sleep apnea, noncompliant with device. History of atrial flutter, DARCY April 2015 revealed left atrial appendage clot. History of STENOTYPIST-P PPM. She takes Coumadin for stroke prevention. Echocardiogram February 12, 2017 revealed: EF 55%, mild LVH, no significant valvular abnormality, PAP 28 mmHg. Frequent hospitalizations for volume overload, shortness of breath, atypical chest pain. Patient was admitted February 12, 2017 with complaints of shortness of breath, swelling. She has been diagnosed with acute on chronic congestive heart failure secondary to diastolic dysfunction, NYHA Class III. Cardiac biomarkers negative, EKG is unremarkable. . FEBRUARY 14, 2017: Sitting up in bedside chair, patient states she is breathing better. In general she does not feel as well as she did yesterday. Appears that she has diuresed 1/2 kg overnight. Vital signs are stable. Continue diuresis, daily weights and I&O. Having episodes of atrial fibrillation with occasional pacing. At this point, could consider moving patient off telemetry floor into monitored bed elsewhere. I will further discuss with Dr. Hodges and await additional recommendations. FEBRUARY 15, 2017: Ms. Ortez's breathing has improved overnight. Last evening, patient received IV steroids and shortly thereafter a breathing treatment. After she received both of these, she began to experience tightness in her chest , felt her heart racing and reported she had sharp pain in the center of her chest. Her Xanax had been decreased from her usual nighttime dose. Though she felt her heart racing, no arrhythmia was noted. Chest pain is reproducible to palpation. Again, patient is requesting IV Morphine or IV Demerol. She also has a sore throat and reports when she swallows she does have chest pain. She has been given medications for this as well. Today, I spent greater than 30 minutes discussing numerous issues with Ms. Ortez including the need to consider exterminator termite care such as a care home. Patient insists she gets good care at home however reiterated the fact that she has returned for hospitalization every 4-6 weeks over the past year. I suspect this may be related to medication noncompliance, dietary noncompliance etc. His manager sharepoint has worked diligently to secure a possible scooter, talked with pharmacy in order to better utilize her Medicaid punches to her financial advantage. Will verify that home health is continuing to see patient. She believes they come twice a week but may need CHF monitoring program in home and increase the frequency of her visits. From cardiology standpoint, patient is stable for discharge home. I have discussed this case with Dr. Sears and suspect that patient will be discharged home today. She will be given a follow-up appoint with Dr. Hodges in approximately 4 weeks and I have encouraged her to keep this appointment. ASSESSMENT/PLAN: 1. ACUTE ON CHRONIC CHF - secondary to diastolic dysfunction, NYHA Class III- IV. Improved. 2. MORBID OBESITY - dietary counseling prior to discharge 3. HYPERTENSION - adequately controlled. KARINE inhibitor has been held for prior elevation of creatinine. Continue beta-blockade. 4. DYSLIPIDEMIA - LDL 71. Continue Atorvastatin. 5. SLEEP APNEA - noncompliant. Has seen Dr. Bloom on several occasions but has never followed up or been compliant. Therefore, will not reconsult Dr. Bloom during this hospital stay. 6. KNOWN CAD - history of stent to distal RCA at [facility] prior to 2010. Had some complaints of reproducible chest pain yesterday however this is resolved. Cardiac biomarkers are negative. 7. HISTORY OF ATRIAL FIBRILLATION WITH LEFT ATRIAL APPENDAGE CLOT - INR has been therapeutic. 8. HIGH RISK MEDICATION - Coumadin continues. 9. DIABETES - sliding scale 10. HYPOKALEMIA - Resolved. Will add potassium replacement protocol and continue to follow. 11. NON-COMPLIANCE WITH CARDIOLOGY FOLLOW-UP - reiterated the importance of compliance. 12. S/P PPM - continue current plan of care. 13. CHEST PAIN - noncardiac. Not NSTEMI. Improved overnight. Continue PPI 14. ATRIAL FIBRILLATION, PAROXYSMAL - rate controlled, INR therapeutic. Exam (Progress Note) - Constitutional Vitals: Period Temp Pulse Resp BP Sys/Way Pulse Ox Last 24 Hr 96.2 F-97.3 F 61-67 18-25 122-160/69-96 86-98 Exam: General: [Appears well with no apparent distress.] [Pleasant and cooperative. ] [Appears comfortable.] HEENT: [PERRL, normocephalic, atraumatic. Mucous membranes moist. No jaundice noted. Conjunctiva moist and clear, sclerae anicteric] Neck: Unable to assess for JVD due to habitus. No thyromegaly or lymphadenopathy noted. No carotid bruit appreciated Cardiac: [Irregularly irregular rhythm, controlled rate. [No murmur rub or gallop.] Lungs: [Clear to auscultation without accessory muscle use to assist the respiratory pattern.] Oxygen in use via nasal cannula Abdomen: Soft, bowel sounds normoactive. Nontender and nondistended. No abdominal bruit or thrill noted. No masses noted. Musculoskeletal: No fluid collection. Decreased range of motion is noted. Extremities: No clubbing, cyanosis noted. [1+ bilateral lower extremity edema, chronic. ] Upper extremity pulses 2+. Difficult to palpate lower extremity pulses due to edema. Cap refill less than 3 second Skin: No unusual lesions or rashes. No skin breakdown appreciated. Neuro: Awake, alert and oriented 3. Moves all extremities well without hemiparesis or paralysis. No essential tremor is appreciated. Result/EKG - Labs CBC & BMP: 02/15/17 06:15 02/15/17 06:15 Lab Results: I have reviewed the past 24 hour labs Labs: Laboratory Results - last 24 hr 02/14/17 02/14/17 02/14/17 11:06 14:49 18:51 WBC RBC Hgb Hct MCV MCH MCHC RDW Plt Count MPV Neut % (Auto) Lymph % (Auto) [place] % (Auto) Eos % (Auto) Baso % (Auto) Neut # (Auto) Lymph # (Auto) [place] # (Auto) Eos # (Auto) Baso # (Auto) Immature Gran % Nucleated RBC % Immature Gran # Nucleated RBCs # Immature Plt Fraction INR PT Patient/Control Mix Sodium Potassium Chloride Carbon Dioxide Anion Gap BUN Creatinine GFR Calculation BUN/Creatinine Ratio Glucose POC Glucose 120 H 168 H 227 H Calculated Osmolality Calcium Magnesium 02/15/17 02/15/17 02/15/17 06:15 06:15 06:15 WBC 12.0 D RBC 4.81 Hgb 14.5 Hct 44.8 MCV 93.1 MCH 30 MCHC 32.4 RDW 13.6 Plt Count 211 MPV 12.2 H Neut % (Auto) 87.4 H Lymph % (Auto) 7.5 L [place] % (Auto) 3.9 Eos % (Auto) 0.0 Baso % (Auto) 0.1 Neut # (Auto) 10.5 H Lymph # (Auto) 0.9 L [place] # (Auto) 0.5 Eos # (Auto) 0.0 Baso # (Auto) 0.0 Immature Gran % 1.1 Nucleated RBC % 0.0 Immature Gran # 0.13 Nucleated RBCs # 0.00 Immature Plt Fraction 0.0 INR 1.7 PT Patient/Control Mix 18.1 D Sodium 129 L Potassium 4.0 Chloride 87 L Carbon Dioxide 32 Anion Gap 14.0 BUN 29 H Creatinine 1.30 H GFR Calculation 69 BUN/Creatinine Ratio 22.00 H Glucose 278 H POC Glucose Calculated Osmolality 273.9 Calcium 9.2 Magnesium 1.9 08/30/17 07:05 WBC RBC Hgb Hct MCV MCH MCHC RDW Plt Count MPV Neut % (Auto) Lymph % (Auto) [place] % (Auto) Eos % (Auto) Baso % (Auto) Neut # (Auto) Lymph # (Auto) [place] # (Auto) Eos # (Auto) Baso # (Auto) Immature Gran % Nucleated RBC % Immature Gran # Nucleated RBCs # Immature Plt Fraction INR PT Patient/Control Mix Sodium Potassium Chloride Carbon Dioxide Anion Gap BUN Creatinine GFR Calculation BUN/Creatinine Ratio Glucose POC Glucose 269 H Calculated Osmolality Calcium Magnesium - EKG EKG results: interpreted by me EKG shows: sinus rhythm, atrial fibrillation Specialty Discharge - Follow Up or Referrals Follow up with: dr ana [Other] - 1 Week Alec Hodges MD [Physician] - 02/28/17 2:10 pm
[2017-02-15 11:37] VITALS: BP 138/75
== END 2017-02-15 15:46 | disposition home health service (06) | DRG 194 ==
LOC: EDUNIT# → EDBD → N.ED 03:39 → N.EDINP 06:04 → SUATTDRO 06:04 → N.TELES 06:16
PROVIDERS: ADMIT Internal Medicine; ATTEND Internal Medicine

== ENCOUNTER 2017-02-21 06:28 | Inpatient (IN) ==
[2017-02-21] MEDS ORDERED: NITROGLYCERIN 2% OINT 1 INCH/GM PACK TOP STA (06:32)
[2017-02-21] MEDS ORDERED: ALUM/MAG/SIMETH/LIDO VISC 1:1 30 ML BOTTLE PO STA (06:32)
[2017-02-21] MEDS ORDERED: ENOXAPARIN 100 MG/ML SYRINGE SUBCUT STA (06:32)
--- NOTE | 2017-02-21 06:40 | Emergency Department Note ---
Rand Carlton Hilary, am scribing for, and in the presence of, Juan Owens MD 06: 38. Graciela Carlton James D, MD, personally performed the services described in this documentation, ascribed by Lillian Gordillo in my presence, and it is both accurate and complete 638 . Arrival - Arrival Stated Complaint: CHEST PAIN Mode of Arrival: Stretcher Limitations: No Limitations Source: Patient, RN Notes Reviewed Time Seen by Provider: 02/21/17 06:32 - History of Present Illness HPI Narrative: Pt is a 56 y/o female brought to the ED via EMS for c/o chest pain which onset last night. Pt reports left neck pain through out the night that worsened 2 hours ago into radiating pain in her left arm and chest. She confirms nausea, chest pain and SOB but denies diaphoresis. She has a PMHx of A.Fib, CHF, CAD, HTN, VA, Pacemaker, Dyslipidemia and NIDDM. No other complaints or problems stated in the ED. Onset (ago): hour(s) Consistency: constant Severity: moderate Severity scale (1-10): 2 Quality: sharp Allergies/Adverse Reactions: Allergies Allergy/AdvReac Type Severity Reaction Status Date / Time codeine Allergy Nausea Verified 02/12/17 03:55 ketorolac [From Toradol] Allergy ANAPHYLAXIS Verified 02/12/17 03:55 nitroglycerin Allergy Weakness Verified 02/12/17 03:55 tramadol [From Ultram] Allergy ANAPHYLAXIS Verified 02/12/17 03:55 Hydromorphone [From Dilaudid] AdvReac Difficulty Verified 02/12/17 03:55 Breathing Home Medications: Home Medications Medication Instructions Recorded Confirmed Type Gabapentin 800 mg PO TID 02/24/16 02/18/17 History Warfarin Sodium 7.5 mg PO QPM 02/24/16 02/18/17 History Albuterol Inhaler [Proventil 2 puff INH Q4H PRN #1 inhaler 02/27/16 02/18/17 Rx Inhaler] Aspirin [Ecotrin] 81 mg PO QAM 08/30/16 02/18/17 History Carvedilol [Coreg] 6.25 mg PO BID #60 tablet 09/09/16 02/18/17 Rx Atorvastatin [Lipitor] 20 mg PO BEDTIME #90 tablet 11/30/16 02/18/17 Rx Pantoprazole Tab [Protonix Tab] 40 mg PO DAILY tablet 01/17/17 02/18/17 Rx Tizanidine HCl [Zanaflex] 4 mg PO TID PRN #30 capsule 01/17/17 02/18/17 Rx Albuterol/Ipratropium Neb [Duoneb] 3 ml RESP TX TID #90 vial 02/15/17 02/18/17 Rx Hydrocodone/Acetaminophen [[place] 1 each PO Q6HR PRN #20 tablet 02/15/17 Rx 10-325 Tablet] Phenol 1.4% Throat [place] 5 spray PO Q2H PRN bottle 02/15/17 02/18/17 Rx [Chloraseptic [place]] methylPREDNISolone DOSEPAK [Medrol 4 mg PO DIRECTED #1 pack 02/15/17 Rx Dosepak] ALPRAZolam [Xanax] 1 mg PO BID W/MEALS 02/18/17 02/18/17 History Furosemide [Furosemide] 40 mg PO BID 02/18/17 02/18/17 History Potassium Chloride Cap/Tab [[place]] 20 meq PO BID 02/18/17 02/18/17 History Torsemide Tab [Demadex Tab] 40 mg PO BID 02/18/17 02/18/17 History Review of System - Review of System 12 point system: reviewed and no additional remarkable complaints except as stated - Review of System Constitutional: Absent: diaphoresis, fever Respiratory: Present: respiratory distress (SOB) Cardiovascular: Present: chest pain Gastrointestinal: Present: nausea Medical,Surgical,& Family Hx - Medical History Cardio: History of: Cardiac Dysrhythmia (A Fib), CHF, CAD, Hypertension, VA, Pacemaker Psychological: History of: Anxiety Disorders Endocrine: History of: Diabetes Mellitus (NIDDM) ("borderline"), Dyslipidemia Respiratory: No history of: Obstructive Sleep Apnea (Patient has never had formal PSG and HST was technically inadequate), Respiratory Problems Gastrointestinal: History of: Diverticulitis/ Diverticulosis - Surgical History Cardiac Surgeries: Sugical HX of: Cardiac Catheterization, Cardiac Surgery ( pacemaker (2013); stents (2011);) Thoracic Surgeries: Patient denies;: Organ Transplant Neurologic Surgeries: Patient denies: Neurologic Surgery HEENT Surgeries: Surgical HX of: Tonsilectomy & Adenoidectomy Abdominal Surgeries: Surgical HX of: Cholecystectomy Reproductive Surgeries: Surgical HX of;: Breast Surgery (reduction), Section Patient denies;: Genitourinary Surgery - Family History Family History: Reports;: Family Cancer (sisters, breast), Family Diabetes ( mother and father), Family Heart Disease (mother and father), Family Stroke ( mother) - Social History Smoking Status: Former smoker Exam Physical Examination: GENERAL: This is an obese white female in no apparent distress. VITAL SIGNS: Temperature: 96.8 Pulse: 75 Respiratory: 18 Blood Pressure: 102/63 O2 Sat: 96 HEENT: Head is normocephalic and atraumatic. Pupils are equally round and reactive to light. Extraocular movement are intact. Oropharynx is benign with moist mucous membranes. NECK: Neck is soft and supple without tenderness. There are no masses. There is no lymphadenopathy. LUNGS: Lungs are clear to auscultation bilaterally. Chest rises symmetrically. There is no chest wall tenderness. CV: Heart is regular rate and rhythm without murmurs, rubs, or gallops. ABDOMEN: Abdomen is soft, non-tender to palpation. There are no abnormal masses palpated. There is no organomegaly. Bowel sounds are present and active. SKIN: Skin is warm and dry. No rash. EXTREMITIES: Patient has full range of motion without tenderness. There is no pedal edema. NEUROLOGIC: Awake, alert, and oriented x4. Cranial nerves II through XII are grossly intact. There are no motorsensory deficits. PSYCHIATRIC: Normal affect. Normal mood. Vital Signs: Vital Signs Temperature 96.8 F L 02/21/17 06:36 Pulse Rate 60 02/21/17 09:00 Respiratory Rate 23 02/21/17 09:00 Blood Pressure 112/66 02/21/17 09:00 O2 Sat by Pulse Oximetry 100 02/21/17 09:00 Course - Consultations Consultation #1: Discussed with Dr. Kohler. Patient will be admitted to the cardiology service. Time: 08:57 Results - Labs CBC & BMP: 02/21/17 06:54 02/21/17 06:54 Lab Results: I have reviewed the patients labs Labs: Laboratory Tests 02/21/17 06:54 WBC 12.9 H D RBC 4.82 Hgb 14.6 Hct 45.4 Plt Count 175 Lymph % (Auto) 17.5 L Neut # (Auto) 9.0 H [place] # (Auto) 1.4 H Laboratory Tests 02/21/17 02/21/17 02/21/17 06:53 06:53 06:53 INR 1.6 PT Patient/Control Mix 17.0 Circ Anticoag PTT 30.5 Sodium Potassium Chloride Carbon Dioxide BUN Creatinine Glucose Total Bilirubin AST Troponin I Albumin Globulin Albumin/Globulin Ratio Urine pH 5.0 Ur Specific [place] 1.012 Urine Urobilinogen < 2.0 H Urine RBC 6 Urine WBC 2 Urine Opiates Screen Negative Ur Barbiturates Screen Negative Ur Phencyclidine Scrn Negative U Amphetamine/Methamph Negative U Benzodiazepines Scrn Positive H U Cocaine Metab Screen Negative U Cannabinoids Screen Negative 02/21/17 02/21/17 06:54 06:54 INR PT Patient/Control Mix Circ Anticoag PTT Sodium 137 Potassium 3.3 L Chloride 91 L Carbon Dioxide 40 H BUN 21 H Creatinine 1.10 H Glucose 112 H Total Bilirubin 1.20 H AST 40 H Troponin I < 0.015 Albumin 3.2 L Globulin 4.5 H Albumin/Globulin Ratio 0.7 L Urine pH Ur Specific [place] Urine Urobilinogen Urine RBC Urine WBC Urine Opiates Screen Ur Barbiturates Screen Ur Phencyclidine Scrn U Amphetamine/Methamph U Benzodiazepines Scrn U Cocaine Metab Screen U Cannabinoids Screen - EKG EKG results: interpreted by ERMD - Impressions EKG: Electronic ventricular pacemaker, rate 63, no further interpretation possible. - Diagnostic Findings Procedure: Chest x-ray: image reviewed by me, report reviewed by me (Mild increased pulmonary markings bilaterally. 1. Cardiomegaly with low volume left effusion and underlying atelectatic change 2. Stable position of left sided cardiac pacing device with atrail ventricular leads.) Disposition Clinical Impression: Chest pain, Coronary artery disease, Morbid obesity, Diabetes mellitus, Noncompliance Case discussed with: patient, patient's family Condition: Stable
[2017-02-21] MEDS ORDERED: ENOXAPARIN 120 MG/0.8 ML SYRINGE SUBCUT ONE (07:10)
[2017-02-21] MEDS ORDERED: ALUM/MAG/SIMETH/LIDO VISC 1:1 30 ML BOTTLE PO ONE (07:11)
[2017-02-21] MEDS ORDERED: ONDANSETRON 4 MG/2 ML VIAL ONE (07:11)
[2017-02-21 07:15] LABS: Basophils % 0.3 % (0.0-0.8); Eosinophils # 0.2 10*3/uL (0.0-0.87); Eosinophils % 1.3 % (0.00-10.9); Hematocrit 45.4 VOL% (35.7-47.0); Hemoglobin 14.6 GM/DL (12.0-16.0); Immature Granulocytes % 0.3 %; Immature Granulocytes Absolute 0.04 #; Lymphocytes # 2.3 10*3/uL (1.4-4.0); Lymphocytes % 17.5 % (21.3-54.2); Mean Corpuscular HGB Conc 32.2 GM/DL (32-36); Mean Corpuscular Hemoglobin 30 PG (27-34); Mean Corpuscular Volume 94.2 FL (87-102); Mean Platelet Volume 10.8 FL (9.6-12.0); Monocytes # 1.4 10*3/uL (0.11-0.8); Monocytes % 10.6 % (1.7-12.7); Platelet Count 175 T/CUMM (130-400); Red Blood Count 4.82 MC/CUMM (3.8-5.5); Red Cell Distribution Width 13.9 % (9.3-17.3); White Blood Count 12.9 T/CUMM (4-12)
[2017-02-21] MEDS: ONDANSETRON 4 MG/2 ML VIAL IV PRN (07:17)
[2017-02-21 07:32] LABS: INR 1.6; Partial Thromboplastin Time 30.5 SECS (0-40)
--- NOTE | 2017-02-21 07:35 | XRay Report ---
Exam: XR chest 1V portable Date: 02/21/2017 6:33 AM Indication: Chest pain Comparison: 02/18/2017 Technical: AP portable Findings: Cardiomegaly is present with a cardiac pacing device. Low volume effusion present. Platelike atelectatic changes present. Mediastinum is intact. Bony structures are otherwise unremarkable oxygen tubing is present. Mediastinum is otherwise intact Impression: 1. Cardiomegaly with low volume left effusion and underlying atelectatic change 2. Stable position of left-sided cardiac pacing device with atrial ventricular leads PROCEDURE INTERPRETED AT [facility] DEPARTMENT OF RADIOLOGY Final Report Signed by: Dr. Jose G Lay
[2017-02-21 07:40] LABS: Apearance,Urine Slightly Hazy (Clear); Bacteria,Urine Occasional /HPF (Few); Bilirubin,Urine Negative (Negative); Blood, Urine Moderate mg/dL (Negative); Glucose,Urine (UA) Negative (Negative); Ketones,Urine Negative (Negative); Nitrite,Urine Negative (Negative); Protein,Urine Negative; RBC,Urine 6 /HPF (0-4); Squamous Epithelial Cell,Urine Occasional /HPF (0-10); Urine Color Yellow (Yellow); Urine Specific Gravity 1.012 (1.001-1.035); Urine Urobilinogen < 2.0 EU/DL (0.2-1.0); WBC,Urine 2 /HPF (0-6)
[2017-02-21 07:44] LABS: Albumin 3.2 G/DL (3.4-5.0); Bilirubin,Total 1.2 MG/DL (0.2-1.0); Calcium 8.7 MG/DL (8.5-10.1); Osmolality,Calculated 276.8 MOS/KG (273-304); Potassium 3.3 MMOL/L (3.5-5.1); Total Protein 7.7 G/DL (6.4-8.3)
[2017-02-21 07:59] LABS: Barbiturates Screen,Urine Negative (Negative); Benzodiazepines Screen,Urine Positive (Negative); Cannabinoid Screen,Urine Negative (Negative); Opiate Screen,Urine Negative (Negative); Phencyclidine Screen,Urine Negative (Negative)
--- NOTE | 2017-02-21 09:05 | EKG Report ---
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
[2017-02-21] MEDS ORDERED: MAGNESIUM SULF RIDER 4 GM in PREMIX 1 EACH IV PRN (12:23)
--- NOTE | 2017-02-21 12:36 | EKG Report ---
Stationary ECG Study [facility] Test Date: 02/21/2017 12:25:52 PM Pat Name: ZUHAIR CONDON Department: Room: 286 Gender: F It Senior Analyst: REINALDO : 1960 Requested by: Melida Singh Order Number: [id number] Reading MD: SELENE KOWALSKI Intervals [place] Rate: 63 P: 999 [place]: 0 QRS: -82 QRSD: 192 T: 98 QT: 494 QTc: 502 Interpretive Statements ELECTRONIC VENTRICULAR PACEMAKER ABNORMAL RHYTHM ECG Electronically Signed On 02-21-17 16:25:21 CDT by SELENE KOWALSKI [email or web address]
--- NOTE | 2017-02-21 15:20 | EKG Report ---
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
[2017-02-21] MEDS ORDERED: PHENOL 1.4% THROAT SPRAY 177 ML BOTTLE PO PRN (18:16)
--- NOTE | 2017-02-21 18:26 | Cardiology History & Physical ---
Zuhair Carlton Lesley, NP, am scribing for, and in the presence of, Roseline Kohler MD 18:25. Assessment and Plan - Time spent with patient Time spent with patient: Greater than 30 minutes (Record review, assessment, and documentation) (1) Chest pain Status: Acute Assessment and plan: SEE PLAN LISTED BELOW Current Visit: Yes (2) Coronary artery disease Status: Acute Assessment and plan: SEE PLAN LISTED BELOW Current Visit: Yes (3) CHF (congestive heart failure) Status: Acute Assessment and plan: SEE PLAN LISTED BELOW Current Visit: No Qualifiers: Congestive heart failure type: diastolic Congestive heart failure chronicity: acute on chronic Qualified Code(s): I50.33 - Acute on chronic diastolic (congestive) heart failure (4) Dyspnea Status: Acute Assessment and plan: SEE PLAN LISTED BELOW Current Visit: No (5) Obstructive sleep apnea Status: Chronic Assessment and plan: SEE PLAN LISTED BELOW Current Visit: No (6) Hypertension Status: Chronic Assessment and plan: SEE PLAN LISTED BELOW Current Visit: No Qualifiers: Hypertension type: essential hypertension Qualified Code(s): I10 - Essential (primary) hypertension (7) Pacemaker Status: Chronic Assessment and plan: SEE PLAN LISTED BELOW Current Visit: No History of Present Illness Chief complaint: Chest pain, dyspnea History of present illness: 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 Hodges Ms. Ortez is A 56 year old female, who was recently discharged from the hospital on 02/15/17. Records indicate she came back to the ER on 02/18/17 for complaints of shortness of breath and chest pain, but was discharged home due to a lack of diagnostic evidence to support admission. She was admitted today to cardiology service with complaints of shortness of breath and chest pain. She reports she has had chest pain in the left chest wall radiating into the left neck and left arm that started during the night. She reports the chest pain occurred approximately 2 weeks ago and has progressively worsened since that time ( specifically last night), however she was in the hospital at that time. She states her pain is an 8 out of 10 on numeric pain scale. She also reports "my stomach is full of fluid", and she has edema to bilateral lower extremities. She reports that she has been taking her medications as prescribed since the time of her discharge 6 days ago. She reports she does not feel that her oral diuretics are working. She reports that she was unable to sleep last night due to her dyspnea. Cardiac risk factors include known CAD ([facility] 2010 reveal patient distal RCA), morbid obesity, hypertension, dyslipidemia, diabetes, sedentary lifestyle , chronic congestive heart failure secondary to diastolic dysfunction, NYHA Class III. and noncompliance. Past medical history positive for sleep apnea, noncompliant with device. History of atrial flutter, DARCY April 2015 revealed left atrial appendage clot. 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 She takes Coumadin for stroke prevention. Echocardiogram February 12, 2017 revealed: EF 55%, mild LVH, no significant valvular abnormality, PAP 28 mmHg. Frequent hospitalizations for volume overload, shortness of breath, atypical chest pain. She denies smoking, alcohol use, or drug use. Patient is seen lying in bed, no apparent distress. She has a nasal cannula in place, on 2 L of oxygen. She is able to answer all questions during interview without obvious dyspnea or distress. The patient is complaining of substernal chest pain, which is reproducible somewhat on the left. During exam the patient experience a "spasm" to the left substernal border. She reports the pain radiates into the left arm, left upper back, and left lateral neck. The pain occurred at rest. The patient states that she is able to ambulate only short distances with a walker. She complains of heart palpitations, nausea, diaphoresis, chronic edema to bilateral lower extremities and abdomen. She denies vomiting, diarrhea, hematemesis, or melena. Labs reviewed today and troponin so far have been negative, WBCs 12,900, INR 1.6 which is subtherapeutic , sodium 137, potassium 3.3, BUN 21, creatinine 1.1, glucose 112. Vital signs have remained stable, her EKG is abnormal with cardiac pacer noted, however not much change from EKGs when compared with the previous 1-2 weeks. Chest x-ray today shows cardiomegaly with low volume left effusion and underlying atelectatic change, stable position of left-sided cardiac pacing device with AV leads. ASSESSMENT/PLAN: 1. CHEST PAIN -continue to follow EKG and troponin. Ultimately we will may need to consider cardiac catheterization. I would like to rule out pulmonary embolism, her INR is subtherapeutic. 2. DYSPNEA - continue to monitor, oxygen as needed. She has significant peripheral edema although her recent BNP was very low, the one from this admission is pending. I am going to rule out pulmonary embolism. 3. CONGESTIVE HEART FAILURE -chronic secondary to diastolic dysfunction, NYHA Class III-IV. strict I & O, daily weights. This symptomatology seems to be multifactorial and I do not know that is not really necessarily secondary to "congestive heart failure". 4. HYPERTENSION - controlled, monitor and adjust meds accordingly. 5. STATUS POST PPM -continue current plan of care. 6. OBSTRUCTIVE SLEEP APNEA -noncompliant with outpatient follow-up. 7. KNOWN CAD -[facility] 2010 revealed patent distal RCA 8. Severe abdominal bilateral lower extremity edema-this is disproportionate to her systolic function, diastolic dysfunction and renal function. Some of this may be secondary to her high dose gabapentin so I am going to decrease this to 400 mg. We are going to diurese her but will need to watch her kidney function carefully. We will check an abdominal ultrasound to try to further evaluate this. Home Medications Medication Instructions Recorded Confirmed Type Gabapentin 800 mg PO TID 02/24/16 02/21/17 History Warfarin Sodium 7.5 mg PO QPM 02/24/16 02/21/17 History Albuterol Inhaler [Proventil 2 puff INH Q4H PRN #1 inhaler 02/27/16 02/21/17 Rx Inhaler] Aspirin [Ecotrin] 81 mg PO QAM 08/30/16 02/21/17 History Carvedilol [Coreg] 6.25 mg PO BID #60 tablet 09/09/16 02/21/17 Rx Atorvastatin [Lipitor] 20 mg PO BEDTIME #90 tablet 11/30/16 02/21/17 Rx Pantoprazole Tab [Protonix Tab] 40 mg PO DAILY tablet 01/17/17 02/21/17 Rx Tizanidine HCl [Zanaflex] 4 mg PO TID PRN #30 capsule 01/17/17 02/21/17 Rx Albuterol/Ipratropium Neb [Duoneb] 3 ml RESP TX TID #90 vial 02/15/17 02/21/17 Rx Hydrocodone/Acetaminophen [[place] 1 each PO Q6HR PRN #20 tablet 02/15/17 Rx 10-325 Tablet] Phenol 1.4% Throat [place] 5 spray PO Q2H PRN bottle 02/15/17 02/21/17 Rx [Chloraseptic [place]] methylPREDNISolone DOSEPAK [Medrol 4 mg PO DIRECTED #1 pack 02/15/17 Rx Dosepak] ALPRAZolam [Xanax] 1 mg PO BID W/MEALS 02/18/17 02/21/17 History Furosemide [Furosemide] 40 mg PO BID 02/18/17 02/21/17 History Potassium Chloride Cap/Tab [K Dur] 20 meq PO BID 02/18/17 02/21/17 History Torsemide Tab [Demadex Tab] 40 mg PO BID 02/18/17 02/21/17 History Allergies Allergy/AdvReac Type Severity Reaction Status Date / Time codeine Allergy Nausea Verified 02/12/17 03:55 ketorolac [From Toradol] Allergy ANAPHYLAXIS Verified 02/12/17 03:55 nitroglycerin Allergy Weakness Verified 02/12/17 03:55 tramadol [From Ultram] Allergy ANAPHYLAXIS Verified 02/12/17 03:55 Hydromorphone [From Dilaudid] AdvReac Difficulty Verified 02/12/17 03:55 Breathing - Constitutional Constitutional: Present: fatigue, malaise. Absent: anorexia, chills, daytime sleepiness, excessive sweating, fever(s), frequent falls, headache(s) - EENT Eyes: Absent: blurry vision Nose, mouth and throat: Absent: dysphagia, epistaxis, headache(s) - Cardiovascular Cardiovascular: Present: chest pain at rest, diaphoresis, dyspnea, dyspnea on exertion, edema, orthopnea, palpitations. Absent: chest pain with activity, lightheadedness - Respiratory Respiratory: Present: cough, dyspnea, dyspnea on exertion, wheezing. Absent: hemoptysis - Gastrointestinal Gastrointestinal: Present: nausea. Absent: abdominal pain, change in bowel habits, coffee ground emesis, constipation, hematemesis, vomiting - Genitourinary Genitourinary: Absent: abnormal vaginal bleeding, difficulty urinating, dysuria , hematuria - Musculoskeletal Musculoskeletal: Present: back pain - Neurological Neurological: Absent: abnormal gait, abnormal speech, behavioral changes, confusion - Psychiatric Psychiatric: Present: depression - Endocrine Endocrine: Present: fatigue. Absent: cold intolerance, heat intolerance Medical,Surgical,& Family Hx - Medical History Cardio: History of: Cardiac Dysrhythmia (A Fib), CHF, CAD, Hypertension, NC, Pacemaker Psychological: History of: Anxiety Disorders Endocrine: History of: Diabetes Mellitus (NIDDM) ("borderline"), Dyslipidemia Respiratory: No history of: Obstructive Sleep Apnea (Patient has never had formal PSG and HST was technically inadequate), Respiratory Problems Gastrointestinal: History of: Diverticulitis/ Diverticulosis - Surgical History Cardiac Surgeries: Sugical HX of: Cardiac Catheterization, Cardiac Surgery ( pacemaker (2013); stents (2011);) Thoracic Surgeries: Patient denies;: Organ Transplant Neurologic Surgeries: Patient denies: Neurologic Surgery HEENT Surgeries: Surgical HX of: Tonsilectomy & Adenoidectomy Abdominal Surgeries: Surgical HX of: Cholecystectomy Reproductive Surgeries: Surgical HX of;: Breast Surgery (reduction), Section Patient denies;: Genitourinary Surgery - Family History Family History: Reports;: Family Cancer (sisters, breast), Family Diabetes ( mother and father), Family Heart Disease (mother and father), Family Stroke ( mother) - Social History Smoking Status: Former smoker Frequency of Alcohol Use: None Type of Drug Use: None Cardiology Physical Exam - Constitutional Vitals: Vital Signs Temp Pulse Resp BP Pulse Ox 96.8 F L 63 22 122/57 99 02/21/17 06:36 02/21/17 11:30 02/21/17 11:30 02/21/17 11:30 02/21/17 11:30 Intake and Output 02/20/17 02/21/17 02/21/17 23:59 07:59 15:59 Other: Weight 400 lb Patient Weight 02/21/17 23:59 Weight 400 lb Exam: General appearance: Obese, no acute distress - Head Head exam: Present: normal inspection, normocephalic, atraumatic. Absent: hematoma, laceration - Eye Eye exam: Present: EOMI. Absent: conjunctival injection, nystagmus, periorbital swelling, scleral icterus, laceration to eyelids Pupils: Present: YARED. Absent: constricted, dilated, fixed, irregular, unequal - ENT ENT exam: Present: normal exam, normal external ear exam - Neck Neck exam: Present: Exam limited by habitus, overall normal inspection. Absent : lymphadenopathy, meningismus, tenderness, thyromegaly - Respiratory Respiratory exam: Present: Exam limited by habitus, overall clear to auscultation bilaterally. Absent: accessory muscle use, chest wall tenderness - Cardiovascular Cardiovascular exam: Present: Exam limited by habitus, tones in general distant but overall regular rate and rhythm. Absent: carotid bruit, gallop, JVD, rubs - GI/Abdominal GI/Abdominal exam: Present: Exam limited by habit, although it is protuberant with significant edema, and thickening and coarseness to the lower pannus consistent with chronic edema. Absent: Mass, tenderness, rebound, guarding - Extremities Exam Extremities exam: Present: There is 4+ bilateral lower extremity edema, no clubbing or cyanosis. - Back Exam Back exam: Present: normal inspection. Absent: muscle spasm, vertebral tenderness - Neurological Exam Neurological exam: Present: alert, oriented X3, grossly intact without resting or intention tremor - Psychiatric Psychiatric exam: Present: normal affect, she is tearful and somewhat despondent - Skin Skin exam: Present: normal color, warm, dry, intact. Absent: cyanosis, diaphoretic, rash, urticaria Result/EKG - Labs CBC & BMP: 02/21/17 06:54 02/21/17 06:54 Lab Results: I have reviewed the past 24 hour labs Labs: Laboratory Results - last 24 hr 02/21/17 02/21/17 02/21/17 06:53 06:53 06:53 WBC RBC Hgb Hct MCV MCH MCHC RDW Plt Count MPV Neut % (Auto) Lymph % (Auto) [place]ven % (Auto) Eos % (Auto) Baso % (Auto) Neut # (Auto) Lymph # (Auto) [place] # (Auto) Eos # (Auto) Baso # (Auto) Immature Gran % Nucleated RBC % Immature Gran # Nucleated RBCs # Immature Plt Fraction INR 1.6 PT Patient/Control Mix 17.0 Circ Anticoag PTT 30.5 Sodium Potassium Chloride Carbon Dioxide Anion Gap BUN Creatinine GFR Calculation BUN/Creatinine Ratio Glucose Calculated Osmolality Calcium Total Bilirubin AST ALT Alkaline Phosphatase Troponin I Total Protein Albumin Globulin Albumin/Globulin Ratio Lipase 132.0 Urine Color Yellow Urine Appearance Slightly hazy Urine pH 5.0 Ur Specific Randall 1.012 Urine Protein Negative Urine Glucose (UA) Negative Urine Ketones Negative Urine Blood Moderate Urine Nitrate Negative Urine Bilirubin Negative Urine Urobilinogen < 2.0 H Urine Leukocytes Negative Urine RBC 6 Urine WBC 2 Ur Squamous Epith Cells Occasional Urine Bacteria Occasional Ur Culture Indicated? Not indicated Urine Opiates Screen Ur Barbiturates Screen Ur Phencyclidine Scrn U Amphetamine/Methamph U Benzodiazepines Scrn U Cocaine Metab Screen U Cannabinoids Screen 02/21/17 02/21/17 02/21/17 06:53 06:54 06:54 WBC 12.9 H D RBC 4.82 Hgb 14.6 Hct 45.4 MCV 94.2 MCH 30 MCHC 32.2 RDW 13.9 Plt Count 175 MPV 10.8 Neut % (Auto) 70.0 Lymph % (Auto) 17.5 L Craven % (Auto) 10.6 Eos % (Auto) 1.3 Baso % (Auto) 0.3 Neut # (Auto) 9.0 H Lymph # (Auto) 2.3 Craven # (Auto) 1.4 H Eos # (Auto) 0.2 Baso # (Auto) 0.0 Immature Gran % 0.3 Nucleated RBC % 0.0 Immature Gran # 0.04 Nucleated RBCs # 0.00 Immature Plt Fraction 0.0 INR PT Patient/Control Mix Circ Anticoag PTT Sodium 137 Potassium 3.3 L Chloride 91 L Carbon Dioxide 40 H Anion Gap 9.3 BUN 21 H Creatinine 1.10 H GFR Calculation 84 BUN/Creatinine Ratio 19.00 Glucose 112 H Calculated Osmolality 276.8 Calcium 8.7 Total Bilirubin 1.20 H AST 40 H ALT 49 Alkaline Phosphatase 83 Troponin I Total Protein 7.7 Albumin 3.2 L Globulin 4.5 H Albumin/Globulin Ratio 0.7 L Lipase Urine Color Urine Appearance Urine pH Ur Specific Randall Urine Protein Urine Glucose (UA) Urine Ketones Urine Blood Urine Nitrate Urine Bilirubin Urine Urobilinogen Urine Leukocytes Urine RBC Urine WBC Ur Squamous Epith Cells Urine Bacteria Ur Culture Indicated? Urine Opiates Screen Negative Ur Barbiturates Screen Negative Ur Phencyclidine Scrn Negative U Amphetamine/Methamph Negative U Benzodiazepines Scrn Positive H U Cocaine Metab Screen Negative U Cannabinoids Screen Negative 02/21/17 02/21/17 06:54 10:56 WBC RBC Hgb Hct MCV MCH MCHC RDW Plt Count MPV Neut % (Auto) Lymph % (Auto) [place] % (Auto) Eos % (Auto) Baso % (Auto) Neut # (Auto) Lymph # (Auto) [place] # (Auto) Eos # (Auto) Baso # (Auto) Immature Gran % Nucleated RBC % Immature Gran # Nucleated RBCs # Immature Plt Fraction INR PT Patient/Control Mix Circ Anticoag PTT Sodium Potassium Chloride Carbon Dioxide Anion Gap BUN Creatinine GFR Calculation BUN/Creatinine Ratio Glucose Calculated Osmolality Calcium Total Bilirubin AST ALT Alkaline Phosphatase Troponin I < 0.015 < 0.015 Total Protein Albumin Globulin Albumin/Globulin Ratio Lipase Urine Color Urine Appearance Urine pH Ur Specific Randall Urine Protein Urine Glucose (UA) Urine Ketones Urine Blood Urine Nitrate Urine Bilirubin Urine Urobilinogen Urine Leukocytes Urine RBC Urine WBC Ur Squamous Epith Cells Urine Bacteria Ur Culture Indicated? Urine Opiates Screen Ur Barbiturates Screen Ur Phencyclidine Scrn U Amphetamine/Methamph U Benzodiazepines Scrn U Cocaine Metab Screen U Cannabinoids Screen - Diagnostic Findings Procedure: Chest x-ray: report reviewed by me - EKG EKG results: interpreted by me (Ventricular paced rhythm) Jose F Carlton Jennifer, MD, personally performed the services described in this documentation, ascribed by Cyn Moffett NP in my presence, and it is both accurate and complete [id number] .
[2017-02-21] MEDS ORDERED: WARFARIN 7.5 MG TABLET PO SCH (19:00)
[2017-02-21] MEDS: ALBUTEROL/IPRATROPIUM 3 ML NEB RESP TX SCH (19:42)
[2017-02-21] MEDS: ALBUTEROL 2.5 MG/3 ML NEB RESP TX SCH (20:48)
[2017-02-21] MEDS: ATORVASTATIN 20 MG TABLET PO SCH (20:55)
[2017-02-21] MEDS: CARVEDILOL 6.25 MG TABLET PO SCH (20:55)
[2017-02-21] MEDS: GABAPENTIN 400 MG CAPSULE PO SCH (20:56)
[2017-02-21] MEDS: ALPRAZolam 0.5 MG TABLET PO SCH (20:56)
[2017-02-21] MEDS: FUROSEMIDE 40 MG/4 ML VIAL IV SCH (20:57)
[2017-02-21] MEDS: tiZANidine 4 MG TABLET PO PRN (21:04)
[2017-02-21] MEDS: POTASSIUM CHLORIDE 20 MEQ TABLET PO SCH (21:04)
[2017-02-22 05:30] LABS: Basophils % 0.4 % (0.0-0.8); Eosinophils # 0.2 10*3/uL (0.0-0.87); Eosinophils % 1.7 % (0.00-10.9); Hematocrit 39.9 VOL% (35.7-47.0); Hemoglobin 12.9 GM/DL (12.0-16.0); Immature Granulocytes % 0.4 %; Immature Granulocytes Absolute 0.04 #; Lymphocytes # 1.9 10*3/uL (1.4-4.0); Lymphocytes % 19.4 % (21.3-54.2); Mean Corpuscular HGB Conc 32.3 GM/DL (32-36); Mean Corpuscular Hemoglobin 31 PG (27-34); Mean Corpuscular Volume 95.5 FL (87-102); Mean Platelet Volume 11.8 FL (9.6-12.0); Monocytes # 1.3 10*3/uL (0.11-0.8); Monocytes % 13.7 % (1.7-12.7); Neutrophils # 6.2 10*3/uL (1.4-7.4); Neutrophils % 64.4 % (38.7-73.9); Platelet Count 169 T/CUMM (130-400); Red Blood Count 4.18 MC/CUMM (3.8-5.5); Red Cell Distribution Width 14.1 % (9.3-17.3); White Blood Count 9.6 T/CUMM (4-12)
[2017-02-22 06:13] LABS: Blood Urea Nitrogen 18 MG/DL (7-18); Calcium 8.1 MG/DL (8.5-10.1); Glucose 113 MG/DL (74-106); Magnesium 1.6 MG/DL (1.8-2.4); Osmolality,Calculated 275.8 MOS/KG (273-304); Potassium 3.1 MMOL/L (3.5-5.1); Sodium 137 MMOL/L (136-145); Troponin I Only < 0.015 NG/ML (0.00-0.045)
--- NOTE | 2017-02-22 06:42 | EKG Report ---
Stationary ECG Study [facility] Test Date: 02/21/2017 6:15:26 PM Pat Name: ZUHAIR CONDON Department: Room: 286 Gender: F Board Turner: NATALIA : 1960 Requested by: Melida Singh Order Number: [id number] Reading MD: SELENE KOWALSKI Intervals Wilson Rate: 60 P: 999 DC: 0 QRS: -80 QRSD: 195 T: 104 QT: 501 QTc: 502 Interpretive Statements ELECTRONIC VENTRICULAR PACEMAKER ABNORMAL RHYTHM ECG Electronically Signed On 02-22-17 13:57:50 CDT by SELENE KOWALSKI [email or web address]
[2017-02-22] MEDS: ALBUTEROL/IPRATROPIUM 3 ML NEB RESP TX SCH ×3 (07:26→19:34)
[2017-02-22] MEDS: ALBUTEROL 2.5 MG/3 ML NEB RESP TX SCH ×2 (08:41→08:42)
[2017-02-22] MEDS ORDERED: ZINC OXIDE PASTE 113 GM TUBE TOP PRN (10:11)
--- NOTE | 2017-02-22 12:21 | CT Report ---
Exam: CT chest PE study Date: 02/22/2017 8:00 AM Indication: Chest pain shortness of breath Comparison: Routine chest radiograph 02/18/[address] 05/14/2015 Technical: Images were obtained from the thoracic inlet through the lung bases with 80 cc of Omnipaque 350 with axial and coronal imaging available for review. Dose reduction was performed with decreasing kv and mA and automated exposure. 3-D MIP images were obtained Findings: Cardiac pacing device is in place from a left-sided approach underlying cardiomegaly is present. The thyroid gland trachea and esophagus are unremarkable. The pulmonary outflow tract, left and right proximal pulmonary arteries, first-order, second-order and third order branches reveal no evidence of pulmonary thromboemboli. The lungs are demonstrated with atelectatic changes and infiltrates in the basilar regions left greater than right. No obvious effusion in the right base with a tiny left effusion present. Liver is unremarkable. Some splenic granuloma changes are present. Previous cholecystectomy clips are present. The stomach is incompletely distended. The pancreas is unremarkable. The adrenal glands are intact. The proximal left kidney is unremarkable. Degenerative changes are present thoracic lumbar spine Impression: 1. No evidence of pulmonary embolus present. 2. Left lower lobe pneumonic infiltrate and/or atelectatic change with effusion with minimal dependent atelectatic change infiltrate the right base present. 3. Previous cholecystectomy 4. Cardiomegaly and stepsister cardiac pacing device. PROCEDURE INTERPRETED AT [facility] DEPARTMENT OF RADIOLOGY Final Report Signed by: Dr. Jose G Lay
[2017-02-22] MEDS: POTASSIUM CHLORIDE RIDER 10 MEQ in PREMIX 1 EACH IV SCH ×4 (12:22→14:00)
[2017-02-22] MEDS: ALPRAZolam 0.5 MG TABLET PO SCH ×2 (12:48→16:10)
[2017-02-22] MEDS: GABAPENTIN 400 MG CAPSULE PO SCH ×3 (12:48→20:56)
[2017-02-22] MEDS: FUROSEMIDE 40 MG/4 ML VIAL IV SCH ×2 (12:48→16:10)
[2017-02-22] MEDS: ASPIRIN EC 81 MG TABLET PO SCH (12:49)
[2017-02-22] MEDS: tiZANidine 4 MG TABLET PO PRN ×2 (12:49→20:56)
[2017-02-22] MEDS: PANTOPRAZOLE 40 MG TABLET PO SCH (12:49)
[2017-02-22] MEDS: CARVEDILOL 6.25 MG TABLET PO SCH ×2 (12:49→20:56)
[2017-02-22] MEDS: POTASSIUM CHLORIDE 20 MEQ TABLET PO SCH ×2 (12:49→20:56)
[2017-02-22] MEDS: MAGNESIUM SULF RIDER 2 GM in PREMIX 1 EACH IV PRN (12:58)
--- NOTE | 2017-02-22 14:38 | Ultrasound Report ---
Exam: US abdomen Date:02/22/2017 Indication: Ascites Comparison: 01/06/2008 Findings: Liver: 18 cm. The hepatic and portal veins are patent. No focal mass is present Gallbladder: Previous cholecystectomy. CBD: 7 mm Pancreas: Normal size shape and configuration on the visualized portion present. Kidneys Right kidney: 12 x 4.9 x 5.5 cm. No hydronephrosis perinephric fluid collection or focal mass. Left kidney: 12.0 x 5.7 x 5 cm. No hydronephrosis perinephric fluid collections. Aorta IVC: Obscured by bowel gas Spleen: 11.6 x 3.8 x 4.7 cm. Ascites: None Impression: 1. Previous cholecystectomy. 2. Obscured aorta IVC and portion of the pancreas without obvious abnormalities 3. No obvious ascites Ultrasound images were stored and captured PROCEDURE INTERPRETED AT [facility] DEPARTMENT OF RADIOLOGY Final Report Signed by: Dr. Jose G Lay
--- NOTE | 2017-02-22 15:29 | Post Interventional Procedure ---
Pre-op diagnosis: No IV access Shortness of breath Post-op diagnosis: same Procedure: Left arm PICC line. Ultrasound guidance for vascular access Radiologist: Luda Brown Anesthesia: local Specimens: none sent Estimated blood loss: none Complications: none Condition: stable Description/Findings: A formal timeout was performed. Sonographic evaluation of the left upper extremity demonstrates patent and compressible basilic vein. Maximum sterile barrier technique was utilized. The upper arm was prepped and draped in sterile fashion. 3 cc 1% lidocaine was administered subcutaneously. Under sonographic guidance, a micropuncture needle was advanced into the vein by this radiologist. A captured sonographic image documents the position of the needle. Needle was exchanged over a wire for a peel-away sheath. A dual lumen power PICC, cut to 50 cm, was advanced over the wire until the tip was at the RA -SVC junction. The position of the catheter was confirmed with fluoroscopic guidance and an image stored in PACS. The wire and sheath were removed. Both ports of the PICC were aspirated and flushed with heparinized saline. The device was secured with a StatLock. Fluoroscopy: 0.7 minutes. Images captured and stored in PACS: 1 Impression: PICC line ready for immediate use. Routine catheter care Assessment and Plan - Time spent with patient Time spent with patient: Less than 30 minutes
--- NOTE | 2017-02-22 15:33 | Interventional Radiology Rpt ---
History: No IV access. Shortness of breath Date: 02/22/2017 Study: Left arm PICC line. Ultrasound guidance for vascular access Comparison exam: No previous Description: A formal timeout was performed. Sonographic evaluation of the left upper extremity demonstrates patent and compressible basilic vein. Maximum sterile barrier technique was utilized. The upper arm was prepped and draped in sterile fashion. 3 cc 1% lidocaine was administered subcutaneously. Under sonographic guidance, a micropuncture needle was advanced into the vein by this radiologist. A captured sonographic image documents the position of the needle. Needle was exchanged over a wire for a peel-away sheath. A dual lumen power PICC, cut to 50 cm, was advanced over the wire until the tip was at the RA-SVC junction. The position of the catheter was confirmed with fluoroscopic guidance and an image stored in PACS. The wire and sheath were removed. Both ports of the PICC were aspirated and flushed with heparinized saline. The device was secured with a StatLock. Fluoroscopy: 0.7 minutes. Images captured and stored in PACS: 1 Impression: PICC line ready for immediate use. Routine catheter care. PROCEDURE INTERPRETED AT [facility] DEPARTMENT OF RADIOLOGY Final Report Signed by: Dr. Luda Brown
[2017-02-22] MEDS: ENOXAPARIN 80 MG/0.8 ML SYRINGE SUBCUT SCH (16:09)
[2017-02-22] MEDS: LEVOFLOXACIN 500 MG TABLET PO SCH (16:10)
--- NOTE | 2017-02-22 18:11 | Cardiology Progress Note ---
Zuhair Carlton Lesley, NP, am scribing for, and in the presence of, Roseline Kohler MD 18:10. Assessment and Plan - Time spent with patient Time spent with patient: Greater than 30 minutes (Record review, assessment, and documentation) (1) Chest pain Status: Acute Assessment and plan: SEE PLAN LISTED BELOW Current Visit: Yes (2) Coronary artery disease Status: Acute Assessment and plan: SEE PLAN LISTED BELOW Current Visit: Yes (3) CHF (congestive heart failure) Status: Acute Assessment and plan: SEE PLAN LISTED BELOW Current Visit: No Qualifiers: Congestive heart failure type: diastolic Congestive heart failure chronicity: acute on chronic Qualified Code(s): I50.33 - Acute on chronic diastolic (congestive) heart failure (4) Dyspnea Status: Acute Assessment and plan: SEE PLAN LISTED BELOW Current Visit: No (5) Obstructive sleep apnea Status: Chronic Assessment and plan: SEE PLAN LISTED BELOW Current Visit: No (6) Hypertension Status: Chronic Assessment and plan: SEE PLAN LISTED BELOW Current Visit: No Qualifiers: Hypertension type: essential hypertension Qualified Code(s): I10 - Essential (primary) hypertension (7) Pacemaker Status: Chronic Assessment and plan: SEE PLAN LISTED BELOW Current Visit: No (8) Anasarca Status: Chronic Assessment and plan: SEE PLAN LISTED BELOW Current Visit: Yes Cardiology - PN: Subj Interval history: 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 Hodges Ms. Ortez is A 56 year old female, who was recently discharged from the hospital on 02/15/17. Records indicate she came back to the ER on 02/18/17 for complaints of shortness of breath and chest pain, but was discharged home due to a lack of diagnostic evidence to support admission. She was admitted to cardiology service with complaints of shortness of breath and chest pain. Cardiac risk factors include known CAD ([facility] 2010 reveal patient distal RCA), morbid obesity, hypertension, dyslipidemia, diabetes, sedentary lifestyle , chronic congestive heart failure secondary to diastolic dysfunction, NYHA Class III. and noncompliance. Past medical history positive for sleep apnea, noncompliant with device. History of atrial flutter, DARCY April 2015 revealed left atrial appendage clot. 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 She takes Coumadin for stroke prevention. Echocardiogram February 12, 2017 revealed: EF 55%, mild LVH, no significant valvular abnormality, PAP 28 mmHg. Frequent hospitalizations for volume overload, shortness of breath, atypical chest pain. She denies smoking, alcohol use, or drug use. 02/22/17: The patient was seen sitting on side of the bed this morning. She has been held NPO for pending abdominal ultrasound. A PICC line is been ordered so that the patient may have CTA PE protocol today, both of which are pending. Vital signs have remained stable, patient is afebrile, secured entrance monitor and EKG revealed paced rhythm. Labs reviewed: H&H stable, sodium 137, potassium 3.1 (plan to replete), BUN 18, creatinine 0.9, glucose 113, troponin CK-MB and creatinine kinase are negative. Will recheck potassium and pending CT and ultrasound results. ASSESSMENT/PLAN: 1. CHEST PAIN -troponins cycled and negative. Ultimately we will may need to consider cardiac catheterization. I would like to rule out pulmonary embolism, her INR is subtherapeutic. 2. DYSPNEA - continue to monitor, oxygen as needed. She has significant peripheral edema although her recent BNP was very low, the one from this admission is pending. I am going to rule out pulmonary embolism. 3. CONGESTIVE HEART FAILURE -chronic secondary to diastolic dysfunction, NYHA Class III-IV. strict I & O, daily weights. This symptomatology seems to be multifactorial and I do not know that is not really necessarily secondary to "congestive heart failure". 4. HYPERTENSION - controlled, monitor and adjust meds accordingly. 5. STATUS POST PPM -continue current plan of care. 6. OBSTRUCTIVE SLEEP APNEA -noncompliant with outpatient follow-up. 7. KNOWN CAD -[facility] 2010 revealed patent distal RCA 8. ANASARCA - Severe abdominal & bilateral lower extremity edema which is disproportionate to her systolic function, diastolic dysfunction and renal function. Some of this may be secondary to her high dose gabapentin, will decrease to 400 mg. We are going to diurese her but will need to watch her kidney function carefully. We will check an abdominal ultrasound to try to further evaluate this. 9. HYPOKALEMIA - 3.1, will replete and recheck potassium. Exam (Progress Note) - Constitutional Vitals: Period Temp Pulse Resp BP Sys/Way Pulse Ox Last 24 Hr 97.1 F-97.5 F 60-78 16-22 114-137/57-84 90-100 Exam: General: Obese, appears well with no apparent distress. Pleasant and cooperative. Appears comfortable. HEENT: PERRL, normocephalic, atraumatic. Mucous membranes moist. No jaundice noted. Conjunctiva moist and clear, sclerae anicteric. Neck: No JVD/HJR, no thyromegaly or lymphadenopathy noted. No carotid bruit appreciated. Cardiac: Regular rate and rhythm. No murmur rub or gallop. PMI is nondisplaced. Lungs: Clear to auscultation without accessory muscle use to assist the respiratory pattern. Oxygen in use via nasal cannula. Abdomen: Significantly distended with some degree of ascites and tense skin changes in the lower abdomen consistent with chronic edema, overall soft with normal bowel sounds. Musculoskeletal: Anasarca noted to bilateral lower extremities and abdomen, skin on lower abdomen rough with orange peel appearance. Moves all extremities fully. Extremities: No clubbing, cyanosis noted. There is 3-4+ edema. Upper extremity pulses 2+. Lower extremity pulses 2+. Capillary refill less than 3 seconds. Skin: Warm and dry. No unusual lesions or rashes. No skin breakdown appreciated. Neuro: Awake, alert and oriented 3. Moves all extremities well without hemiparesis or paralysis. No essential tremor is appreciated. Result/EKG - Labs CBC & BMP: 02/22/17 05:13 02/22/17 16:29 Lab Results: I have reviewed the past 24 hour labs Labs: Laboratory Results - last 24 hr 02/21/17 02/21/17 02/21/17 13:17 22:12 22:12 WBC RBC Hgb Hct MCV MCH MCHC RDW Plt Count MPV Neut % (Auto) Lymph % (Auto) [place] % (Auto) Eos % (Auto) Baso % (Auto) Neut # (Auto) Lymph # (Auto) [place] # (Auto) Eos # (Auto) Baso # (Auto) Immature Gran % Nucleated RBC % Immature Gran # Nucleated RBCs # Immature Plt Fraction Sodium Potassium Chloride Carbon Dioxide Anion Gap BUN Creatinine GFR Calculation BUN/Creatinine Ratio Glucose Calculated Osmolality Calcium Magnesium Total Creatine Kinase CK-MB (CK-2) Troponin I < 0.015 0.017 B-Natriuretic Peptide 35 02/21/17 02/22/17 02/22/17 22:12 05:13 05:13 WBC 9.6 RBC 4.18 Hgb 12.9 Hct 39.9 MCV 95.5 MCH 31 MCHC 32.3 RDW 14.1 Plt Count 169 MPV 11.8 Neut % (Auto) 64.4 Lymph % (Auto) 19.4 L [place] % (Auto) 13.7 H Eos % (Auto) 1.7 Baso % (Auto) 0.4 Neut # (Auto) 6.2 Lymph # (Auto) 1.9 [place] # (Auto) 1.3 H Eos # (Auto) 0.2 Baso # (Auto) 0.0 Immature Gran % 0.4 Nucleated RBC % 0.0 Immature Gran # 0.04 Nucleated RBCs # 0.00 Immature Plt Fraction 0.0 Sodium 137 Potassium 3.1 L Chloride 94 L Carbon Dioxide 38 H Anion Gap 8.1 BUN 18 Creatinine 0.90 GFR Calculation 111 BUN/Creatinine Ratio 20.00 Glucose 113 H Calculated Osmolality 275.8 Calcium 8.1 L Magnesium 1.4 L 1.6 L Total Creatine Kinase 58 D CK-MB (CK-2) 1.5 Troponin I < 0.015 B-Natriuretic Peptide - EKG EKG results: interpreted by me (paced rhythm) Jose F Carlton Jennifer, MD, personally performed the services described in this documentation, ascribed by Cyn Moffett NP in my presence, and it is both accurate and complete .
[2017-02-22] MEDS: ATORVASTATIN 20 MG TABLET PO SCH (20:56)
[2017-02-22] MEDS: MAGNESIUM OXIDE 400 MG TABLET PO SCH (20:57)
[2017-02-23] MEDS: ENOXAPARIN 80 MG/0.8 ML SYRINGE SUBCUT SCH ×2 (02:44→13:56)
[2017-02-23] MEDS: POTASSIUM CHLORIDE 20 MEQ TABLET PO PRN ×2 (05:24→07:16)
[2017-02-23] MEDS: ALBUTEROL/IPRATROPIUM 3 ML NEB RESP TX SCH ×3 (06:55→19:24)
[2017-02-23] MEDS: GABAPENTIN 400 MG CAPSULE PO SCH ×2 (09:20→16:10)
[2017-02-23] MEDS: FUROSEMIDE 40 MG/4 ML VIAL IV SCH ×3 (09:20→16:11)
[2017-02-23] MEDS: tiZANidine 4 MG TABLET PO PRN ×3 (09:20→22:14)
[2017-02-23] MEDS: ASPIRIN EC 81 MG TABLET PO SCH (09:21)
[2017-02-23] MEDS: CARVEDILOL 6.25 MG TABLET PO SCH ×2 (09:21→21:06)
[2017-02-23] MEDS: POTASSIUM CHLORIDE 20 MEQ TABLET PO SCH ×2 (09:21→21:06)
[2017-02-23] MEDS: PANTOPRAZOLE 40 MG TABLET PO SCH (09:21)
[2017-02-23] MEDS: ALPRAZolam 0.5 MG TABLET PO SCH ×2 (09:21→16:10)
[2017-02-23] MEDS: MAGNESIUM OXIDE 400 MG TABLET PO SCH ×2 (09:22→21:05)
[2017-02-23 09:58] LABS: Basophils % 0.3 % (0.0-0.8); Eosinophils # 0.2 10*3/uL (0.0-0.87); Eosinophils % 2.6 % (0.00-10.9); Hematocrit 41.5 VOL% (35.7-47.0); Hemoglobin 13.1 GM/DL (12.0-16.0); Immature Granulocytes % 0.7 %; Immature Granulocytes Absolute 0.06 #; Lymphocytes # 1.6 10*3/uL (1.4-4.0); Lymphocytes % 18.5 % (21.3-54.2); Mean Corpuscular HGB Conc 31.6 GM/DL (32-36); Mean Corpuscular Hemoglobin 31 PG (27-34); Mean Corpuscular Volume 96.5 FL (87-102); Mean Platelet Volume 11.7 FL (9.6-12.0); Monocytes # 1.2 10*3/uL (0.11-0.8); Monocytes % 14.1 % (1.7-12.7); Neutrophils # 5.6 10*3/uL (1.4-7.4); Neutrophils % 63.8 % (38.7-73.9); Platelet Count 171 T/CUMM (130-400); Red Cell Distribution Width 13.9 % (9.3-17.3); White Blood Count 8.8 T/CUMM (4-12)
[2017-02-23 10:24] LABS: Calcium 8.2 MG/DL (8.5-10.1); Magnesium 1.8 MG/DL (1.8-2.4); Osmolality,Calculated 269.2 MOS/KG (273-304); Potassium 3.7 MMOL/L (3.5-5.1)
[2017-02-23] MEDS: LEVOFLOXACIN 500 MG TABLET PO SCH (13:55)
--- NOTE | 2017-02-23 19:03 | Cardiology Progress Note ---
Zuhair Carlton Lesley, NP, am scribing for, and in the presence of, Roseline Kohler MD 19:02. Assessment and Plan (1) Chest pain Status: Acute Assessment and plan: SEE PLAN LISTED BELOW Current Visit: Yes (2) Coronary artery disease Status: Acute Assessment and plan: SEE PLAN LISTED BELOW Current Visit: Yes (3) CHF (congestive heart failure) Status: Acute Assessment and plan: SEE PLAN LISTED BELOW Current Visit: No Qualifiers: Congestive heart failure type: diastolic Congestive heart failure chronicity: acute on chronic Qualified Code(s): I50.33 - Acute on chronic diastolic (congestive) heart failure (4) Dyspnea Status: Acute Assessment and plan: SEE PLAN LISTED BELOW Current Visit: No (5) Obstructive sleep apnea Status: Chronic Assessment and plan: SEE PLAN LISTED BELOW Current Visit: No (6) Hypertension Status: Chronic Assessment and plan: SEE PLAN LISTED BELOW Current Visit: No Qualifiers: Hypertension type: essential hypertension Qualified Code(s): I10 - Essential (primary) hypertension (7) Pacemaker Status: Chronic Assessment and plan: SEE PLAN LISTED BELOW Current Visit: No (8) Anasarca Status: Chronic Assessment and plan: SEE PLAN LISTED BELOW Current Visit: Yes (9) Pneumonia Status: Acute Assessment and plan: SEE PLAN LISTED BELOW Current Visit: Yes Cardiology - PN: Subj 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 Ortez is A 56 year old female, who was recently discharged from the hospital on 02/15/17. Records indicate she came back to the ER on 02/18/17 for complaints of shortness of breath and chest pain, but was discharged home due to a lack of diagnostic evidence to support admission. She was admitted to cardiology service with complaints of shortness of breath and chest pain. Cardiac risk factors include known CAD ([facility] 2010 reveal patient distal RCA), morbid obesity, hypertension, dyslipidemia, diabetes, sedentary lifestyle , chronic congestive heart failure secondary to diastolic dysfunction, NYHA Class III. and noncompliance. Past medical history positive for sleep apnea, noncompliant with device. History of atrial flutter, DARCY April 2015 revealed left atrial appendage clot. 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 She takes Coumadin for stroke prevention. Echocardiogram February 12, 2017 revealed: EF 55%, mild LVH, no significant valvular abnormality, PAP 28 mmHg. Frequent hospitalizations for volume overload, shortness of breath, atypical chest pain. She denies smoking, alcohol use, or drug use. 02/22/17: The patient was seen sitting on side of the bed this morning. She has been held NPO for pending abdominal ultrasound. A PICC line is been ordered so that the patient may have CTA PE protocol today, both of which are pending. Vital signs have remained stable, patient is afebrile, compliance monitor and EKG revealed paced rhythm. Labs reviewed: H&H stable, sodium 137, potassium 3.1 (plan to replete), BUN 18, creatinine 0.9, glucose 113, troponin CK-MB and creatinine kinase are negative. Will recheck potassium and pending CT and ultrasound results. 02/23/17: The patient looks and feels slightly better today. She does not have increasing neuropathy despite decreasing her Neurontin. She is resting in bed during exam. Vital signs stable, oxygen saturation 92% on room air. Eyes and is reviewed, the patient states she has been weighed on the bed, question the accuracy of weights recorded. Labs reviewed: Sodium 134, potassium 3.7 and creatinine 1.0, BNP 77. CBC stable, WBCs 8800. Patient underwent PICC placement yesterday so she can have chest CT. Chest CT negative for pulmonary embolus, however left lower lobe pneumonia infiltrate with effusion and minimal dependent atelectatic infiltrate in the right base, cardiomegaly and cardiac pacing device noted. The patient was started on Levaquin. Abdominal ultrasound revealed a previous cholecystectomy, the aortic IVC and a portion of the pancreas were obscured but without obvious abnormalities, no ascites, otherwise unremarkable. Her anasarca lower abdomen and leg has improved somewhat, although her weight is not reflective of this. Further recommendations to follow by Dr. Kohler. ASSESSMENT/PLAN: 1. CHEST PAIN -troponins cycled and negative. Ultimately we will may need to consider cardiac catheterization. I would like to rule out pulmonary embolism, her INR is subtherapeutic. She is on Lovenox therapeutic dose. 2. DYSPNEA - continue to monitor, oxygen as needed. She has significant peripheral edema although her recent BNP was very low, 35 and 77. Pulmonary embolism has been ruled out. 3. CONGESTIVE HEART FAILURE -chronic secondary to diastolic dysfunction, NYHA Class III-IV. strict I & O, daily weights. This symptomatology seems to be multifactorial and I do not know that is not really necessarily secondary to "congestive heart failure". Her BNP is very low. She seems to have significant peripheral edema. 4. HYPERTENSION - controlled, monitor and adjust meds accordingly. 5. STATUS POST PPM -continue current plan of care. 6. OBSTRUCTIVE SLEEP APNEA -noncompliant with outpatient follow-up. 7. KNOWN CAD -[facility] 2010 revealed patent distal RCA stent. 8. ANASARCA - Severe abdominal & bilateral lower extremity edema which is disproportionate to her systolic function, diastolic dysfunction and renal function. Some of this may be secondary to her high dose gabapentin, will decrease to 400 mg. We are going to diurese her but will need to watch her kidney function carefully. Abdominal ultrasound unremarkable for etiology 9. PNEUMONIA - Levaquin started. Exam (Progress Note) - Constitutional Vitals: Period Temp Pulse Resp BP Sys/Way Pulse Ox Last 24 Hr 96.5 F-97.8 F 44-66 15-22 109-129/58-74 92-97 Exam: General: Obese, appears well with no apparent distress. Pleasant and cooperative. Appears comfortable. HEENT: PERRL, normocephalic, atraumatic. Mucous membranes moist. No jaundice noted. Conjunctiva moist and clear, sclerae anicteric. Neck: No JVD/HJR, no thyromegaly or lymphadenopathy noted. No carotid bruit appreciated. Cardiac: Regular rate and rhythm. No murmur rub or gallop. PMI is nondisplaced. Lungs: Clear to auscultation without accessory muscle use to assist the respiratory pattern. Oxygen in use via nasal cannula. Abdomen: Soft, bowel sounds normoactive. It is protuberant with thickening consistent with chronic edema, no tenderness, no abdominal bruit or thrill noted. No masses noted. Musculoskeletal: bilateral lower extremities and abdomen with 3-4+ edema although it appears mildly improved, skin on lower abdomen rough with orange peel appearance. Moves all extremities fully. Extremities: No clubbing, cyanosis noted. Severe 3+ bilateral lower extremity edema. Upper extremity pulses 2+. Lower extremity pulses 2+. Capillary refill less than 3 seconds. Skin: Warm and dry. No unusual lesions or rashes. No skin breakdown appreciated. Neuro: Awake, alert and oriented 3. Moves all extremities well without hemiparesis or paralysis. No essential tremor is appreciated. Result/EKG - Labs CBC & BMP: 02/23/17 09:25 02/23/17 09:25 Lab Results: I have reviewed the past 24 hour labs Labs: Laboratory Results - last 24 hr 02/22/17 02/23/17 02/23/17 16:29 09:25 09:25 WBC 8.8 RBC 4.30 Hgb 13.1 Hct 41.5 MCV 96.5 MCH 31 MCHC 31.6 L RDW 13.9 Plt Count 171 MPV 11.7 Neut % (Auto) 63.8 Lymph % (Auto) 18.5 L [place] % (Auto) 14.1 H Eos % (Auto) 2.6 Baso % (Auto) 0.3 Neut # (Auto) 5.6 Lymph # (Auto) 1.6 [place] # (Auto) 1.2 H Eos # (Auto) 0.2 Baso # (Auto) 0.0 Immature Gran % 0.7 Nucleated RBC % 0.0 Immature Gran # 0.06 Nucleated RBCs # 0.00 Immature Plt Fraction 0.0 Sodium 134 L Potassium 3.2 L 3.7 Chloride 92 L Carbon Dioxide 38 H Anion Gap 7.7 BUN 19 H Creatinine 1.00 GFR Calculation 98 BUN/Creatinine Ratio 19.00 Glucose 107 H Calculated Osmolality 269.2 L Calcium 8.2 L Magnesium 1.8 B-Natriuretic Peptide 02/23/17 09:25 WBC RBC Hgb Hct MCV MCH MCHC RDW Plt Count MPV Neut % (Auto) Lymph % (Auto) [place] % (Auto) Eos % (Auto) Baso % (Auto) Neut # (Auto) Lymph # (Auto) [place] # (Auto) Eos # (Auto) Baso # (Auto) Immature Gran % Nucleated RBC % Immature Gran # Nucleated RBCs # Immature Plt Fraction Sodium Potassium Chloride Carbon Dioxide Anion Gap BUN Creatinine GFR Calculation BUN/Creatinine Ratio Glucose Calculated Osmolality Calcium Magnesium B-Natriuretic Peptide 77 - Diagnostic Findings Procedure: CT - chest: report reviewed by me, Ultrasound: report reviewed by me - EKG EKG results: interpreted by me (Paced rhythm) Specialty Discharge - Follow Up or Referrals IJose F Jennifer, MD, personally performed the services described in this documentation, ascribed by Cyn Moffett NP in my presence, and it is both accurate and complete .
[2017-02-23] MEDS: GABAPENTIN 100 MG CAPSULE PO SCH (21:05)
[2017-02-23] MEDS: ATORVASTATIN 20 MG TABLET PO SCH (21:06)
[2017-02-24] MEDS: ENOXAPARIN 80 MG/0.8 ML SYRINGE SUBCUT SCH ×2 (01:39→14:19)
[2017-02-24] MEDS: tiZANidine 4 MG TABLET PO PRN ×3 (04:32→21:28)
[2017-02-24 05:47] LABS: Basophils % 0.2 % (0.0-0.8); Eosinophils # 0.3 10*3/uL (0.0-0.87); Eosinophils % 2.9 % (0.00-10.9); Hematocrit 38.2 VOL% (35.7-47.0); Hemoglobin 12.3 GM/DL (12.0-16.0); Immature Granulocytes % 0.7 %; Immature Granulocytes Absolute 0.06 #; Lymphocytes # 1.5 10*3/uL (1.4-4.0); Lymphocytes % 17.3 % (21.3-54.2); Mean Corpuscular HGB Conc 32.2 GM/DL (32-36); Mean Corpuscular Hemoglobin 31 PG (27-34); Mean Corpuscular Volume 95.7 FL (87-102); Mean Platelet Volume 12.4 FL (9.6-12.0); Monocytes % 12.2 % (1.7-12.7); Neutrophils # 5.7 10*3/uL (1.4-7.4); Neutrophils % 66.7 % (38.7-73.9); Platelet Count 153 T/CUMM (130-400); Red Blood Count 3.99 MC/CUMM (3.8-5.5); Red Cell Distribution Width 13.8 % (9.3-17.3); White Blood Count 8.5 T/CUMM (4-12)
[2017-02-24 06:40] LABS: Calcium 8.4 MG/DL (8.5-10.1); Magnesium 1.9 MG/DL (1.8-2.4); Osmolality,Calculated 268.5 MOS/KG (273-304)
[2017-02-24] MEDS: ALBUTEROL/IPRATROPIUM 3 ML NEB RESP TX SCH ×3 (07:42→19:23)
[2017-02-24] MEDS: ASPIRIN EC 81 MG TABLET PO SCH (09:25)
[2017-02-24] MEDS: GABAPENTIN 100 MG CAPSULE PO SCH ×3 (09:25→21:28)
[2017-02-24] MEDS: MAGNESIUM OXIDE 400 MG TABLET PO SCH ×2 (09:26→21:28)
[2017-02-24] MEDS: CARVEDILOL 6.25 MG TABLET PO SCH ×2 (09:26→21:28)
[2017-02-24] MEDS: POTASSIUM CHLORIDE 20 MEQ TABLET PO SCH ×2 (09:26→21:28)
[2017-02-24] MEDS: ALPRAZolam 0.5 MG TABLET PO SCH ×2 (09:27→17:26)
[2017-02-24] MEDS: PANTOPRAZOLE 40 MG TABLET PO SCH (09:27)
[2017-02-24] MEDS: FUROSEMIDE 40 MG/4 ML VIAL IV SCH ×2 (09:28→17:21)
[2017-02-24] MEDS ORDERED: DEXTROSE 50% 25 GM/50 ML SYRINGE IV PRN (11:14)
[2017-02-24] MEDS ORDERED: GLUCAGON 1 MG VIAL IM PRN (11:14)
[2017-02-24] MEDS: INSULIN REGULAR 100 UNIT/ML SUBCUT SCH ×3 (13:13→21:28)
[2017-02-24] MEDS: LEVOFLOXACIN 500 MG TABLET PO SCH (14:16)
--- NOTE | 2017-02-24 17:19 | Cardiology Progress Note ---
Sal Carlton Vanessa RN, am scribing for, and in the presence of, Roseline Kohler MD 17:18. Assessment and Plan - Time spent with patient Time spent with patient: Greater than 30 minutes (1) Pneumonia Status: Acute Assessment and plan: SEE PLAN OF CARE LISTED BELOW. Current Visit: Yes (2) Chest pain Status: Acute Assessment and plan: SEE PLAN OF CARE LISTED BELOW. Current Visit: Yes (3) Coronary artery disease Status: Chronic Assessment and plan: SEE PLAN OF CARE LISTED BELOW. Current Visit: Yes (4) Diabetes mellitus Status: Chronic Assessment and plan: SEE PLAN OF CARE LISTED BELOW. Current Visit: Yes (5) Morbid obesity Status: Chronic Assessment and plan: SEE PLAN OF CARE LISTED BELOW. Current Visit: Yes (6) Noncompliance Status: Chronic Assessment and plan: SEE PLAN OF CARE LISTED BELOW. Current Visit: Yes (7) Anasarca Status: Chronic Assessment and plan: SEE PLAN OF CARE LISTED BELOW. Current Visit: Yes (8) Acute on chronic diastolic CHF (congestive heart failure), NYHA class 3 Status: Chronic Assessment and plan: SEE PLAN OF CARE LISTED BELOW. Current Visit: No (9) Acute on chronic renal failure Status: Chronic Assessment and plan: SEE PLAN OF CARE LISTED BELOW. Current Visit: No (10) Atrial flutter Status: Chronic Assessment and plan: SEE PLAN OF CARE LISTED BELOW. Current Visit: No (11) CAD (coronary artery disease) Status: Chronic Assessment and plan: SEE PLAN OF CARE LISTED BELOW. Current Visit: No (12) Chronic anticoagulation Status: Chronic Assessment and plan: SEE PLAN OF CARE LISTED BELOW. Current Visit: No (13) Dyslipidemia Status: Chronic Assessment and plan: SEE PLAN OF CARE LISTED BELOW. Current Visit: No (14) Obstructive sleep apnea Status: Chronic Assessment and plan: SEE PLAN OF CARE LISTED BELOW. Current Visit: No (15) History of cardiac pacemaker Status: Chronic Assessment and plan: SEE PLAN OF CARE LISTED BELOW. Current Visit: Yes Cardiology - PN: Subj Interval history: PRIMARY ADMINISTRATOR OF HOME HEALTH: DR. MELARA SUMMARY: Ms. 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 Jhaveri 2013). She does have a known history of CAD and PCI of RCA with most recent cardiac cath in 2010 ([facility]) demonstrating. Left atrial appendage clot per [facility] April 2015. She is chronically anticoagulated with Coumadin for stroke prevention. She has had multiple hospitalizations for chief complaints volume overload, shortness of breath, atypical chest pain. Most recently discharged from hospital on 01/19 after 3 day admission for shortness of breath and lower extremity edema. Returned to [place]'s ED on 02/18 with similar complaints, discharged home due to lack of clinical findings to support admission. Patient is now admitted to telemetry unit per cardiology service on 02/21 with chief complaints of shortness of breath and chest pain. Last echo February 12 with EF 55%, mild LVH, no significant valvular disease, PA pressure 28 mmHg. Since admission, pulmonary embolus ruled out. Acute AL ruled out. IV antibiotics have been started for left lower lobe pneumonia with effusion and atelectasis of right lobe. Ultrasound of abdomen benign on 02/22. She has had significant anasarca. 2016: Patient resting quietly this afternoon, pleasant. No acute distress. Reports she has continued to feel better the last couple days. However, patient concerned today she is not receiving enough Lasix as she continues to have lower extremity edema with extremities somewhat tender to touch. Informed that her Lasix dosage has actually been increased. Review of I/O, daily weight in EMR , and improvement or worsening is unclear. Atrial fib with ventricular pacing per cardiac monitoring. SBP 105-115 mmHg. Transient hypotension overnight with SBP no lower than 83. Labs reviewed. Cell count stable. Sodium 132. Creatinine trending upward, 1.2 (0.9, 1.0 previously). Potassium and magnesium within acceptable range. ProBNP 77 yesterday. ASSESSMENT/PLAN: 1. CHEST PAIN -EKG and cardiac biomarkers remained benign. Ultimately we will may need to consider cardiac catheterization. Pulmonary embolism ruled out her INR is subtherapeutic on 02/21. She is on Lovenox therapeutic dose. 2. DYSPNEA -patient reports she feels is improved today. Continue supplemental oxygen as needed. She has significant peripheral edema although with proBNP 77. Pulmonary embolism has been ruled out. She is being treated for pneumonia. 3. CONGESTIVE HEART FAILURE -chronic secondary to diastolic dysfunction, NYHA Class III-IV. strict I & O, daily weights. This symptomatology seems to be multifactorial and I do not know that is not really necessarily secondary to "congestive heart failure". Her BNP is very low. She seems to have significant peripheral edema. 4. HYPERTENSION -overall controlled at this time. Continue to monitor and adjust antihypertensives as indicated. 5. STATUS POST PPM -continue current plan of care. 6. OBSTRUCTIVE SLEEP APNEA -noncompliant with outpatient follow-up and the CPAP. 7. KNOWN CAD -[facility] 2010 revealed patent distal RCA stent. Continue low- dose ASA. 8. Edema- Severe abdominal & bilateral lower extremity edema which is disproportionate to her systolic function, diastolic dysfunction and renal function. Some of this may be secondary to her high dose gabapentin. Gabapentin dosage has now been decreased to 200 mg by mouth 3 times daily. We are going to diurese her but will need to watch her kidney function carefully. Abdominal ultrasound benign for etiology. The ins and outs may not be accurate because she is voiding in the toilet, however her weight continues to increase. If her weight is not improved tomorrow and the edema is not significantly improved I will add metolazone as long as her kidney function appears that it will tolerate this. 9. PNEUMONIA -continue Levaquin. 10. DYSLIPIDEMIA-continue atorvastatin. 11. FWARUYSW-Dkcs-Knwhl before meals at bedtime. Continue SSI. Glucose levels stable. 12. Debility-we may need to consider swing bed placement. I am going to consult physical therapy as well. Exam (Progress Note) - Constitutional Vitals: Period Temp Pulse Resp BP Sys/Way Pulse Ox Last 24 Hr 96.7 F-98.1 F 59-95 18-22 83-130/50-75 92-98 Exam: General: Severely morbidly obese, no apparent distress. Pleasant and cooperative. Appears comfortable. HEENT: PERRL, normocephalic, atraumatic. Mucous membranes moist. No jaundice noted. Conjunctiva moist and clear, sclerae anicteric. Neck: No thyromegaly or lymphadenopathy noted. No carotid bruit appreciated. Cardiac: Regular rate and rhythm. No murmur rub or gallop. PMI is nondisplaced. No bradycardia or tachycardia. No JVD. Lungs: Clear to auscultation without accessory muscle use to assist the respiratory pattern. No rhonchi, rales, wheeze. Supplemental oxygen in use (2L ) Abdomen: Soft, bowel sounds normoactive. Severely obese abdomen. It is protuberant with thickening consistent with chronic edema, no tenderness, no abdominal bruit or thrill noted. No masses noted. Abdomen with 3-4+ edema, somewhat improved. Scan of lower abdomen rough to touch with orange peeling affect Musculoskeletal: Able to move all extremities. Extremities: No clubbing, cyanosis noted. Severe 3-4+ bilateral lower extremity edema with LLE pedal edema slightly greater than RLE pedal edema, lower extremities erythematous. Upper extremity pulses 2+. Lower extremity pulses 2+. Capillary refill less than 3 seconds. Skin: Warm and dry, intact. No unusual lesions or rashes. No skin breakdown appreciated. Neuro: Awake, alert and oriented 3. Moves all extremities well without hemiparesis or paralysis. No essential tremor is appreciated. Result/EKG - Labs CBC & BMP: 02/24/17 05:38 02/24/17 05:38 Lab Results: I have reviewed the past 24 hour labs Labs: Laboratory Results - last 24 hr 02/24/17 02/24/17 02/24/17 05:38 05:38 11:43 WBC 8.5 RBC 3.99 Hgb 12.3 Hct 38.2 MCV 95.7 MCH 31 MCHC 32.2 RDW 13.8 Plt Count 153 MPV 12.4 H Neut % (Auto) 66.7 Lymph % (Auto) 17.3 L Harmon % (Auto) 12.2 Eos % (Auto) 2.9 Baso % (Auto) 0.2 Neut # (Auto) 5.7 Lymph # (Auto) 1.5 Harmon # (Auto) 1.0 H Eos # (Auto) 0.3 Baso # (Auto) 0.0 Immature Gran % 0.7 Nucleated RBC % 0.0 Immature Gran # 0.06 Nucleated RBCs # 0.00 Immature Plt Fraction 0.0 Sodium 132 L Potassium 4.0 Chloride 91 L Carbon Dioxide 38 H Anion Gap 7.0 BUN 22 H Creatinine 1.20 H GFR Calculation 79 BUN/Creatinine Ratio 18.00 Glucose 135 H POC Glucose 148 H Calculated Osmolality 268.5 L Calcium 8.4 L Magnesium 1.9 - EKG EKG results: interpreted by me, no acute changes (Ventricularly paced rhythm; appears to have underlying atrial fibrillation/flutter) Specialty Discharge - Follow Up or Referrals I, Roseline Kohler MD, personally performed the services described in this documentation, ascribed by Sonia Huang RN in my presence, and it is both accurate and complete .
[2017-02-24] MEDS: ATORVASTATIN 20 MG TABLET PO SCH (21:28)
[2017-02-25] MEDS: ENOXAPARIN 80 MG/0.8 ML SYRINGE SUBCUT SCH ×2 (03:45→15:19)
[2017-02-25 05:37] LABS: Basophils % 0.2 % (0.0-0.8); Eosinophils # 0.2 10*3/uL (0.0-0.87); Eosinophils % 1.9 % (0.00-10.9); Hematocrit 37.8 VOL% (35.7-47.0); Hemoglobin 11.9 GM/DL (12.0-16.0); Immature Granulocytes % 0.4 %; Immature Granulocytes Absolute 0.04 #; Lymphocytes # 1.2 10*3/uL (1.4-4.0); Lymphocytes % 13.2 % (21.3-54.2); Mean Corpuscular HGB Conc 31.5 GM/DL (32-36); Mean Corpuscular Hemoglobin 30 PG (27-34); Mean Corpuscular Volume 95.7 FL (87-102); Mean Platelet Volume 11.7 FL (9.6-12.0); Monocytes # 1.1 10*3/uL (0.11-0.8); Monocytes % 12.2 % (1.7-12.7); Neutrophils # 6.6 10*3/uL (1.4-7.4); Neutrophils % 72.1 % (38.7-73.9); Platelet Count 165 T/CUMM (130-400); Red Blood Count 3.95 MC/CUMM (3.8-5.5); Red Cell Distribution Width 13.6 % (9.3-17.3); White Blood Count 9.2 T/CUMM (4-12)
[2017-02-25 06:09] LABS: Calcium 8.4 MG/DL (8.5-10.1); Osmolality,Calculated 272.2 MOS/KG (273-304); Potassium 4.3 MMOL/L (3.5-5.1)
[2017-02-25] MEDS: ALBUTEROL/IPRATROPIUM 3 ML NEB RESP TX SCH ×3 (07:42→19:25)
[2017-02-25] MEDS: GABAPENTIN 100 MG CAPSULE PO SCH ×3 (10:05→20:59)
[2017-02-25] MEDS: INSULIN REGULAR 100 UNIT/ML SUBCUT SCH ×4 (10:05→21:38)
[2017-02-25] MEDS: MAGNESIUM OXIDE 400 MG TABLET PO SCH ×2 (10:06→21:00)
[2017-02-25] MEDS: ASPIRIN EC 81 MG TABLET PO SCH (10:06)
[2017-02-25] MEDS: ALPRAZolam 0.5 MG TABLET PO SCH ×2 (10:06→17:41)
[2017-02-25] MEDS: PANTOPRAZOLE 40 MG TABLET PO SCH (10:07)
[2017-02-25] MEDS: FUROSEMIDE 40 MG/4 ML VIAL IV SCH ×2 (10:08→17:46)
[2017-02-25] MEDS: CARVEDILOL 6.25 MG TABLET PO SCH ×2 (10:08→20:59)
[2017-02-25] MEDS: POTASSIUM CHLORIDE 20 MEQ TABLET PO SCH ×2 (10:08→21:00)
[2017-02-25] MEDS: LEVOFLOXACIN 500 MG TABLET PO SCH (15:19)
--- NOTE | 2017-02-25 17:33 | Cardiology Progress Note ---
Assessment and Plan (1) Pneumonia Status: Acute Assessment and plan: SEE PLAN OF CARE LISTED BELOW. Current Visit: Yes (2) Chest pain Status: Acute Assessment and plan: SEE PLAN OF CARE LISTED BELOW. Current Visit: Yes (3) Coronary artery disease Status: Chronic Assessment and plan: SEE PLAN OF CARE LISTED BELOW. Current Visit: Yes (4) Diabetes mellitus Status: Chronic Assessment and plan: SEE PLAN OF CARE LISTED BELOW. Current Visit: Yes (5) Morbid obesity Status: Chronic Assessment and plan: SEE PLAN OF CARE LISTED BELOW. Current Visit: Yes (6) Noncompliance Status: Chronic Assessment and plan: SEE PLAN OF CARE LISTED BELOW. Current Visit: Yes (7) Anasarca Status: Chronic Assessment and plan: SEE PLAN OF CARE LISTED BELOW. Current Visit: Yes (8) Acute on chronic diastolic CHF (congestive heart failure), NYHA class 3 Status: Chronic Assessment and plan: SEE PLAN OF CARE LISTED BELOW. Current Visit: No (9) Acute on chronic renal failure Status: Chronic Assessment and plan: SEE PLAN OF CARE LISTED BELOW. Current Visit: No (10) Atrial flutter Status: Chronic Assessment and plan: SEE PLAN OF CARE LISTED BELOW. Current Visit: No (11) CAD (coronary artery disease) Status: Chronic Assessment and plan: SEE PLAN OF CARE LISTED BELOW. Current Visit: No (12) Chronic anticoagulation Status: Chronic Assessment and plan: SEE PLAN OF CARE LISTED BELOW. Current Visit: No (13) Dyslipidemia Status: Chronic Assessment and plan: SEE PLAN OF CARE LISTED BELOW. Current Visit: No (14) Obstructive sleep apnea Status: Chronic Assessment and plan: SEE PLAN OF CARE LISTED BELOW. Current Visit: No (15) History of cardiac pacemaker Status: Chronic Assessment and plan: SEE PLAN OF CARE LISTED BELOW. Current Visit: Yes Cardiology - PN: Subj Interval history: PRIMARY COAGULATOR: DR. MELARA SUMMARY: Ms. 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 Jhaveri 2013). She does have a known history of CAD and PCI of RCA with most recent cardiac cath in 2010 ([facility]) demonstrating. Left atrial appendage clot per [facility] April 2015. She is chronically anticoagulated with Coumadin for stroke prevention. She has had multiple hospitalizations for chief complaints volume overload, shortness of breath, atypical chest pain. Most recently discharged from hospital on 01/19 after 3 day admission for shortness of breath and lower extremity edema. Returned to [place]'s ED on 02/18 with similar complaints, discharged home due to lack of clinical findings to support admission. Patient is now admitted to telemetry unit per cardiology service on 02/21 with chief complaints of shortness of breath and chest pain. Last echo February 12 with EF 55%, mild LVH, no significant valvular disease, PA pressure 28 mmHg. Since admission, pulmonary embolus ruled out. Acute MT ruled out. IV antibiotics have been started for left lower lobe pneumonia with effusion and atelectasis of right lobe. Ultrasound of abdomen benign on 02/22. She has had significant anasarca. 2016: She is finally feeling better today, breathing is mildly improved. She seems as if she is mobilizing fluid, she tells me she has been to the restroom frequently today already. She denies any chest pain. ASSESSMENT/PLAN: 1. CHEST PAIN -EKG and cardiac biomarkers remained benign. Ultimately we will may need to consider cardiac catheterization. Pulmonary embolism ruled out her INR is subtherapeutic on 02/21. She is on Lovenox therapeutic dose. 2. DYSPNEA -patient reports she feels is improved today. Continue supplemental oxygen as needed. She has significant peripheral edema although with proBNP has been less than 100. Pulmonary embolism has been ruled out. She is being treated for pneumonia. Undoubtedly her habitus and deconditioning are contributing to symptoms 3. CONGESTIVE HEART FAILURE -chronic secondary to diastolic dysfunction, NYHA Class III-IV. strict I & O, daily weights. This symptomatology seems to be multifactorial and I do not know that is not really necessarily secondary to "congestive heart failure". Her BNP is very low. She seems to have significant peripheral edema which I suspect is secondary to her habitus and possibly very high Neurontin dose, which we are decreasing. 4. HYPERTENSION -overall controlled at this time. Continue to monitor and adjust antihypertensives as indicated. 5. STATUS POST PPM -continue current plan of care. 6. OBSTRUCTIVE SLEEP APNEA -noncompliant with outpatient follow-up and the CPAP. 7. CAD -[facility] 2010 revealed patent distal RCA stent. Continue low-dose ASA. 8. Edema- Severe abdominal & bilateral lower extremity edema which is disproportionate to her systolic function, diastolic dysfunction and renal function. Some of this may be secondary to her high dose gabapentin. Gabapentin dosage has now been decreased to 200 mg by mouth 3 times daily. We are going to diurese her but will need to watch her kidney function carefully. Abdominal ultrasound benign for etiology. The ins and outs may not be accurate because she is voiding in the toilet, however her weight continues to increase. If her weight is not improved tomorrow and the edema is not significantly improved I will add metolazone as long as her kidney function appears that it will tolerate this. Additionally, she may have a panniculitis and lower extremity cellulitis which are contributing to the edema. I am going to consult the hospitalist service to see if they can assist with this. 9. PNEUMONIA -continue Levaquin. 10. DYSLIPIDEMIA-continue atorvastatin. 11. YEOYFUKN-Pzks-Cutpd before meals at bedtime. Continue SSI. Glucose levels stable. 12. Debility-we may need to consider swing bed placement. I am going to consult physical therapy as well. 13. Cellulitis-she has had bilateral lower extremity erythema, and panniculus erythema suggesting a component of cellulitis. She is on Levaquin for her pneumonia which may cover some pathogens. Certainly her left lower extremity is less erythematous today. However, I am going to consult the hospitalist service to evaluate her for this and see if she needs to be on any additional agents. Exam (Progress Note) - Constitutional Vitals: Period Temp Pulse Resp BP Sys/Way Pulse Ox Last 24 Hr 97 F-97.7 F 60-75 18-20 107-130/57-73 90-100 Exam: General: Severely morbidly obese, no apparent distress. Pleasant and cooperative. Appears comfortable. HEENT: PERRL, normocephalic, atraumatic. Mucous membranes moist. No jaundice noted. Conjunctiva moist and clear, sclerae anicteric. Neck: No thyromegaly or lymphadenopathy noted. No carotid bruit appreciated. Cardiac: Regular rate and rhythm, exam limited by habitus. No murmur rub or gallop. PMI is nondisplaced. No bradycardia or tachycardia. No JVD. Lungs: Clear to auscultation (although exam is limited by habitus) without accessory muscle use to assist the respiratory pattern. No rhonchi, rales, wheeze. Supplemental oxygen in use (2L) Abdomen: Soft, bowel sounds normoactive. Severely obese abdomen. It is protuberant with thickening consistent with chronic edema, no tenderness, no abdominal bruit or thrill noted. No masses noted. Abdomen with 3+edema, somewhat improved. Lower abdomen rough to touch with orange peel appearance. Musculoskeletal: Able to move all extremities. She has limited movement due to debility. Extremities: No clubbing, cyanosis noted. Severe 3-4+ bilateral lower extremity edema with LLE pedal edema slightly greater than RLE pedal edema, lower extremities erythematous. There is very subtle improvement in her edema compared to yesterday. Upper extremity pulses 2+. Lower extremity pulses 2+. Capillary refill less than 3 seconds. Skin: Warm and dry, intact. No unusual lesions or rashes. No skin breakdown appreciated. Neuro: Awake, alert and oriented 3. Moves all extremities well without hemiparesis or paralysis. No essential tremor is appreciated. Result/EKG - Labs CBC & BMP: 02/25/17 05:04 02/25/17 05:04 Lab Results: I have reviewed the past 24 hour labs Labs: Laboratory Results - last 24 hr 02/24/17 02/25/17 02/25/17 19:47 05:04 05:04 WBC 9.2 RBC 3.95 Hgb 11.9 L Hct 37.8 MCV 95.7 MCH 30 MCHC 31.5 L RDW 13.6 Plt Count 165 MPV 11.7 Neut % (Auto) 72.1 Lymph % (Auto) 13.2 L Emmons % (Auto) 12.2 Eos % (Auto) 1.9 Baso % (Auto) 0.2 Neut # (Auto) 6.6 Lymph # (Auto) 1.2 L Emmons # (Auto) 1.1 H Eos # (Auto) 0.2 Baso # (Auto) 0.0 Immature Gran % 0.4 Nucleated RBC % 0.0 Immature Gran # 0.04 Nucleated RBCs # 0.00 Immature Plt Fraction 0.0 Sodium 134 L Potassium 4.3 Chloride 93 L Carbon Dioxide 36 H Anion Gap 9.3 BUN 23 H Creatinine 1.20 H GFR Calculation 79 BUN/Creatinine Ratio 19.00 Glucose 124 H POC Glucose 139 H Calculated Osmolality 272.2 L Calcium 8.4 L Magnesium 2.0 02/25/17 02/25/17 06:59 11:46 WBC RBC Hgb Hct MCV MCH MCHC RDW Plt Count MPV Neut % (Auto) Lymph % (Auto) Emmons % (Auto) Eos % (Auto) Baso % (Auto) Neut # (Auto) Lymph # (Auto) Emmons # (Auto) Eos # (Auto) Baso # (Auto) Immature Gran % Nucleated RBC % Immature Gran # Nucleated RBCs # Immature Plt Fraction Sodium Potassium Chloride Carbon Dioxide Anion Gap BUN Creatinine GFR Calculation BUN/Creatinine Ratio Glucose POC Glucose 139 H 149 H Calculated Osmolality Calcium Magnesium Specialty Discharge - Follow Up or Referrals
[2017-02-25] MEDS: ATORVASTATIN 20 MG TABLET PO SCH (20:59)
[2017-02-25] MEDS: tiZANidine 4 MG TABLET PO PRN (21:00)
[2017-02-26] MEDS: ENOXAPARIN 80 MG/0.8 ML SYRINGE SUBCUT SCH ×2 (01:29→14:40)
[2017-02-26 06:57] LABS: Basophils % 0.2 % (0.0-0.8); Eosinophils # 0.1 10*3/uL (0.0-0.87); Eosinophils % 1.2 % (0.00-10.9); Hematocrit 37.7 VOL% (35.7-47.0); Hemoglobin 11.8 GM/DL (12.0-16.0); Immature Granulocytes % 0.6 %; Immature Granulocytes Absolute 0.06 #; Lymphocytes # 1.3 10*3/uL (1.4-4.0); Lymphocytes % 12.4 % (21.3-54.2); Mean Corpuscular HGB Conc 31.3 GM/DL (32-36); Mean Corpuscular Hemoglobin 30 PG (27-34); Mean Corpuscular Volume 95.9 FL (87-102); Mean Platelet Volume 12.3 FL (9.6-12.0); Monocytes # 1.4 10*3/uL (0.11-0.8); Monocytes % 13.1 % (1.7-12.7); Neutrophils # 7.6 10*3/uL (1.4-7.4); Neutrophils % 72.5 % (38.7-73.9); Platelet Count 172 T/CUMM (130-400); Red Blood Count 3.93 MC/CUMM (3.8-5.5); Red Cell Distribution Width 13.8 % (9.3-17.3); White Blood Count 10.5 T/CUMM (4-12)
[2017-02-26 07:24] LABS: Calcium 8.7 MG/DL (8.5-10.1); Magnesium 1.9 MG/DL (1.8-2.4); Osmolality,Calculated 273.1 MOS/KG (273-304); Potassium 4.1 MMOL/L (3.5-5.1)
[2017-02-26] MEDS: ALBUTEROL/IPRATROPIUM 3 ML NEB RESP TX SCH ×3 (07:25→18:55)
[2017-02-26] MEDS: INSULIN REGULAR 100 UNIT/ML SUBCUT SCH ×4 (08:52→21:40)
[2017-02-26] MEDS: FUROSEMIDE 40 MG/4 ML VIAL IV SCH ×2 (08:52→17:39)
[2017-02-26] MEDS: ALPRAZolam 0.5 MG TABLET PO SCH ×2 (08:52→17:39)
[2017-02-26] MEDS: POTASSIUM CHLORIDE 20 MEQ TABLET PO SCH ×2 (08:53→21:40)
[2017-02-26] MEDS: CARVEDILOL 6.25 MG TABLET PO SCH ×2 (08:54→21:40)
[2017-02-26] MEDS: MAGNESIUM OXIDE 400 MG TABLET PO SCH ×2 (08:54→21:40)
[2017-02-26] MEDS: PANTOPRAZOLE 40 MG TABLET PO SCH (08:54)
[2017-02-26] MEDS: GABAPENTIN 100 MG CAPSULE PO SCH ×3 (08:55→21:40)
[2017-02-26] MEDS: ASPIRIN EC 81 MG TABLET PO SCH (08:55)
--- NOTE | 2017-02-26 09:17 | Hospitalist Consult Note ---
Assessment and Plan (1) Cellulitis Status: Acute Assessment and plan: Bilateral lower extremities grossly edematous, erythemic, and warm to touch upon examination. We will order bilateral venous Doppler studies to rule out deep vein thrombosis. In addition, we will start Clindamycin 300 mg every 6 hours for probable cellulitis. Current Visit: Yes History of Present Illness - Consult Narrative Reason for consult: medical management of cellulitis History of present illness: This is a chronically ill 56-year-old female that presented to the ED at [facility] on the afternoon of February 21, 2017 further evaluation of chest pain. The patient has a long and complex medical history significant for atrial fibrillation, congestive heart failure, coronary artery disease, hypertension, myocardial infarction, dyslipidemia, non-insulin- dependent diabetes mellitus, morbid obesity, diverticulitis, diverticulosis, anxiety, obstructive sleep apnea, chronic lower extremity edema. Patient surgical history significant for cardiac catheterization with stent placement in 2011, pacemaker placement 2013, tonsillectomy, adenoidectomy, cholecystectomy , breast reduction, section. The patient was recently discharged from [facility] on February 15, 2017 for subsequent admission for shortness of breath and chest pain. The patient represented back to the ED on February 18, 2017 further evaluation of the above complaints in which she was evaluated and subsequently discharged home. The patient reported the onset of symptoms on the night prior to presentation. She reported that she started to experience left chest wall pain that radiated into the left neck and left arm. The patient was subsequently admitted to [facility] and placed on the telemetry unit for further evaluation. Hospital medicine has been consulted to assist in the treatment o cellulitis to the bilateral lower extremities. The patient reports that she has had multiple episodes of cellulitis in the past which were attributed to chronic lower extremity edema. Upon examination, the patient's lower extremities were grossly erythemic and warm to touch. CC: Roseline Kohler, - Home Medications and Allergies Home Medications: Home Medications Medication Instructions Recorded Confirmed Type Gabapentin 800 mg PO TID 02/24/16 02/21/17 History Warfarin Sodium 7.5 mg PO QPM 02/24/16 02/21/17 History Albuterol Inhaler [Proventil 2 puff INH Q4H PRN #1 inhaler 02/27/16 02/21/17 Rx Inhaler] Aspirin [Ecotrin] 81 mg PO QAM 08/30/16 02/21/17 History Carvedilol [Coreg] 6.25 mg PO BID #60 tablet 09/09/16 02/21/17 Rx Atorvastatin [Lipitor] 20 mg PO BEDTIME #90 tablet 11/30/16 02/21/17 Rx Pantoprazole Tab [Protonix Tab] 40 mg PO DAILY tablet 01/17/17 02/21/17 Rx Tizanidine HCl [Zanaflex] 4 mg PO TID PRN #30 capsule 01/17/17 02/21/17 Rx Albuterol/Ipratropium Neb [Duoneb] 3 ml RESP TX TID #90 vial 02/15/17 02/21/17 Rx Hydrocodone/Acetaminophen [[place] 1 each PO Q6HR PRN #20 tablet 02/15/17 Rx 10-325 Tablet] Phenol 1.4% Throat [place] 5 spray PO Q2H PRN bottle 02/15/17 02/21/17 Rx [Chloraseptic [place]] methylPREDNISolone DOSEPAK [Medrol 4 mg PO DIRECTED #1 pack 02/15/17 Rx Dosepak] ALPRAZolam [Xanax] 1 mg PO BID W/MEALS 02/18/17 02/21/17 History Furosemide [Furosemide] 40 mg PO BID 02/18/17 02/21/17 History Potassium Chloride Cap/Tab [K Dur] 20 meq PO BID 02/18/17 02/21/17 History Torsemide Tab [Demadex Tab] 40 mg PO BID 02/18/17 02/21/17 History Allergies/Adverse Reactions: Allergies Allergy/AdvReac Type Severity Reaction Status Date / Time codeine Allergy Nausea Verified 02/12/17 03:55 ketorolac [From Toradol] Allergy ANAPHYLAXIS Verified 02/12/17 03:55 nitroglycerin Allergy Weakness Verified 02/12/17 03:55 tramadol [From Ultram] Allergy ANAPHYLAXIS Verified 02/12/17 03:55 Hydromorphone [From Dilaudid] AdvReac Difficulty Verified 02/12/17 03:55 Breathing Medical,Surgical,& Family Hx - Medical History Cardio: History of: Cardiac Dysrhythmia (A Fib), CHF, CAD, Hypertension, [place], Pacemaker Psychological: History of: Anxiety Disorders Endocrine: History of: Diabetes Mellitus (NIDDM) ("borderline"), Dyslipidemia Respiratory: No history of: Obstructive Sleep Apnea (Patient has never had formal PSG and HST was technically inadequate), Respiratory Problems Gastrointestinal: History of: Diverticulitis/ Diverticulosis - Surgical History Cardiac Surgeries: Sugical HX of: Cardiac Catheterization, Cardiac Surgery ( pacemaker (2013); stents (2011);) Thoracic Surgeries: Patient denies;: Organ Transplant Neurologic Surgeries: Patient denies: Neurologic Surgery HEENT Surgeries: Surgical HX of: Tonsilectomy & Adenoidectomy Abdominal Surgeries: Surgical HX of: Cholecystectomy Reproductive Surgeries: Surgical HX of;: Breast Surgery (reduction), Section Patient denies;: Genitourinary Surgery - Family History Family History: Reports;: Family Cancer (sisters, breast), Family Diabetes ( mother and father), Family Heart Disease (mother and father), Family Stroke ( mother) - Social History Smoking Status: Current some day smoker Have you smoked in the last 12 months: Yes Time spent discussing smoking cessation with patient: 3 to 10 minutes Frequency of Alcohol Use: None Type of Drug Use: None Marital Status: Single Lives With:: Children Functional capacity: uses cane/walker 12 point system: reviewed and no additional remarkable complaints except as stated Exam - Constitutional Vitals: Period Temp Pulse Resp BP Sys/Way Pulse Ox Last 24 Hr 96.7 F-97.7 F 59-73 16-20 117-130/55-76 90-99 General appearance: no acute distress, morbidly obese - Head Head exam: Present: normal inspection, normocephalic, atraumatic - Eye Eye exam: Present: EOMI. Absent: conjunctival injection Pupils: Present: YARED, normal accommodation - ENT ENT exam: Present: normal exam, normal external ear exam, normal oropharynx - Neck Neck exam: Present: normal inspection. Absent: lymphadenopathy, meningismus, tenderness, thyromegaly - Respiratory Respiratory exam: Present: clear to auscultation bilaterally. Absent: rales, rhonchi, stridor, wheezes - Cardiovascular Cardiovascular exam: Present: regular rate and rhythm. Absent: carotid bruit, diastolic murmur, gallop, JVD, rubs, systolic murmur - GI/Abdominal GI/Abdominal exam: Present: normal bowel sounds, soft, other (Obese) - Extremities Exam Extremities exam: Present: normal capillary refill, edema (+3 edema noted to bilateral lower extremities), other (Gross erythema noted to bilateral lower extremities; warm to touch) - Back Exam Back exam: Present: normal inspection - Neurological Exam Neurological exam: Present: alert, oriented X3, CN II-XII intact - Psychiatric Psychiatric exam: Present: agitated - Skin Skin exam: Present: erythema (Bilateral lower extremities; increase in temperature noted) Results - Labs CBC & BMP: 02/26/17 05:45 02/26/17 05:45 Lab Results: I have reviewed the past 24 hour labs Specialty Discharge - Follow Up or Referrals
[2017-02-26] MEDS: CLINDAMYCIN INJ 300 MG in PREMIX 1 EACH IV SCH ×3 (10:52→21:49)
--- NOTE | 2017-02-26 12:48 | Ultrasound Report ---
History: Lower extremity edema and erythema. Shortness of breath Date: 02/26/2017 Study: Bilateral lower extremity color-flow venous Doppler study Comparison exam: February 12, 2017 Color Doppler, wave form analysis, and compression analysis of the deep veins of both lower extremities from the common femoral vein level through the popliteal vein level shows that the veins are readily compressible. There is no abnormal intraluminal material to suggest thrombus. Waveform analysis is unremarkable. Ultrasound images were captured and archived Impression: No evidence of acute DVT PROCEDURE INTERPRETED AT [facility] DEPARTMENT OF RADIOLOGY Final Report Signed by: Dr. Luda Brown
[2017-02-26] MEDS: LEVOFLOXACIN 500 MG TABLET PO SCH (14:40)
--- NOTE | 2017-02-26 17:15 | Cardiology Progress Note ---
Assessment and Plan (1) Pneumonia Status: Acute Assessment and plan: SEE PLAN OF CARE LISTED BELOW. Current Visit: Yes (2) Chest pain Status: Acute Assessment and plan: SEE PLAN OF CARE LISTED BELOW. Current Visit: Yes (3) Coronary artery disease Status: Chronic Assessment and plan: SEE PLAN OF CARE LISTED BELOW. Current Visit: Yes (4) Diabetes mellitus Status: Chronic Assessment and plan: SEE PLAN OF CARE LISTED BELOW. Current Visit: Yes (5) Morbid obesity Status: Chronic Assessment and plan: SEE PLAN OF CARE LISTED BELOW. Current Visit: Yes (6) Noncompliance Status: Chronic Assessment and plan: SEE PLAN OF CARE LISTED BELOW. Current Visit: Yes (7) Anasarca Status: Chronic Assessment and plan: SEE PLAN OF CARE LISTED BELOW. Current Visit: Yes (8) Acute on chronic diastolic CHF (congestive heart failure), NYHA class 3 Status: Chronic Assessment and plan: SEE PLAN OF CARE LISTED BELOW. Current Visit: No (9) Acute on chronic renal failure Status: Chronic Assessment and plan: SEE PLAN OF CARE LISTED BELOW. Current Visit: No (10) Atrial flutter Status: Chronic Assessment and plan: SEE PLAN OF CARE LISTED BELOW. Current Visit: No (11) CAD (coronary artery disease) Status: Chronic Assessment and plan: SEE PLAN OF CARE LISTED BELOW. Current Visit: No (12) Chronic anticoagulation Status: Chronic Assessment and plan: SEE PLAN OF CARE LISTED BELOW. Current Visit: No (13) Dyslipidemia Status: Chronic Assessment and plan: SEE PLAN OF CARE LISTED BELOW. Current Visit: No (14) Obstructive sleep apnea Status: Chronic Assessment and plan: SEE PLAN OF CARE LISTED BELOW. Current Visit: No (15) History of cardiac pacemaker Status: Chronic Assessment and plan: SEE PLAN OF CARE LISTED BELOW. Current Visit: Yes (16) Cellulitis Status: Acute Current Visit: Yes Cardiology - PN: Subj Interval history: SUMMARY: Ms. Ortez, 56-year-old WF, PMHx of hypertension, dyslipidemia, diabetes, sedentary lifestyle, chronic CHF due to diastolic dysfunction, NYHA last 3, medical noncompliance, ANDREINA (noncompliant with CPAP), atrial flutter/fibrillation , and ENGRAVER PICTURE-P PPM (Dr. Jhaveri 2013). She does have a known history of CAD and PCI of RCA with most recent cardiac cath in 2010 ([facility]) demonstrating. Left atrial appendage clot per [facility] April 2015. She is chronically anticoagulated with Coumadin for stroke prevention. She has had multiple hospitalizations for chief complaints volume overload, shortness of breath, atypical chest pain. Most recently discharged from hospital on 01/19 after 3 day admission for shortness of breath and lower extremity edema. Returned to [facility] ED on 02/18 with similar complaints, discharged home due to lack of clinical findings to support admission. Patient is now admitted to telemetry unit per cardiology service on 02/21 with chief complaints of shortness of breath and chest pain. Last echo February 12 with EF 55%, mild LVH, no significant valvular disease, PA pressure 28 mmHg. Since admission, pulmonary embolus ruled out. Acute PR ruled out. IV antibiotics have been started for left lower lobe pneumonia with effusion and atelectasis of right lobe. Ultrasound of abdomen benign on 02/22. 2016: She is finally feeling better today, breathing is mildly improved. She seems as if she is mobilizing fluid, she tells me she has been to the restroom frequently today already. She denies any chest pain. February 26, 2017: She is not necessarily having any chest pain or change in her breathing. However she feels poorly, mainly having a headache and some generalized weakness. I appreciate the hospitalist service evaluating her and they have initiated therapy for cellulitis with additional clindamycin. Her weight is unchanged, and her peripheral edema does not appear to be changed. There appears to be worsening erythema on her abdomen and left leg in my opinion. ASSESSMENT/PLAN: 1. CHEST PAIN -EKG and cardiac biomarkers remained benign. Ultimately we will may need to consider cardiac catheterization. Pulmonary embolism ruled out her INR is subtherapeutic on 02/21. She is on Lovenox therapeutic dose. 2. DYSPNEA -patient reports she feels is improved today. Continue supplemental oxygen as needed. She has significant peripheral edema although with proBNP has been less than 100. Pulmonary embolism has been ruled out. She is being treated for pneumonia. Undoubtedly her habitus and deconditioning are contributing to symptoms 3. CONGESTIVE HEART FAILURE -chronic secondary to diastolic dysfunction, NYHA Class III-IV. strict I & O, daily weights. This symptomatology seems to be multifactorial and I do not know that is not really necessarily secondary to "congestive heart failure". Her BNP is very low. She seems to have significant peripheral edema which I suspect is secondary to her habitus and possibly very high Neurontin dose, which we are decreasing. 4. HYPERTENSION -overall controlled at this time. Continue to monitor and adjust antihypertensives as indicated. 5. STATUS POST PPM -continue current plan of care. 6. OBSTRUCTIVE SLEEP APNEA -noncompliant with outpatient follow-up and the CPAP. 7. CAD -[facility] 2010 revealed patent distal RCA stent. Continue low-dose ASA. 8. Edema- Severe abdominal & bilateral lower extremity edema which is disproportionate to her systolic function, diastolic dysfunction and renal function. Some of this may be secondary to her high dose gabapentin. Gabapentin dosage has now been decreased to 200 mg by mouth 3 times daily. I do not want to decrease this any further acutely for fear of withdrawal symptoms. We are going to diurese her but will need to watch her kidney function carefully. Abdominal ultrasound benign for etiology. The ins and outs may not be accurate because she is voiding in the toilet, however her weight continues to increase or stay the same, it certainly is not improving. I am going to add metolazone as she seems somewhat refractory to the Lasix. service to see if they can assist with this. 9. PNEUMONIA -continue Levaquin. 10. DYSLIPIDEMIA-continue atorvastatin. 11. EPRRMUYC-Lphq-Eblbm before meals at bedtime. Continue SSI. Glucose levels stable. 12. Debility-we may need to consider swing bed placement. I am going to consult physical therapy as well. 13. Cellulitis-I appreciate the hospitalist's assistance with this and clindamycin has been added. Exam (Progress Note) - Constitutional Vitals: Period Temp Pulse Resp BP Sys/Way Pulse Ox Last 24 Hr 96.7 F-97.4 F 59-78 16-20 117-130/55-76 90-99 Exam: General: Severely morbidly obese, no apparent distress. Pleasant and cooperative. Appears comfortable. HEENT: PERRL, normocephalic, atraumatic. Mucous membranes moist. No jaundice noted. Conjunctiva moist and clear, sclerae anicteric. Neck: No thyromegaly or lymphadenopathy noted. No carotid bruit appreciated. Cardiac: Regular rate and rhythm, exam limited by habitus. No murmur rub or gallop. PMI is nondisplaced. No bradycardia or tachycardia. No JVD. Lungs: Clear to auscultation (although exam is limited by habitus) without accessory muscle use to assist the respiratory pattern. No rhonchi, rales, wheeze. Supplemental oxygen in use (2L) Abdomen: Soft, bowel sounds normoactive. Severely obese abdomen. It is protuberant with thickening consistent with chronic edema, no tenderness, no abdominal bruit or thrill noted. No masses noted. Abdomen with 3+edema. Lower abdomen rough and thickened with orange peel appearance. Erythema is present. Musculoskeletal: Able to move all extremities. She has limited movement due to debility. Extremities: No clubbing, cyanosis noted. Severe 3-4+ bilateral lower extremity edema, lower extremities erythematous. Upper extremity pulses 2+. Lower extremity pulses palpable. Capillary refill less than 3 seconds. Skin: Warm and dry, intact. No unusual lesions or rashes. No skin breakdown appreciated. Neuro: Awake, alert and oriented 3. Moves all extremities well without hemiparesis or paralysis. No essential tremor is appreciated. Result/EKG - Labs CBC & BMP: 02/26/17 05:45 02/26/17 05:45 Lab Results: I have reviewed the past 24 hour labs Labs: Laboratory Results - last 24 hr 02/25/17 02/25/17 02/26/17 16:22 21:32 05:45 WBC 10.5 RBC 3.93 Hgb 11.8 L Hct 37.7 MCV 95.9 MCH 30 MCHC 31.3 L RDW 13.8 Plt Count 172 MPV 12.3 H Neut % (Auto) 72.5 Lymph % (Auto) 12.4 L [place] % (Auto) 13.1 H Eos % (Auto) 1.2 Baso % (Auto) 0.2 Neut # (Auto) 7.6 H Lymph # (Auto) 1.3 L [place] # (Auto) 1.4 H Eos # (Auto) 0.1 Baso # (Auto) 0.0 Immature Gran % 0.6 Nucleated RBC % 0.0 Immature Gran # 0.06 Nucleated RBCs # 0.00 Immature Plt Fraction 0.0 Sodium Potassium Chloride Carbon Dioxide Anion Gap BUN Creatinine GFR Calculation BUN/Creatinine Ratio Glucose POC Glucose 150 H 133 H Calculated Osmolality Calcium Magnesium 02/26/17 02/26/17 02/26/17 05:45 07:22 11:46 WBC RBC Hgb Hct MCV MCH MCHC RDW Plt Count MPV Neut % (Auto) Lymph % (Auto) [place] % (Auto) Eos % (Auto) Baso % (Auto) Neut # (Auto) Lymph # (Auto) [place] # (Auto) Eos # (Auto) Baso # (Auto) Immature Gran % Nucleated RBC % Immature Gran # Nucleated RBCs # Immature Plt Fraction Sodium 135 L Potassium 4.1 Chloride 94 L Carbon Dioxide 37 H Anion Gap 8.1 BUN 20 H Creatinine 1.10 H GFR Calculation 88 BUN/Creatinine Ratio 18.00 Glucose 124 H POC Glucose 118 H 143 H Calculated Osmolality 273.1 Calcium 8.7 Magnesium 1.9 02/26/17 15:48 WBC RBC Hgb Hct MCV MCH MCHC RDW Plt Count MPV Neut % (Auto) Lymph % (Auto) [place] % (Auto) Eos % (Auto) Baso % (Auto) Neut # (Auto) Lymph # (Auto) [place] # (Auto) Eos # (Auto) Baso # (Auto) Immature Gran % Nucleated RBC % Immature Gran # Nucleated RBCs # Immature Plt Fraction Sodium Potassium Chloride Carbon Dioxide Anion Gap BUN Creatinine GFR Calculation BUN/Creatinine Ratio Glucose POC Glucose 177 H Calculated Osmolality Calcium Magnesium Specialty Discharge - Follow Up or Referrals
[2017-02-26] MEDS: tiZANidine 4 MG TABLET PO PRN (19:55)
[2017-02-26] MEDS: ATORVASTATIN 20 MG TABLET PO SCH (21:40)
[2017-02-27] MEDS: CLINDAMYCIN INJ 300 MG in PREMIX 1 EACH IV SCH ×2 (03:24→10:01)
[2017-02-27] MEDS: ENOXAPARIN 80 MG/0.8 ML SYRINGE SUBCUT SCH ×2 (03:24→16:05)
[2017-02-27 03:59] LABS: Basophils % 0.1 % (0.0-0.8); Eosinophils # 0.2 10*3/uL (0.0-0.87); Eosinophils % 2.1 % (0.00-10.9); Hematocrit 35.8 VOL% (35.7-47.0); Hemoglobin 11.3 GM/DL (12.0-16.0); Immature Granulocytes % 0.9 %; Immature Granulocytes Absolute 0.09 #; Lymphocytes # 1.4 10*3/uL (1.4-4.0); Lymphocytes % 13.6 % (21.3-54.2); Mean Corpuscular HGB Conc 31.6 GM/DL (32-36); Mean Corpuscular Hemoglobin 31 PG (27-34); Mean Platelet Volume 11.3 FL (9.6-12.0); Monocytes # 1.4 10*3/uL (0.11-0.8); Monocytes % 13.8 % (1.7-12.7); Neutrophils # 7.1 10*3/uL (1.4-7.4); Neutrophils % 69.5 % (38.7-73.9); Platelet Count 148 T/CUMM (130-400); Red Blood Count 3.69 MC/CUMM (3.8-5.5); Red Cell Distribution Width 13.9 % (9.3-17.3); White Blood Count 10.2 T/CUMM (4-12)
[2017-02-27 04:36] LABS: Calcium 8.4 MG/DL (8.5-10.1); Magnesium 1.9 MG/DL (1.8-2.4); Osmolality,Calculated 274.1 MOS/KG (273-304); Potassium 4.1 MMOL/L (3.5-5.1)
[2017-02-27] MEDS: ALBUTEROL/IPRATROPIUM 3 ML NEB RESP TX SCH ×3 (07:31→18:53)
[2017-02-27] MEDS: INSULIN REGULAR 100 UNIT/ML SUBCUT SCH ×4 (08:45→21:38)
[2017-02-27] MEDS: MAGNESIUM OXIDE 400 MG TABLET PO SCH ×2 (09:53→21:37)
[2017-02-27] MEDS: ALPRAZolam 0.5 MG TABLET PO SCH ×2 (09:53→16:07)
[2017-02-27] MEDS: PANTOPRAZOLE 40 MG TABLET PO SCH (09:53)
[2017-02-27] MEDS: GABAPENTIN 100 MG CAPSULE PO SCH ×3 (09:53→21:38)
[2017-02-27] MEDS: ASPIRIN EC 81 MG TABLET PO SCH (09:53)
[2017-02-27] MEDS: POTASSIUM CHLORIDE 20 MEQ TABLET PO SCH ×2 (09:53→21:37)
[2017-02-27] MEDS: tiZANidine 4 MG TABLET PO PRN ×3 (09:53→21:37)
[2017-02-27] MEDS: metOLazone 5 MG TABLET PO SCH (09:53)
[2017-02-27] MEDS: CARVEDILOL 6.25 MG TABLET PO SCH ×2 (09:53→21:38)
[2017-02-27] MEDS: FUROSEMIDE 40 MG/4 ML VIAL IV SCH ×2 (09:54→16:11)
--- NOTE | 2017-02-27 13:41 | Infectious Disease Consult ---
Assessment and Plan (1) Pneumonia Status: Acute Assessment and plan: Mild left lung base pneumonia. Patient has completed 5 days of levofloxacin therapy which is sufficient and I will therefore discontinue the levofloxacin. We do not want to increase the chance of C. difficile infection. Current Visit: Yes (2) Diabetes mellitus Status: Chronic Current Visit: Yes (3) Morbid obesity Status: Chronic Current Visit: Yes (4) Congestive heart failure Status: Acute Current Visit: No Qualifiers: Congestive heart failure type: diastolic Congestive heart failure chronicity: acute on chronic Qualified Code(s): I50.33 - Acute on chronic diastolic (congestive) heart failure (5) Pannus, abdominal Status: Acute Assessment and plan: Significant edema to the abdominal wall due to combination of morbid obesity and CHF with fluid overload. She clinically does not have cellulitis of the abdominal wall. Recommendations: I am going to discontinue the clindamycin due to high risk for C. difficile in this patient who frequently is in hospital. Of course treatment is weight loss and control of CHF but I am not sure how likely these are to happen in this patient. Thank you very much for the consult. Call again as needed. Discussed with Dr. Sears. Current Visit: Yes History of Present Illness Chief complaint: Possible abdominal wall cellulitis History of present illness: Ms. Ortez is a 56 year old female who is morbidly obese and has multiple comorbidities including CHF with chronic edema to the dependent aspect of her lower abdominal wall. She came to hospital because of shortness of breath and tiredness. She was noted to have severe edema of legs and also the lower abdominal wall. Abdominal wall was noted to be a bit erythematous and there was concern for possible cellulitis. Patient has not been febrile and her white count has been normal throughout the admission. Yesterday clindamycin was started and I am asked to advise on antibiotic therapy. Overall patient says her main complaint is shortness of breath. Home Medications Medication Instructions Recorded Confirmed Type Gabapentin 800 mg PO TID 02/24/16 02/21/17 History Warfarin Sodium 7.5 mg PO QPM 02/24/16 02/21/17 History Albuterol Inhaler [Proventil 2 puff INH Q4H PRN #1 inhaler 02/27/16 02/21/17 Rx Inhaler] Aspirin [Ecotrin] 81 mg PO QAM 08/30/16 02/21/17 History Carvedilol [Coreg] 6.25 mg PO BID #60 tablet 09/09/16 02/21/17 Rx Atorvastatin [Lipitor] 20 mg PO BEDTIME #90 tablet 11/30/16 02/21/17 Rx Pantoprazole Tab [Protonix Tab] 40 mg PO DAILY tablet 01/17/17 02/21/17 Rx Tizanidine HCl [Zanaflex] 4 mg PO TID PRN #30 capsule 01/17/17 02/21/17 Rx Albuterol/Ipratropium Neb [Duoneb] 3 ml RESP TX TID #90 vial 02/15/17 02/21/17 Rx Hydrocodone/Acetaminophen [[place] 1 each PO Q6HR PRN #20 tablet 02/15/17 Rx 10-325 Tablet] Phenol 1.4% Throat [place] 5 spray PO Q2H PRN bottle 02/15/17 02/21/17 Rx [Chloraseptic [place]] methylPREDNISolone DOSEPAK [Medrol 4 mg PO DIRECTED #1 pack 02/15/17 Rx Dosepak] ALPRAZolam [Xanax] 1 mg PO BID W/MEALS 02/18/17 02/21/17 History Furosemide [Furosemide] 40 mg PO BID 02/18/17 02/21/17 History Potassium Chloride Cap/Tab [K Dur] 20 meq PO BID 02/18/17 02/21/17 History Torsemide Tab [Demadex Tab] 40 mg PO BID 02/18/17 02/21/17 History Allergies Allergy/AdvReac Type Severity Reaction Status Date / Time codeine Allergy Nausea Verified 02/12/17 03:55 ketorolac [From Toradol] Allergy ANAPHYLAXIS Verified 02/12/17 03:55 nitroglycerin Allergy Weakness Verified 02/12/17 03:55 tramadol [From Ultram] Allergy ANAPHYLAXIS Verified 02/12/17 03:55 Hydromorphone [From Dilaudid] AdvReac Difficulty Verified 02/12/17 03:55 Breathing 12 point system: reviewed and no additional remarkable complaints except as stated (Per HPI) Medical,Surgical,& Family Hx - Medical History Cardio: History of: Cardiac Dysrhythmia (A Fib), CHF, CAD, Hypertension, MS, Pacemaker Psychological: History of: Anxiety Disorders Endocrine: History of: Diabetes Mellitus (NIDDM) ("borderline"), Dyslipidemia Respiratory: No history of: Obstructive Sleep Apnea (Patient has never had formal PSG and HST was technically inadequate), Respiratory Problems Gastrointestinal: History of: Diverticulitis/ Diverticulosis - Surgical History Cardiac Surgeries: Sugical HX of: Cardiac Catheterization, Cardiac Surgery ( pacemaker (2013); stents (2011);) Thoracic Surgeries: Patient denies;: Organ Transplant Neurologic Surgeries: Patient denies: Neurologic Surgery HEENT Surgeries: Surgical HX of: Tonsilectomy & Adenoidectomy Abdominal Surgeries: Surgical HX of: Cholecystectomy Reproductive Surgeries: Surgical HX of;: Breast Surgery (reduction), Section Patient denies;: Genitourinary Surgery - Family History Family History: Reports;: Family Cancer (sisters, breast), Family Diabetes ( mother and father), Family Heart Disease (mother and father), Family Stroke ( mother) - Social History Smoking Status: Current some day smoker Frequency of Alcohol Use: None Type of Drug Use: None Infectious Disease Exam H&P - Constitutional Vitals: Vital Signs Temp Pulse Resp BP Pulse Ox 97.1 F L 64 18 126/64 91 L 02/27/17 11:05 02/27/17 11:05 02/27/17 11:05 02/27/17 11:05 02/27/17 11:05 Intake and Output 02/26/17 02/27/17 02/27/17 23:59 07:59 15:59 Intake Total 410 / 410 170 / 170 240 / 240 Output Total 650 / 650 325 / 325 Balance -240 / -240 -155 / -155 240 / 240 Intake: IV 50 / 50 50 / 50 Cleocin Inj 300 mg In 50 / 50 50 / 50 Premix 1 Each @ 100 mls/ hr IV Q6H [facility] Rx#: [id number] Oral 360 / 360 120 / 120 240 / 240 Output: Urine 650 / 650 325 / 325 Other: Voiding Method Bedside Commode Bedside Commode # Voids 3 Weight 202.302 kg Patient Weight 02/27/17 23:59 Weight 202.302 kg Exam: General: Patient massively obese, she is dyspneic especially with speech HEENT: Mucous membranes pink and moist, anicteric acyanotic, YARED, no oral exudates Neck: Supple, no thyroid gland enlargement Respiratory system: Breath sounds vesicular, no crepitations or wheezes Cardiovascular: Normal S1 and S2, no murmurs appreciated Abdomen: Massive chronic edema to the abdominal wall, significant abdominal pannus hanging over size, the skin is thickened and has a cobblestone appearance however there is no significant erythema and there is no hyperemia or tenderness on deep palpation. Normal bowel sounds, nontender, unable to appreciate organomegaly or mass Genitourinary: No suprapubic pain Extremities: Severe bilateral lower extremity edema Skin: No rash Reports - Labs CBC & BMP: 02/27/17 03:50 02/27/17 03:50 Labs: Laboratory Results - last 24 hr 02/26/17 02/26/17 02/27/17 15:48 20:14 03:50 WBC 10.2 RBC 3.69 L Hgb 11.3 L Hct 35.8 MCV 97.0 MCH 31 MCHC 31.6 L RDW 13.9 Plt Count 148 MPV 11.3 Neut % (Auto) 69.5 Lymph % (Auto) 13.6 L [place] % (Auto) 13.8 H Eos % (Auto) 2.1 Baso % (Auto) 0.1 Neut # (Auto) 7.1 Lymph # (Auto) 1.4 [place] # (Auto) 1.4 H Eos # (Auto) 0.2 Baso # (Auto) 0.0 Immature Gran % 0.9 Nucleated RBC % 0.0 Immature Gran # 0.09 Nucleated RBCs # 0.00 Immature Plt Fraction 0.0 Sodium Potassium Chloride Carbon Dioxide Anion Gap BUN Creatinine GFR Calculation BUN/Creatinine Ratio Glucose POC Glucose 177 H 159 H Calculated Osmolality Calcium Magnesium 02/27/17 02/27/17 02/27/17 03:50 07:42 11:38 WBC RBC Hgb Hct MCV MCH MCHC RDW Plt Count MPV Neut % (Auto) Lymph % (Auto) [place] % (Auto) Eos % (Auto) Baso % (Auto) Neut # (Auto) Lymph # (Auto) [place] # (Auto) Eos # (Auto) Baso # (Auto) Immature Gran % Nucleated RBC % Immature Gran # Nucleated RBCs # Immature Plt Fraction Sodium 135 L Potassium 4.1 Chloride 95 L Carbon Dioxide 40 H Anion Gap 4.1 L BUN 20 H Creatinine 1.20 H GFR Calculation 79 BUN/Creatinine Ratio 16.00 Glucose 143 H POC Glucose 141 H 139 H Calculated Osmolality 274.1 Calcium 8.4 L Magnesium 1.9 - Diagnostic Findings Procedure: CT - chest: report reviewed by me, image reviewed by me (Mild infiltrate in left lung base on admission) Specialty Discharge - Follow Up or Referrals
--- NOTE | 2017-02-27 14:57 | Cardiology Progress Note ---
I, Cyn Moffett, BC, am scribing for, and in the presence of, Aiden Matute MD 14:56. 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 -Due to her extreme obesity, she is not a candidate for noninvasive evaluation and had various results in the past. Sometimes, she had moderate pulmonary hypertension, on recent echo, none, with likely preserved ejection fraction. No evidence of ongoing myocardial ischemia. We discussed risks and benefits of options for evaluation of cardiac etiology. -We can consider a right plus left heart catheterization, assess pulmonary hypertension, systolic and diastolic function, CAD. I suspect most of her issues are noncardiac, but noninvasive test were unfeasible in her case. She seems to have a secondary gain component in her recent hospitalization. -We will discuss with Dr. Calloway. We may plan for a right plus left heart catheterization in a.m. -Continue diuretics. I suspect majority of the edema is due to her obesity, can be lymphedema, and will be refractory to diuretics. If we find significant diastolic dysfunction or systolic issues, we can adjust her heart medications, otherwise, this would remain quite refractory. -Consult Dr. Bloom. She has ANDREINA, but had poor follow-up and she is noncompliant with CPAP. If this remains untreated, I doubt we can improve her overall condition -Reviewed her current and prior hospitalization records. Despite all the support offered, she remains fairly noncompliant with treatment suggestions and is unable to lose weight. -Continue Lovenox. Remote history of documented left atrial appendage clot. Current Visit: Yes (2) Coronary artery disease Status: Acute Assessment and plan: SEE PLAN LISTED BELOW Current Visit: Yes (3) CHF (congestive heart failure) Status: Acute Assessment and plan: SEE PLAN LISTED BELOW Current Visit: No Qualifiers: Congestive heart failure type: diastolic Congestive heart failure chronicity: acute on chronic Qualified Code(s): I50.33 - Acute on chronic diastolic (congestive) heart failure (4) Obstructive sleep apnea Status: Chronic Assessment and plan: SEE PLAN LISTED BELOW Current Visit: No (5) Hypertension Status: Chronic Assessment and plan: SEE PLAN LISTED BELOW Current Visit: No Qualifiers: Hypertension type: essential hypertension Qualified Code(s): I10 - Essential (primary) hypertension (6) Pacemaker Status: Chronic Assessment and plan: SEE PLAN LISTED BELOW Current Visit: No (7) Anasarca Status: Chronic Assessment and plan: SEE PLAN LISTED BELOW Current Visit: Yes (8) Pneumonia Status: Acute Assessment and plan: SEE PLAN LISTED BELOW Current Visit: Yes (9) Diabetes Status: Chronic Current Visit: No (10) Morbid obesity Status: Chronic Current Visit: No (11) Noncompliance Status: Chronic Current Visit: No (12) Cellulitis Status: Acute Assessment and plan: SEE PLAN LISTED BELOW Current Visit: Yes (13) Acute on chronic renal failure Status: Chronic Current Visit: No (14) Chronic anticoagulation Status: Chronic Assessment and plan: SEE PLAN LISTED BELOW Current Visit: No Cardiology - PN: Subj Interval history: CRUSHER: Dr. Hodges SUMMARY: Ms. 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 Jhaveri 2013). She does have a known history of CAD and PCI of RCA with most recent cardiac cath in 2010 ([facility]) demonstrating left atrial appendage clot per DARCY April 2015. She is chronically anticoagulated with Coumadin for stroke prevention. She has had multiple hospitalizations for chief complaints volume overload, shortness of breath, atypical chest pain. Most recently discharged from hospital on 01/19 after 3 day admission for shortness of breath and lower extremity edema. Returned to [facility] ED on 02/18 with similar complaints, discharged home due to lack of clinical findings to support admission. Patient is now admitted to telemetry unit per cardiology service on 02/21 with chief complaints of shortness of breath and chest pain. Last echo February 12 with EF 55%, mild LVH, no significant valvular disease, PA pressure 28 mmHg. Since admission, pulmonary embolus ruled out. Acute MN ruled out. IV antibiotics have been started for left lower lobe pneumonia with effusion and atelectasis of right lobe. Ultrasound of abdomen benign on 02/22. 2016: She is finally feeling better today, breathing is mildly improved. She seems as if she is mobilizing fluid, she tells me she has been to the restroom frequently today already. She denies any chest pain. February 26, 2017: She is not necessarily having any chest pain or change in her breathing. However she feels poorly, mainly having a headache and some generalized weakness. I appreciate the hospitalist service evaluating her and they have initiated therapy for cellulitis with additional clindamycin. Her weight is unchanged, and her peripheral edema does not appear to be changed. There appears to be worsening erythema on her abdomen and left leg in my opinion. February 27, 2017: Vital signs stable, patient remains afebrile, oxygen saturations 94% on 3 L. Intake and output weights inconsistent, recorded outputs indicate the patient is diuresing. Labs reviewed sodium 135, potassium 4.1, creatinine 1.2, magnesium 1.9. Pannus and bilateral lower extremities continue to be erythematous and edematous. Will continue antibiotic coverage. The patient complains of hurting all over, headache, chest pain, leg pain. Neurontin has been decreased to 200 mg 3 times daily to see if this helps with fluid status. ASSESSMENT/PLAN: 1. CHEST PAIN -EKG and cardiac biomarkers remained benign. Ultimately we will may need to consider cardiac catheterization. Pulmonary embolism ruled out her INR is subtherapeutic on 02/21. She is on Lovenox therapeutic dose. 2. DYSPNEA -patient reports she feels is improved today. Continue supplemental oxygen as needed. She has significant peripheral edema although with proBNP has been less than 100. Pulmonary embolism has been ruled out. She is being treated for pneumonia. Undoubtedly her habitus and deconditioning are contributing to symptoms. 3. CONGESTIVE HEART FAILURE -chronic secondary to diastolic dysfunction, NYHA Class III-IV. strict I & O, daily weights. This symptomatology seems to be multifactorial and I do not know that is not really necessarily secondary to "congestive heart failure". Her BNP is very low. She seems to have significant peripheral edema which I suspect is secondary to her habitus and possibly very high Neurontin dose, which we are decreasing. 4. HYPERTENSION -overall controlled at this time. Continue to monitor and adjust antihypertensives as indicated. 5. STATUS POST PPM -continue current plan of care. 6. OBSTRUCTIVE SLEEP APNEA -noncompliant with outpatient follow-up and the CPAP. 7. CAD -[facility] 2010 revealed patent distal RCA stent. Continue low-dose ASA. 8. Edema- Severe abdominal & bilateral lower extremity edema which is disproportionate to her systolic function, diastolic dysfunction and renal function. Some of this may be secondary to her high dose gabapentin. Gabapentin dosage has now been decreased to 200 mg by mouth 3 times daily. I do not want to decrease this any further acutely for fear of withdrawal symptoms. We are going to diurese her but will need to watch her kidney function carefully. Abdominal ultrasound benign for etiology. The ins and outs may not be accurate because she is voiding in the toilet, however her weight continues to increase or stay the same, it certainly is not improving. I am going to add metolazone as she seems somewhat refractory to the Lasix. service to see if they can assist with this. 9. PNEUMONIA -continue Levaquin. 10. DYSLIPIDEMIA-continue atorvastatin. 11. KROJWSAU-Boux-Cwfwx before meals at bedtime. Continue SSI. Glucose levels stable. 12. Debility-we may need to consider swing bed placement. I am going to consult physical therapy as well. 13. Cellulitis-continue clindamycin. Exam (Progress Note) - Constitutional Vitals: Period Temp Pulse Resp BP Sys/Way Pulse Ox Last 24 Hr 96.5 F-97.3 F 59-140 16-20 101-127/56-75 83-99 Exam: General: Severely morbidly obese, no apparent distress. Pleasant and cooperative. Appears comfortable. HEENT: PERRL, normocephalic, atraumatic. Mucous membranes moist. No jaundice noted. Conjunctiva moist and clear, sclerae anicteric. Neck: No JVD/HJR, no thyromegaly or lymphadenopathy noted. No carotid bruit appreciated. Cardiac: Regular rate and rhythm, exam limited by habitus. No murmur rub or gallop. PMI is nondisplaced. Lungs: Clear to auscultation without accessory muscle use to assist the respiratory pattern. Oxygen in use via nasal cannula. Abdomen: Soft, bowel sounds normoactive. Severely obese abdomen. Nontender and nondistended. No abdominal bruit or thrill noted. No masses noted. Lower abdomen rough and thickened with orange peel appearance. Erythema present to skin. Skin on lower abdomen rough with orange peel appearance. Musculoskeletal: Anasarca noted to bilateral lower extremities and abdomen. Moves all extremities fully. Extremities: No clubbing, cyanosis noted. Bilateral extremities with 3+ edema noted. Skin erythematous bilaterally. Upper extremity pulses 2+. Lower extremity pulses 2+. Capillary refill less than 3 seconds. Skin: Warm and dry. No unusual lesions or rashes. No skin breakdown appreciated. Neuro: Awake, alert and oriented 3. Moves all extremities well without hemiparesis or paralysis. No essential tremor is appreciated. Result/EKG - Labs CBC & BMP: 02/27/17 03:50 02/27/17 03:50 Lab Results: I have reviewed the past 24 hour labs Labs: Laboratory Results - last 24 hr 02/26/17 02/26/17 02/26/17 07:22 11:46 15:48 WBC RBC Hgb Hct MCV MCH MCHC RDW Plt Count MPV Neut % (Auto) Lymph % (Auto) [place] % (Auto) Eos % (Auto) Baso % (Auto) Neut # (Auto) Lymph # (Auto) [place] # (Auto) Eos # (Auto) Baso # (Auto) Immature Gran % Nucleated RBC % Immature Gran # Nucleated RBCs # Immature Plt Fraction Sodium Potassium Chloride Carbon Dioxide Anion Gap BUN Creatinine GFR Calculation BUN/Creatinine Ratio Glucose POC Glucose 118 H 143 H 177 H Calculated Osmolality Calcium Magnesium 02/26/17 02/27/17 02/27/17 20:14 03:50 03:50 WBC 10.2 RBC 3.69 L Hgb 11.3 L Hct 35.8 MCV 97.0 MCH 31 MCHC 31.6 L RDW 13.9 Plt Count 148 MPV 11.3 Neut % (Auto) 69.5 Lymph % (Auto) 13.6 L [place] % (Auto) 13.8 H Eos % (Auto) 2.1 Baso % (Auto) 0.1 Neut # (Auto) 7.1 Lymph # (Auto) 1.4 [place] # (Auto) 1.4 H Eos # (Auto) 0.2 Baso # (Auto) 0.0 Immature Gran % 0.9 Nucleated RBC % 0.0 Immature Gran # 0.09 Nucleated RBCs # 0.00 Immature Plt Fraction 0.0 Sodium 135 L Potassium 4.1 Chloride 95 L Carbon Dioxide 40 H Anion Gap 4.1 L BUN 20 H Creatinine 1.20 H GFR Calculation 79 BUN/Creatinine Ratio 16.00 Glucose 143 H POC Glucose 159 H Calculated Osmolality 274.1 Calcium 8.4 L Magnesium 1.9 02/27/17 07:42 WBC RBC Hgb Hct MCV MCH MCHC RDW Plt Count MPV Neut % (Auto) Lymph % (Auto) [place] % (Auto) Eos % (Auto) Baso % (Auto) Neut # (Auto) Lymph # (Auto) [place] # (Auto) Eos # (Auto) Baso # (Auto) Immature Gran % Nucleated RBC % Immature Gran # Nucleated RBCs # Immature Plt Fraction Sodium Potassium Chloride Carbon Dioxide Anion Gap BUN Creatinine GFR Calculation BUN/Creatinine Ratio Glucose POC Glucose 141 H Calculated Osmolality Calcium Magnesium - EKG EKG shows: atrial fibrillation (Paced rhythm) Specialty Discharge - Follow Up or Referrals Giovani Carlton Attila, MD, personally performed the services described in this documentation, ascribed by Cyn Moffett NP in my presence, and it is both accurate and complete [id number] .
--- NOTE | 2017-02-27 16:27 | Hospitalist Progress Note ---
Assessment and Plan (1) Chest pain Status: Resolved Assessment and plan: Dr. Calloway we will do a left and right heart cath in a.m. Current Visit: No (2) Morbid obesity Status: Resolved Assessment and plan: Patient is not motivated to lose weight. Current Visit: No (3) Obesity hypoventilation syndrome Status: Chronic Assessment and plan: Due to morbid obesity Current Visit: No (4) Diabetes Status: Resolved Assessment and plan: Januvia started continue insulin sliding scale Current Visit: No (5) Acute on chronic diastolic (congestive) heart failure Status: Resolved Assessment and plan: Continue Lasix and Zaroxolyn Current Visit: No (6) Obstructive sleep apnea Status: Chronic Assessment and plan: Noncompliant with BiPAP. Dr. Bloom recommends auto titrating Current Visit: Yes (7) Pneumonia Status: Acute Assessment and plan: Already adequately treated with Levaquin Current Visit: Yes (8) Pannus, abdominal Status: Acute Assessment and plan: No evidence of cellulitis. Venous stasis edema. consult Dr. Carter and she agrees no evidence of cellulitis. DC Clinda Current Visit: Yes (9) Hypertension Status: Chronic Assessment and plan: Blood pressure controlled on Coreg and diuretic Current Visit: Yes Qualifiers: Hypertension type: essential hypertension Qualified Code(s): I10 - Essential (primary) hypertension Hospitalist: Subjective Interval history: Patient is not motivated to get well. Patient does not leave the hospital long enough to get readmitted. Patient cannot live in the hospital. I have asked Dr. Carter to see her as I do not believe she has cellulitis of her pannus. Exam - Constitutional Vitals: Period Temp Pulse Resp BP Sys/Way Pulse Ox Last 24 Hr 96.5 F-97.3 F 59-140 16-20 101-127/56-71 83-98 Exam: Heart Rate-[RRR] Lungs-[CTAB but diminished] GI-[+bs soft, severe obese] Ext-[1+ edema] skin no cellulitis of her pannus, just venous stasis edema Neuro [Motor 5/5], [alert and oriented times 3] psych [depressed mood and affect] General [no acute distress] Results - Labs CBC & BMP: 02/27/17 03:50 02/27/17 03:50 Lab Results: I have reviewed the past 24 hour labs - Diagnostic Findings Procedure: Ultrasound: report reviewed by me (No evidence of DVT) Specialty Discharge - Follow Up or Referrals
[2017-02-27] MEDS ORDERED: POTASSIUM CHLORIDE RIDER 10 MEQ in PREMIX 1 EACH IV PRN (16:29)
[2017-02-27] MEDS ORDERED: diphenhydrAMINE CAP 25 MG CAPSULE PO ONE (16:29)
[2017-02-27] MEDS ORDERED: DIAZEPAM 5 MG TABLET PO ONE (16:29)
[2017-02-27] MEDS ORDERED: MAGNESIUM SULF RIDER 2 GM in PREMIX 1 EACH IV PRN (16:29)
[2017-02-27] MEDS: sitaGLIPtin 25 MG TABLET PO SCH (18:19)
--- NOTE | 2017-02-27 18:30 | Sleep Medicine Consult ---
Assessment and Plan (1) Obstructive sleep apnea Status: Chronic Assessment and plan: We will try again with auto titration CPAP. She will need close follow-up by sleep techs for mask fitting and effort at compliance. I am not optimistic that she will comply. Thank you for the consult. Current Visit: Yes (2) History of atrial fibrillation Status: Chronic Assessment and plan: Untreated sleep apnea certainly can be an exacerbating factor for atrial fibrillation treating underlying sleep apnea may help control her A. fib. Current Visit: Yes (3) Diabetes mellitus Status: Chronic Assessment and plan: The prevalence rate for obstructive sleep apnea in patients with type 2 diabetes can be as high as 86%. Those patients with moderate to severe obstructive sleep apnea are at a greater risk for diabetic nephropathy and neuropathy. Compliance with CPAP therapy for these patients can lead to improvement in glycemic control and improvement in insulin sensitivity. Current Visit: Yes History of Present Illness Chief complaint: Obstructive sleep apnea History of present illness: Ms. Ortez is a 56 year old female well known to this institution with repetitive admissions for congestive heart failure. We have seen her in the past and she had home sleep study done on a previous admission in August of this year that revealed mild obstructive sleep apnea, having an AHI of 6.9. She did have significant O2 desaturation with that study. She was treated with CPAP and auto titration mode but was poorly compliant. She did not make any real effort to utilize CPAP and did not follow-up with scheduled appointments in the sleep clinic or for sleep study. She is back in the hospital again and sleep medicine was consulted. I have discussed with her again the need to treat her sleep apnea and she is willing to try. Home Medications Medication Instructions Recorded Confirmed Type Gabapentin 800 mg PO TID 02/24/16 02/21/17 History Warfarin Sodium 7.5 mg PO QPM 02/24/16 02/21/17 History Albuterol Inhaler [Proventil 2 puff INH Q4H PRN #1 inhaler 02/27/16 02/21/17 Rx Inhaler] Aspirin [Ecotrin] 81 mg PO QAM 08/30/16 02/21/17 History Carvedilol [Coreg] 6.25 mg PO BID #60 tablet 09/09/16 02/21/17 Rx Atorvastatin [Lipitor] 20 mg PO BEDTIME #90 tablet 11/30/16 02/21/17 Rx Pantoprazole Tab [Protonix Tab] 40 mg PO DAILY tablet 01/17/17 02/21/17 Rx Tizanidine HCl [Zanaflex] 4 mg PO TID PRN #30 capsule 01/17/17 02/21/17 Rx Albuterol/Ipratropium Neb [Duoneb] 3 ml RESP TX TID #90 vial 02/15/17 02/21/17 Rx Hydrocodone/Acetaminophen [Strawberry 1 each PO Q6HR PRN #20 tablet 02/15/17 Rx 10-325 Tablet] Phenol 1.4% Throat Marshall 5 spray PO Q2H PRN bottle 02/15/17 02/21/17 Rx [Chloraseptic Marshall] methylPREDNISolone DOSEPAK [Medrol 4 mg PO DIRECTED #1 pack 02/15/17 Rx Dosepak] ALPRAZolam [Xanax] 1 mg PO BID W/MEALS 02/18/17 02/21/17 History Furosemide [Furosemide] 40 mg PO BID 02/18/17 02/21/17 History Potassium Chloride Cap/Tab [K Dur] 20 meq PO BID 02/18/17 02/21/17 History Torsemide Tab [Demadex Tab] 40 mg PO BID 02/18/17 02/21/17 History Allergies Allergy/AdvReac Type Severity Reaction Status Date / Time codeine Allergy Nausea Verified 02/12/17 03:55 ketorolac [From Toradol] Allergy ANAPHYLAXIS Verified 02/12/17 03:55 nitroglycerin Allergy Weakness Verified 02/12/17 03:55 tramadol [From Ultram] Allergy ANAPHYLAXIS Verified 02/12/17 03:55 Hydromorphone [From Dilaudid] AdvReac Difficulty Verified 02/12/17 03:55 Breathing Review of systems: Unremarkable from a sleep standpoint Exam (Pulmonay) H&P - Constitutional Vitals: Period Temp Pulse Resp BP Sys/Way Pulse Ox Last 24 Hr 96.5 F-97.3 F 59-140 16-20 101-127/56-71 83-99 Exam: She is alert and responsive. Sitting up on the side of the bed eating her supper. Pupils equal round reactive to light and accommodation. Extraocular movements intact. Oropharynx with a class IV Mallampati exam. Neck is supple without adenopathy. Chest with good air movement no significant wheeze or rhonchi. Cardiac exam reveals a regular rhythm without murmur or gallop. Abdomen obese nontender without palpable hepatosplenomegaly. Extremities with chronic venous insufficiency changes and trace edema. Neurologically, she is grossly intact. Medical,Surgical,& Family Hx - Medical History Cardio: History of: Cardiac Dysrhythmia (A Fib), CHF, CAD, Hypertension, [place], Pacemaker Psychological: History of: Anxiety Disorders Endocrine: History of: Diabetes Mellitus (NIDDM) ("borderline"), Dyslipidemia Respiratory: No history of: Obstructive Sleep Apnea (Patient has never had formal PSG and HST was technically inadequate), Respiratory Problems Gastrointestinal: History of: Diverticulitis/ Diverticulosis - Surgical History Cardiac Surgeries: Sugical HX of: Cardiac Catheterization, Cardiac Surgery ( pacemaker (2013); stents (2011);) Thoracic Surgeries: Patient denies;: Organ Transplant Neurologic Surgeries: Patient denies: Neurologic Surgery HEENT Surgeries: Surgical HX of: Tonsilectomy & Adenoidectomy Abdominal Surgeries: Surgical HX of: Cholecystectomy Reproductive Surgeries: Surgical HX of;: Breast Surgery (reduction), Section Patient denies;: Genitourinary Surgery - Family History Family History: Reports;: Family Cancer (sisters, breast), Family Diabetes ( mother and father), Family Heart Disease (mother and father), Family Stroke ( mother) - Social History Smoking Status: Current some day smoker Frequency of Alcohol Use: None Type of Drug Use: None Results - Labs CBC & BMP: 02/27/17 03:50 02/27/17 03:50 Lab Results: I have reviewed the past 24 hour labs Labs: Elevated serum bicarb certainly would suggest the possibility of chronic CO2 retention and obesity hypoventilation Specialty Discharge - Follow Up or Referrals
[2017-02-27] MEDS: ATORVASTATIN 20 MG TABLET PO SCH (21:37)
[2017-02-27] MEDS: ONDANSETRON 4 MG/2 ML VIAL IV PRN (23:24)
[2017-02-27] MEDS: MORPHINE 2 MG/1 ML SYRINGE IV PRN (23:46)
[2017-02-28] MEDS: ENOXAPARIN 80 MG/0.8 ML SYRINGE SUBCUT SCH ×2 (02:47→15:54)
[2017-02-28 04:19] LABS: Basophils % 0.3 % (0.0-0.8); Eosinophils # 0.2 10*3/uL (0.0-0.87); Eosinophils % 2.7 % (0.00-10.9); Hematocrit 35.7 VOL% (35.7-47.0); Hemoglobin 11.4 GM/DL (12.0-16.0); Immature Granulocytes % 0.9 %; Immature Granulocytes Absolute 0.08 #; Lymphocytes # 1.5 10*3/uL (1.4-4.0); Lymphocytes % 16.4 % (21.3-54.2); Mean Corpuscular HGB Conc 31.9 GM/DL (32-36); Mean Corpuscular Hemoglobin 31 PG (27-34); Mean Corpuscular Volume 96.5 FL (87-102); Mean Platelet Volume 11.8 FL (9.6-12.0); Monocytes # 1.3 10*3/uL (0.11-0.8); Monocytes % 14.6 % (1.7-12.7); NRBC # 0.02 10*3/uL; Neutrophils # 5.8 10*3/uL (1.4-7.4); Neutrophils % 65.1 % (38.7-73.9); Platelet Count 160 T/CUMM (130-400); Red Cell Distribution Width 14.1 % (9.3-17.3)
[2017-02-28 04:43] LABS: INR 1.1
[2017-02-28 05:18] LABS: Calcium 8.9 MG/DL (8.5-10.1); Magnesium 2.1 MG/DL (1.8-2.4); Osmolality,Calculated 275.1 MOS/KG (273-304); Potassium 3.8 MMOL/L (3.5-5.1)
[2017-02-28] MEDS: ALBUTEROL/IPRATROPIUM 3 ML NEB RESP TX SCH ×3 (06:57→19:26)
[2017-02-28] MEDS: sitaGLIPtin 25 MG TABLET PO SCH (08:27)
[2017-02-28] MEDS: FUROSEMIDE 40 MG/4 ML VIAL IV SCH ×2 (08:27→15:43)
[2017-02-28] MEDS: INSULIN REGULAR 100 UNIT/ML SUBCUT SCH ×4 (08:27→22:57)
[2017-02-28] MEDS: metOLazone 5 MG TABLET PO SCH (08:28)
[2017-02-28] MEDS ORDERED: DIAZEPAM 5 MG TABLET ONE (08:35)
[2017-02-28] MEDS ORDERED: diphenhydrAMINE CAP 25 MG CAPSULE ONE (08:36)
[2017-02-28] MEDS: ASPIRIN EC 81 MG TABLET PO SCH (08:41)
[2017-02-28] MEDS: CARVEDILOL 6.25 MG TABLET PO SCH ×2 (08:42→22:08)
[2017-02-28] MEDS: GABAPENTIN 100 MG CAPSULE PO SCH ×3 (08:45→22:09)
[2017-02-28] MEDS: POTASSIUM CHLORIDE 20 MEQ TABLET PO SCH ×2 (08:45→22:11)
[2017-02-28] MEDS: MAGNESIUM OXIDE 400 MG TABLET PO SCH ×2 (08:46→22:10)
[2017-02-28] MEDS: PANTOPRAZOLE 40 MG TABLET PO SCH (08:46)
[2017-02-28] MEDS ORDERED: HEPARIN/NACL 0.9% 2 UNITS/ML 1,000 ML IV ONE (09:06)
[2017-02-28] MEDS ORDERED: LIDOCAINE 1%/EPI INJ 20 ML VIAL ONE (09:06)
--- NOTE | 2017-02-28 09:47 | History and Physical Update ---
Sedation H&P Update - History and Physical H&P was reviewed, the patient examined and there: are no changes in the patients condition since last H&P was completed. - Sedation Plan for Sedation: moderate Patient Consent: Procedure disscussed with patient and patinet has consented., Risks and benefits were discussed with patient,including infection,, bleeding, injury to surrounding structures, seizure, temporary nerve, Patient understands and accepts potential risks/benefits and agrees to, proceed. ASA Class: IV Airway Assessment: Class IV: Only hard palate visible
[2017-02-28] MEDS ORDERED: fentaNYL 100 MCG/2 ML VIAL ONE (10:24)
--- NOTE | 2017-02-28 10:44 | Cardiac Catheterization ---
Date of Procedure:: 02/28/17 Pre-op Diagnosis: Precordial pain morbid obesity dyspnea Post-op diagnosis: same Procedure: Clinical summary: 56-year-old lady who has severe morbid obesity with multiple admissions for chest discomfort and dyspnea. She is for right and left heart catheterization to completely evaluate her coronary anatomy and determine whether she has meaningful ischemic heart disease. She is high risk based on her morbid obesity. We have reviewed with her in detail the risks benefits and alternatives the procedure. She appears to understand these as reviewed with her. Procedures performed: Right heart catheterization Oxygen saturation measurements Cardiac output by thermodilution technique Left heart catheterization Coronary arteriography Left ventriculography Femoral sheath angiography After obtaining informed consent the patient was brought to the Machine Room Operator with a right groin was prepped and draped in the usual sterile manner. Using intravenous sedation and local anesthesia a needle was inserted into the right femoral artery and a 6 Liberian sheath was placed without difficulty. A separate needle stick was made to the right femoral vein and a 7 Liberian sheath was placed without difficulty. A [place]-Tay catheter was advanced under fluoroscopy to the superior vena cava where oxygen saturation measurements were obtained. This catheter then was positioned using balloon flow to the main pulmonary artery. Oxygen saturations again were obtained with the catheter tip in the main pulmonary artery. This catheter then was connected to hemodynamic monitoring and pressures were measured in the pulmonary capillary wedge position and in the main pulmonary artery. Cardiac outputs were then obtained using the thermodilution technique. After completion of cardiac output measurements, the catheter was pulled back from the main pulmonary artery into the right ventricle where right ventricular pressures were measured. This catheter then was pulled back into the right atrium where pressures were measured and then this catheter was removed. A Gamal left coronary catheter was advanced over a guidewire through the arterial sheath to the ascending aorta under fluoroscopy. The left main coronary artery was engaged and multiple angiograms of the left coronary was undertaken in multiple views. After adequate angiograms of the left coronary were obtained this catheter was withdrawn and an AMRM right coronary catheter was advanced over a guidewire under fluoroscopic control the ascending aorta where angiography of the right coronary artery was undertaken in multiple views. After adequate angiograms of the right coronary artery were obtained this catheter was withdrawn and a pigtail ventriculographic catheter was advanced over a guidewire to fluoroscopic control to the ascending aorta where it was then passed across the aortic valve where intraventricular hemodynamics were measured. A ventriculogram was undertaken at this point in the PRASAD projection. After completion of ventriculography this catheter was pulled back from the ventricle to the aorta under hemodynamic monitoring and removed. At this point patient underwent femoral sheath angiography which demonstrated anatomy appropriate for [Mynx closure]. Good hemostasis was obtained and the patient was transferred back to the [place] having suffered no significant immediate complications. Hemodynamics: PA systolic pressure was 76 mmHg wedge pressure was 36 right atrial pressure was 32 left ventricular end diastolic pressure was 33. Cardiac output measured in the 6.18 L/min range. Coronary arteriography: Left coronary artery: Left main coronary is well-developed and free of significant obstructing lesions. The circumflex coronary is a large nondominant vessel possesses no significant lesions through its course. The branches of the circumflex coronary artery are likewise free of significant obstructing lesions. Left anterior descending coronary is a moderate to large size vessel that extends the apex of ventricle. It possesses no significant lesions through its course. The branches of the LAD likewise are free of significant obstructing lesions. Right coronary artery: The right coronary artery arises aberrantly from the left coronary cusp. Flush injection left coronary cusp shows filling of the right and adequate angiography to see that the right coronary is free of significant obstructing lesions. The branches of the right coronary likewise are free of significant obstructing lesions. Left ventriculography: After injection contrast left ventricle is known to be normal size with normal contractility. Mitral and aortic structures appear normal by ventriculography. Right femoral sheath angiography: The sheath appears to enter the bifurcation of the profunda and the deep femoral. No significant disease of the distal iliac, common femoral or bifurcation be noted based on this limited angiographic study. Conclusions: 1: Angiographically no evidence of significant fixed coronary obstruction 2: Aberrantly arising right coronary from the left coronary cusp 3: Normal left ventricular size and systolic function 4: Severe resting pulmonary hypertension with evidence to suggest both LV dysfunction with preserved ejection fraction and right heart failure with severe elevations of diastolic pressure. 5: Minx closure right femoral arteriotomy site Discussion recommendations: This patient has been admitted on numerous occasions with chest pain rule out myocardial infarction. She has angiographically normal coronary arteries. Her right coronary arises from the left coronary cusp and is free of atherosclerotic narrowing. She has severe pulmonary hypertension in both right ventricular and LV diastolic dysfunction primarily related to her morbid obesity. She will likely would benefit from management of her pulmonary hypertension with oxygen therapy as well as cautious vasodilation. No further evaluation would be indicated currently. Findings have been reviewed with the patient and with her family. Surgeon / Physician: Selvin Calloway Estimated blood loss: none Specimens: none sent Condition: stable - Medications / Follow-up
[2017-02-28] MEDS ORDERED: SODIUM CHLORIDE 0.45% 1,000 ML IV SCH (11:00)
[2017-02-28] MEDS: ALPRAZolam 0.5 MG TABLET PO SCH ×2 (11:14→22:08)
[2017-02-28] MEDS: MORPHINE 2 MG/1 ML SYRINGE IV PRN ×2 (11:15→22:30)
--- NOTE | 2017-02-28 13:17 | Sleep Medicine Progress Note ---
Assessment and Plan (1) Obstructive sleep apnea Status: Chronic Assessment and plan: Continue with auto titration CPAP for obstructive sleep apnea. Sleep techs to help with mask fit. Current Visit: Yes (2) History of atrial fibrillation Status: Chronic Current Visit: Yes (3) Diabetes mellitus Status: Chronic Current Visit: Yes Sleep Medicine Subjective Interval history: Patient states that she did not sleep much with CPAP last night because the mask fit was not good. We will have sleep techs to review her fit and help with her compliance. I encouraged her to continue to make efforts to use CPAP. Exam (Progress Note) - Constitutional Vitals: Period Temp Pulse Resp BP Sys/Way Pulse Ox Last 24 Hr 96.5 F-98.2 F 59-65 18-24 103-133/45-76 93-99 Results - Labs CBC & BMP: 02/28/17 04:00 02/28/17 04:00 Lab Results: I have reviewed the past 24 hour labs Specialty Discharge - Follow Up or Referrals
--- NOTE | 2017-02-28 15:43 | Hospitalist Progress Note ---
Assessment and Plan (1) Chest pain Status: Resolved Assessment and plan: Left and right heart cath performed today by Dr. Calloway's which showed no evidence of significant fixed coronary obstruction Current Visit: No (2) Morbid obesity Status: Resolved Assessment and plan: Patient is not motivated to lose weight. Current Visit: No (3) Obesity hypoventilation syndrome Status: Chronic Assessment and plan: Due to morbid obesity, patient has significant pulmonary hypertension with PA wedge pressure of 76 Current Visit: No (4) Diabetes Status: Resolved Assessment and plan: Lizabeth started continue insulin sliding scale, blood sugars are better today. Current Visit: No (5) Acute on chronic diastolic (congestive) heart failure Status: Resolved Assessment and plan: Continue Lasix and Zaroxolyn per cardiology Current Visit: No (6) Obstructive sleep apnea Status: Chronic Assessment and plan: Noncompliant with cpap. Dr. Bloom recommends auto titrating, daughter reports she will never wear it. Current Visit: Yes (7) Pneumonia Status: Acute Assessment and plan: Already adequately treated with Levaquin Current Visit: Yes (8) Pannus, abdominal Status: Acute Assessment and plan: No evidence of cellulitis. Venous stasis edema. Current Visit: Yes (9) Hypertension Status: Chronic Assessment and plan: Blood pressure controlled on Coreg and diuretic Current Visit: Yes Qualifiers: Hypertension type: essential hypertension Qualified Code(s): I10 - Essential (primary) hypertension Hospitalist: Subjective Interval history: Patient's daughter was in the room today. I was very honest about her prognosis. Patient was taken for heart cath today she has no evidence of significant coronary obstruction. She has normal left ventricular size and systolic function but severe pulmonary hypertension due to untreated sleep apnea with evidence of right-sided heart failure as predicted. I told her daughter that patient did not have much longer to live, she started losing weight and using her CPAP. Dr. Bloom has seen her today and tried to encourage her to be more compliant. She complains of claustrophobia. Doubt she will ever be compliant. Exam - Constitutional Vitals: Period Temp Pulse Resp BP Sys/Way Pulse Ox Last 24 Hr 96.5 F-98.2 F 59-68 18-24 103-133/45-76 92-99 Exam: Heart Rate-[RRR] Lungs-[CTAB but diminished] GI-[+bs soft, severe obese] Ext-[1+ edema] skin no cellulitis of her pannus, just venous stasis edema Neuro [Motor 5/5], [alert and oriented times 3] psych [depressed mood and affect] General [no acute distress] Results - Labs CBC & BMP: 02/28/17 04:00 02/28/17 04:00 Lab Results: I have reviewed the past 24 hour labs Quality Measures - VTE Contraindication to Pharmacological VTE Prophylaxis: High Risk of Bleeding Specialty Discharge - Follow Up or Referrals
[2017-02-28 15:57] LABS: Apearance,Urine CLEAR (Clear); Bilirubin,Urine Negative (Negative); Blood, Urine Negative (Negative); Glucose,Urine (UA) Negative (Negative); Ketones,Urine Negative (Negative); Mucus,Urine Occasional /LPF (Occasional); Nitrite,Urine Negative (Negative); Protein,Urine Negative; RBC,Urine <1 /HPF (0-4); Squamous Epithelial Cell,Urine Occasional /HPF (0-10); Urine Color Yellow (Yellow); Urine Specific Gravity 1.042 (1.001-1.035); Urine Urobilinogen < 2.0 EU/DL (0.2-1.0); WBC,Urine 1 /HPF (0-6)
[2017-02-28] MEDS: tiZANidine 4 MG TABLET PO PRN (16:00)
[2017-02-28] MEDS: ATORVASTATIN 20 MG TABLET PO SCH (22:09)
[2017-03-01] MEDS: tiZANidine 4 MG TABLET PO PRN ×2 (02:39→22:05)
[2017-03-01] MEDS: ENOXAPARIN 80 MG/0.8 ML SYRINGE SUBCUT SCH ×2 (02:40→16:51)
[2017-03-01 05:28] LABS: Basophils % 0.2 % (0.0-0.8); Eosinophils # 0.2 10*3/uL (0.0-0.87); Eosinophils % 2.2 % (0.00-10.9); Hematocrit 36.9 VOL% (35.7-47.0); Hemoglobin 11.6 GM/DL (12.0-16.0); Immature Granulocytes % 0.7 %; Immature Granulocytes Absolute 0.07 #; Lymphocytes # 1.2 10*3/uL (1.4-4.0); Lymphocytes % 12.9 % (21.3-54.2); Mean Corpuscular HGB Conc 31.4 GM/DL (32-36); Mean Corpuscular Hemoglobin 31 PG (27-34); Mean Corpuscular Volume 97.4 FL (87-102); Monocytes # 1.1 10*3/uL (0.11-0.8); Monocytes % 11.5 % (1.7-12.7); NRBC # 0.02 10*3/uL; Neutrophils # 6.9 10*3/uL (1.4-7.4); Neutrophils % 72.5 % (38.7-73.9); Platelet Count 173 T/CUMM (130-400); Red Blood Count 3.79 MC/CUMM (3.8-5.5); Red Cell Distribution Width 14.2 % (9.3-17.3); White Blood Count 9.5 T/CUMM (4-12)
[2017-03-01 05:40] LABS: Magnesium 2.2 MG/DL (1.8-2.4); Osmolality,Calculated 272.2 MOS/KG (273-304)
[2017-03-01] MEDS: ALBUTEROL/IPRATROPIUM 3 ML NEB RESP TX SCH ×3 (07:30→19:38)
[2017-03-01] MEDS: GABAPENTIN 100 MG CAPSULE PO SCH ×3 (10:07→22:05)
[2017-03-01] MEDS: sitaGLIPtin 25 MG TABLET PO SCH (10:08)
[2017-03-01] MEDS: CARVEDILOL 6.25 MG TABLET PO SCH ×2 (10:09→22:05)
[2017-03-01] MEDS: metOLazone 5 MG TABLET PO SCH (10:09)
[2017-03-01] MEDS: ALPRAZolam 0.5 MG TABLET PO SCH ×2 (10:10→16:49)
[2017-03-01] MEDS: MAGNESIUM OXIDE 400 MG TABLET PO SCH ×2 (10:11→22:05)
[2017-03-01] MEDS: POTASSIUM CHLORIDE 20 MEQ TABLET PO SCH ×2 (10:11→22:05)
[2017-03-01] MEDS: ASPIRIN EC 81 MG TABLET PO SCH (10:12)
[2017-03-01] MEDS: PANTOPRAZOLE 40 MG TABLET PO SCH (10:12)
[2017-03-01] MEDS: FUROSEMIDE 40 MG/4 ML VIAL IV SCH ×2 (10:13→16:58)
[2017-03-01] MEDS: INSULIN REGULAR 100 UNIT/ML SUBCUT SCH ×4 (10:13→22:05)
--- NOTE | 2017-03-01 15:09 | Hospitalist Progress Note ---
Assessment and Plan (1) Chest pain Status: Resolved Assessment and plan: Left and right heart cath performed today by Dr. Calloway's which showed no evidence of significant fixed coronary obstruction Current Visit: No (2) Morbid obesity Status: Resolved Assessment and plan: Patient is not motivated to lose weight. Current Visit: No (3) Obesity hypoventilation syndrome Status: Chronic Assessment and plan: Due to morbid obesity, patient has significant pulmonary hypertension with PA wedge pressure of 76 and still refuses to wear cpap or bipap Current Visit: No (4) Diabetes Status: Resolved Assessment and plan: Lizabeth started continue insulin sliding scale, blood sugars controlled. Will sign off Current Visit: No (5) Acute on chronic diastolic (congestive) heart failure Status: Resolved Assessment and plan: Continue Lasix and Zaroxolyn per cardiology Current Visit: No (6) Obstructive sleep apnea Status: Chronic Assessment and plan: Noncompliant with cpap. Dr. Bloom recommends auto titrating but she is refusing Current Visit: Yes (7) Pneumonia Status: Acute Assessment and plan: Already adequately treated with Levaquin Current Visit: Yes (8) Pannus, abdominal Status: Acute Assessment and plan: No evidence of cellulitis. Venous stasis edema. Current Visit: Yes (9) Hypertension Status: Chronic Assessment and plan: Blood pressure controlled on Coreg and diuretic Current Visit: Yes Qualifiers: Hypertension type: essential hypertension Qualified Code(s): I10 - Essential (primary) hypertension Hospitalist: Subjective Interval history: Went to see patient today. Cardiology is still attempting to diuresis much fluid as possible. Left and right heart cath showed severe pulmonary hypertension. I told patient it is essential that she is starts using her CPAP. Explained that the high pressures in her lungs that she would not live more than 6 months if she did not start to be compliant what would ask her to do. She was upset that I told her this on her birthday and fired me. I have spoken with cardiology they no longer need the hospitalist help on her case and we will sign off. Exam - Constitutional Vitals: Period Temp Pulse Resp BP Sys/Way Pulse Ox Last 24 Hr 95 F-97.6 F 59-68 18-22 105-120/45-61 89-96 Exam: Heart Rate-[RRR] Lungs-[CTAB but diminished] GI-[+bs soft, severe obese] Ext-[1+ edema] skin venous stasis Neuro [Motor 5/5], [alert and oriented times 3] psych [depressed mood and affect] General [no acute distress] Results - Labs CBC & BMP: 03/01/17 04:00 03/01/17 04:00 Lab Results: I have reviewed the past 24 hour labs Quality Measures - VTE Contraindication to Pharmacological VTE Prophylaxis: High Risk of Bleeding Specialty Discharge - Follow Up or Referrals
--- NOTE | 2017-03-01 16:37 | Cardiology Progress Note ---
Zuhair Carlton Lesley, BC, am scribing for, and in the presence of, Aiden Matute MD 16:37. Assessment and Plan - Time spent with patient Time spent with patient: Greater than 30 minutes (Record review, assessment, and documentation) (1) Chest pain Status: Chronic Assessment and plan: SEE PLAN LISTED BELOW Current Visit: Yes (2) Coronary artery disease Status: Chronic Assessment and plan: SEE PLAN LISTED BELOW Current Visit: Yes (3) Obstructive sleep apnea Status: Chronic Assessment and plan: SEE PLAN LISTED BELOW Current Visit: Yes (4) Hypertension Status: Chronic Assessment and plan: SEE PLAN LISTED BELOW Current Visit: Yes Qualifiers: Hypertension type: essential hypertension Qualified Code(s): I10 - Essential (primary) hypertension (5) Pacemaker Status: Chronic Assessment and plan: SEE PLAN LISTED BELOW Current Visit: Yes (6) Anasarca Status: Chronic Assessment and plan: SEE PLAN LISTED BELOW Current Visit: Yes (7) Pneumonia Status: Acute Assessment and plan: SEE PLAN LISTED BELOW Current Visit: Yes (8) Morbid obesity Status: Chronic Current Visit: Yes (9) Acute on chronic renal failure Status: Chronic Current Visit: Yes Cardiology - PN: Subj Interval history: AIR CHIPPER: Dr. Hodges SUMMARY: Ms. Ortez, 56-year-old WF, PMHx of hypertension, dyslipidemia, diabetes, sedentary lifestyle, chronic CHF due to diastolic dysfunction, NYHA class 3, medical noncompliance, ANDREINA (noncompliant with CPAP), atrial flutter/fibrillation , and DIGITAL PRINTER-P PPM (Dr. Jhaveri 2013). She does have a known history of CAD and PCI of RCA with most recent cardiac cath in 2010 ([facility]) demonstrating left atrial appendage clot per DARCY April 2015. She is chronically anticoagulated with Coumadin for stroke prevention. She has had multiple hospitalizations for volume overload, shortness of breath, atypical chest pain. Echo February 12 with EF 55%, mild LVH, no significant valvular disease, PA pressure 28 mmHg. Ultrasound of abdomen benign on 02/22. CTA ruled out pulmonary embolus. Chronic venous stasis edema to pannus and bilateral lower extremities. No clear clinical evidence for cellulitis. Cardiac catheterization 02/28/17: Angiographically no evidence of significant coronary obstruction, normal left ventricular size and systolic function, severe resting pulmonary hypertension with evidence to suggest both LV dysfunction with preserved ejection fraction and right heart failure with severe elevations of diastolic pressure. PAP was 76 mmHg, wedge pressure 36, right atrial pressure 32, left ventricle end-diastolic pressure 33. Cardiac output measured 6.18 L/min range. March 01, 2017: Vital signs have remained stable, O2 saturation 95% on 3 L nasal cannula. Continuous telemetry monitoring revealed a paced rhythm. Labs reviewed and are stable today. Right groin to assess, however soft without evidence of hematoma. Appreciate sleep medicine consult for noncompliance with CPAP. Plan is to continue diuresing the patient, will follow strict I's and O's and daily weights, as well as labs. IMPRESSION/PLAN: 1. Severe pulmonary hypertension. Due to untreated obstructive sleep apnea, morbid obesity. Continue diuresis with IV Lasix and p.o. metolazone, monitor electrolytes. 2. CP. CAD stable, no active lesions. 3. DIGITAL PRINTER-P. Her ejection fraction recovered. Normal DIGITAL PRINTER P function 4. Chronic atrial fibrillation, left atrial appendage clot. Resume Coumadin, follow INR daily. Continue bridging with Lovenox and, until INR therapeutic 5. ANDREINA -appreciate Dr. Bloom consult, CPAP at bedside, if noncompliance continues improvement in overall condition is doubtful. 6. Dispo. She is unable to take care of herself and had frequent CHF hospitalizations. She was very poorly compliant with instructions. We again discussed her prognosis is very poor, until she changes her lifestyle and adherence to instructions. She is very debilitated and limited due to morbid obesity. I anticipate her regimen to be switched to all p.o. in a day or 2, and still think swing bed would be a good option for her. Exam (Progress Note) - Constitutional Vitals: Period Temp Pulse Resp BP Sys/Way Pulse Ox Last 24 Hr 95 F-97.6 F 59-68 18-22 102-120/45-61 89-98 Exam: General: Severely morbidly obese, no apparent distress. Pleasant and cooperative. Appears comfortable. HEENT: PERRL, normocephalic, atraumatic. Mucous membranes moist. No jaundice noted. Conjunctiva moist and clear, sclerae anicteric. Neck: No JVD/HJR, no thyromegaly or lymphadenopathy noted. No carotid bruit appreciated. Cardiac: Regular rate and rhythm, exam limited by habitus. No murmur rub or gallop. PMI is nondisplaced. Lungs: Clear to auscultation without accessory muscle use to assist the respiratory pattern. Oxygen in use via nasal cannula. Abdomen: Soft, bowel sounds normoactive. Severely obese abdomen. Nontender and nondistended. No abdominal bruit or thrill noted. No masses noted. Lower abdomen rough and thickened with orange peel appearance. Erythema present to skin on penis. earance. Musculoskeletal: 2+ edema and erythema noted to bilateral lower extremities and abdomen. Moves all extremities fully. Extremities: No clubbing, cyanosis noted. Bilateral extremities with 3+ edema noted. Skin erythematous bilaterally. Upper extremity pulses 2+. Lower extremity pulses 1+. Capillary refill less than 3 seconds. Skin: Warm and dry. No unusual lesions or rashes. No skin breakdown appreciated. Right groin soft no evidence of hematoma. Neuro: Awake, alert and oriented 3. Moves all extremities well without hemiparesis or paralysis. No essential tremor is appreciated. Result/EKG - Labs CBC & BMP: 03/01/17 04:00 03/01/17 04:00 Lab Results: I have reviewed the past 24 hour labs Labs: Laboratory Results - last 24 hr 02/28/17 02/28/17 02/28/17 11:47 16:23 20:23 WBC RBC Hgb Hct MCV MCH MCHC RDW Plt Count MPV Neut % (Auto) Lymph % (Auto) [place] % (Auto) Eos % (Auto) Baso % (Auto) Neut # (Auto) Lymph # (Auto) [place] # (Auto) Eos # (Auto) Baso # (Auto) Immature Gran % Nucleated RBC % Immature Gran # Nucleated RBCs # Immature Plt Fraction Sodium Potassium Chloride Carbon Dioxide Anion Gap BUN Creatinine GFR Calculation BUN/Creatinine Ratio Glucose POC Glucose 116 H 171 H 152 H Calculated Osmolality Calcium Magnesium Urine Color Urine Appearance Urine pH Ur Specific [place] Urine Protein Urine Glucose (UA) Urine Ketones Urine Blood Urine Nitrate Urine Bilirubin Urine Urobilinogen Urine Leukocytes Urine RBC Urine WBC Ur Squamous Epith Cells Urine Mucus Ur Culture Indicated? 02/28/17 03/01/17 03/01/17 Unknown 04:00 04:00 WBC 9.5 RBC 3.79 L Hgb 11.6 L Hct 36.9 MCV 97.4 MCH 31 MCHC 31.4 L RDW 14.2 Plt Count 173 MPV 12.0 Neut % (Auto) 72.5 Lymph % (Auto) 12.9 L [place] % (Auto) 11.5 Eos % (Auto) 2.2 Baso % (Auto) 0.2 Neut # (Auto) 6.9 Lymph # (Auto) 1.2 L [place] # (Auto) 1.1 H Eos # (Auto) 0.2 Baso # (Auto) 0.0 Immature Gran % 0.7 Nucleated RBC % 0.2 Immature Gran # 0.07 Nucleated RBCs # 0.02 Immature Plt Fraction 0.0 Sodium 134 L Potassium 4.0 Chloride 91 L Carbon Dioxide 36 H Anion Gap 11.0 BUN 21 H Creatinine 1.20 H GFR Calculation 79 BUN/Creatinine Ratio 17.00 Glucose 139 H POC Glucose Calculated Osmolality 272.2 L Calcium 9.0 Magnesium 2.2 Urine Color Yellow Urine Appearance Clear Urine pH 5.0 Ur Specific [place] 1.042 H Urine Protein Negative Urine Glucose (UA) Negative Urine Ketones Negative Urine Blood Negative Urine Nitrate Negative Urine Bilirubin Negative Urine Urobilinogen < 2.0 H Urine Leukocytes Negative Urine RBC <1 Urine WBC 1 Ur Squamous Epith Cells Occasional Urine Mucus Occasional Ur Culture Indicated? Not indicated 03/01/17 07:36 WBC RBC Hgb Hct MCV MCH MCHC RDW Plt Count MPV Neut % (Auto) Lymph % (Auto) [place] % (Auto) Eos % (Auto) Baso % (Auto) Neut # (Auto) Lymph # (Auto) [place] # (Auto) Eos # (Auto) Baso # (Auto) Immature Gran % Nucleated RBC % Immature Gran # Nucleated RBCs # Immature Plt Fraction Sodium Potassium Chloride Carbon Dioxide Anion Gap BUN Creatinine GFR Calculation BUN/Creatinine Ratio Glucose POC Glucose 137 H Calculated Osmolality Calcium Magnesium Urine Color Urine Appearance Urine pH Ur Specific [place] Urine Protein Urine Glucose (UA) Urine Ketones Urine Blood Urine Nitrate Urine Bilirubin Urine Urobilinogen Urine Leukocytes Urine RBC Urine WBC Ur Squamous Epith Cells Urine Mucus Ur Culture Indicated? - EKG EKG results: interpreted by me (History of) Quality Measures - VTE Contraindication to Pharmacological VTE Prophylaxis: High Risk of Bleeding Specialty Discharge - Follow Up or Referrals Giovani Carlton Attila, MD, personally performed the services described in this documentation, ascribed by Cyn Moffett NP in my presence, and it is both accurate and complete [id number] .
--- NOTE | 2017-03-01 17:46 | Sleep Medicine Progress Note ---
Assessment and Plan (1) Obstructive sleep apnea Status: Chronic Assessment and plan: This patient has been very noncompliant and this is been her history with our previous evaluation and treatment efforts. Given her lack of cooperation and interested in pursuing our assistance, I have given her an opportunity to use CPAP tonight. If she does not show any meaningful improvement and compliance with therapy, we will discontinue her CPAP and sign off for her case. I see no benefit in continuing to take up her time with our efforts if she does not want our assistance. Current Visit: Yes (2) History of atrial fibrillation Status: Chronic Current Visit: Yes (3) Diabetes mellitus Status: Chronic Current Visit: Yes Sleep Medicine Subjective Interval history: Patient again refused CPAP last night. Sleep techs twice came up from the sleep lab to help her and she was not cooperative and basically refused their assistance. Exam (Progress Note) - Constitutional Vitals: Period Temp Pulse Resp BP Sys/Way Pulse Ox Last 24 Hr 95 F-97.8 F 59-68 18-22 106-136/45-61 92-96 Results - Labs CBC & BMP: 03/01/17 04:00 03/01/17 04:00 Specialty Discharge - Follow Up or Referrals
[2017-03-01] MEDS ORDERED: WARFARIN 5 MG TABLET ONE (19:20)
[2017-03-01] MEDS: WARFARIN 10 MG TABLET PO SCH (19:22)
[2017-03-01] MEDS: ATORVASTATIN 20 MG TABLET PO SCH (22:05)
[2017-03-02] MEDS: ONDANSETRON 4 MG/2 ML VIAL IV PRN (00:20)
[2017-03-02] MEDS: ENOXAPARIN 80 MG/0.8 ML SYRINGE SUBCUT SCH ×2 (03:18→13:22)
[2017-03-02 06:06] LABS: INR 1.1; PT Patient Result 11.7 SECS
[2017-03-02] MEDS: ALBUTEROL/IPRATROPIUM 3 ML NEB RESP TX SCH ×3 (07:02→19:42)
[2017-03-02] MEDS: FUROSEMIDE 40 MG/4 ML VIAL IV SCH ×2 (09:20→16:13)
[2017-03-02] MEDS: ALPRAZolam 0.5 MG TABLET PO SCH ×2 (09:20→16:11)
[2017-03-02] MEDS: CARVEDILOL 6.25 MG TABLET PO SCH ×2 (09:21→22:01)
[2017-03-02] MEDS: MAGNESIUM OXIDE 400 MG TABLET PO SCH ×2 (09:21→22:01)
[2017-03-02] MEDS: GABAPENTIN 100 MG CAPSULE PO SCH ×3 (09:22→22:01)
[2017-03-02] MEDS: ASPIRIN EC 81 MG TABLET PO SCH (09:22)
[2017-03-02] MEDS: sitaGLIPtin 25 MG TABLET PO SCH (09:23)
[2017-03-02] MEDS: metOLazone 5 MG TABLET PO SCH (09:23)
[2017-03-02] MEDS: POTASSIUM CHLORIDE 20 MEQ TABLET PO SCH ×2 (09:23→22:02)
[2017-03-02] MEDS: PANTOPRAZOLE 40 MG TABLET PO SCH (09:24)
[2017-03-02] MEDS: INSULIN REGULAR 100 UNIT/ML SUBCUT SCH ×4 (09:24→22:02)
--- NOTE | 2017-03-02 13:15 | Sleep Medicine Progress Note ---
Assessment and Plan (1) Obstructive sleep apnea Status: Chronic Assessment and plan: Sleep medicine is signing off of this case. She is noncompliant with intervention or treatment from a sleep standpoint. Current Visit: Yes (2) History of atrial fibrillation Status: Chronic Current Visit: Yes (3) Diabetes mellitus Status: Chronic Current Visit: Yes Sleep Medicine Subjective Interval history: Patient did not use her CPAP machine again last night. As I discussed with her yesterday, we will discontinue CPAP and sleep medicine follow-up in her case. She is not willing to cooperate and does not desire CPAP therapy. Exam (Progress Note) - Constitutional Vitals: Period Temp Pulse Resp BP Sys/Way Pulse Ox Last 24 Hr 97.1 F-97.8 F 60-110 18-24 114-136/45-71 90-98 Results - Labs CBC & BMP: 03/01/17 04:00 03/01/17 04:00 Specialty Discharge - Follow Up or Referrals
--- NOTE | 2017-03-02 17:11 | Cardiology Progress Note ---
Zuhair Carlton Lesley, BC, am scribing for, and in the presence of, Aiden Matute MD 17:11. Assessment and Plan - Time spent with patient Time spent with patient: Less than 30 minutes (Record review, assessment, documentation) (1) Chest pain Status: Chronic Assessment and plan: SEE PLAN LISTED BELOW Current Visit: Yes (2) Coronary artery disease Status: Chronic Assessment and plan: SEE PLAN LISTED BELOW Current Visit: Yes (3) Obstructive sleep apnea Status: Chronic Assessment and plan: SEE PLAN LISTED BELOW Current Visit: Yes (4) Hypertension Status: Chronic Assessment and plan: SEE PLAN LISTED BELOW Current Visit: Yes Qualifiers: Hypertension type: essential hypertension Qualified Code(s): I10 - Essential (primary) hypertension (5) Pacemaker Status: Chronic Assessment and plan: SEE PLAN LISTED BELOW Current Visit: Yes (6) Anasarca Status: Chronic Assessment and plan: SEE PLAN LISTED BELOW Current Visit: Yes (7) Pneumonia Status: Acute Assessment and plan: SEE PLAN LISTED BELOW Current Visit: Yes (8) Morbid obesity Status: Chronic Current Visit: Yes (9) Acute on chronic renal failure Status: Chronic Current Visit: Yes Cardiology - PN: Subj Interval history: BUS PERSON: Dr. Hodges SUMMARY: Ms. Ortez, 56-year-old WF, PMHx of hypertension, dyslipidemia, diabetes, sedentary lifestyle, chronic CHF due to diastolic dysfunction, NYHA class 3, medical noncompliance, ANDREINA (noncompliant with CPAP), atrial flutter/fibrillation , and BOARD CERTIFIED FAMILY PHYSICIAN-P PPM (Dr. Jhaveri 2013). She does have a known history of CAD and PCI of RCA with most recent cardiac cath in 2010 ([facility]) demonstrating left atrial appendage clot per DARCY April 2015. She is chronically anticoagulated with Coumadin for stroke prevention. She has had multiple hospitalizations for volume overload, shortness of breath, atypical chest pain. Echo February 12 with EF 55%, mild LVH, no significant valvular disease, PA pressure 28 mmHg. Ultrasound of abdomen benign on 02/22. CTA ruled out pulmonary embolus. Chronic venous stasis edema to pannus and bilateral lower extremities. No clear clinical evidence for cellulitis. Cardiac catheterization 02/28/17: Angiographically no evidence of significant coronary obstruction, normal left ventricular size and systolic function, severe resting pulmonary hypertension with evidence to suggest both LV dysfunction with preserved ejection fraction and right heart failure with severe elevations of diastolic pressure. PAP was 76 mmHg, wedge pressure 36, right atrial pressure 32, left ventricle end-diastolic pressure 33. Cardiac output measured 6.18 L/min range. 2016: Vital signs have remained stable, O2 saturation 95% on 3 L nasal cannula. Continuous telemetry monitoring revealed a paced rhythm. Labs reviewed and are stable today. Right groin to assess, however soft without evidence of hematoma. Appreciate sleep medicine consult for noncompliance with CPAP. Plan is to continue diuresing the patient, will follow strict I's and O's and daily weights, as well as labs. 2016: Patient did well overnight, vital signs stable. CPAP at bedside and patient reports she is attempting to use this. Discussed with patient the option of swing bed due to her debilitated state and frequent CHF hospitalizations, and she defers wishing to be discharged home. Noncompliance has been an ongoing issue with her. Plan to change the patient to p.o. Lasix and metolazone tomorrow, with discharge likely to follow. She will need to follow-up with cardiology in 1 week with a BMP with mag prior to the appointment. Coumadin resumed at 10 mg daily, will continue to monitor INR and bridge with Lovenox until therapeutic. PT consulted for help with mobility, patient continues to complain of pain to the right groin area post cardiac catheterization upon standing. The groin remained soft, without hematoma, without bruit to auscultation, right pedal pulse palpable. IMPRESSION/PLAN: 1. Severe pulmonary hypertension. Due to untreated obstructive sleep apnea, morbid obesity. Continue diuresis with IV Lasix and p.o. metolazone, monitor electrolytes. Switch Lasix to p.o. tomorrow. 2. CP. CAD stable, no active lesions. 3. BOARD CERTIFIED FAMILY PHYSICIAN-P. Her ejection fraction recovered. Normal BOARD CERTIFIED FAMILY PHYSICIAN P function 4. Chronic atrial fibrillation, h/o left atrial appendage clot. Resumed Coumadin, follow INR daily. Continue bridging with Lovenox 5. sEVERE ANDREINA - despite Dr. Bloom's best efforts, the patient continued to be noncompliant with CPAP. She refuses to wear it anymore 6. DEBILITY - she is unable to take care of herself and had frequent CHF hospitalizations. She was very poorly compliant with instructions. We again discussed her prognosis is very poor, until she changes her lifestyle and adherence to instructions. She is very debilitated and limited due to morbid obesity. Refused placement to STR and swing bed. We will plan to discharge home tomorrow, try to set up visiting nurse Exam (Progress Note) - Constitutional Vitals: Period Temp Pulse Resp BP Sys/Way Pulse Ox Last 24 Hr 97.1 F-97.8 F 60-110 18-24 114-136/45-71 90-98 Exam: General: Severely morbidly obese, no apparent distress. Pleasant and cooperative. Appears comfortable. HEENT: PERRL, normocephalic, atraumatic. Mucous membranes moist. No jaundice noted. Conjunctiva moist and clear, sclerae anicteric. Neck: No JVD/HJR, no thyromegaly or lymphadenopathy noted. No carotid bruit appreciated. Cardiac: Regular rate and rhythm, exam limited by habitus. No murmur rub or gallop. PMI is nondisplaced. Lungs: Clear to auscultation without accessory muscle use to assist the respiratory pattern. Oxygen in use via nasal cannula. Abdomen: Soft, bowel sounds normoactive. Severely obese abdomen. Nontender and nondistended. No abdominal bruit or thrill noted. No masses noted. Lower abdomen rough and thickened with orange peel appearance. Erythema present to skin on penis. earance. Musculoskeletal: 2+ edema and erythema noted to bilateral lower extremities and abdomen. Moves all extremities fully. Extremities: No clubbing, cyanosis noted. Bilateral extremities with 3+ edema noted. Skin erythematous bilaterally. Upper extremity pulses 2+. Lower extremity pulses 1+. Capillary refill less than 3 seconds. Skin: Warm and dry. No unusual lesions or rashes. No skin breakdown appreciated. Right groin soft no evidence of hematoma. Neuro: Awake, alert and oriented 3. Moves all extremities well without hemiparesis or paralysis. No essential tremor is appreciated. Result/EKG - Labs CBC & BMP: 03/01/17 04:00 03/01/17 04:00 Lab Results: I have reviewed the past 24 hour labs Labs: Laboratory Results - last 24 hr 03/01/17 03/01/17 03/02/17 15:41 19:30 05:30 INR 1.1 PT Patient/Control Mix 11.7 POC Glucose 141 H 140 H 03/02/17 03/02/17 07:09 11:04 INR PT Patient/Control Mix POC Glucose 144 H 245 H - EKG EKG results: interpreted by me (Paced rhythm) Quality Measures - VTE Contraindication to Pharmacological VTE Prophylaxis: High Risk of Bleeding Specialty Discharge - Follow Up or Referrals Follow up with: Odette Triplett MD [REFERRING DOCTOR/PRACTITIONER] - 1 Week (schedule appt to be seen by Dr. Triplett within 1 week of discharge. If there is any problem contact katheryn Curry rn medicare @[phone]) Giovani Carlton Attila, MD, personally performed the services described in this documentation, ascribed by Cyn Moffett NP in my presence, and it is both accurate and complete 711 .
[2017-03-02] MEDS ORDERED: WARFARIN 5 MG TABLET ONE (17:52)
[2017-03-02] MEDS: WARFARIN 10 MG TABLET PO SCH (18:16)
[2017-03-02] MEDS: ATORVASTATIN 20 MG TABLET PO SCH (22:02)
[2017-03-03] MEDS: MORPHINE 2 MG/1 ML SYRINGE IV PRN ×2 (02:37→21:59)
[2017-03-03] MEDS: ENOXAPARIN 80 MG/0.8 ML SYRINGE SUBCUT SCH ×2 (02:44→14:02)
[2017-03-03 04:19] LABS: Basophils % 0.2 % (0.0-0.8); Eosinophils # 0.2 10*3/uL (0.0-0.87); Eosinophils % 1.5 % (0.00-10.9); Hematocrit 37.8 VOL% (35.7-47.0); Hemoglobin 11.6 GM/DL (12.0-16.0); Immature Granulocytes % 0.5 %; Immature Granulocytes Absolute 0.07 #; Lymphocytes # 1.2 10*3/uL (1.4-4.0); Lymphocytes % 8.3 % (21.3-54.2); Mean Corpuscular HGB Conc 30.7 GM/DL (32-36); Mean Corpuscular Hemoglobin 30 PG (27-34); Mean Corpuscular Volume 97.9 FL (87-102); Monocytes # 1.5 10*3/uL (0.11-0.8); Monocytes % 10.5 % (1.7-12.7); NRBC # 0.02 10*3/uL; Neutrophils # 11.2 10*3/uL (1.4-7.4); Platelet Count 154 T/CUMM (130-400); Red Blood Count 3.86 MC/CUMM (3.8-5.5); Red Cell Distribution Width 14.3 % (9.3-17.3); White Blood Count 14.2 T/CUMM (4-12)
[2017-03-03 04:52] LABS: Calcium 9.8 MG/DL (8.5-10.1); Magnesium 2.3 MG/DL (1.8-2.4); Osmolality,Calculated 275.1 MOS/KG (273-304); Potassium 3.8 MMOL/L (3.5-5.1)
[2017-03-03 04:56] LABS: INR 1.1; INR 1.2; PT Patient Result 12.2 SECS; PT Patient Result 12.3 SECS
[2017-03-03] MEDS: ALBUTEROL/IPRATROPIUM 3 ML NEB RESP TX SCH ×3 (07:20→19:10)
[2017-03-03] MEDS: MAGNESIUM OXIDE 400 MG TABLET PO SCH ×2 (08:57→21:55)
[2017-03-03] MEDS: metOLazone 5 MG TABLET PO SCH (08:57)
[2017-03-03] MEDS: CARVEDILOL 6.25 MG TABLET PO SCH ×2 (08:57→21:56)
[2017-03-03] MEDS: ASPIRIN EC 81 MG TABLET PO SCH (08:57)
[2017-03-03] MEDS: sitaGLIPtin 25 MG TABLET PO SCH (08:57)
[2017-03-03] MEDS: GABAPENTIN 100 MG CAPSULE PO SCH ×3 (08:58→21:56)
[2017-03-03] MEDS: ALPRAZolam 0.5 MG TABLET PO SCH ×2 (08:58→17:06)
[2017-03-03] MEDS: POTASSIUM CHLORIDE 20 MEQ TABLET PO SCH ×2 (08:58→21:56)
[2017-03-03] MEDS: PANTOPRAZOLE 40 MG TABLET PO SCH (08:58)
[2017-03-03] MEDS: INSULIN REGULAR 100 UNIT/ML SUBCUT SCH ×4 (09:00→21:03)
[2017-03-03] MEDS: FUROSEMIDE 40 MG/4 ML VIAL IV SCH ×2 (10:34→17:07)
[2017-03-03] MEDS: ONDANSETRON 4 MG/2 ML VIAL IV PRN (14:03)
--- NOTE | 2017-03-03 16:01 | Cardiology Progress Note ---
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 History of atelectasis. Debility. Noncompliance, ANDREINA, refuses CPAP. -Continue Coumadin, LMWH bridge, monitor INR daily. -ANDREINA. She refused to use CPAP. Appreciate Dr. Bloom's help -Continue diuresis -No indication for telemetry. -Plan for swing bed placement. I doubt she will be able to function independently at home. She refused multiple options offered for her in the past. Very poor insight Current Visit: Yes (2) Coronary artery disease Status: Chronic Assessment and plan: SEE PLAN LISTED BELOW Current Visit: Yes (3) Obstructive sleep apnea Status: Chronic Assessment and plan: SEE PLAN LISTED BELOW Current Visit: Yes (4) Hypertension Status: Chronic Assessment and plan: SEE PLAN LISTED BELOW Current Visit: Yes Qualifiers: Hypertension type: essential hypertension Qualified Code(s): I10 - Essential (primary) hypertension (5) Pacemaker Status: Chronic Assessment and plan: SEE PLAN LISTED BELOW Current Visit: Yes (6) Pneumonia Status: Acute Assessment and plan: SEE PLAN LISTED BELOW Current Visit: Yes (7) Morbid obesity Status: Chronic Current Visit: Yes (8) Acute on chronic renal failure Status: Chronic Current Visit: Yes (9) Pulmonary hypertension Status: Chronic Current Visit: Yes Cardiology - PN: Subj Interval history: She is feeling approximately the same. The groin access site looks benign, no hematoma. INR still subtherapeutic. Now she agrees for swing bed placement. Exam (Progress Note) - Constitutional Vitals: Period Temp Pulse Resp BP Sys/Way Pulse Ox Last 24 Hr 97 F-98.3 F 59-81 18-22 113-145/57-82 87-99 General appearance: no acute distress, morbidly obese - Head Head exam: Present: normal inspection. Absent: contusion - Eye Eye exam: Absent: periorbital swelling, laceration to eyelids Pupils: Absent: dilated - ENT ENT exam: Present: normal external ear exam - Neck Neck exam: Present: normal inspection - Respiratory Respiratory exam: Present: clear to auscultation bilaterally. Absent: chest wall tenderness - Cardiovascular Cardiovascular exam: Present: regular rate and rhythm, other (Unable to assess JVD, extremely thick neck). Absent: systolic murmur - GI/Abdominal GI/Abdominal exam: Present: other (Morbidly obese). Absent: distended, guarding - Extremities Exam Extremities exam: Present: other (Chronic venous stasis) - Back Exam Back exam: Present: normal inspection - Neurological Exam Neurological exam: Present: alert, oriented X3 - Psychiatric Psychiatric exam: Present: normal affect, flat affect - Skin Skin exam: Present: normal color, warm, other (Chronic venous stasis). Absent: cyanosis Result/EKG - Labs CBC & BMP: 03/03/17 03:47 03/03/17 03:47 Lab Results: I have reviewed the past 24 hour labs Labs: Laboratory Results - last 24 hr 03/02/17 03/02/17 03/02/17 17:42 20:29 22:06 WBC RBC Hgb Hct MCV MCH MCHC RDW Plt Count MPV Neut % (Auto) Lymph % (Auto) [place] % (Auto) Eos % (Auto) Baso % (Auto) Neut # (Auto) Lymph # (Auto) [place] # (Auto) Eos # (Auto) Baso # (Auto) Immature Gran % Nucleated RBC % Immature Gran # Nucleated RBCs # Immature Plt Fraction INR PT Patient/Control Mix Sodium Potassium Chloride Carbon Dioxide Anion Gap BUN Creatinine GFR Calculation BUN/Creatinine Ratio Glucose POC Glucose 149 H 141 H 148 H Calculated Osmolality Calcium Magnesium 03/03/17 03/03/17 03/03/17 03:47 03:47 03:47 WBC 14.2 H D RBC 3.86 Hgb 11.6 L Hct 37.8 MCV 97.9 MCH 30 MCHC 30.7 L RDW 14.3 Plt Count 154 MPV 12.0 Neut % (Auto) 79.0 H Lymph % (Auto) 8.3 L [place] % (Auto) 10.5 Eos % (Auto) 1.5 Baso % (Auto) 0.2 Neut # (Auto) 11.2 H Lymph # (Auto) 1.2 L [place] # (Auto) 1.5 H Eos # (Auto) 0.2 Baso # (Auto) 0.0 Immature Gran % 0.5 Nucleated RBC % 0.1 Immature Gran # 0.07 Nucleated RBCs # 0.02 Immature Plt Fraction 0.0 INR 1.1 1.2 PT Patient/Control Mix 12.2 12.3 Sodium Potassium Chloride Carbon Dioxide Anion Gap BUN Creatinine GFR Calculation BUN/Creatinine Ratio Glucose POC Glucose Calculated Osmolality Calcium Magnesium 03/03/17 03/03/17 03:47 07:46 WBC RBC Hgb Hct MCV MCH MCHC RDW Plt Count MPV Neut % (Auto) Lymph % (Auto) [place] % (Auto) Eos % (Auto) Baso % (Auto) Neut # (Auto) Lymph # (Auto) [place] # (Auto) Eos # (Auto) Baso # (Auto) Immature Gran % Nucleated RBC % Immature Gran # Nucleated RBCs # Immature Plt Fraction INR PT Patient/Control Mix Sodium 135 L Potassium 3.8 Chloride 90 L Carbon Dioxide 40 H Anion Gap 8.8 BUN 24 H Creatinine 1.40 H GFR Calculation 66 BUN/Creatinine Ratio 17.00 Glucose 140 H POC Glucose 168 H Calculated Osmolality 275.1 Calcium 9.8 Magnesium 2.3 - EKG EKG results: interpreted by me Quality Measures - VTE Contraindication to Pharmacological VTE Prophylaxis: High Risk of Bleeding Specialty Discharge - Follow Up or Referrals Follow up with: Alec Hodges MD [Physician] - 1 Week (BMP with mag, CBC, PT INR prior to appointment) Odette Triplett MD [REFERRING DOCTOR/PRACTITIONER] - 1 Week (schedule appt to be seen by Dr. Triplett within 1 week of discharge. If there is any problem contact katheryn Curry care aid @[phone])
[2017-03-03] MEDS: WARFARIN 10 MG TABLET PO SCH (17:06)
[2017-03-03] MEDS: ATORVASTATIN 20 MG TABLET PO SCH (21:55)
[2017-03-04] MEDS: MORPHINE 2 MG/1 ML SYRINGE IV PRN (01:18)
[2017-03-04] MEDS: ENOXAPARIN 80 MG/0.8 ML SYRINGE SUBCUT SCH ×3 (02:50→18:21)
[2017-03-04] MEDS ORDERED: NALOXONE 0.4 MG/ML VIAL ONE (05:41)
[2017-03-04] MEDS ORDERED: NALOXONE 0.4 MG/ML VIAL IV ONE (05:43)
[2017-03-04 05:54] LABS: ABG Base Excess 5.7 MMOL/L (-2.5-2.5); ABG Oxygen Saturation 72.7 % (95-100); ABG PO2 51.6 MM HG (80-95); ABG TCO2 40.8 MMOL/L (23-27)
[2017-03-04 05:58] LABS: ABG PH 7.075 (7.35-7.45)
--- NOTE | 2017-03-04 06:10 | Event Note ---
I responded to [facility] on 5 E. and evaluated Mrs. Ortez. The patient has obesity hypoventilation syndrome with CO2 narcosis. The patient was unresponsive prior to my arrival. The respiratory therapist began bag valve and mask to which the patient began to arouse. We transported the patient to the intensive care unit and initiated BiPAP ventilation. The patient is now stable and moving all extremities. The patient did not have arrhythmia and now continues in sinus tachycardia.
[2017-03-04 06:57] LABS: INR 1.4; PT Patient Result 15.2 SECS
--- NOTE | 2017-03-04 07:10 | Cardiology Progress Note ---
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 History of atelectasis. Debility. Noncompliance, ANDREINA, refuses CPAP. -Hypercarbic respiratory failure. This was relatively sudden onset, per medication review I did not find opioid overdose or other obvious cause. She was refusing to wear CPAP at night but had no similar events before. -Continue BiPAP, she is more alert. I will ask for pulmonary consult. -Severe pulmonary hypertension, this is due to untreated obstructive sleep apnea. Dr. Bloom was swallowing, but the patient refused CPAP despite everybody's attempts, now he signed off -Elevated EDP and PSP. Continue IV diuresis. I doubt we can make a lasting improvement in this, as she remains noncompliant with treatment. Monitor and replete electrolytes -Chronic A. 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 Her cardiac issues are stable. -Continue anticoagulation. Coumadin, INR checks daily, bridge with Lovenox. -I will ask hospitalist to consider taking her on their service. I doubt we will be able to discharge her soon, she refused multiple placement attempts in the past, and she will not be able to function at home. I do not see from a cardiac perspective I will have much more to add. Can follow along Current Visit: Yes (2) Coronary artery disease Status: Chronic Assessment and plan: SEE PLAN LISTED BELOW Current Visit: Yes (3) Obstructive sleep apnea Status: Chronic Assessment and plan: SEE PLAN LISTED BELOW Current Visit: Yes (4) Hypertension Status: Chronic Assessment and plan: SEE PLAN LISTED BELOW Current Visit: Yes Qualifiers: Hypertension type: essential hypertension Qualified Code(s): I10 - Essential (primary) hypertension (5) Pacemaker Status: Chronic Assessment and plan: SEE PLAN LISTED BELOW Current Visit: Yes (6) Pneumonia Status: Acute Assessment and plan: SEE PLAN LISTED BELOW Current Visit: Yes (7) Morbid obesity Status: Chronic Current Visit: Yes (8) Acute on chronic renal failure Status: Chronic Current Visit: Yes (9) Pulmonary hypertension Status: Chronic Current Visit: Yes Cardiology - PN: Subj Interval history: She became first hypoxic, then unresponsive with oxygen last night. ABG showed severe hypercarbia, acidosis. She was transferred to the unit started on BiPAP , now she is more responding, but does not want to keep the BiPAP on. Still agitated. Labs pending Exam (Progress Note) - Constitutional Vitals: Period Temp Pulse Resp BP Sys/Way Pulse Ox Last 24 Hr 97.0 F-98.3 F 59-106 18-22 114-145/57-82 68-97 General appearance: mild distress, morbidly obese - Head Head exam: Present: normal inspection. Absent: contusion, laceration - Eye Eye exam: Absent: conjunctival injection, scleral icterus Pupils: Absent: dilated - ENT ENT exam: Present: normal external ear exam - Neck Neck exam: Present: other (Thick neck unable to assess JVD) - Respiratory Respiratory exam: Present: clear to auscultation bilaterally. Absent: accessory muscle use - Cardiovascular Cardiovascular exam: Present: regular rate and rhythm. Absent: systolic murmur - GI/Abdominal GI/Abdominal exam: Present: normal bowel sounds, soft. Absent: distended - Extremities Exam Extremities exam: Present: other (Chronic venous stasis) - Neurological Exam Neurological exam: Present: alert, oriented X3 - Skin Skin exam: Present: normal color, warm. Absent: cyanosis Result/EKG - Labs CBC & BMP: 03/03/17 03:47 03/03/17 03:47 Lab Results: I have reviewed the past 24 hour labs Labs: Laboratory Results - last 24 hr 03/03/17 03/03/17 03/03/17 07:46 15:33 21:00 ABG pH ABG pCO2 ABG pO2 ABG HCO3 ABG Total CO2 ABG O2 Saturation ABG Base Excess POC Glucose 168 H 140 H 158 H 03/04/17 03/04/17 05:40 05:44 ABG pH 7.075 L* D ABG pCO2 148.0 H* ABG pO2 51.6 L ABG HCO3 29.0 H ABG Total CO2 40.8 H ABG O2 Saturation 72.7 L ABG Base Excess 5.7 H POC Glucose 233 H - EKG EKG results: interpreted by me Quality Measures - VTE Contraindication to Pharmacological VTE Prophylaxis: High Risk of Bleeding Specialty Discharge - Follow Up or Referrals Follow up with: Alec Hodges MD [Physician] - 1 Week (BMP with mag, CBC, PT INR prior to appointment) Odette Triplett MD [REFERRING DOCTOR/PRACTITIONER] - 1 Week (schedule appt to be seen by Dr. Triplett within 1 week of discharge. If there is any problem contact katheryn Crury medical care manager @[phone])
--- NOTE | 2017-03-04 07:11 | EKG Report ---
Stationary ECG Study [facility] Test Date: 03/04/2017 6:17:26 AM Pat Name: ZUHAIR CONDON Department: Room: 110 Gender: F [employer] Chief: : [id number] Requested by: Aiden Matute Order Number: [id number] Milton MD: AMY BRICEÑO Intervals [place] Rate: 65 P: 999 WI: 0 QRS: -68 QRSD: 230 T: 101 QT: 520 QTc: 532 Interpretive Statements ELECTRONIC VENTRICULAR PACEMAKER ABNORMAL RHYTHM ECG Electronically Signed On 03-04-17 11:21:54 CDT by AMY BRICEÑO [email or web address]
[2017-03-04] MEDS ORDERED: AMINOPHYLLINE IV ONE (07:14)
[2017-03-04] MEDS ORDERED: SODIUM CHLORIDE 0.9% IV ONE (07:14)
[2017-03-04] MEDS: ALBUTEROL/IPRATROPIUM 3 ML NEB RESP TX SCH ×3 (07:20→19:07)
--- NOTE | 2017-03-04 07:23 | Pulmonology Consult Note ---
Assessment and Plan (1) History of coronary artery disease Status: Resolved Assessment and plan: Being managed by cardiology. Current Visit: No (2) Morbid obesity Status: Resolved Assessment and plan: Patient was 450 pounds. Certainly the underlying cause for her obstructive sleep apnea and obesity hypoventilation syndrome. This will need addressing long-term. Current Visit: No (3) History of atrial fibrillation Status: Chronic Assessment and plan: Patient chronically on Coumadin. Current Visit: Yes (4) Non-compliant behavior Status: Chronic Assessment and plan: She has not been willing to use her CPAP or BiPAP at night despite severe obstructive sleep apnea. Current Visit: Yes (5) Obstructive sleep apnea Status: Chronic Assessment and plan: Enforcing use of BiPAP at present. Current Visit: Yes (6) Acute and chronic respiratory failure Status: Acute Assessment and plan: Has a PCO2 of 148. May require mechanical ventilation. Hopefully with diuresis , Aminophyllin, and insured facemask BiPAP we can improve this. At the present time she is allowing the facemask BiPAP to be used. Current Visit: Yes (7) Obesity hypoventilation syndrome Status: Chronic Assessment and plan: He has severe obesity hypoventilation syndrome with acute on chronic respiratory failure Current Visit: No History of Present Illness Chief complaint: Respiratory distress History of present illness: Ms. Ortez is a 57 year old female who weighs 450 pounds. She has obstructive sleep apnea and has been noncompliant with her BiPAP orders. She was noted to be hypoxemic and have an elevated PCO2 in the 150 range earlier today and was moved to the ICU. She is presently on BiPAP and remarkably is alert. She has said she does not want to be intubated however she does not want to be allowed to and does agree to intubation if required to keep her alive. At the present time we are treating her with BiPAP and making her keep the mask on and she is more alert with that. ABGs are pending. In addition she has atherosclerotic heart disease came in with chest pain. She has a left lower lobe infiltrate on her CT that was done upon admission. Home Medications Medication Instructions Recorded Confirmed Type Albuterol Inhaler [Proventil 2 puff INH Q4H PRN #1 inhaler 02/27/16 02/21/17 Rx Inhaler] Aspirin [Ecotrin] 81 mg PO QAM 08/30/16 02/21/17 History Atorvastatin [Lipitor] 20 mg PO BEDTIME #90 tablet 11/30/16 02/21/17 Rx Pantoprazole Tab [Protonix Tab] 40 mg PO DAILY tablet 01/17/17 02/21/17 Rx Tizanidine HCl [Zanaflex] 4 mg PO TID PRN #30 capsule 01/17/17 02/21/17 Rx Albuterol/Ipratropium Neb [Duoneb] 3 ml RESP TX TID #90 vial 02/15/17 02/21/17 Rx Hydrocodone/Acetaminophen [[place] 1 each PO Q6HR PRN #20 tablet 02/15/17 Rx 10-325 Tablet] Phenol 1.4% Throat [place] 5 spray PO Q2H PRN bottle 02/15/17 02/21/17 Rx [Chloraseptic [place]] ALPRAZolam [Xanax] 1 mg PO BID W/MEALS 02/18/17 02/21/17 History Potassium Chloride Cap/Tab [K Dur] 20 meq PO BID 02/18/17 02/21/17 History Carvedilol [Coreg] 6.25 mg PO BID #60 tablet 03/03/17 Rx Enoxaparin [Lovenox] 80 mg SUBCUT Q12H #60 syringe 03/03/17 Rx Furosemide Tab [Lasix Tab] 80 mg PO BID DIURETIC #60 tablet 03/03/17 Rx Gabapentin Cap/Tab [Neurontin 200 mg PO TID #180 capsule 03/03/17 Rx Cap/Tab] Magnesium Oxide 400 mg PO BID #60 tablet 03/03/17 Rx Warfarin [Coumadin] 10 mg PO DAILY@1800 #30 tablet 03/03/17 Rx Zinc Oxide Paste [Desitin Paste] 1 applic TOP PRN PRN applic 03/03/17 Rx metOLazone [Zaroxolyn] 5 mg PO DAILY #30 tablet 03/03/17 Rx sitaGLIPtin [Januvia] 50 mg PO DAILY #30 tablet 03/03/17 Rx Allergies Allergy/AdvReac Type Severity Reaction Status Date / Time codeine Allergy Nausea Verified 02/12/17 03:55 ketorolac [From Toradol] Allergy ANAPHYLAXIS Verified 02/12/17 03:55 nitroglycerin Allergy Weakness Verified 02/12/17 03:55 tramadol [From Ultram] Allergy ANAPHYLAXIS Verified 02/12/17 03:55 Hydromorphone [From Dilaudid] AdvReac Difficulty Verified 02/12/17 03:55 Breathing ROS unobtainable: due to mental status Exam (Pulmonay) H&P - Constitutional Vitals: Period Temp Pulse Resp BP Sys/Way Pulse Ox Last 24 Hr 97.0 F-98.3 F 59-106 18-22 114-145/57-82 68-97 Exam: Patient is on BiPAP. O2 sat around 88%. Vital signs otherwise normal except weight of 450 pounds. Pupils react to light. Patient is responsive. Unable to examine throat. Neck is supple. Chest reveals some rhonchi in the bases. Heart normal rate and rhythm muffled heart sounds. Abdomen grand obese, huge panniculus, unable to palpate abdominal organs. Extremities no clubbing or cyanosis she does have some peripheral edema. Medical,Surgical,& Family Hx - Medical History Cardio: History of: Cardiac Dysrhythmia (A Fib), CHF, CAD, Hypertension, [place], Pacemaker Psychological: History of: Anxiety Disorders Endocrine: History of: Diabetes Mellitus (NIDDM) ("borderline"), Dyslipidemia Respiratory: No history of: Obstructive Sleep Apnea (Patient has never had formal PSG and HST was technically inadequate), Respiratory Problems Gastrointestinal: History of: Diverticulitis/ Diverticulosis - Surgical History Cardiac Surgeries: Sugical HX of: Cardiac Catheterization, Cardiac Surgery ( pacemaker (2013); stents (2011);) Thoracic Surgeries: Patient denies;: Organ Transplant Neurologic Surgeries: Patient denies: Neurologic Surgery HEENT Surgeries: Surgical HX of: Tonsilectomy & Adenoidectomy Abdominal Surgeries: Surgical HX of: Cholecystectomy Reproductive Surgeries: Surgical HX of;: Breast Surgery (reduction), Section Patient denies;: Genitourinary Surgery - Family History Family History: Reports;: Family Cancer (sisters, breast), Family Diabetes ( mother and father), Family Heart Disease (mother and father), Family Stroke ( mother) - Social History Smoking Status: Current some day smoker Frequency of Alcohol Use: None Type of Drug Use: None Results - Labs CBC & BMP: 03/03/17 03:47 03/03/17 03:47 Lab Results: I have reviewed the past 24 hour labs - Diagnostic Findings Procedure: Chest x-ray: image reviewed by me (Looks a little wet. CT had earlier showed a left basilar infiltrate and no evidence of pulmonary embolism.) Quality Measures - VTE Contraindication to Pharmacological VTE Prophylaxis: High Risk of Bleeding Specialty Discharge - Follow Up or Referrals Follow up with: Alec Hodges MD [Physician] - 1 Week (BMP with mag, CBC, PT INR prior to appointment) Odette Triplett MD [REFERRING DOCTOR/PRACTITIONER] - 1 Week (schedule appt to be seen by Dr. Triplett within 1 week of discharge. If there is any problem contact katheryn Curry child day care center worker @[phone])
[2017-03-04 07:37] LABS: Basophils % 0.2 % (0.0-0.8); Eosinophils % 0.1 % (0.00-10.9); Hematocrit 37.5 VOL% (35.7-47.0); Hemoglobin 11.6 GM/DL (12.0-16.0); Immature Granulocytes % 0.8 %; Immature Granulocytes Absolute 0.09 #; Lymphocytes # 0.4 10*3/uL (1.4-4.0); Lymphocytes % 3.7 % (21.3-54.2); Mean Corpuscular HGB Conc 30.9 GM/DL (32-36); Mean Corpuscular Hemoglobin 31 PG (27-34); Mean Corpuscular Volume 99.7 FL (87-102); Mean Platelet Volume 11.7 FL (9.6-12.0); Monocytes # 0.4 10*3/uL (0.11-0.8); Monocytes % 3.8 % (1.7-12.7); NRBC # 0.05 10*3/uL; Neutrophils # 10.3 10*3/uL (1.4-7.4); Neutrophils % 91.4 % (38.7-73.9); Platelet Count 127 T/CUMM (130-400); Red Blood Count 3.76 MC/CUMM (3.8-5.5); Red Cell Distribution Width 14.6 % (9.3-17.3); White Blood Count 11.2 T/CUMM (4-12)
[2017-03-04] MEDS: INSULIN REGULAR 100 UNIT/ML SUBCUT SCH ×4 (08:04→21:51)
[2017-03-04 08:08] LABS: Calcium 9.2 MG/DL (8.5-10.1); Magnesium 2.6 MG/DL (1.8-2.4); Osmolality,Calculated 277.2 MOS/KG (273-304); Potassium 3.8 MMOL/L (3.5-5.1)
[2017-03-04] MEDS: LEVOFLOXACIN INJ 750 MG in PREMIX 1 EACH IV SCH (08:09)
[2017-03-04] MEDS: FUROSEMIDE 40 MG/4 ML VIAL IV SCH ×2 (08:13→15:33)
[2017-03-04 08:14] LABS: Allen Test Positive; Pt O2 Delivery Device BIPAP
[2017-03-04 08:18] LABS: ABG Base Excess 10.7 MMOL/L (-2.5-2.5); ABG HCO3 34.2 MMOL/L (20-26); ABG Oxygen Saturation 87.9 % (95-100)
[2017-03-04] MEDS: AMINOPHYLLINE 1,000 MG in SODIUM CHLORIDE 0.9% 460 ML IV SCH ×2 (09:28→20:49)
--- NOTE | 2017-03-04 09:37 | XRay Report ---
History is short of breath Comparison 02/21/2017 The heart and vessels are enlarged with pacemaker present There is been development of increasing moderate diffuse bilateral hazy pulmonary opacities. The left base is underpenetrated. Impression: Worsening pulmonary edema PROCEDURE INTERPRETED AT [facility] DEPARTMENT OF RADIOLOGY Final Report Signed by: Dr. Nat Love
[2017-03-04] MEDS: MAGNESIUM OXIDE 400 MG TABLET PO SCH ×2 (09:55→21:54)
[2017-03-04] MEDS: ASPIRIN EC 81 MG TABLET PO SCH (10:20)
[2017-03-04] MEDS: sitaGLIPtin 25 MG TABLET PO SCH (10:20)
[2017-03-04] MEDS: GABAPENTIN 100 MG CAPSULE PO SCH ×3 (10:20→21:52)
[2017-03-04] MEDS: CARVEDILOL 6.25 MG TABLET PO SCH ×2 (10:21→21:54)
[2017-03-04] MEDS: POTASSIUM CHLORIDE 20 MEQ TABLET PO SCH ×2 (10:21→21:53)
[2017-03-04] MEDS: metOLazone 5 MG TABLET PO SCH (10:21)
[2017-03-04] MEDS: PANTOPRAZOLE 40 MG TABLET PO SCH (10:21)
[2017-03-04 11:20] LABS: Band Neutrophils 1 % (0-10); Lymphocytes 1 % (20-55); Nucleated Red Blood Cells 3 (0-5); Segmented Neutrophils 94 % (50-85); Total Cells Counted 100
[2017-03-04 11:21] LABS: Hypochromasia 2+; Platelet Estimate Adequate; Target Cells Slight
[2017-03-04] MEDS ORDERED: WARFARIN 5 MG TABLET ONE (18:16)
[2017-03-04] MEDS: WARFARIN 10 MG TABLET PO SCH (18:20)
[2017-03-04] MEDS: ATORVASTATIN 20 MG TABLET PO SCH (21:52)
[2017-03-05 04:53] LABS: Basophils % 0.1 % (0.0-0.8); Hematocrit 33.8 VOL% (35.7-47.0); Hemoglobin 10.6 GM/DL (12.0-16.0); Immature Granulocytes % 0.6 %; Immature Granulocytes Absolute 0.08 #; Lymphocytes # 0.9 10*3/uL (1.4-4.0); Lymphocytes % 6.5 % (21.3-54.2); Mean Corpuscular HGB Conc 31.4 GM/DL (32-36); Mean Corpuscular Hemoglobin 30 PG (27-34); Mean Corpuscular Volume 96.6 FL (87-102); Mean Platelet Volume 11.7 FL (9.6-12.0); Monocytes # 2.1 10*3/uL (0.11-0.8); Monocytes % 14.7 % (1.7-12.7); NRBC # 0.05 10*3/uL; Neutrophils # 11.1 10*3/uL (1.4-7.4); Neutrophils % 78.1 % (38.7-73.9); Platelet Count 177 T/CUMM (130-400); Red Cell Distribution Width 14.3 % (9.3-17.3); White Blood Count 14.2 T/CUMM (4-12)
[2017-03-05 05:22] LABS: Blood Urea Nitrogen 28 MG/DL (7-18); Glucose 142 MG/DL (74-106); Magnesium 2.3 MG/DL (1.8-2.4); Osmolality,Calculated 280.8 MOS/KG (273-304); Potassium 2.9 MMOL/L (3.5-5.1); Sodium 137 MMOL/L (136-145)
[2017-03-05] MEDS: POTASSIUM CHLORIDE 20 MEQ TABLET PO PRN ×5 (06:39→23:20)
--- NOTE | 2017-03-05 07:10 | Pulmonology Progress Note ---
Pulmonary - PN: Subj Interval history: This 57-year-old white female has obesity hypoventilation syndrome and cor pulmonale. Also has a left lower lobe pneumonia. Her PCO2 did come down to the 90s on BiPAP yesterday. She apparently declined wearing the BiPAP overnight again. This morning she is wide awake. She is on Aminophyllin and her theophylline level is slightly elevated at 23. Also has hypokalemia. Will adjust these. We will add Aldactone to help with further diuresis and try to correct her potassium. Exam (Progress Note) - Constitutional Vitals: Period Temp Pulse Resp BP Sys/Way Pulse Ox Last 24 Hr 97.5 F-98.4 F 60-72 10- 89-136/37-87 Exam: She is alert and seems oriented. Vital signs normal except weight of 205 kg. Pupils react to light. Throat is clear. Chin redundant. Neck is supple. Chest reveals minimal basilar rhonchi. Heart normal rate and rhythm no murmurs. Abdomen soft obese unable to palpate abdominal organs. Extremities no clubbing or cyanosis trace of edema. Calves nontender. Results - Labs CBC & BMP: 03/05/17 04:36 03/05/17 04:36 Lab Results: I have reviewed the past 24 hour labs Assessment and Plan (1) History of coronary artery disease Status: Chronic Assessment and plan: Being managed by cardiology. Current Visit: No (2) Morbid obesity Status: Chronic Assessment and plan: Patient was 450 pounds. Certainly the underlying cause for her obstructive sleep apnea and obesity hypoventilation syndrome. This will need addressing long-term. 03/05/2017 needs to lose about 200 pounds. This will of course be a long-term process. Current Visit: No (3) History of atrial fibrillation Status: Chronic Assessment and plan: Patient chronically on Coumadin. 03/05/2017 rate is controlled she does have a paced rhythm. Current Visit: Yes (4) Non-compliant behavior Status: Chronic Assessment and plan: She has not been willing to use her CPAP or BiPAP at night despite severe obstructive sleep apnea. 03/05/2017 once again refused to wear the BiPAP overnight. She says this morning that she had said it was okay to use but she would not allow them to put it on last night. Current Visit: Yes (5) Obstructive sleep apnea Status: Chronic Assessment and plan: Enforcing use of BiPAP at present. 03/05/2017 must use BiPAP at night Current Visit: Yes (6) Acute and chronic respiratory failure Status: Acute Assessment and plan: Has a PCO2 of 148. May require mechanical ventilation. Hopefully with diuresis , Aminophyllin, and insured facemask BiPAP we can improve this. At the present time she is allowing the facemask BiPAP to be used. 03/05/2017 obesity hypoventilation syndrome with hypercarbia. Did not recheck ABGs this morning. Is alert. Trying to help this with Aminophyllin. She does have an acidic pH so we really cannot use Diamox. Current Visit: Yes (7) Obesity hypoventilation syndrome Status: Chronic Assessment and plan: He has severe obesity hypoventilation syndrome with acute on chronic respiratory failure 03/05/2017 long-term weight loss and nocturnal BiPAP are indicated. Current Visit: No Specialty Discharge - Follow Up or Referrals Follow up with: Alec Hodges MD [Physician] - 1 Week (BMP with mag, CBC, PT INR prior to appointment) Odette Triplett MD [REFERRING DOCTOR/PRACTITIONER] - 1 Week (schedule appt to be seen by Dr. Triplett within 1 week of discharge. If there is any problem contact katheryn Curry manager urgent care @[phone])
[2017-03-05] MEDS: ALBUTEROL/IPRATROPIUM 3 ML NEB RESP TX SCH ×3 (07:23→19:36)
[2017-03-05] MEDS: INSULIN REGULAR 100 UNIT/ML SUBCUT SCH ×4 (08:00→20:38)
[2017-03-05] MEDS ORDERED: ACETAMINOPHEN 325 MG TABLET PO PRN (08:10)
[2017-03-05] MEDS: LEVOFLOXACIN INJ 750 MG in PREMIX 1 EACH IV SCH (08:15)
[2017-03-05] MEDS: FUROSEMIDE 40 MG/4 ML VIAL IV SCH ×2 (08:16→17:43)
[2017-03-05] MEDS: ENOXAPARIN 80 MG/0.8 ML SYRINGE SUBCUT SCH ×2 (08:16→17:57)
[2017-03-05] MEDS: ASPIRIN EC 81 MG TABLET PO SCH (08:18)
[2017-03-05] MEDS: sitaGLIPtin 25 MG TABLET PO SCH (08:20)
[2017-03-05] MEDS: GABAPENTIN 100 MG CAPSULE PO SCH ×3 (08:20→20:28)
[2017-03-05] MEDS: PANTOPRAZOLE 40 MG TABLET PO SCH (08:20)
[2017-03-05] MEDS: metOLazone 5 MG TABLET PO SCH (08:20)
[2017-03-05] MEDS: POTASSIUM CHLORIDE 20 MEQ TABLET PO SCH ×3 (08:21→20:29)
[2017-03-05] MEDS: CARVEDILOL 6.25 MG TABLET PO SCH ×2 (08:26→20:28)
[2017-03-05] MEDS: MAGNESIUM OXIDE 400 MG TABLET PO SCH ×2 (08:26→20:29)
[2017-03-05] MEDS: SPIRONOLACTONE 25 MG TABLET PO SCH ×2 (08:26→20:29)
[2017-03-05] MEDS: AMINOPHYLLINE 500 MG in SODIUM CHLORIDE 0.9% 480 ML IV SCH ×3 (09:10→23:23)
--- NOTE | 2017-03-05 09:12 | Cardiology Progress Note ---
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 History of atelectasis. Debility. Noncompliance, ANDREINA, refuses CPAP. 03/04: hypercarbic respiratory failure -Hypercarbic respiratory failure. She has severe OHS/ANDREINA, continues to refuse treatment for this. She also may have had pneumonia. Followed by pulmonary. She was not a candidate for Diamox due to acidosis -Cut back [place] to 5/325 every 6 hours as needed, to prevent suppression of respiratory drive. If her chronic pain issues flareup, we will ask pain doctor , Dr. Temple to see her -Elevated EDP and PASP. Continue IV diuresis. I doubt we can make a lasting improvement in this, as she remains noncompliant with treatment. Monitor and replete electrolytes. Her recent respiratory failure will also likely exacerbate this -Continue close electrolyte monitoring and repletion, still on high-dose IV diuretic. Hypokalemia worsened. increase potassium to 40 mg 3 times daily, continue Aldactone. -Chronic A. 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 -Continue anticoagulation. Coumadin, INR checks daily, bridge with Lovenox. No bleeding issues -Disposition remains challenging. Discussed with Dr. Sher, she will stay in the ICU today. She remains high maintenance and quite demanding on the nurses. No cardiac indication for telemetry, the A. fib is chronic and rate is well controlled with a DOOR FURRING INSTALLER-P. She will need close monitoring of her respiratory issues -I asked hospitalist service to see if they can take her on their service, unfortunately, she fired them few days ago and Dr. Sears told me yesterday they cannot see her again -Dr. Bloom also signed a few days ago, despite all his best efforts, the patient remains reluctant to use CPAP -She refused multiple placement options in the past. Case management did their best. if goes home, would likely fail again and will be readmitted soon. Family is not very involved in her care. Current Visit: Yes (2) Coronary artery disease Status: Chronic Assessment and plan: SEE PLAN LISTED BELOW Current Visit: Yes (3) Obstructive sleep apnea Status: Chronic Assessment and plan: SEE PLAN LISTED BELOW Current Visit: Yes (4) Hypertension Status: Chronic Assessment and plan: SEE PLAN LISTED BELOW Current Visit: Yes Qualifiers: Hypertension type: essential hypertension Qualified Code(s): I10 - Essential (primary) hypertension (5) Pacemaker Status: Chronic Assessment and plan: SEE PLAN LISTED BELOW Current Visit: Yes (6) Pneumonia Status: Acute Assessment and plan: SEE PLAN LISTED BELOW Current Visit: Yes (7) Morbid obesity Status: Chronic Current Visit: Yes (8) Acute on chronic renal failure Status: Chronic Current Visit: Yes (9) Pulmonary hypertension Status: Chronic Current Visit: Yes Cardiology - PN: Subj Interval history: She is more alert now, ABG markedly improved. She again refused the CPAP last night. FEDE resolved. Exam (Progress Note) - Constitutional Vitals: Period Temp Pulse Resp BP Sys/Way Pulse Ox Last 24 Hr 97.5 F-98.4 F 60-77 10-28 89-136/37-87 85-97 General appearance: no acute distress, morbidly obese - Head Head exam: Present: normal inspection. Absent: contusion - Eye Eye exam: Absent: periorbital swelling, laceration to eyelids Pupils: Absent: dilated - ENT ENT exam: Present: normal external ear exam - Neck Neck exam: Present: other (Very thick) - Respiratory Respiratory exam: Present: clear to auscultation bilaterally. Absent: rales, stridor, wheezes - Cardiovascular Cardiovascular exam: Present: regular rate and rhythm, other (Unable to assess JVD). Absent: systolic murmur - GI/Abdominal GI/Abdominal exam: Present: normal bowel sounds. Absent: distended, guarding - Extremities Exam Extremities exam: Present: normal capillary refill, edema, other (Chronic venostasis) - Neurological Exam Neurological exam: Present: alert, oriented X3 - Psychiatric Psychiatric exam: Present: normal affect, anxious - Skin Skin exam: Present: normal color, warm. Absent: cyanosis Result/EKG - Labs CBC & BMP: 03/05/17 04:36 03/05/17 04:36 Lab Results: I have reviewed the past 24 hour labs Labs: Laboratory Results - last 24 hr 03/04/17 03/04/17 03/04/17 07:24 16:02 20:16 WBC RBC Hgb Hct MCV MCH MCHC RDW Plt Count MPV Neut % (Auto) Lymph % (Auto) [place] % (Auto) Eos % (Auto) Baso % (Auto) Neut # (Auto) Lymph # (Auto) [place] # (Auto) Eos # (Auto) Baso # (Auto) Total Counted 100 Immature Gran % Nucleated RBC % Immature Gran # Segmented Neutrophils 94 H Band Neutrophils 1 Lymphocytes 1 L Monocytes 4 Nucleated RBCs 3 Nucleated RBCs # Platelet Estimate Adequate Immature Plt Fraction Hypochromasia 2+ Target Cells Slight Sodium Potassium Chloride Carbon Dioxide BUN Creatinine GFR Calculation BUN/Creatinine Ratio Glucose POC Glucose 107 H 151 H Calculated Osmolality Calcium Magnesium Theophylline 03/05/17 03/05/17 03/05/17 04:36 04:36 04:36 WBC 14.2 H RBC 3.50 L Hgb 10.6 L Hct 33.8 L MCV 96.6 MCH 30 MCHC 31.4 L RDW 14.3 Plt Count 177 D MPV 11.7 Neut % (Auto) 78.1 H Lymph % (Auto) 6.5 L [place] % (Auto) 14.7 H Eos % (Auto) 0.0 Baso % (Auto) 0.1 Neut # (Auto) 11.1 H Lymph # (Auto) 0.9 L [place] # (Auto) 2.1 H Eos # (Auto) 0.0 Baso # (Auto) 0.0 Total Counted Immature Gran % 0.6 Nucleated RBC % 0.4 Immature Gran # 0.08 Segmented Neutrophils Band Neutrophils Lymphocytes Monocytes Nucleated RBCs Nucleated RBCs # 0.05 Platelet Estimate Immature Plt Fraction 0.0 Hypochromasia Target Cells Sodium 137 Potassium 2.9 L Chloride 88 L Carbon Dioxide > 45 H BUN 28 H Creatinine 1.30 H GFR Calculation 72 BUN/Creatinine Ratio 21.00 H Glucose 142 H POC Glucose Calculated Osmolality 280.8 Calcium 9.0 Magnesium 2.3 Theophylline 23.1 H* 03/05/17 07:59 WBC RBC Hgb Hct MCV MCH MCHC RDW Plt Count MPV Neut % (Auto) Lymph % (Auto) [place] % (Auto) Eos % (Auto) Baso % (Auto) Neut # (Auto) Lymph # (Auto) [place] # (Auto) Eos # (Auto) Baso # (Auto) Total Counted Immature Gran % Nucleated RBC % Immature Gran # Segmented Neutrophils Band Neutrophils Lymphocytes Monocytes Nucleated RBCs Nucleated RBCs # Platelet Estimate Immature Plt Fraction Hypochromasia Target Cells Sodium Potassium Chloride Carbon Dioxide BUN Creatinine GFR Calculation BUN/Creatinine Ratio Glucose POC Glucose 140 H Calculated Osmolality Calcium Magnesium Theophylline - EKG EKG results: interpreted by me Quality Measures - VTE Contraindication to Pharmacological VTE Prophylaxis: High Risk of Bleeding Specialty Discharge - Follow Up or Referrals Follow up with: Alec Hodges MD [Physician] - 1 Week (BMP with mag, CBC, PT INR prior to appointment) Odette Triplett MD [REFERRING DOCTOR/PRACTITIONER] - 1 Week (schedule appt to be seen by Dr. Triplett within 1 week of discharge. If there is any problem contact katheryn Curry home care consultant @[phone])
[2017-03-05] MEDS: AMINOPHYLLINE 1,000 MG in SODIUM CHLORIDE 0.9% 460 ML IV SCH (09:13)
[2017-03-05] MEDS ORDERED: WARFARIN 5 MG TABLET ONE (17:40)
[2017-03-05] MEDS: WARFARIN 10 MG TABLET PO SCH (17:43)
[2017-03-05] MEDS: ATORVASTATIN 20 MG TABLET PO SCH (20:27)
[2017-03-06] MEDS: POTASSIUM CHLORIDE 20 MEQ TABLET PO PRN ×2 (02:03→04:27)
[2017-03-06] MEDS: AMINOPHYLLINE 500 MG in SODIUM CHLORIDE 0.9% 480 ML IV SCH ×3 (05:58→17:35)
[2017-03-06 06:41] LABS: Basophils % 0.2 % (0.0-0.8); Eosinophils % 0.1 % (0.00-10.9); Hematocrit 33.2 VOL% (35.7-47.0); Hemoglobin 10.7 GM/DL (12.0-16.0); Immature Granulocytes % 0.4 %; Immature Granulocytes Absolute 0.05 #; Lymphocytes # 1.2 10*3/uL (1.4-4.0); Lymphocytes % 10.5 % (21.3-54.2); Mean Corpuscular HGB Conc 32.2 GM/DL (32-36); Mean Corpuscular Hemoglobin 31 PG (27-34); Mean Corpuscular Volume 95.4 FL (87-102); Mean Platelet Volume 12.3 FL (9.6-12.0); Monocytes # 1.4 10*3/uL (0.11-0.8); Monocytes % 12.5 % (1.7-12.7); NRBC # 0.07 10*3/uL; Neutrophils # 8.7 10*3/uL (1.4-7.4); Neutrophils % 76.3 % (38.7-73.9); Platelet Count 201 T/CUMM (130-400); Red Blood Count 3.48 MC/CUMM (3.8-5.5); Red Cell Distribution Width 14.4 % (9.3-17.3); White Blood Count 11.3 T/CUMM (4-12)
[2017-03-06 06:49] LABS: INR 2.5; PT Patient Result 28.2 SECS
--- NOTE | 2017-03-06 06:54 | Pulmonology Progress Note ---
Pulmonary - PN: Subj Interval history: This 57-year-old white female has obesity hypoventilation syndrome and cor pulmonale. Also has a left lower lobe pneumonia. Her PCO2 did come down to the 90s on BiPAP yesterday. She apparently declined wearing the BiPAP overnight again. This morning she is wide awake. She is on Aminophyllin and her theophylline level is slightly elevated at 23. Also has hypokalemia. Will adjust these. We will add Aldactone to help with further diuresis and try to correct her potassium. 03/06/2017 patient using her BiPAP overnight. Outstanding diuresis. Chemistries pending. Theophylline level pending. O2 sat in the mid 90s. Overall looks better. Can move to the floor. Must ensure that she uses her BiPAP at night. Exam (Progress Note) - Constitutional Vitals: Period Temp Pulse Resp BP Sys/Way Pulse Ox Last 24 Hr 96.9 F-98.6 F 60-72 15-32 92-159/45-83 80-98 Exam: She is asleep but arousable. Vital signs normal except weight of 204 kg. Pupils react to light. Throat is clear. Chin redundant. Neck is supple. Chest reveals minimal basilar rhonchi. Heart normal rate and rhythm no murmurs. Abdomen soft obese unable to palpate abdominal organs. Extremities no clubbing or cyanosis trace of edema. Calves nontender. Results - Labs CBC & BMP: 03/06/17 05:11 03/05/17 22:33 Lab Results: I have reviewed the past 24 hour labs Assessment and Plan (1) History of coronary artery disease Status: Chronic Assessment and plan: Being managed by cardiology. Current Visit: No (2) Morbid obesity Status: Chronic Assessment and plan: Patient was 450 pounds. Certainly the underlying cause for her obstructive sleep apnea and obesity hypoventilation syndrome. This will need addressing long-term. 03/05/2017 needs to lose about 200 pounds. This will of course be a long-term process. 03/06/2017 she is losing some fluid weight at this point. Again needs plan for long-term weight loss Current Visit: No (3) History of atrial fibrillation Status: Chronic Assessment and plan: Patient chronically on Coumadin. 03/05/2017 rate is controlled she does have a paced rhythm. 03/06/2017 right continues to be controlled. Current Visit: Yes (4) Non-compliant behavior Status: Chronic Assessment and plan: She has not been willing to use her CPAP or BiPAP at night despite severe obstructive sleep apnea. 03/05/2017 once again refused to wear the BiPAP overnight. She says this morning that she had said it was okay to use but she would not allow them to put it on last night. 03/06/2017 patient wearing BiPAP at present and wore it all night. Current Visit: Yes (5) Obstructive sleep apnea Status: Chronic Assessment and plan: Enforcing use of BiPAP at present. 03/05/2017 must use BiPAP at night 03/06/2017 using BiPAP. Current Visit: Yes (6) Acute and chronic respiratory failure Status: Acute Assessment and plan: Has a PCO2 of 148. May require mechanical ventilation. Hopefully with diuresis , Aminophyllin, and insured facemask BiPAP we can improve this. At the present time she is allowing the facemask BiPAP to be used. 03/05/2017 obesity hypoventilation syndrome with hypercarbia. Did not recheck ABGs this morning. Is alert. Trying to help this with Aminophyllin. She does have an acidic pH so we really cannot use Diamox. 03/06/2017 we have not rechecked ABGs. O2 sat acceptable on the BiPAP. Patient alert when she is awake Current Visit: Yes (7) Obesity hypoventilation syndrome Status: Chronic Assessment and plan: He has severe obesity hypoventilation syndrome with acute on chronic respiratory failure 03/05/2017 long-term weight loss and nocturnal BiPAP are indicated. 03/06/2017 needs to be compliant with BiPAP every night. Needs long-term weight loss. Has hypercarbia and cor pulmonale due to obesity hypoventilation primarily. Current Visit: No Specialty Discharge - Follow Up or Referrals Follow up with: Alec Hodges MD [Physician] - 1 Week (BMP with mag, CBC, PT INR prior to appointment) Odette Triplett MD [REFERRING DOCTOR/PRACTITIONER] - 1 Week (schedule appt to be seen by Dr. Triplett within 1 week of discharge. If there is any problem contact katheryn [facility] care mgr @[phone])
[2017-03-06] MEDS: ALBUTEROL/IPRATROPIUM 3 ML NEB RESP TX SCH ×3 (07:19→19:26)
[2017-03-06] MEDS: ENOXAPARIN 80 MG/0.8 ML SYRINGE SUBCUT SCH (07:19)
[2017-03-06] MEDS: INSULIN REGULAR 100 UNIT/ML SUBCUT SCH ×4 (07:33→20:32)
[2017-03-06 07:47] LABS: Calcium 9.2 MG/DL (8.5-10.1); Magnesium 1.7 MG/DL (1.8-2.4); Potassium 3.1 MMOL/L (3.5-5.1)
--- NOTE | 2017-03-06 08:48 | Cardiology Progress Note ---
Assessment and Plan (1) Obesity hypoventilation syndrome Status: Chronic Assessment and plan: 1. 57-year BMI 80 WF with ANDREINA/hypercarbic respiratory failure related to CPAP noncompliance, who reportedly stopped breathing March 04, 1930 in the morning but seems to be doing well as long as she is using her CPAP. She had previously refused but now reports that she is willing to use it regularly. 2. She is asymptomatic currently but previously had chest pain complaints with multiple heart catheterizations that showed no significant coronary artery disease including January 2017. 3. Atrial thrombus in 2014 with chronic atrial fibrillation on anticoagulation with Coumadin; INR is currently therapeutic at around 2-1/2 4. We will consider transfer to the floor later today if she continues to do well. 5. Consider transfer to swing bed, apparently she had refused multiple locations to be transferred to in the past? She reportedly fired the hospitalist service. 6. Follow-up pulmonary service, reportedly has pneumonia but is afebrile without leukocytosis at this time. 7. We will try to avoid narcotics/pain medication given history of problems with this in the past. A. Replace potassium and magnesium per protocol. Current Visit: No (2) Hyperkalemia Status: Resolved Current Visit: No (3) Obstructive sleep apnea Status: Chronic Current Visit: Yes (4) Pneumonia Status: Acute Current Visit: Yes Cardiology - PN: Subj Interval history: Ms. Ortez is currently on CPAP and seems to be tolerating it this morning. She has no complaints and reports that she is doing fine. She says she is willing to try to use her CPAP regularly and acknowledges the importance of it. She is not having chest discomfort or shortness of breath palpitations or dizziness. Exam (Progress Note) - Constitutional Vitals: Period Temp Pulse Resp BP Sys/Way Pulse Ox Last 24 Hr 96.9 F-98.6 F 60-70 15-32 92-159/45-83 82-98 General appearance: no acute distress, morbidly obese - Head Head exam: Present: normal inspection, normocephalic, atraumatic - Neck Neck exam: Present: normal inspection - Respiratory Respiratory exam: Present: decreased breath sounds, other (Probable minimal wheezing). Absent: stridor - Cardiovascular Cardiovascular exam: Present: regular rate and rhythm. Absent: diastolic murmur , rubs - GI/Abdominal GI/Abdominal exam: Present: soft. Absent: tenderness - Extremities Exam Extremities exam: Present: edema, other (Warm extremities with left greater than right 1-2+ lower extremity edema appear) Result/EKG - Labs CBC & BMP: 03/06/17 05:11 03/06/17 05:11 Labs: Laboratory Results - last 24 hr 03/05/17 03/05/17 03/05/17 11:29 15:59 19:56 WBC RBC Hgb Hct MCV MCH MCHC RDW Plt Count MPV Neut % (Auto) Lymph % (Auto) [place] % (Auto) Eos % (Auto) Baso % (Auto) Neut # (Auto) Lymph # (Auto) [place] # (Auto) Eos # (Auto) Baso # (Auto) Immature Gran % Nucleated RBC % Immature Gran # Nucleated RBCs # Immature Plt Fraction INR PT Patient/Control Mix Sodium Potassium Chloride Carbon Dioxide Anion Gap BUN Creatinine GFR Calculation BUN/Creatinine Ratio Glucose POC Glucose 158 H 140 H 147 H Calculated Osmolality Calcium Magnesium Theophylline 03/05/17 03/05/17 03/06/17 21:00 22:33 05:11 WBC 11.3 RBC 3.48 L Hgb 10.7 L Hct 33.2 L MCV 95.4 MCH 31 MCHC 32.2 RDW 14.4 Plt Count 201 MPV 12.3 H Neut % (Auto) 76.3 H Lymph % (Auto) 10.5 L [place] % (Auto) 12.5 Eos % (Auto) 0.1 Baso % (Auto) 0.2 Neut # (Auto) 8.7 H Lymph # (Auto) 1.2 L [place] # (Auto) 1.4 H Eos # (Auto) 0.0 Baso # (Auto) 0.0 Immature Gran % 0.4 Nucleated RBC % 0.6 Immature Gran # 0.05 Nucleated RBCs # 0.07 Immature Plt Fraction 0.0 INR PT Patient/Control Mix Sodium Potassium 2.8 L 2.8 L Chloride Carbon Dioxide Anion Gap BUN Creatinine GFR Calculation BUN/Creatinine Ratio Glucose POC Glucose Calculated Osmolality Calcium Magnesium Theophylline 03/06/17 03/06/17 03/06/17 05:11 05:11 05:11 WBC RBC Hgb Hct MCV MCH MCHC RDW Plt Count MPV Neut % (Auto) Lymph % (Auto) [place] % (Auto) Eos % (Auto) Baso % (Auto) Neut # (Auto) Lymph # (Auto) [place] # (Auto) Eos # (Auto) Baso # (Auto) Immature Gran % Nucleated RBC % Immature Gran # Nucleated RBCs # Immature Plt Fraction INR 2.5 PT Patient/Control Mix 28.2 D Sodium 136 Potassium 3.1 L Chloride 86 L Carbon Dioxide 44 H Anion Gap 9.1 BUN 17 Creatinine 0.90 GFR Calculation 112 BUN/Creatinine Ratio 18.00 Glucose 124 H POC Glucose Calculated Osmolality 274.0 Calcium 9.2 Magnesium 1.7 L Theophylline 31.8 H* 03/06/17 07:16 WBC RBC Hgb Hct MCV MCH MCHC RDW Plt Count MPV Neut % (Auto) Lymph % (Auto) [place] % (Auto) Eos % (Auto) Baso % (Auto) Neut # (Auto) Lymph # (Auto) [place] # (Auto) Eos # (Auto) Baso # (Auto) Immature Gran % Nucleated RBC % Immature Gran # Nucleated RBCs # Immature Plt Fraction INR PT Patient/Control Mix Sodium Potassium Chloride Carbon Dioxide Anion Gap BUN Creatinine GFR Calculation BUN/Creatinine Ratio Glucose POC Glucose 129 H Calculated Osmolality Calcium Magnesium Theophylline Quality Measures - VTE Contraindication to Pharmacological VTE Prophylaxis: High Risk of Bleeding Specialty Discharge - Follow Up or Referrals Follow up with: Alec Hodges MD [Physician] - 1 Week (BMP with mag, CBC, PT INR prior to appointment) Odette Triplett MD [REFERRING DOCTOR/PRACTITIONER] - 1 Week (schedule appt to be seen by Dr. Triplett within 1 week of discharge. If there is any problem contact [facility] spiritual care coordinator @[phone])
[2017-03-06] MEDS ORDERED: POTASSIUM CHLORIDE RIDER 20 MEQ in PREMIX 1 EACH IV PRN (09:15)
[2017-03-06] MEDS ORDERED: POTASSIUM CHLORIDE RIDER 10 MEQ in PREMIX 1 EACH IV PRN ×2 (09:15→11:49)
[2017-03-06] MEDS: LEVOFLOXACIN INJ 750 MG in PREMIX 1 EACH IV SCH (09:21)
[2017-03-06] MEDS: GABAPENTIN 100 MG CAPSULE PO SCH ×3 (09:25→20:15)
[2017-03-06] MEDS: CARVEDILOL 6.25 MG TABLET PO SCH ×2 (09:25→20:15)
[2017-03-06] MEDS: PANTOPRAZOLE 40 MG TABLET PO SCH (09:25)
[2017-03-06] MEDS: POTASSIUM CHLORIDE 20 MEQ TABLET PO SCH ×3 (09:25→20:16)
[2017-03-06] MEDS: MAGNESIUM OXIDE 400 MG TABLET PO SCH ×2 (09:26→20:13)
[2017-03-06] MEDS: sitaGLIPtin 25 MG TABLET PO SCH (09:26)
[2017-03-06] MEDS: SPIRONOLACTONE 25 MG TABLET PO SCH ×2 (09:26→20:14)
[2017-03-06] MEDS: ASPIRIN EC 81 MG TABLET PO SCH (10:24)
[2017-03-06] MEDS: FUROSEMIDE 40 MG/4 ML VIAL IV SCH ×2 (11:12→19:24)
[2017-03-06] MEDS: MAGNESIUM SULF RIDER 2 GM in PREMIX 1 EACH IV PRN (11:39)
[2017-03-06] MEDS: POTASSIUM CHLORIDE RIDER 20 MEQ in PREMIX 1 EACH IV PRN ×3 (13:00→19:23)
[2017-03-06] MEDS ORDERED: WARFARIN 5 MG TABLET ONE (18:07)
[2017-03-06] MEDS: WARFARIN 10 MG TABLET PO SCH (18:12)
[2017-03-06] MEDS: ATORVASTATIN 20 MG TABLET PO SCH (20:15)
[2017-03-07 05:30] LABS: Basophils % 0.2 % (0.0-0.8); Eosinophils # 0.1 10*3/uL (0.0-0.87); Eosinophils % 0.9 % (0.00-10.9); Hematocrit 33.1 VOL% (35.7-47.0); Hemoglobin 10.6 GM/DL (12.0-16.0); Immature Granulocytes % 0.6 %; Immature Granulocytes Absolute 0.06 #; Lymphocytes # 0.9 10*3/uL (1.4-4.0); Lymphocytes % 8.6 % (21.3-54.2); Mean Corpuscular Hemoglobin 31 PG (27-34); Mean Corpuscular Volume 96.5 FL (87-102); Mean Platelet Volume 11.2 FL (9.6-12.0); Monocytes # 1.5 10*3/uL (0.11-0.8); Monocytes % 14.9 % (1.7-12.7); NRBC # 0.07 10*3/uL; Neutrophils # 7.7 10*3/uL (1.4-7.4); Neutrophils % 74.8 % (38.7-73.9); Platelet Count 186 T/CUMM (130-400); Red Blood Count 3.43 MC/CUMM (3.8-5.5); Red Cell Distribution Width 14.5 % (9.3-17.3); White Blood Count 10.3 T/CUMM (4-12)
--- NOTE | 2017-03-07 06:58 | Pulmonology Progress Note ---
Pulmonary - PN: Subj Interval history: This 57-year-old white female has obesity hypoventilation syndrome and cor pulmonale. Also has a left lower lobe pneumonia. Her PCO2 did come down to the 90s on BiPAP yesterday. She apparently declined wearing the BiPAP overnight again. This morning she is wide awake. She is on Aminophyllin and her theophylline level is slightly elevated at 23. Also has hypokalemia. Will adjust these. We will add Aldactone to help with further diuresis and try to correct her potassium. 03/06/2017 patient using her BiPAP overnight. Outstanding diuresis. Chemistries pending. Theophylline level pending. O2 sat in the mid 90s. Overall looks better. Can move to the floor. Must ensure that she uses her BiPAP at night. 03/07/2017 patient tolerating BiPAP well. We can start taking it off during the daytime to let her eat. Just need an O2 sat of around 85% which would correlate to a PO2 of 50 when she is awake and off her BiPAP. Giving her a burst of Diamox for a few days again. Her CO2 is 44 on her venous chemistries. Exam (Progress Note) - Constitutional Vitals: Period Temp Pulse Resp BP Sys/Way Pulse Ox Last 24 Hr 97.4 F-98.8 F 60-96 14-31 98-168/40-72 89-100 Exam: She is alert and wearing facemask BiPAP. Vital signs normal except weight of 204 kg. Pupils react to light. Throat is clear. Chin redundant. Neck is supple. Chest reveals minimal basilar rhonchi. Heart normal rate and rhythm no murmurs. Abdomen soft obese unable to palpate abdominal organs. Extremities no clubbing or cyanosis trace of edema. Calves nontender. Results - Labs CBC & BMP: 03/07/17 05:25 03/06/17 17:33 Lab Results: I have reviewed the past 24 hour labs - Diagnostic Findings Procedure: Chest x-ray: image reviewed by me (Still has some interstitial edema. Looks a little better than the last film 3 days ago.) Assessment and Plan (1) History of coronary artery disease Status: Chronic Assessment and plan: Being managed by cardiology. Current Visit: No (2) Morbid obesity Status: Chronic Assessment and plan: Patient was 450 pounds. Certainly the underlying cause for her obstructive sleep apnea and obesity hypoventilation syndrome. This will need addressing long-term. 03/05/2017 needs to lose about 200 pounds. This will of course be a long-term process. 03/06/2017 she is losing some fluid weight at this point. Again needs plan for long-term weight loss 03/07/1970 again will need long-term weight loss. Current Visit: No (3) History of atrial fibrillation Status: Chronic Assessment and plan: Patient chronically on Coumadin. 03/05/2017 rate is controlled she does have a paced rhythm. 03/06/2017 rate continues to be controlled. 03/07/2017 her rate is controlled Current Visit: Yes (4) Non-compliant behavior Status: Chronic Assessment and plan: She has not been willing to use her CPAP or BiPAP at night despite severe obstructive sleep apnea. 03/05/2017 once again refused to wear the BiPAP overnight. She says this morning that she had said it was okay to use but she would not allow them to put it on last night. 03/06/2017 patient wearing BiPAP at present and wore it all night. Current Visit: Yes (5) Obstructive sleep apnea Status: Chronic Assessment and plan: Enforcing use of BiPAP at present. 03/05/2017 must use BiPAP at night 03/06/2017 using BiPAP. 03/07/2017 she continues to use BiPAP at night. He is doing most of the day yesterday. We need to get her on nasal byprongs during the day now that she has diuresed considerably. Current Visit: Yes (6) Acute and chronic respiratory failure Status: Acute Assessment and plan: Has a PCO2 of 148. May require mechanical ventilation. Hopefully with diuresis , Aminophyllin, and insured facemask BiPAP we can improve this. At the present time she is allowing the facemask BiPAP to be used. 03/05/2017 obesity hypoventilation syndrome with hypercarbia. Did not recheck ABGs this morning. Is alert. Trying to help this with Aminophyllin. She does have an acidic pH so we really cannot use Diamox. 03/06/2017 we have not rechecked ABGs. O2 sat acceptable on the BiPAP. Patient alert when she is awake 03/07/2017 remains in chronic respiratory failure requiring BiPAP at night and oxygen during the day. Current Visit: Yes (7) Obesity hypoventilation syndrome Status: Chronic Assessment and plan: He has severe obesity hypoventilation syndrome with acute on chronic respiratory failure 03/05/2017 long-term weight loss and nocturnal BiPAP are indicated. 03/06/2017 needs to be compliant with BiPAP every night. Needs long-term weight loss. Has hypercarbia and cor pulmonale due to obesity hypoventilation primarily. 03/07/2017 continuing with diuresis, nasal oxygen during the day, BiPAP at night , needs long-term weight loss. I have resumed Diamox for 3 days. Changing IV Aminophyllin to oral theophylline. Keep up with altagracia levels. Her altagracia level was 21 this morning. Current Visit: No Specialty Discharge - Follow Up or Referrals Follow up with: Alec Hodges MD [Physician] - 1 Week (BMP with mag, CBC, PT INR prior to appointment) Odette Triplett MD [REFERRING DOCTOR/PRACTITIONER] - 1 Week (schedule appt to be seen by Dr. Triplett within 1 week of discharge. If there is any problem contact katheryn Curry care process manager @[phone])
[2017-03-07] MEDS: ALBUTEROL/IPRATROPIUM 3 ML NEB RESP TX SCH ×3 (07:15→19:51)
--- NOTE | 2017-03-07 08:19 | XRay Report ---
XR chest 1V portable Indication: CHF, cor pulmonale Comparison: Chest x-ray March 04, 2017 Technique: Frontal views of the chest Findings: Continued cardiomegaly. No significant change in bilateral pulmonary opacities which are greatest within the left lung base with elevation of left hemidiaphragm and probable small left pleural fluid. Visualized osseous and surrounding soft tissue structures appear grossly unchanged. Pacemaker apparatus again demonstrated. IMPRESSION: No significant interval change. PROCEDURE INTERPRETED AT [facility] DEPARTMENT OF RADIOLOGY Final Report Signed by: Dr aZne Espinoza
[2017-03-07 08:38] LABS: Blood Urea Nitrogen 16 MG/DL (7-18); Calcium 9.1 MG/DL (8.5-10.1); Glucose 109 MG/DL (74-106); Magnesium 2.3 MG/DL (1.8-2.4); Potassium 3.9 MMOL/L (3.5-5.1); Sodium 136 MMOL/L (136-145)
[2017-03-07] MEDS: FUROSEMIDE 40 MG/4 ML VIAL IV SCH (09:19)
[2017-03-07] MEDS: LEVOFLOXACIN INJ 750 MG in PREMIX 1 EACH IV SCH (09:21)
[2017-03-07] MEDS: SPIRONOLACTONE 25 MG TABLET PO SCH ×2 (09:22→21:04)
[2017-03-07] MEDS: CARVEDILOL 6.25 MG TABLET PO SCH ×2 (09:22→21:03)
[2017-03-07] MEDS: GABAPENTIN 100 MG CAPSULE PO SCH ×3 (09:22→21:03)
[2017-03-07] MEDS: MAGNESIUM OXIDE 400 MG TABLET PO SCH ×2 (09:23→21:04)
[2017-03-07] MEDS: THEOPHYLLINE ER (24 HR) 200 MG CAPSULE PO SCH ×2 (09:23→21:04)
[2017-03-07] MEDS: POTASSIUM CHLORIDE 20 MEQ TABLET PO SCH ×3 (09:23→21:04)
[2017-03-07] MEDS: sitaGLIPtin 25 MG TABLET PO SCH (09:24)
[2017-03-07] MEDS: ASPIRIN EC 81 MG TABLET PO SCH (09:24)
[2017-03-07] MEDS: acetaZOLAMIDE 250 MG TABLET PO SCH ×2 (09:25→21:03)
[2017-03-07] MEDS: PANTOPRAZOLE 40 MG TABLET PO SCH (09:25)
[2017-03-07] MEDS: INSULIN REGULAR 100 UNIT/ML SUBCUT SCH ×4 (09:27→21:31)
--- NOTE | 2017-03-07 11:06 | Cardiology Progress Note ---
Zuhair Carlton Lesley, BC, am scribing for, and in the presence of, Mauro Daniels MD 11:05. Assessment and Plan (1) Chest pain Status: Resolved Assessment and plan: March 06, 2017: 1. 57-year BMI 80 WF with ANDREINA/hypercarbic respiratory failure related to CPAP noncompliance, who reportedly stopped breathing March 04, 1930 in the morning but seems to be doing well as long as she is using her CPAP. She had previously refused but now reports that she is willing to use it regularly. 2. She is asymptomatic currently but previously had chest pain complaints with multiple heart catheterizations that showed no significant coronary artery disease including January 2017. 3. Atrial thrombus in 2014 with chronic atrial fibrillation on anticoagulation with Coumadin; INR is currently therapeutic at around 2-1/2 4. We will consider transfer to the floor later today if she continues to do well. 5. Consider transfer to swing bed, apparently she had refused multiple locations to be transferred to in the past? She reportedly fired the hospitalist service. 6. Follow-up pulmonary service, reportedly has pneumonia but is afebrile without leukocytosis at this time. 7. We will try to avoid narcotics/pain medication given history of problems with this in the past. A. Replace potassium and magnesium per protocol. March 07, 2017: 1. Ms. Ortez is doing well clinically this morning and is hemodynamically stable with normal creatinine and control rhythm (chronic atrial fibrillation with demand ventricular pacing) 2. Given she is being changed to p.o. theophylline, pulmonary service prefers we observe her until tomorrow to ensure her status does not decline. We will tentatively plan for discharge to hospice tomorrow. 3. We need to confirm her usual home Coumadin dose. According to the EMR is 10 mg and other sources a 7.5 mg daily. Her INR is up to 3.0 today. If indeed she is on 7.5 g daily at home will plan to hold one dose and go back to that with INR check in approximately 1 week's time. 4. History of noncompliance with follow-up; will be very important that she keep her follow-up with Dr. Kohler. Current Visit: Yes (2) Coronary artery disease Status: Chronic Current Visit: Yes (3) Obstructive sleep apnea Status: Chronic Current Visit: Yes (4) Hypertension Status: Chronic Current Visit: Yes Qualifiers: Hypertension type: essential hypertension Qualified Code(s): I10 - Essential (primary) hypertension (5) Pacemaker Status: Chronic Current Visit: Yes (6) Pneumonia Status: Acute Current Visit: Yes (7) Morbid obesity Status: Chronic Current Visit: Yes (8) Acute on chronic renal failure Status: Chronic Current Visit: Yes (9) Pulmonary hypertension Status: Chronic Current Visit: Yes Cardiology - PN: Subj Interval history: 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 Hodges Ms Ortez is a 57-year old, WF with ANDREINA/hypercarbic respiratory failure related to CPAP noncompliance, who reportedly stopped breathing March 04, 1930 in the morning but seems to be doing well as long as she is using her CPAP. She had previously refused but now reports that she is willing to use it regularly. She was transferred to ICU over the weekend and placed on Bi-Pap for respiratory support. Cardiac catheterization done (02/2017)this hospitalization showed no significant coronary artery disease. 03/07/17: Patient in bed, awake and alert, states she is feeling better. Not using Bi-PAP currently. Oxygen saturation ranged from 85-90% during interview. Denies complaints of chest pain or dyspnea, no distress noted. IMPRESSION/PLAN: 1. Chronic Anticoagulation - Atrial thrombus in 2014 with chronic atrial fibrillation on Coumadin; INR is currently therapeutic at 3. Will reduce dose back to 7.5mg daily, her previous dose. 2. Chronic debility and morbid obesity - transfer to swing bed on hospice? She reportedly fired hospitalist and refused placement in the past. 3. Pneumonia - Pulmonary following. 4. Severe pulmonary hypertension - Lasix 80mg BID, Spironolactone 25mg BID due to hypokalemia. Exam (Progress Note) - Constitutional Vitals: Period Temp Pulse Resp BP Sys/Way Pulse Ox Last 24 Hr 97.4 F-98.8 F 60-96 14-31 98-168/40-70 86-100 Result/EKG - Labs CBC & BMP: 03/07/17 05:25 03/07/17 05:25 Labs: Laboratory Results - last 24 hr 03/06/17 03/06/17 03/06/17 11:16 16:22 17:33 WBC RBC Hgb Hct MCV MCH MCHC RDW Plt Count MPV Neut % (Auto) Lymph % (Auto) [place] % (Auto) Eos % (Auto) Baso % (Auto) Neut # (Auto) Lymph # (Auto) [place] # (Auto) Eos # (Auto) Baso # (Auto) Immature Gran % Nucleated RBC % Immature Gran # Nucleated RBCs # Immature Plt Fraction INR PT Patient/Control Mix Sodium Potassium 3.7 Chloride Carbon Dioxide BUN Creatinine GFR Calculation BUN/Creatinine Ratio Glucose POC Glucose 150 H 130 H Calculated Osmolality Calcium Magnesium Theophylline 03/06/17 03/06/17 03/07/17 17:33 20:23 05:25 WBC 10.3 RBC 3.43 L Hgb 10.6 L Hct 33.1 L MCV 96.5 MCH 31 MCHC 32.0 RDW 14.5 Plt Count 186 MPV 11.2 Neut % (Auto) 74.8 H Lymph % (Auto) 8.6 L [place] % (Auto) 14.9 H Eos % (Auto) 0.9 Baso % (Auto) 0.2 Neut # (Auto) 7.7 H Lymph # (Auto) 0.9 L [place] # (Auto) 1.5 H Eos # (Auto) 0.1 Baso # (Auto) 0.0 Immature Gran % 0.6 Nucleated RBC % 0.7 Immature Gran # 0.06 Nucleated RBCs # 0.07 Immature Plt Fraction 0.0 INR PT Patient/Control Mix Sodium Potassium Chloride Carbon Dioxide BUN Creatinine GFR Calculation BUN/Creatinine Ratio Glucose POC Glucose 126 H Calculated Osmolality Calcium Magnesium 2.1 Theophylline 03/07/17 03/07/17 03/07/17 05:25 05:25 05:25 WBC RBC Hgb Hct MCV MCH MCHC RDW Plt Count MPV Neut % (Auto) Lymph % (Auto) [place] % (Auto) Eos % (Auto) Baso % (Auto) Neut # (Auto) Lymph # (Auto) [place] # (Auto) Eos # (Auto) Baso # (Auto) Immature Gran % Nucleated RBC % Immature Gran # Nucleated RBCs # Immature Plt Fraction INR 3.0 PT Patient/Control Mix 34.0 D Sodium 136 Potassium 3.9 Chloride 85 L Carbon Dioxide 53 H BUN 16 Creatinine 0.90 GFR Calculation 112 BUN/Creatinine Ratio 17.00 Glucose 109 H POC Glucose Calculated Osmolality 273.0 Calcium 9.1 Magnesium 2.3 Theophylline 21.0 H* 03/07/17 07:27 WBC RBC Hgb Hct MCV MCH MCHC RDW Plt Count MPV Neut % (Auto) Lymph % (Auto) [place] % (Auto) Eos % (Auto) Baso % (Auto) Neut # (Auto) Lymph # (Auto) [place] # (Auto) Eos # (Auto) Baso # (Auto) Immature Gran % Nucleated RBC % Immature Gran # Nucleated RBCs # Immature Plt Fraction INR PT Patient/Control Mix Sodium Potassium Chloride Carbon Dioxide BUN Creatinine GFR Calculation BUN/Creatinine Ratio Glucose POC Glucose 111 H Calculated Osmolality Calcium Magnesium Theophylline Quality Measures - VTE Contraindication to Pharmacological VTE Prophylaxis: High Risk of Bleeding Specialty Discharge - Follow Up or Referrals Follow up with: Alec Hodges MD [Physician] - 1 Week (BMP with mag, CBC, PT INR prior to appointment) Odette Triplett MD [REFERRING DOCTOR/PRACTITIONER] - 1 Week (schedule appt to be seen by Dr. Triplett within 1 week of discharge. If there is any problem contact [facility] pricing consultant @[phone]) I, Mauro Daniels MD, personally performed the services described in this documentation, ascribed by Cyn Moffett NP in my presence, and it is both accurate and complete .
[2017-03-07] MEDS: ATORVASTATIN 20 MG TABLET PO SCH (21:04)
[2017-03-08 05:44] LABS: INR 2.6; PT Patient Result 27.4 SECS
[2017-03-08 06:03] LABS: Calcium 9.8 MG/DL (8.5-10.1); Magnesium 2.2 MG/DL (1.8-2.4); Osmolality,Calculated 266.5 MOS/KG (273-304); Potassium 3.7 MMOL/L (3.5-5.1)
--- NOTE | 2017-03-08 07:31 | Pulmonology Progress Note ---
Pulmonary - PN: Subj Interval history: This 57-year-old white female has obesity hypoventilation syndrome and cor pulmonale. Also has a left lower lobe pneumonia. Her PCO2 did come down to the 90s on BiPAP yesterday. She apparently declined wearing the BiPAP overnight again. This morning she is wide awake. She is on Aminophyllin and her theophylline level is slightly elevated at 23. Also has hypokalemia. Will adjust these. We will add Aldactone to help with further diuresis and try to correct her potassium. 03/06/2017 patient using her BiPAP overnight. Outstanding diuresis. Chemistries pending. Theophylline level pending. O2 sat in the mid 90s. Overall looks better. Can move to the floor. Must ensure that she uses her BiPAP at night. 03/07/2017 patient tolerating BiPAP well. We can start taking it off during the daytime to let her eat. Just need an O2 sat of around 85% which would correlate to a PO2 of 50 when she is awake and off her BiPAP. Giving her a burst of Diamox for a few days again. Her CO2 is 44 on her venous chemistries. 03/08/2017 patient looks much better. She has diuresed well. Now using her BiPAP most of the night. Plans being made for discharge. Change to oral medications. Presently on both Lasix and Diamox. Watch potassium. Bicarb level is down from 53-38. Exam (Progress Note) - Constitutional Vitals: Period Temp Pulse Resp BP Sys/Way Pulse Ox Last 24 Hr 96.4 F-98.2 F 60-77 16-28 119-157/56-79 86-98 Exam: She is alert and wearing nasal O2. Vital signs normal except weight of 204 kg. Pupils react to light. Throat is clear. Chin redundant. Neck is supple. Chest reveals minimal basilar rhonchi. Heart normal rate and rhythm no murmurs. Abdomen soft obese unable to palpate abdominal organs. Extremities no clubbing or cyanosis trace of edema. Calves nontender. Results - Labs CBC & BMP: 03/07/17 05:25 03/08/17 04:57 Lab Results: I have reviewed the past 24 hour labs Assessment and Plan (1) History of coronary artery disease Status: Chronic Assessment and plan: Being managed by cardiology. Current Visit: No (2) Morbid obesity Status: Chronic Assessment and plan: Patient was 450 pounds. Certainly the underlying cause for her obstructive sleep apnea and obesity hypoventilation syndrome. This will need addressing long-term. 03/05/2017 needs to lose about 200 pounds. This will of course be a long-term process. 03/06/2017 she is losing some fluid weight at this point. Again needs plan for long-term weight loss 03/07/17 again will need long-term weight loss. 03/08/2017 continues need for weight loss. Current Visit: No (3) History of atrial fibrillation Status: Chronic Assessment and plan: Patient chronically on Coumadin. 03/05/2017 rate is controlled she does have a paced rhythm. 03/06/2017 rate continues to be controlled. 03/07/2017 her rate is controlled 03/08/2017 once again rate is controlled. Current Visit: Yes (4) Non-compliant behavior Status: Chronic Assessment and plan: She has not been willing to use her CPAP or BiPAP at night despite severe obstructive sleep apnea. 03/05/2017 once again refused to wear the BiPAP overnight. She says this morning that she had said it was okay to use but she would not allow them to put it on last night. 03/06/2017 patient wearing BiPAP at present and wore it all night. 03/08/2017 she wore her BiPAP most of the night. Current Visit: Yes (5) Obstructive sleep apnea Status: Chronic Assessment and plan: Enforcing use of BiPAP at present. 03/05/2017 must use BiPAP at night 03/06/2017 using BiPAP. 03/07/2017 she continues to use BiPAP at night. He is doing most of the day yesterday. We need to get her on nasal byprongs during the day now that she has diuresed considerably. 03/08/2017 the most important thing is going to be continued use of her BiPAP postdischarge. She has been noncompliant in the past. This is been discussed on daily basis. Current Visit: Yes (6) Acute and chronic respiratory failure Status: Acute Assessment and plan: Has a PCO2 of 148. May require mechanical ventilation. Hopefully with diuresis , Aminophyllin, and insured facemask BiPAP we can improve this. At the present time she is allowing the facemask BiPAP to be used. 03/05/2017 obesity hypoventilation syndrome with hypercarbia. Did not recheck ABGs this morning. Is alert. Trying to help this with Aminophyllin. She does have an acidic pH so we really cannot use Diamox. 03/06/2017 we have not rechecked ABGs. O2 sat acceptable on the BiPAP. Patient alert when she is awake 03/07/2017 remains in chronic respiratory failure requiring BiPAP at night and oxygen during the day. 03/08/2017 using BiPAP. In addition she is on Diamox. Probably can change that to once daily Diamox on discharge. Current Visit: Yes (7) Obesity hypoventilation syndrome Status: Chronic Assessment and plan: He has severe obesity hypoventilation syndrome with acute on chronic respiratory failure 03/05/2017 long-term weight loss and nocturnal BiPAP are indicated. 03/06/2017 needs to be compliant with BiPAP every night. Needs long-term weight loss. Has hypercarbia and cor pulmonale due to obesity hypoventilation primarily. 03/07/2017 continuing with diuresis, nasal oxygen during the day, BiPAP at night , needs long-term weight loss. I have resumed Diamox for 3 days. Changing IV Aminophyllin to oral theophylline. Keep up with altagracia levels. Her altagracia level was 21 this morning. 03/08/2017 continue BiPAP recommending weight loss. Theophylline level is 12. Continue oral theophylline. Current Visit: No Specialty Discharge - Follow Up or Referrals Follow up with: Alec Hodges MD [Physician] - 1 Week (BMP with mag, CBC, PT INR prior to appointment) Odette Triplett MD [REFERRING DOCTOR/PRACTITIONER] - 1 Week (schedule appt to be seen by Dr. Triplett within 1 week of discharge. If there is any problem contact katheryn Curry insurance healthcare consultant @[phone])
[2017-03-08] MEDS: ALBUTEROL/IPRATROPIUM 3 ML NEB RESP TX SCH ×3 (07:54→20:00)
[2017-03-08] MEDS: INSULIN REGULAR 100 UNIT/ML SUBCUT SCH ×4 (08:54→21:27)
[2017-03-08] MEDS: THEOPHYLLINE ER (24 HR) 200 MG CAPSULE PO SCH ×2 (09:06→21:27)
[2017-03-08] MEDS: MAGNESIUM OXIDE 400 MG TABLET PO SCH ×2 (09:06→21:27)
[2017-03-08] MEDS: sitaGLIPtin 25 MG TABLET PO SCH (09:06)
[2017-03-08] MEDS: ASPIRIN EC 81 MG TABLET PO SCH (09:06)
[2017-03-08] MEDS: acetaZOLAMIDE 250 MG TABLET PO SCH ×2 (09:06→21:26)
[2017-03-08] MEDS: LEVOFLOXACIN 500 MG TABLET PO SCH (09:07)
[2017-03-08] MEDS: FUROSEMIDE 80 MG TABLET PO SCH (09:07)
[2017-03-08] MEDS: GABAPENTIN 100 MG CAPSULE PO SCH ×3 (09:07→21:26)
[2017-03-08] MEDS: SPIRONOLACTONE 25 MG TABLET PO SCH ×2 (09:07→21:26)
[2017-03-08] MEDS: POTASSIUM CHLORIDE 20 MEQ TABLET PO SCH ×3 (09:07→21:27)
[2017-03-08] MEDS: PANTOPRAZOLE 40 MG TABLET PO SCH (09:07)
[2017-03-08] MEDS: CARVEDILOL 6.25 MG TABLET PO SCH ×2 (09:08→21:27)
[2017-03-08] MEDS: LEVOFLOXACIN INJ 750 MG in PREMIX 1 EACH IV SCH (10:09)
--- NOTE | 2017-03-08 15:11 | Cardiology Progress Note ---
I, Cyn Moffett NP, am scribing for, and in the presence of, Melida Rush NP 15:10. Assessment and Plan - Time spent with patient Time spent with patient: Greater than 30 minutes (Record review, assessment, and documentation) (1) Chest pain Status: Resolved Assessment and plan: SEE PLAN LISTED BELOW Current Visit: Yes Qualifiers: Chest pain type: unspecified Qualified Code(s): R07.9 - Chest pain, unspecified (2) Coronary artery disease Status: Chronic Assessment and plan: SEE PLAN LISTED BELOW Current Visit: Yes Qualifiers: Coronary Disease-Associated Artery/Lesion type: [place] artery [place] vs. transplanted heart: [place] heart Associated angina: without angina Qualified Code(s): I25.10 - Atherosclerotic heart disease of [place] coronary artery without angina pectoris (3) Obstructive sleep apnea Status: Chronic Assessment and plan: SEE PLAN LISTED BELOW Current Visit: Yes (4) Hypertension Status: Chronic Assessment and plan: SEE PLAN LISTED BELOW Current Visit: Yes Qualifiers: Hypertension type: essential hypertension Qualified Code(s): I10 - Essential (primary) hypertension (5) Pacemaker Status: Chronic Assessment and plan: SEE PLAN LISTED BELOW Current Visit: Yes (6) Pneumonia Status: Resolved Assessment and plan: SEE PLAN LISTED BELOW Current Visit: Yes (7) Morbid obesity Status: Chronic Assessment and plan: SEE PLAN LISTED BELOW Current Visit: Yes (8) Acute on chronic renal failure Status: Resolved Assessment and plan: SEE PLAN LISTED BELOW Current Visit: Yes (9) Pulmonary hypertension Status: Chronic Assessment and plan: SEE PLAN LISTED BELOW Current Visit: Yes Cardiology - PN: Subj Interval history: I saw Ms. Ortez while in the presence of SIERRA Hawkins. I examined patient , discussed patient's case with Keonmathew as she scribed for me CLINICAL STUDY MANAGER: Dr. Hodges Ms Ortez is a 57-year old, WF with ANDREINA/hypercarbic respiratory failure related to CPAP noncompliance, who reportedly stopped breathing March 04, 1930 in the morning but seems to be doing well as long as she is using her CPAP. She had previously refused but now reports that she is willing to use it regularly. She was transferred to ICU over the weekend and placed on Bi-Pap for respiratory support. Cardiac catheterization done (02/2017)this hospitalization showed no significant coronary artery disease. 03/07/2017: Patient in bed, awake and alert, states she is feeling better. Not using Bi-PAP currently. Oxygen saturation ranged from 85-90% during interview. Denies complaints of chest pain or dyspnea, no distress noted. 03/08/2017: Patient seen on telemetry today, she is sitting up in a chair this morning and looks much better. She is on 2 L nasal cannula. She states she feels better today and reports using her BiPAP last night. Continued use of this is imperative. Electrolytes within normal limits, Aminophylline level 12.7 today. All meds converted to oral. The patient states she is motivated to work to improve her health, we discussed weight loss, medication compliance, and follow-up compliance are imperative. Planning for discharge this afternoon or tomorrow home with hospice. Case management is working on BiPAP at home, this must be secured prior to discharge. IMPRESSION/PLAN: 1. CHRONIC ANTICOAGULATION - Atrial thrombus in 2014 with chronic atrial fibrillation on Coumadin; INR is currently therapeutic. Will reduce dose to 7.5mg daily, per patient report and pharmacy record. 2. CHRONIC DEBILITY AND MORBID OBESITY - planning discharge home on hospice, will need BIPAP. 3. OBSTRUCTIVE SLEEP APNEA - previous noncompliance with BiPAP, currently reports using every night. 4. SEVERE PULMONARY HYPERTENSION - Lasix 80mg daily, Spironolactone 25mg BID, Diamox 250mg QD, hypokalemia resolved, continue to monitor. Exam (Progress Note) - Constitutional Vitals: Period Temp Pulse Resp BP Sys/Way Pulse Ox Last 24 Hr 96.4 F-97.8 F 60-84 16-28 122-157/23-79 88-98 Exam: General: Severely morbidly obese, no apparent distress. Pleasant and cooperative. Appears comfortable. HEENT: PERRL, normocephalic, atraumatic. Mucous membranes moist. No jaundice noted. Conjunctiva moist and clear, sclerae anicteric. Neck: Unable to assess for JVD due to habitus. No thyromegaly or lymphadenopathy noted. No carotid bruit appreciated. Cardiac: Regular rate and rhythm, exam limited by habitus. No obvious murmur, rub or gallop. Lungs: Clear to auscultation without accessory muscle use to assist the respiratory pattern. Oxygen in use via nasal cannula as needed Abdomen: Soft, bowel sounds normoactive. Severely obese abdomen. Nontender and nondistended. No abdominal bruit or thrill noted. No masses noted. Lower abdomen rough and thickened with orange peel appearance. Musculoskeletal: 2+ edema and erythema noted to bilateral lower extremities and abdomen. Moves all extremities fully. Extremities: No clubbing, cyanosis noted. Bilateral extremities with 3+ edema noted. Skin erythematous bilaterally. Upper extremity pulses 2+. Lower extremity pulses 1+. Capillary refill less than 3 seconds. Skin: Warm and dry. No unusual lesions or rashes. No skin breakdown appreciated. Neuro: Awake, alert and oriented 3. Moves all extremities well without hemiparesis or paralysis. No essential tremor is appreciated. Result/EKG - Labs CBC & BMP: 03/07/17 05:25 03/08/17 04:57 Lab Results: I have reviewed the past 24 hour labs Labs: Laboratory Results - last 24 hr 03/07/17 03/07/17 03/07/17 11:31 15:56 20:47 INR PT Patient/Control Mix Sodium Potassium Chloride Carbon Dioxide Anion Gap BUN Creatinine GFR Calculation BUN/Creatinine Ratio Glucose POC Glucose 129 H 121 H 118 H Calculated Osmolality Calcium Magnesium Theophylline 03/08/17 03/08/17 03/08/17 04:57 04:57 04:57 INR 2.6 PT Patient/Control Mix 27.4 Sodium 132 L Potassium 3.7 Chloride 87 L Carbon Dioxide 38 H Anion Gap 10.7 BUN 20 H Creatinine 1.00 GFR Calculation 98 BUN/Creatinine Ratio 20.00 Glucose 99 POC Glucose Calculated Osmolality 266.5 L Calcium 9.8 Magnesium 2.2 Theophylline 12.7 03/08/17 07:32 INR PT Patient/Control Mix Sodium Potassium Chloride Carbon Dioxide Anion Gap BUN Creatinine GFR Calculation BUN/Creatinine Ratio Glucose POC Glucose 137 H Calculated Osmolality Calcium Magnesium Theophylline - EKG EKG results: interpreted by ga EKG shows: atrial fibrillation (Demand ventricular pacing) Quality Measures - VTE Contraindication to Pharmacological VTE Prophylaxis: High Risk of Bleeding Specialty Discharge - Follow Up or Referrals Follow up with: Alec Hodges MD [Physician] - 1 Week (BMP with mag, CBC, PT INR prior to appointment) Odette Triplett MD [REFERRING DOCTOR/PRACTITIONER] - 1 Week (schedule appt to be seen by Dr. Triplett within 1 week of discharge. If there is any problem contact katheryn Curry health care assistant @[phone]) Brandt, Melida Rush NP, personally performed the services described in this documentation, ascribed by Cyn Moffett NP in my presence, and it is both accurate and complete 511 .
[2017-03-08] MEDS ORDERED: WARFARIN 7.5 MG TABLET PO SCH (18:00)
[2017-03-08] MEDS: ATORVASTATIN 20 MG TABLET PO SCH (21:27)
[2017-03-09 05:50] LABS: Basophils % 0.4 % (0.0-0.8); Eosinophils # 0.3 10*3/uL (0.0-0.87); Eosinophils % 2.7 % (0.00-10.9); Hematocrit 39.3 VOL% (35.7-47.0); Hemoglobin 12.2 GM/DL (12.0-16.0); Immature Granulocytes % 0.7 %; Immature Granulocytes Absolute 0.07 #; Lymphocytes # 1.3 10*3/uL (1.4-4.0); Lymphocytes % 12.7 % (21.3-54.2); Mean Corpuscular Hemoglobin 30 PG (27-34); Mean Corpuscular Volume 96.1 FL (87-102); Mean Platelet Volume 11.4 FL (9.6-12.0); Monocytes # 1.3 10*3/uL (0.11-0.8); Monocytes % 12.8 % (1.7-12.7); NRBC # 0.04 10*3/uL; Neutrophils # 7.4 10*3/uL (1.4-7.4); Neutrophils % 70.7 % (38.7-73.9); Platelet Count 267 T/CUMM (130-400); Red Blood Count 4.09 MC/CUMM (3.8-5.5); Red Cell Distribution Width 14.7 % (9.3-17.3); White Blood Count 10.5 T/CUMM (4-12)
[2017-03-09 06:04] LABS: INR 2.1
[2017-03-09] MEDS: ALBUTEROL/IPRATROPIUM 3 ML NEB RESP TX SCH (06:56)
[2017-03-09 07:10] LABS: Osmolality,Calculated 271.2 MOS/KG (273-304); Potassium 3.9 MMOL/L (3.5-5.1)
--- NOTE | 2017-03-09 07:20 | Pulmonology Progress Note ---
Pulmonary - PN: Subj Interval history: This 57-year-old white female has obesity hypoventilation syndrome and cor pulmonale. Also has a left lower lobe pneumonia. Her PCO2 did come down to the 90s on BiPAP yesterday. She apparently declined wearing the BiPAP overnight again. This morning she is wide awake. She is on Aminophyllin and her theophylline level is slightly elevated at 23. Also has hypokalemia. Will adjust these. We will add Aldactone to help with further diuresis and try to correct her potassium. 03/06/2017 patient using her BiPAP overnight. Outstanding diuresis. Chemistries pending. Theophylline level pending. O2 sat in the mid 90s. Overall looks better. Can move to the floor. Must ensure that she uses her BiPAP at night. 03/07/2017 patient tolerating BiPAP well. We can start taking it off during the daytime to let her eat. Just need an O2 sat of around 85% which would correlate to a PO2 of 50 when she is awake and off her BiPAP. Giving her a burst of Diamox for a few days again. Her CO2 is 44 on her venous chemistries. 03/08/2017 patient looks much better. She has diuresed well. Now using her BiPAP most of the night. Plans being made for discharge. Change to oral medications. Presently on both Lasix and Diamox. Watch potassium. Bicarb level is down from 53-38. 03/09/2017 plans for discharge noted. Patient says she will use her BiPAP at night. Will change her Diamox to the low dose once a day. She follows up with Dr. Odette Triplett. Exam (Progress Note) - Constitutional Vitals: Period Temp Pulse Resp BP Sys/Way Pulse Ox Last 24 Hr 96.0 F-97.4 F 60-84 15-20 116-157/23-82 91-98 Exam: She is alert and wearing nasal O2. Vital signs normal except weight. Pupils react to light. Throat is clear. Chin redundant. Neck is supple. Chest reveals minimal basilar rhonchi. Heart normal rate and rhythm no murmurs. Abdomen soft obese unable to palpate abdominal organs. Extremities no clubbing or cyanosis trace of edema. Calves nontender. Results - Labs CBC & BMP: 03/09/17 05:17 09/21/17 05:17 Lab Results: I have reviewed the past 24 hour labs Assessment and Plan (1) History of coronary artery disease Status: Chronic Assessment and plan: Being managed by cardiology. Current Visit: No (2) Morbid obesity Status: Chronic Assessment and plan: Patient was 450 pounds. Certainly the underlying cause for her obstructive sleep apnea and obesity hypoventilation syndrome. This will need addressing long-term. 03/05/2017 needs to lose about 200 pounds. This will of course be a long-term process. 03/06/2017 she is losing some fluid weight at this point. Again needs plan for long-term weight loss 03/07/17 again will need long-term weight loss. 03/08/2017 continues need for weight loss. 03/09/2017 needs extensive work Current Visit: No (3) History of atrial fibrillation Status: Chronic Assessment and plan: Patient chronically on Coumadin. 03/05/2017 rate is controlled she does have a paced rhythm. 03/06/2017 rate continues to be controlled. 03/07/2017 her rate is controlled 03/08/2017 once again rate is controlled. 03/09/2017 rate is controlled. Current Visit: Yes (4) Non-compliant behavior Status: Chronic Assessment and plan: She has not been willing to use her CPAP or BiPAP at night despite severe obstructive sleep apnea. 03/05/2017 once again refused to wear the BiPAP overnight. She says this morning that she had said it was okay to use but she would not allow them to put it on last night. 03/06/2017 patient wearing BiPAP at present and wore it all night. 03/08/2017 she wore her BiPAP most of the night. 03/09/2017 patient says she will use her BiPAP at home. Current Visit: Yes (5) Obstructive sleep apnea Status: Chronic Assessment and plan: Enforcing use of BiPAP at present. 03/05/2017 must use BiPAP at night 03/06/2017 using BiPAP. 03/07/2017 she continues to use BiPAP at night. He is doing most of the day yesterday. We need to get her on nasal byprongs during the day now that she has diuresed considerably. 03/08/2017 the most important thing is going to be continued use of her BiPAP postdischarge. She has been noncompliant in the past. This is been discussed on daily basis. 03/09/2017 needs to continue using her BiPAP at home and follow-up with Sleep Lab Current Visit: Yes (6) Acute and chronic respiratory failure Status: Acute Assessment and plan: Has a PCO2 of 148. May require mechanical ventilation. Hopefully with diuresis , Aminophyllin, and insured facemask BiPAP we can improve this. At the present time she is allowing the facemask BiPAP to be used. 03/05/2017 obesity hypoventilation syndrome with hypercarbia. Did not recheck ABGs this morning. Is alert. Trying to help this with Aminophyllin. She does have an acidic pH so we really cannot use Diamox. 03/06/2017 we have not rechecked ABGs. O2 sat acceptable on the BiPAP. Patient alert when she is awake 03/07/2017 remains in chronic respiratory failure requiring BiPAP at night and oxygen during the day. 03/08/2017 using BiPAP. In addition she is on Diamox. Probably can change that to once daily Diamox on discharge. 03/09/2017 obesity hypoventilation syndrome, obstructive sleep apnea, chronic respiratory failure. Changing to once daily Diamox Current Visit: Yes (7) Obesity hypoventilation syndrome Status: Chronic Assessment and plan: He has severe obesity hypoventilation syndrome with acute on chronic respiratory failure 03/05/2017 long-term weight loss and nocturnal BiPAP are indicated. 03/06/2017 needs to be compliant with BiPAP every night. Needs long-term weight loss. Has hypercarbia and cor pulmonale due to obesity hypoventilation primarily. 03/07/2017 continuing with diuresis, nasal oxygen during the day, BiPAP at night , needs long-term weight loss. I have resumed Diamox for 3 days. Changing IV Aminophyllin to oral theophylline. Keep up with altagracia levels. Her altagracia level was 21 this morning. 03/08/2017 continue BiPAP recommending weight loss. Theophylline level is 12. Continue oral theophylline. 03/09/2017 again continuing BiPAP at night, theophylline, once a day Diamox, and long-term weight loss. Does need follow-up with sleep lab. Current Visit: No Specialty Discharge - Follow Up or Referrals Follow up with: Alec Hodges MD [Physician] - 1 Week (BMP with mag, CBC, PT INR prior to appointment) Uziel,Odette R, MD [REFERRING DOCTOR/PRACTITIONER] - 1 Week (schedule appt to be seen by Dr. Triplett within 1 week of discharge. If there is any problem contact katheryn Curry child care center administrator @[phone])
[2017-03-09] MEDS: INSULIN REGULAR 100 UNIT/ML SUBCUT SCH ×2 (08:22→12:28)
[2017-03-09] MEDS ORDERED: acetaZOLAMIDE 250 MG TABLET PO SCH (09:00)
[2017-03-09] MEDS: THEOPHYLLINE ER (24 HR) 200 MG CAPSULE PO SCH (10:29)
[2017-03-09] MEDS: LEVOFLOXACIN 500 MG TABLET PO SCH (10:29)
[2017-03-09] MEDS: GABAPENTIN 100 MG CAPSULE PO SCH (10:30)
[2017-03-09] MEDS: FUROSEMIDE 80 MG TABLET PO SCH (10:30)
[2017-03-09] MEDS: CARVEDILOL 6.25 MG TABLET PO SCH (10:30)
[2017-03-09] MEDS: PANTOPRAZOLE 40 MG TABLET PO SCH (10:30)
[2017-03-09] MEDS: ASPIRIN EC 81 MG TABLET PO SCH (10:31)
[2017-03-09] MEDS: sitaGLIPtin 25 MG TABLET PO SCH (10:31)
[2017-03-09] MEDS: MAGNESIUM OXIDE 400 MG TABLET PO SCH (10:33)
[2017-03-09] MEDS: POTASSIUM CHLORIDE 20 MEQ TABLET PO SCH (10:39)
[2017-03-09 11:20] VITALS: BP 144/75
== END 2017-03-09 13:59 | disposition hospice, home (50) | DRG 192 ==
LOC: EDBD → EDUNIT# → N.EDINP 06:28 → N.ED 06:28 → N.EDINP 11:57 → N.TELEN 12:14 → N.5E 03-03 18:46 → N.ICU 03-04 06:09 → N.TELES 03-07 18:44
PROVIDERS: ADMIT Internal Medicine Cardiovascular Disease; ATTEND Internal Medicine Cardiovascular Disease